=== PATIENT | female | born 1945 | race Caucasian/White ===

== ENCOUNTER 2025-09-17 11:12 | Outpatient (CLI) | payer MEDICARE, OTHER, SELFPAY ==
--- OUTSIDE RECORDS SUMMARY | 2025-08-05 12:49 | XMS_ITS | Encounter Summary ---
Author Organization [facility] Address [address] [place] [address] Care Team Providers Care Sorting Grapple Operator Name Role Phone Araseli Khan DO Primary Care Provider [phone] Reason for Referral * MRI/CAT/PET Scan (Routine) - Closed Specialty Diagnoses / Procedures Referred By Contac t Referred To Contact Radiology Diagnoses Hemorrhagic stroke Procedures CT Head Without Contrast Yogesh Rios PA-C [address] [place] [address] Phone: tel: fax: [facility] [address] [place] [id number] Phone: tel: Referral ID Status Reason Start Date Expiration Date Visits Re quested Visits Authorized [id number] Closed 08/08/2025 11/07/2026 1 1 * Consultation (Routine) - Closed Specialty Diagnoses / Procedures Referred By Contac t Referred To Contact Neurology Diagnoses Intraparenchymal hemorrhage of brain Procedures IA OFFICE/OUTPATIENT NEW MODERATE MDM 45 MINUTES Paige Cary APRN [address] [facility] [address] [place] [address] Phone: tel: fax: Ashley Kinsey APRN [address] [place] [address] Phone: tel: fax: Referral ID Status Reason Start Date Expiration Date V isits Requested Visits Authorized [id number] Closed Specialty Services Required 08/07/2025 11/06/2026 1 1 Reason for Visit * Reason Comments Stroke * Auth/Cert Specialty Diagnoses / Procedures Referred By Yan t Referred To Contact Diagnoses ICH (intracerebral hemorrhage) Referral ID Status Reason Start Date Expiration Date Visits Re quested Visits Authorized [id number] 1 1 Encounter Details Date Type Department Care Team (Late st Contact Info) Description 08/05/2025 1:49 PM EDT - 08/10/2025 3:56 PM EDT Hospital Encounter [facility] 3F [address] [place] [address] Yoana Kinney MD [address] [place] [address] Rishi Alexander DO [address] [place] [address] Yuval Gloria DO [address] [facility] [address] [place] [address] Hemorrhagic stroke (Primary Dx); Intraparenchymal hemorrhage of brain; Oral phase dysphagia; Communication deficit Discharge Disposition: Rehab Facility or Unit (DC - External) Social History Tobacco Use Types Packs/Day Years Used Date Smoking Tobacco: Never Passive Smoke Exposure: Never Smokeless Tobacco: Never Tobacco Cessation:Counseling Given: No Alcohol Use Standard Drinks/Week Comments Yes 0 (1 standard drink = 0.6 oz pur e alcohol) [facility] Utilities Answer Date Recorded In the past 12 months has e electric, gas, oil, or water company threatened to shut off services in your home? No 08/06/2025 AUDIT-C Answer Date Recorded Q1: How often do you have a drink containing alcohol? Never 08/05/2025 Q2: How many drinks containi ng alcohol do you have on a typical day when you are drinking? Patient does not drink Q3: How often do you have si x or more drinks on one occasion? Never 08/05/2025 Hunger Vital Sign Answer Date Recorded Within the past 12 months, y ou worried that your food would run out before you got the money to buy more. Patient unable to answer 08/06/2025 Within the past 12 months, t he food you bought just didn't last and you didn't have money to get more. Patient unable to answer 08/06/2025 PRAPARE - Transportation Answer Date Re corded In the past 12 months, has l ack of transportation kept you from medical appointments or from getting medications? No 11/2024 In the past 12 months, has l ack of transportation kept you from meetings, work, or from getting things needed for daily living? No 08/06/2025 Abuse Screen Answer Date Recorded Feels Unsafe at Home or Work/School no 08/05/2025 Feels Threatened by Someone no 07/09 Does Anyone Try to Keep You From Having Contact with Others or Doing Things Outside Your Home? no 08/05/2025 Physical Signs of Abuse Present no 08/05/2025 Housing Stability Answer Date Recorded Current Living Arrangements home 11/2024 Potentially Unsafe Housing Conditions none 08/06/2025 Family and Community Support Answer Estrada e Recorded If for any reason you need h elp with day-to-day activities such as bathing, preparing meals, shopping, managing finances, etc., do you get the help you need? Patient unable to answer 08/06/2025 Lonely or Isolated Not on file 08/06/2025 Employment Answer Date Recorded Do you want help finding or keeping work or a job? Patient unable to answer 08/06/2025 Disabilities Answer Date Recorded Difficulty Concentrating, Remembering or Making Decisions yes 08/05/2025 Difficulty Managing Errands Independently yes 08/05/2025 Education Answer Date Recorded Do you want help with school or training? For example, starting or completing job training or getting a high school diploma, GED or equivalent Patient unable to answer 08/06/2025 Preferred Language Citizen Of [place] 08/06/2025 Comments Unknown Sex and Gender Information Value Date Recorded Sex Assigned at Not on file Legal Sex Female 1:35 PM EDT Gender Identity Not on file Sexual Orientation Not on file documented as of this encounter Last Filed Vital Signs Vital Sign Reading Time Taken Comments Blood Pressure 113/78 08/10/2025 11:07 AM EDT Pulse 81 08/10/2025 1:00 PM EDT Temperature 36.9 C (98.5 F) 08/10/2025 11:07 AM EDT Respiratory Rate 17 08/10/2025 11:07 AM EDT Oxygen Saturation 96% 08/10/2025 11:07 AM EDT Inhaled Oxygen Concentration - - Weight 79 kg (174 lb 2.6 oz) 08/08/2025 6:00 AM EDT Height 170.2 cm (5' 7 ) 08/05/2025 2:01 PM EDT Body Mass Index 27.28 08/05/2025 2:01 PM EDT documented in this encounter Functional Status * Calculated C-SSRS Risk Score (Lifetime/Recent) Answer Date of Assessment Author No Risk Indicated 08/05/2025 2:14 PM EDT Tripp De Los Santos RN * [place]alt Suicide Severity Rating Scale (Screener/Recent Self-Report) Question Answer Date of Assessment Author 1. Wish to be (Past 1 Month) No 025 2:14 PM EDT Cassidy De Los Santos RN 2. Non-Specific Active Suici nathaniel Thoughts (Past 1 Month) No 08/05/2025 2:14 PM EDT Víctor De Los Santos i, RN 6. Suicidal Behavior (Lifetime) No 2:14 PM EDT Cassidy De Los Santos RN documented as of this encounter Discharge Summaries * Rosemarie Loyd RN - 08/10/2025 10:53 AM EDT Images from the original note were not included. Joie Flores (80 y.o. Female) Discharge summary for stroke unit. Call Rosemarie Loyd RN with concerns [phone] Date of 1945 Social Security Number [id number] [place] [address] [employer] Status Admission Date 08/05/2025 Admission Type Emergency Admitting Provider Yuval Gloria DO Attending Provider Yuval Gloria DO Department, Room/Bed [facility] 3F, S311/1 Discharge Date Discharge Disposition Rehab Facility or Unit (DC - External) Discharge Destination Attending Provider: Yuval Gloria DO Allergies: Hydralazine, Lipitor [Atorvastatin], Morphine Isolation: None Infection: None Code Status: CPR Ht: 170.2 cm (67 ) Wt: 79 kg (174 lb 2.6 oz) Admission Cmt: None Principal Problem: ICH (intracerebral hemorrhage) [I61.9] Active Insurance as of 08/05/2025 Primary Coverage Payor Plan Insurance Group Employer/Plan Group MEDICARE MEDICARE A & B Payor Plan Address Payor Plan Phone Number Payor Plan Fax Number Effective Dates [address] 02/04/2010 - None Entered [facility] [id number] Subscriber Name Subscriber Date Member ID JOIE FLORES 1945 [id number] Secondary Coverage Payor Plan Insurance Group Employer/Plan Group [employer] Payor Plan Address Payor Plan Phone Number Payor Plan Fax Number Effective Dates [address] 11/06/2022 - None Entered [facility] [id number] Subscriber Name Subscriber Date Member ID JOIE FLORES 1945 [id number] Emergency Contacts Vibrating Screed Operator (Rel.) Home Phone Work Phone Mobile Phone DAVINA FREEMAN (Daughter) [phone] -- [phone] Discharge Summary Yuval Gloria DO at 08/10/[address] [place] [address] Medicine Services DISCHARGE SUMMARY Patient Name: Joie Flores : 1945 Date of Admission: 08/05/2025 1:49 PM Date of Discharge: 08/10/25 Primary Care Physician: Araseli Khan DO Consults Date and Time Order Name Status Description 08/05/2025 4:16 PM Inpatient Neurosurgery Consult Completed 08/05/2025 1:50 PM Inpatient Neurology Consult Stroke Completed Hospital Course Presenting Problem: Headache, aphasia Active Hospital Problems Diagnosis POA ICH (intracerebral hemorrhage) [I61.9] Yes Paroxysmal SVT (supraventricular tachycardia) [I47.10] Yes Coronary artery disease involving autologous vein coronary bypass graft without angina pectoris [I25.810] Yes Hyperlipidemia LDL goal <100 [E78.5] Yes Essential hypertension [I10] Yes Hypothyroidism (acquired) [E03.9] Yes Resolved Hospital Problems Diagnosis Date Resolved POA Subdural hematoma [S06.5XAA] 08/05/2025 Yes Hospital Course: Joie Flores is a 80 y.o. female with a history of hypertension, coronary artery disease (status post autologous vein coronary bypass graft), hyperlipidemia, paroxysmal supraventricular tachycardia, and hypothyroidism, who was admitted for acute left temporal intracerebral hemorrhage presenting with headache, aphasia, and right-sided weakness. Workup notable for left temporal parenchymal hemorrhage with vasogenic edema. Neurosurgery consulted, no indication for surgical intervention. Holding all antiplatelets and anticoagulation at this time. Patient will need repeat MRI brain with and witho ut contrast in 3 months. Follow-up with stroke neurology in 4 weeks. Further details documented below. Acute Left Temporal Intracerebral Hemorrhage (ICH) - Patient presenting with headache and aphasia. - Imaging revealing left temporal parenchymal hemorrhage with surrounding vasogenic edema and rightward midline shift - Initially admitted to ICU for neurological monitoring. - Evaluated by neurosurgery, no indication for surgical intervention - Holding antiplatelets and anticoagulation at this time. - Status post Cardene drip. Goal blood pressure less than 140/90 - Continues to show right-sided weakness, right-sided neglect, and severe aphasia which will require inpatient rehab - Patient will need repeat MRI brain with and without contrast in 3 months and follow-up with stroke clinic in 4 weeks. Dysphagia and Communication Impairment - Speech-language pathology evaluation identified oral phase dysphagia with a functional pharyngealphase on FEES, and severe aphasia with apraxia and impaired comprehension and expression. Diet was advanced to thin liquids and tiuc-gb-[id number]/chopped textures with aspiration precautions and feeding as sistance. - Ongoing speech therapy is recommended, with anticipated discharge to inpatient rehabilitation. Urinary Tract Infection - Continue Rocephin (end 08/11/25) Hypertension - Status post Cardene drip. No current blood pressure medications at this time. Coronary Artery Disease HLD - Aspirin held due to ICH. Continue statin Paroxysmal Supraventricular Tachycardia (SVT) - No acute SVT episodes occurred during hospitalization. She was not on antiarrhythmic therapy at home, and cardiac rhythm was monitored. Hypothyroidism - Continue Levothyroxine Mood disorder - Continue home medications Discharge Follow Up Recommendations for outpatient labs/diagnostics: Continue to hold all antiplatelets and anticoagulation. Continue antibiotics as prescribed. Patientwill need follow-up MRI brain with and without contrast in 3 months. Follow-up with stroke neurology in 4 weeks. Day of Discharge HPI: Patient seen resting in bed this morning. Tearful when family is not present. Vital Signs: Temp: [97.3 ??F (36.3 ??C)-98.6 ??F (37 ??C)] 97.3 ??F (36.3 ??C) Heart Rate: [60-86] 68 Resp: [16-18] 17 BP: (82-117)/(56-81) 117/81 Flow (L/min) (Oxygen Therapy): [2] 2 Physical Exam Cardiovascular: Rate and Rhythm: Normal rate. Pulses: Normal pulses. Pulmonary: Effort: Pulmonary effort is normal. No respiratory distress. Abdominal: General: There is no distension. Palpations: Abdomen is soft. Tenderness: There is no abdominal tenderness. There is no guarding or rebound. Musculoskeletal: Right lower leg: No edema. Left lower leg: No edema. Skin: General: Skin is warm. Neurological: Mental Status: She is alert. Comments: Aphasia Pertinent and/or Most Recent Results LAB RESULTS: Lab 08/08/25 0447 08/06/25 0509 08/05/25 1435 08/05/25 1405 WBC 5.48 4.07 3.64 -- HEMOGLOBIN 10.4* 10.4* 10.3* -- HEMOGLOBIN, POC -- -- -- 11.9* HEMATOCRIT 29.6* 31.4* 31.9* -- HEMATOCRIT POC -- -- -- 35* PLATELETS 78* 83* 81* -- NEUTROS ABS -- 2.16 2.02 -- IMMATURE GRANS (ABS) -- 0.01 0.01 -- LYMPHS ABS -- 1.47 1.26 -- MONOS ABS -- 0.30 0.24 -- EOS ABS -- 0.10 0.08 -- MCV 97.7* 101.0* 103.6* -- PROTIME -- -- 15.5* -- APTT -- -- 26.5 -- Lab 08/08/25 0447 08/06/25 0509 08/05/25 1405 SODIUM 135* 141 -- POTASSIUM 4.0 4.2 -- CHLORIDE 101 105 -- CO2 24.0 26.6 -- ANION GAP 10.0 9.4 -- BUN 16.8 13.9 -- CREATININE 0.97 1.07* 1.40* EGFR 59.2* 52.6* 38.1* GLUCOSE 97 95 -- CALCIUM 8.6 8.8 -- MAGNESIUM 2.0 2.0 -- PHOSPHORUS 3.2 -- -- HEMOGLOBIN A1C -- 5.42 -- Lab 08/06/25 0509 08/05/25 1435 TOTAL PROTEIN 5.6* -- ALBUMIN 3.7 -- GLOBULIN 1.9 -- ALT (SGPT) 12 10 AST (SGOT) 19 19 BILIRUBIN 0.9 -- ALK PHOS 62 -- Lab 08/05/25 1435 PROTIME 15.5* INR 1.16* Lab 08/06/25 0509 CHOLESTEROL 99 LDL CHOL 39 HDL CHOL 39* TRIGLYCERIDES 118 Brief Urine Lab Results (Last result in the past 365 days) Color Clarity Blood Leuk Est Nitrite Protein CREAT Urine HCG 08/07/25 1526 Yellow Cloudy Moderate (2+) Large (3+) Positive Trace Microbiology Results (last 10 days) Procedure Component Value - Date/Time Urine Culture - Urine, Straight Cath [[id number]] (Abnormal) (Susceptibility) Collected: 08/07/25 1526 Lab Status: Final result Specimen: Urine from Straight Cath Updated: 08/09/25 1010 Urine Culture >100,000 CFU/mL Escherichia coli Narrative: Colonization of the urinary tract without infection is common. Treatment is discouraged unless the patient is symptomatic, , or undergoing an invasive urologic procedure. Susceptibility Escherichia coli MED Amoxicillin + Clavulanate Susceptible Ampicillin Resistant Ampicillin + Sulbactam Resistant Cefazolin (Urine) Susceptible Cefepime Susceptible Ceftazidime Susceptible Ceftriaxone Susceptible Cefuroxime axetil Resistant Ciprofloxacin Resistant Gentamicin Susceptible Levofloxacin Resistant Nitrofurantoin Resistant Piperacillin + Tazobactam Susceptible Trimethoprim + Sulfamethoxazole Susceptible WELL DRILLER FEES - Fiberoptic Endo Eval Swallow Result Date: 08/08/2025 This procedure was auto-finalized with no dictation required. MRI Brain Without Contrast Result Date: 08/07/2025 MRI BRAIN WO CONTRAST Date of Exam: 08/07/2025 2:30 PM EDT Indication: ICH; eval for microhemorrhages. Comparison: CT head without contrast 08/06/2025 Technique: Routine multiplanar/multisequence sequence images of the brain were obtained without contrast administration. Findings: There is a 5.9 x 4.3 cm parenchymal hemorrhage in the left temporal lobe with surrounding edema and mass effect resulting in effacement of the left lateral ventricle and 6 mm left to right midline shift. Moderate chronic microvascular ischemic changes are present. There is mild age-related atrophy. Susceptibility weighted images are somewhat limited by motion artifact. There are 2 suspected punctate microhemorrhages, in the left occipital and parietal lobes. There may be an additional punctate remote microhemorrhage in the right parietal lobe. There is a partial empty sella configuration. Calvarial and superficial soft tissue signal is within normal limits. Orbits appear unremarkable. Trace mucosal thickening of the paranasal sinuses. Mastoid air cells are clear. Impression: 1.Large left temporal lobe parenchymal hemorrhage similar to previous CT, with surrounding edema and mass effect resulting in effacement of the left lateral ventricle and 6 mm left to right midline shift. 2.Motion limited examination. There are a few punctate foci of susceptibility artifact suggesting minimal chronic microhemorrhages. 3.3. Mild age-related atrophy and moderate chronicmicrovascular ischemic changes. Electronically Signed: Teena Hou MD 08/07/2025 3:58 PM EDT Workstation ID: [id number] CT Head Without Contrast Result Date: 08/06/2025 CT HEAD WO CONTRAST Date of Exam: 08/06/2025 5:29 AM EDT Indication: Of ICH stability. Comparison: 08/05/2025. Technique: Axial CT images were obtained of the head without contrast administration. Automated exposure control and iterative construction methods were used. Findings: Redemonstration of an intraparenchymal hemorrhage seen within the left temporal lobe which appears appears to have increased in size as compared to the previous study measuring up to 5.3 x 3.8 cm, previously measuring up to 4.9 x 3.8 cm. A component of this may be related to slight difference in angle and technique. Mass effect is present which appears similar as compared to the previous study. There is left to right midline shift measuring approximately 4 mm which appears unchanged. Effacement of the frontal horn of the left lateral ventricle present which appears similar. There is no extracerebral collection. Ventricles are normal in size and configuration for patient's stated age. Posterior fossa is within nor mal limits. Calvarium and skull base appear intact. Visualized sinuses show no air fluid levels. Visualized orbits are unremarkable. Impression: Redemonstration of an intraparenchymal hemorrhage seen within the left temporal lobe which appears slightly increased in size as compared to the previous study. A component of this may berelated to slight difference in scanning angle and resultant measuring technique. Mass effect and left to right midline shift appears similar as compared to the previous study. Electronically Signed:Gaby Vega MD 08/06/2025 5:51 AM EDT Workstation ID: [id number] CT Head Without Contrast Result Date: 08/05/2025 CT HEAD WO CONTRAST Date of Exam: 08/05/2025 8:04 PM EDT Indication: Stroke, follow up Stability scan. Comparison: Noncontrast CT of the head performed on the same date. Technique: Axial CT images were obtained of the head without contrast administration. Automated exposure control and iterative construction methods were used. Findings: Left temporal intraparenchymal hemorrhage with surrounding mass effect and edema. This has enlarged compared with the prior study. This measures 4.9 cm x 4 cm compared with 4.8 cm x 2.9 cm previously. No intraventricular extension is appreciated. 0.7 cm rightward midline shift which is increased compared to 0.5 cm previously. Enlarging left temporal intraparenchymal hemorrhage with mildly worsened rightward midline shift. Electronically Signed: Mango Alvarado MD 08/05/2025 8:19 PM EDT Workstation ID: [id number] XR Chest 1 View Result Date: 08/05/2025 XR CHEST 1 VW Date of Exam: 08/05/2025 2:25 PM EDT Indication: Acute Stroke Protocol (onset < 12 hrs). Comparison: None available. Findings: There is top normal size of the heart. There is an ill-defined retrocardiac lucency likely reflecting a sliding hiatal hernia. The lungs are grossly clear. No pleural effusion or pneumothorax. Impression: No acute cardiopulmonary findings. Suspected hiatal hernia. Electronically Signed: MD Ajay 08/05/2025 3:18 PM EDT Workstation ID: [id number] CT Angiogram Head w AI Analysis of LVO Result Date: 08/05/2025 CT ANGIOGRAM HEAD W AI ANALYSIS OF LVO, CT ANGIOGRAM NECK Date of Exam: 08/05/2025 1:55 PM EDT Indication: Neuro Deficit, acute, Stroke suspected Neuro deficit, acute stroke suspected. Comparison: Head CT 08/05/2025 Technique: CTA of the head and neck was performed after the uneventful intravenous administration of iodinated contrast. Reconstructed coronal and sagittal images were also obtained. Inaddition, a 3-D volume rendered image was created for interpretation. Automated exposure control and iterative reconstruction methods were used. Findings: HEAD CTA: Anterior circulation: No proximal large vessel occlusion or major stenosis. Posterior circulation: No proximal large vessel occlusion or major stenosis. Major dural venous sinuses: No evidence of dural venous sinus thrombosis within the limitation of angiographic contrast imaging. Additional findings: No significant interval change in the left temporal parenchymal hemorrhage. No visible spot sign to suggest active arterial hemorrha ge. No evidence of a high flow arteriovenous malformation or fistula. NECK CTA: Conventional, three-vessel, aortic arch. Normal contrast enhancement in the common carotid arteries from their origins to the bifurcation. Minimal atherosclerotic calcification at the carotid bulbs. No significant narrowing of the right ICA by NASCET criteria at its origin. No significant narrowing of the left ICA by NASCET criteria at its origin. Otherwise, normal contrast enhancement of the internal carotid arteries from their origins to the proximal intradural portions.Irregularity and atherosclerotic calcification of the petrous and cavernous carotid arteries. Normal enhancement in the vertebral arteries from their origins to their proximal intradural portions. The left vertebral artery is dominant. Patentsubclavian arteries. Angiographic contrast timing precludes accurate assessement of jugular vein patency. SOFT TISSUE NECK: No exophytic lesion seen within the aerodigestive tract. No pathologic appea ring lymph nodes by imaging criteria. The visualized glands appear unremarkable. No acute or aggressive appearing osseous or soft tissue process.Degenerative changes of the imaged spine. Atelectasis in the imaged lungs. Dilated main pulmonary artery measuring 42 mm which can be seen in pulmonary hypertension. Impression: No significant interval change in the left temporal parenchymal hemorrhage. No proximallarge vessel occlusion or severe stenosis of the major arteries of the head and neck. Electronically Signed: Rodney Oliva MD 08/05/2025 2:52 PM EDT Workstation ID: [id number] CT Angiogram Neck Result Date: 08/05/2025 CT ANGIOGRAM HEAD W AI ANALYSIS OF LVO, CT ANGIOGRAM NECK Date of Exam: 08/05/2025 1:55 PM EDT Indication: Neuro Deficit, acute, Stroke suspected Neuro deficit, acute stroke suspected. Comparison: Head CT 08/05/2025 Technique: CTA of the head and neck was performed after the uneventful intravenous administration of iodinated contrast. Reconstructed coronal and sagittal images were also obtained. Inaddition, a 3-D volume rendered image was created for interpretation. Automated exposure control and iterative reconstruction methods were used. Findings: HEAD CTA: Anterior circulation: No proximal large vessel occlusion or major stenosis. Posterior circulation: No proximal large vessel occlusion or major stenosis. Major dural venous sinuses: No evidence of dural venous sinus thrombosis within the limitation of angiographic contrast imaging. Additional findings: No significant interval change in the left temporal parenchymal hemorrhage. No visible spot sign to suggest active arterial hemorrha ge. No evidence of a high flow arteriovenous malformation or fistula. NECK CTA: Conventional, three-vessel, aortic arch. Normal contrast enhancement in the common carotid arteries from their origins to the bifurcation. Minimal atherosclerotic calcification at the carotid bulbs. No significant narrowing of the right ICA by NASCET criteria at its origin. No significant narrowing of the left ICA by NASCET criteria at its origin. Otherwise, normal contrast enhancement of the internal carotid arteries from their origins to the proximal intradural portions.Irregularity and atherosclerotic calcification of the petrous and cavernous carotid arteries. Normal enhancement in the vertebral arteries from their origins to their proximal intradural portions. The left vertebral artery is dominant. Patentsubclavian arteries. Angiographic contrast timing precludes accurate assessement of jugular vein patency. SOFT TISSUE NECK: No exophytic lesion seen within the aerodigestive tract. No pathologic appea ring lymph nodes by imaging criteria. The visualized glands appear unremarkable. No acute or aggressive appearing osseous or soft tissue process.Degenerative changes of the imaged spine. Atelectasis in the imaged lungs. Dilated main pulmonary artery measuring 42 mm which can be seen in pulmonary hypertension. Impression: No significant interval change in the left temporal parenchymal hemorrhage. No proximallarge vessel occlusion or severe stenosis of the major arteries of the head and neck. Electronically Signed: Rodney Oliva MD 08/05/2025 2:52 PM EDT Workstation ID: [id number] CT Head Without Contrast Stroke Protocol Result Date: 08/05/2025 CT HEAD WO CONTRAST STROKE PROTOCOL Date of Exam: 08/05/2025 1:51 PM EDT Indication: Neuro deficit, acute, stroke suspected Neuro Deficit, acute, Stroke suspected. Comparison: None available. Technique: Axial CT images were obtained of the head without contrast administration. Reconstructed coronal images were also obtained. Automated exposure control and iterative construction methods were used. Scan Time: 1:59 p.m. Results discussed with stroke team at 1:59 p.m. Findings: Parenchyma: Within the left temporal lobe there is a 4.5 x 3.6 x 3.0 cm parenchymal hemorrhage with surrounding vasogenicedema. No loss of mora-white differentiation to suggest large territory infarct. Mild parenchymal volume loss. Scattered periventricular and subcortical white matter hypodensities, nonspecific, but most often consistent with small vessel ischemic changes. There is approximately 5 mm of rightward midline shift. No evidence of downward herniation. Ventricles and extra axial spaces:Prominent ventricles and sulci secondary to volume loss. No extra axial fluid collection seen. Other:Orbits are grossly intact. Scattered paranasal sinus mucosal thickening. Mastoid air cells are clear. Calvarium is intact. Intracranial atherosclerotic calcification is present. Impression: Parenchymal hemorrhage within the left temporal lobe with surrounding vasogenic edema and approximately 5 mm of rightward midline shift. Electronically Signed: Jagjit Florez MD 08/05/2025 2:04 PM EDT Workstation ID: [id number] Results for orders placed in visit on 06/02/23 Duplex Carotid Ultrasound CAR 06/06/2023 2:45 PM Interpretation Summary Right internal carotid artery demonstrates a less than 50% stenosis. Left internal carotid artery demonstrates a less than 50% stenosis. Results for orders placed in visit on 06/02/23 Duplex Carotid Ultrasound CAR 06/06/2023 2:45 PM Interpretation Summary Right internal carotid artery demonstrates a less than 50% stenosis. Left internal carotid artery demonstrates a less than 50% stenosis. Results for orders placed in visit on 06/02/23 Adult Transthoracic Echo Complete W/ Cont if Necessary Per Protocol 06/06/2023 2:45 PM Interpretation Summary Left ventricular ejection fraction appears to be 61 - 65%. Left ventricular wall thickness is consistent with concentric hypertrophy. Left ventricular diastolic function is consistent with (grade I) impaired relaxation. The right ventricular cavity is dilated. Estimated right ventricular systolic pressure from tricuspid regurgitation is normal (<35 mmHg). I have personally reviewed the therapy plans: [x] PT/OT/ ST Therapy Plans Plan for Follow-up of Pending Labs/Results: N/A Discharge Details Discharge Medications New Medications Instructions Start Date cefTRIAXone 1,000 mg in sodium chloride 0.9 % 100 mL IVPB 1,000 mg, Intravenous, Every 24 Hours Continue These Medications Instructions Start Date ALPRAZolam 0.25 MG tablet Commonly known as: XANAX TAKE 1/2 TO 1 TABLET BY MOUTH 1 TO 3 TIMES EVERY DAY NEEDED atorvastatin 20 MG tablet Commonly known as: LIPITOR 20 mg, Every Evening cetirizine 10 MG tablet Commonly known as: zyrTEC 10 mg, Nightly Cranberry 500 MG tablet 1,000 mg, Nightly diphenoxylate-atropine 2.5-0.025 MG per tablet Commonly known as: LOMOTIL esomeprazole 40 MG capsule Commonly known as: nexIUM 40 mg, Every Morning Before Breakfast levothyroxine 50 MCG tablet Commonly known as: SYNTHROID, LEVOTHROID 1 tablet, Daily montelukast 10 MG tablet Commonly known as: SINGULAIR 10 mg, Nightly multivitamin with minerals tablet tablet 1 tablet, Daily ondansetron 4 MG tablet Commonly known as: ZOFRAN 4 mg, Every 8 Hours PRN venlafaxine XR 75 MG 24 hr capsule Commonly known as: EFFEXOR-XR 75 mg, Nightly Stop These Medications aspirin 81 MG chewable tablet Allergies Allergen Reactions Hydralazine Unknown - Low Severity Lipitor [Atorvastatin] Unknown - Low Severity Morphine Rash Discharge Disposition: Rehab Facility or Unit (DC - External) Diet: Hospital: Diet Order Procedures Diet: Regular/House; Texture: Soft to Chew (NDD 3); Soft to Chew: Chopped Meat; Fluid Consistency: Thin (IDDSI 0) Dietary modifiers entered as reported to [facility] by RN. Wade whole with thin Standing Status: Standing Number of Occurrences: 1 Diets:: Regular/House Texture:: Soft to Chew (NDD 3) Soft to Chew:: Chopped Meat Fluid Consistency:: Thin (IDDSI 0) Diet Instructions Diet: Regular/House Diet; Soft to Chew (NDD 3); Chopped Meat; Thin (IDDSI 0) Discharge Diet: Regular/House Diet Texture: Soft to Chew (NDD 3) Soft to Chew: Chopped Meat Fluid Consistency: Thin (IDDSI 0) Activity: As tolerated Restrictions or Other Recommendations: As tolerated CODE STATUS: Code Status and Medical Interventions: CPR (Attempt to Resuscitate); Full Support Ordered at: 08/09/25 1701 Code Status (Patient has no pulse and is not breathing): CPR (Attempt to Resuscitate) Medical Interventions (Patient has pulse or is breathing): Full Support Level Of Support Discussed With: Patient Future Appointments Date Time Provider Department Center 08/25/2025 10:45 AM Belinda Puri MD [facility] 09/02/2025 9:30 AM Ashley Kinsey APRN [facility] 09/10/2025 9:15 AM Aniya Lindsey APRN [facility] Additional Instructions for the Follow-ups that You Need to Schedule Ambulatory Referral to Neurology As directed 4 weeks - ICH Order Comments: 4 weeks - ICH Discharge Follow-up with PCP As directed Currently Documented PCP: Araseli Khan DO PCP Follow Up Details: Follow-up with PCP in 1 week Discharge Follow-up with Specialty: Follow-up with stroke neurology in 4 weeks. As directed Specialty: Follow-up with stroke neurology in [address] Head Without Contrast Sep 04, 2025 Please schedule approximately 09/04/2025. Can be scheduled same day as follow-up clinic if clinic appointment is close to that date, STEREOTACTIC GUIDANCE PROTOCOL?: No Exam reason: Reevaluation of ICH Release to patient: Routine Release Yuval Gloria DO 08/10/25 Time Spent on Discharge: I spent 39 minutes on this discharge activity which included: cjys-[id number]-[id number] with the patient, reviewing the data in the system, coordination of the care with the nursing staff as well as consultants, documentation, and entering orders. 1021 * Yuval Gloria DO - 08/10/2025 10:16 AM EDT Images from the original note were not included. [facility] DISCHARGE SUMMARY Patient Name: Joie Flores : 1945 Date of Admission: 08/05/2025 1:49 PM Date of Discharge: 08/10/25 Primary Care Physician: Araseli Khan DO Consults Date and Time Order Name Status Description 08/05/2025 4:16 PM Inpatient Neurosurgery Consult Completed 08/05/2025 1:50 PM Inpatient Neurology Consult Stroke Completed Hospital Course Presenting Problem: Headache, aphasia Active Hospital Problems Diagnosis POA ??? ICH (intracerebral hemorrhage) [I61.9] Yes ??? Paroxysmal SVT (supraventricular tachycardia) [I47.10] Yes ??? Coronary artery disease involving autologous vein coronary bypass graft without angina pectoris[I25.810] Yes Hyperlipidemia LDL goal <100 [E78.5] Yes ??? Essential hypertension [I10] Yes ??? Hypothyroidism (acquired) [E03.9] Yes Resolved Hospital Problems Diagnosis Date Resolved POA ??? Subdural hematoma [S06.5XAA] 08/05/2025 Yes Hospital Course: Joie Flores is a 80 y.o. female with a history of hypertension, coronary artery disease (status post autologous vein coronary bypass graft), hyperlipidemia, paroxysmal supraventricular tachycardia, and hypothyroidism, who was admitted for acute left temporal intracerebral hemorrhage presenting with headache, aphasia, and right-sided weakness. Workup notable for left temporal parenchymal hemorrhage with vasogenic edema. Neurosurgery consulted, no indication for surgical intervention. Holding all antiplatelets and anticoagulation at this time. Patient will need repeat MRI brain with and witho ut contrast in 3 months. Follow-up with stroke neurology in 4 weeks. Further details documented below. Acute Left Temporal Intracerebral Hemorrhage (ICH) - Patient presenting with headache and aphasia. - Imaging revealing left temporal parenchymal hemorrhage with surrounding vasogenic edema and rightward midline shift - Initially admitted to ICU for neurological monitoring. - Evaluated by neurosurgery, no indication for surgical intervention - Holding antiplatelets and anticoagulation at this time. - Status post Cardene drip. Goal blood pressure less than 140/90 - Continues to show right-sided weakness, right-sided neglect, and severe aphasia which will require inpatient rehab - Patient will need repeat MRI brain with and without contrast in 3 months and follow-up with stroke clinic in 4 weeks. Dysphagia and Communication Impairment - Speech-language pathology evaluation identified oral phase dysphagia with a functional pharyngealphase on FEES, and severe aphasia with apraxia and impaired comprehension and expression. Diet was advanced to thin liquids and xqjq-og-rard/chopped textures with aspiration precautions and feeding as sistance. - Ongoing speech therapy is recommended, with anticipated discharge to inpatient rehabilitation. Urinary Tract Infection - Continue Rocephin (end 08/11/25) Hypertension - Status post Cardene drip. No current blood pressure medications at this time. Coronary Artery Disease HLD - Aspirin held due to ICH. Continue statin Paroxysmal Supraventricular Tachycardia (SVT) - No acute SVT episodes occurred during hospitalization. She was not on antiarrhythmic therapy at home, and cardiac rhythm was monitored. Hypothyroidism - Continue Levothyroxine Mood disorder - Continue home medications Discharge Follow Up Recommendations for outpatient labs/diagnostics: Continue to hold all antiplatelets and anticoagulation. Continue antibiotics as prescribed. Patientwill need follow-up MRI brain with and without contrast in 3 months. Follow-up with stroke neurology in 4 weeks. Day of Discharge HPI: Patient seen resting in bed this morning. Tearful when family is not present. Vital Signs: Temp: [97.3 ??F (36.3 ??C)-98.6 ??F (37 ??C)] 97.3 ??F (36.3 ??C) Heart Rate: [60-86] 68 Resp: [16-18] 17 BP: (82-117)/(56-81) 117/81 Flow (L/min) (Oxygen Therapy): [2] 2 Physical Exam Cardiovascular: Rate and Rhythm: Normal rate. Pulses: Normal pulses. Pulmonary: Effort: Pulmonary effort is normal. No respiratory distress. Abdominal: General: There is no distension. Palpations: Abdomen is soft. Tenderness: There is no abdominal tenderness. There is no guarding or rebound. Musculoskeletal: Right lower leg: No edema. Left lower leg: No edema. Skin: General: Skin is warm. Neurological: Mental Status: She is alert. Comments: Aphasia Pertinent and/or Most Recent Results LAB RESULTS: Lab 08/08/25 0447 08/06/25 0509 08/05/25 1435 08/05/25 1405 WBC 5.48 4.07 3.64 -- HEMOGLOBIN 10.4* 10.4* 10.3* -- HEMOGLOBIN, POC -- -- -- 11.9* HEMATOCRIT 29.6* 31.4* 31.9* -- HEMATOCRIT POC -- -- -- 35* PLATELETS 78* 83* 81* -- NEUTROS ABS -- 2.16 2.02 -- IMMATURE GRANS (ABS) -- 0.01 0.01 -- LYMPHS ABS -- 1.47 1.26 -- MONOS ABS -- 0.30 0.24 -- EOS ABS -- 0.10 0.08 -- MCV 97.7* 101.0* 103.6* -- PROTIME -- -- 15.5* -- APTT -- -- 26.5 -- Lab 08/08/25 0447 08/06/25 0509 08/05/25 1405 SODIUM 135* 141 -- POTASSIUM 4.0 4.2 -- CHLORIDE 101 105 -- CO2 24.0 26.6 -- ANION GAP 10.0 9.4 -- BUN 16.8 13.9 -- CREATININE 0.97 1.07* 1.40* EGFR 59.2* 52.6* 38.1* GLUCOSE 97 95 -- CALCIUM 8.6 8.8 -- MAGNESIUM 2.0 2.0 -- PHOSPHORUS 3.2 -- -- HEMOGLOBIN A1C -- 5.42 -- Lab 08/06/25 0509 08/05/25 1435 TOTAL PROTEIN 5.6* -- ALBUMIN 3.7 -- GLOBULIN 1.9 -- ALT (SGPT) 12 10 AST (SGOT) 19 19 BILIRUBIN 0.9 -- ALK PHOS 62 -- Lab 08/05/25 1435 PROTIME 15.5* INR 1.16* Lab 08/06/25 0509 CHOLESTEROL 99 LDL CHOL 39 HDL CHOL 39* TRIGLYCERIDES 118 Brief Urine Lab Results (Last result in the past 365 days) Color Clarity Blood Leuk Est Nitrite Protein CREAT Urine HCG 08/07/25 1526 Yellow Cloudy Moderate (2+) Large (3+) Positive Trace Microbiology Results (last 10 days) Procedure Component Value - Date/Time Urine Culture - Urine, Straight Cath [[id number]] (Abnormal) (Susceptibility) Collected: 08/07/25 1526 Lab Status: Final result Specimen: Urine from Straight Cath Updated: 08/09/25 1010 Urine Culture >100,000 CFU/mL Escherichia coli Narrative: Colonization of the urinary tract without infection is common. Treatment is discouraged unless the patient is symptomatic, , or undergoing an invasive urologic procedure. Susceptibility Escherichia coli MED Amoxicillin + Clavulanate Susceptible Ampicillin Resistant Ampicillin + Sulbactam Resistant Cefazolin (Urine) Susceptible Cefepime Susceptible Ceftazidime Susceptible Ceftriaxone Susceptible Cefuroxime axetil Resistant Ciprofloxacin Resistant Gentamicin Susceptible Levofloxacin Resistant Nitrofurantoin Resistant Piperacillin + Tazobactam Susceptible Trimethoprim + Sulfamethoxazole Susceptible [facility] FEES - Fiberoptic Endo Eval Swallow Result Date: 08/08/2025 This procedure was auto-finalized with no dictation required. MRI Brain Without Contrast Result Date: 08/07/2025 MRI BRAIN WO CONTRAST Date of Exam: 08/07/2025 2:30 PM EDT Indication: ICH; eval for microhemorrhages. Comparison: CT head without contrast 08/06/2025 Technique: Routine multiplanar/multisequence sequence images of the brain were obtained without contrast administration. Findings: There is a 5.9 x 4.3 cm parenchymal hemorrhage in the left temporal lobe with surrounding edema and mass effect resulting in effacement of the left lateral ventricle and 6 mm left to right midline shift. Moderate chronic microvascular ischemic changes are present. There is mild age-related atrophy. Susceptibility weighted images are somewhat limited by motion artifact. There are 2 suspected punctate microhemorrhages, in the left occipital and parietal lobes. There may be an additional punctate remote microhemorrhage in the right parietal lobe. There is a partial empty sella configuration. Calvarial and superficial soft tissue signal is within normal limits. Orbits appear unremarkable. Trace mucosal thickening of the paranasal sinuses. Mastoid air cells are clear. Impression: 1.Large left temporal lobe parenchymal hemorrhage similar to previous CT, with surrounding edema and mass effect resulting in effacement of the left lateral ventricle and 6 mm left to right midline shift. 2.Motion limited examination. There are a few punctate foci of susceptibility artifact suggesting minimal chronic microhemorrhages. 3.3. Mild age-related atrophy and moderate chronicmicrovascular ischemic changes. Electronically Signed: Teena Hou MD 08/07/2025 3:58 PM EDT Workstation ID: [id number] CT Head Without Contrast Result Date: 08/06/2025 CT HEAD WO CONTRAST Date of Exam: 08/06/2025 5:29 AM EDT Indication: Of ICH stability. Comparison: 08/05/2025. Technique: Axial CT images were obtained of the head without contrast administration. Automated exposure control and iterative construction methods were used. Findings: Redemonstration of an intraparenchymal hemorrhage seen within the left temporal lobe which appears appears to have increased in size as compared to the previous study measuring up to 5.3 x 3.8 cm, previously measuring up to 4.9 x 3.8 cm. A component of this may be related to slight difference in angle and technique. Mass effect is present which appears similar as compared to the previous study. There is left to right midline shift measuring approximately 4 mm which appears unchanged. Effacement of the frontal horn of the left lateral ventricle present which appears similar. There is no extracerebral collection. Ventricles are normal in size and configuration for patient's stated age. Posterior fossa is within nor mal limits. Calvarium and skull base appear intact. Visualized sinuses show no air fluid levels. Visualized orbits are unremarkable. Impression: Redemonstration of an intraparenchymal hemorrhage seen within the left temporal lobe which appears slightly increased in size as compared to the previous study. A component of this may berelated to slight difference in scanning angle and resultant measuring technique. Mass effect and left to right midline shift appears similar as compared to the previous study. Electronically Signed:Gaby Vega MD 08/06/2025 5:51 AM EDT Workstation ID: [id number] CT Head Without Contrast Result Date: 08/05/2025 CT HEAD WO CONTRAST Date of Exam: 08/05/2025 8:04 PM EDT Indication: Stroke, follow up Stability scan. Comparison: Noncontrast CT of the head performed on the same date. Technique: Axial CT images were obtained of the head without contrast administration. Automated exposure control and iterative construction methods were used. Findings: Left temporal intraparenchymal hemorrhage with surrounding mass effect and edema. This has enlarged compared with the prior study. This measures 4.9 cm x 4 cm compared with 4.8 cm x 2.9 cm previously. No intraventricular extension is appreciated. 0.7 cm rightward midline shift which is increased compared to 0.5 cm previously. Enlarging left temporal intraparenchymal hemorrhage with mildly worsened rightward midline shift. Electronically Signed: Mango Alvarado MD 08/05/2025 8:19 PM EDT Workstation ID: [id number] XR Chest 1 View Result Date: 08/05/2025 XR CHEST 1 VW Date of Exam: 08/05/2025 2:25 PM EDT Indication: Acute Stroke Protocol (onset < 12 hrs). Comparison: None available. Findings: There is top normal size of the heart. There is an ill-defined retrocardiac lucency likely reflecting a sliding hiatal hernia. The lungs are grossly clear. No pleural effusion or pneumothorax. Impression: No acute cardiopulmonary findings. Suspected hiatal hernia. Electronically Signed: MD Ajay 08/05/2025 3:18 PM EDT Workstation ID: [id number] CT Angiogram Head w AI Analysis of LVO Result Date: 08/05/2025 CT ANGIOGRAM HEAD W AI ANALYSIS OF LVO, CT ANGIOGRAM NECK Date of Exam: 08/05/2025 1:55 PM EDT Indication: Neuro Deficit, acute, Stroke suspected Neuro deficit, acute stroke suspected. Comparison: Head CT 08/05/2025 Technique: CTA of the head and neck was performed after the uneventful intravenous administration of iodinated contrast. Reconstructed coronal and sagittal images were also obtained. Inaddition, a 3-D volume rendered image was created for interpretation. Automated exposure control and iterative reconstruction methods were used. Findings: HEAD CTA: Anterior circulation: No proximal large vessel occlusion or major stenosis. Posterior circulation: No proximal large vessel occlusion or major stenosis. Major dural venous sinuses: No evidence of dural venous sinus thrombosis within the limitation of angiographic contrast imaging. Additional findings: No significant interval change in the left temporal parenchymal hemorrhage. No visible spot sign to suggest active arterial hemorrha ge. No evidence of a high flow arteriovenous malformation or fistula. NECK CTA: Conventional, three-vessel, aortic arch. Normal contrast enhancement in the common carotid arteries from their origins to the bifurcation. Minimal atherosclerotic calcification at the carotid bulbs. No significant narrowing of the right ICA by NASCET criteria at its origin. No significant narrowing of the left ICA by NASCET criteria at its origin. Otherwise, normal contrast enhancement of the internal carotid arteries from their origins to the proximal intradural portions.Irregularity and atherosclerotic calcification of the petrous and cavernous carotid arteries. Normal enhancement in the vertebral arteries from their origins to their proximal intradural portions. The left vertebral artery is dominant. Patentsubclavian arteries. Angiographic contrast timing precludes accurate assessement of jugular vein patency. SOFT TISSUE NECK: No exophytic lesion seen within the aerodigestive tract. No pathologic appea ring lymph nodes by imaging criteria. The visualized glands appear unremarkable. No acute or aggressive appearing osseous or soft tissue process.Degenerative changes of the imaged spine. Atelectasis in the imaged lungs. Dilated main pulmonary artery measuring 42 mm which can be seen in pulmonary hypertension. Impression: No significant interval change in the left temporal parenchymal hemorrhage. No proximallarge vessel occlusion or severe stenosis of the major arteries of the head and neck. Electronically Signed: Rodney Oliva MD 08/05/2025 2:52 PM EDT Workstation ID: [id number] CT Angiogram Neck Result Date: 08/05/2025 CT ANGIOGRAM HEAD W AI ANALYSIS OF LVO, CT ANGIOGRAM NECK Date of Exam: 08/05/2025 1:55 PM EDT Indication: Neuro Deficit, acute, Stroke suspected Neuro deficit, acute stroke suspected. Comparison: Head CT 08/05/2025 Technique: CTA of the head and neck was performed after the uneventful intravenous administration of iodinated contrast. Reconstructed coronal and sagittal images were also obtained. Inaddition, a 3-D volume rendered image was created for interpretation. Automated exposure control and iterative reconstruction methods were used. Findings: HEAD CTA: Anterior circulation: No proximal large vessel occlusion or major stenosis. Posterior circulation: No proximal large vessel occlusion or major stenosis. Major dural venous sinuses: No evidence of dural venous sinus thrombosis within the limitation of angiographic contrast imaging. Additional findings: No significant interval change in the left temporal parenchymal hemorrhage. No visible spot sign to suggest active arterial hemorrha ge. No evidence of a high flow arteriovenous malformation or fistula. NECK CTA: Conventional, three-vessel, aortic arch. Normal contrast enhancement in the common carotid arteries from their origins to the bifurcation. Minimal atherosclerotic calcification at the carotid bulbs. No significant narrowing of the right ICA by NASCET criteria at its origin. No significant narrowing of the left ICA by NASCET criteria at its origin. Otherwise, normal contrast enhancement of the internal carotid arteries from their origins to the proximal intradural portions.Irregularity and atherosclerotic calcification of the petrous and cavernous carotid arteries. Normal enhancement in the vertebral arteries from their origins to their proximal intradural portions. The left vertebral artery is dominant. Patentsubclavian arteries. Angiographic contrast timing precludes accurate assessement of jugular vein patency. SOFT TISSUE NECK: No exophytic lesion seen within the aerodigestive tract. No pathologic appea ring lymph nodes by imaging criteria. The visualized glands appear unremarkable. No acute or aggressive appearing osseous or soft tissue process.Degenerative changes of the imaged spine. Atelectasis in the imaged lungs. Dilated main pulmonary artery measuring 42 mm which can be seen in pulmonary hypertension. Impression: No significant interval change in the left temporal parenchymal hemorrhage. No proximallarge vessel occlusion or severe stenosis of the major arteries of the head and neck. Electronically Signed: Rodney Oliva MD 08/05/2025 2:52 PM EDT Workstation ID: [id number] CT Head Without Contrast Stroke Protocol Result Date: 08/05/2025 CT HEAD WO CONTRAST STROKE PROTOCOL Date of Exam: 08/05/2025 1:51 PM EDT Indication: Neuro deficit, acute, stroke suspected Neuro Deficit, acute, Stroke suspected. Comparison: None available. Technique: Axial CT images were obtained of the head without contrast administration. Reconstructed coronal images were also obtained. Automated exposure control and iterative construction methods were used. Scan Time: 1:59 p.m. Results discussed with stroke team at 1:59 p.m. Findings: Parenchyma: Within the left temporal lobe there is a 4.5 x 3.6 x 3.0 cm parenchymal hemorrhage with surrounding vasogenicedema. No loss of mora-white differentiation to suggest large territory infarct. Mild parenchymal volume loss. Scattered periventricular and subcortical white matter hypodensities, nonspecific, but most often consistent with small vessel ischemic changes. There is approximately 5 mm of rightward midline shift. No evidence of downward herniation. Ventricles and extra axial spaces:Prominent ventricles and sulci secondary to volume loss. No extra axial fluid collection seen. Other:Orbits are grossly intact. Scattered paranasal sinus mucosal thickening. Mastoid air cells are clear. Calvarium is intact. Intracranial atherosclerotic calcification is present. Impression: Parenchymal hemorrhage within the left temporal lobe with surrounding vasogenic edema and approximately 5 mm of rightward midline shift. Electronically Signed: Jagjit Florez MD 08/05/2025 2:04 PM EDT Workstation ID: [id number] Results for orders placed in visit on 06/02/23 Duplex Carotid Ultrasound CAR 06/06/2023 2:45 PM Interpretation Summary ??? Right internal carotid artery demonstrates a less than 50% stenosis. ??? Left internal carotid artery demonstrates a less than 50% stenosis. Results for orders placed in visit on 06/02/23 Duplex Carotid Ultrasound CAR 06/06/2023 2:45 PM Interpretation Summary ??? Right internal carotid artery demonstrates a less than 50% stenosis. ??? Left internal carotid artery demonstrates a less than 50% stenosis. Results for orders placed in visit on 06/02/23 Adult Transthoracic Echo Complete W/ Cont if Necessary Per Protocol 06/06/2023 2:45 PM Interpretation Summary ??? Left ventricular ejection fraction appears to be 61 - 65%. ??? Left ventricular wall thickness is consistent with concentric hypertrophy. ??? Left ventricular diastolic function is consistent with (grade I) impaired relaxation. ??? The right ventricular cavity is dilated. Estimated right ventricular systolic pressure from tricuspid regurgitation is normal (<35 mmHg). I have personally reviewed the therapy plans: [x] PT/OT/ ST Therapy Plans Plan for Follow-up of Pending Labs/Results: N/A Discharge Details Discharge Medications New Medications Instructions Start Date cefTRIAXone 1,000 mg in sodium chloride 0.9 % 100 mL IVPB 1,000 mg, Intravenous, Every 24 Hours Continue These Medications Instructions Start Date ALPRAZolam 0.25 MG tablet Commonly known as: XANAX TAKE 1/2 TO 1 TABLET BY MOUTH 1 TO 3 TIMES EVERY DAY NEEDED atorvastatin 20 MG tablet Commonly known as: LIPITOR 20 mg, Every Evening cetirizine 10 MG tablet Commonly known as: zyrTEC 10 mg, Nightly Cranberry 500 MG tablet 1,000 mg, Nightly diphenoxylate-atropine 2.5-0.025 MG per tablet Commonly known as: LOMOTIL esomeprazole 40 MG capsule Commonly known as: nexIUM 40 mg, Every Morning Before Breakfast levothyroxine 50 MCG tablet Commonly known as: SYNTHROID, LEVOTHROID 1 tablet, Daily montelukast 10 MG tablet Commonly known as: SINGULAIR 10 mg, Nightly multivitamin with minerals tablet tablet 1 tablet, Daily ondansetron 4 MG tablet Commonly known as: ZOFRAN 4 mg, Every 8 Hours PRN venlafaxine XR 75 MG 24 hr capsule Commonly known as: EFFEXOR-XR 75 mg, Nightly Stop These Medications aspirin 81 MG chewable tablet Allergies Allergen Reactions ??? Hydralazine Unknown - Low Severity ??? Lipitor [Atorvastatin] Unknown - Low Severity ??? Morphine Rash Discharge Disposition: Rehab Facility or Unit (DC - External) Diet: Hospital: Diet Order Procedures ??? Diet: Regular/House; Texture: Soft to Chew (NDD 3); Soft to Chew: Chopped Meat; Fluid Consistency: Thin (IDDSI 0) Dietary modifiers entered as reported to [facility] by RN. Wade whole with thin Standing Status: Standing Number of Occurrences: 1 Diets:: Regular/House Texture:: Soft to Chew (NDD 3) Soft to Chew:: Chopped Meat Fluid Consistency:: Thin (IDDSI 0) Diet Instructions Diet: Regular/House Diet; Soft to Chew (NDD 3); Chopped Meat; Thin (IDDSI 0) Discharge Diet: Regular/House Diet Texture: Soft to Chew (NDD 3) Soft to Chew: Chopped Meat Fluid Consistency: Thin (IDDSI 0) Activity: As tolerated Restrictions or Other Recommendations: As tolerated CODE STATUS: Code Status and Medical Interventions: CPR (Attempt to Resuscitate); Full Support Ordered at: 08/09/25 1701 Code Status (Patient has no pulse and is not breathing): CPR (Attempt to Resuscitate) Medical Interventions (Patient has pulse or is breathing): Full Support Level Of Support Discussed With: Patient Future Appointments Date Time Provider Department Center 08/25/2025 10:45 AM Belinda Puri MD [facility] 09/02/2025 9:30 AM Ashley Kinsey APRN [facility] 09/10/2025 9:15 AM Aniya Lindsey APRN [facility] Additional Instructions for the Follow-ups that You Need to Schedule Ambulatory Referral to Neurology As directed 4 weeks - ICH Order Comments: 4 weeks - ICH Discharge Follow-up with PCP As directed Currently Documented PCP: Araseli Khan DO PCP Follow Up Details: Follow-up with PCP in 1 week Discharge Follow-up with Specialty: Follow-up with stroke neurology in 4 weeks. As directed Specialty: Follow-up with stroke neurology in [address] Head Without Contrast Sep 04, 2025 Please schedule approximately 09/04/2025. Can be scheduled same day as follow-up clinic if clinic appointment is close to that date, STEREOTACTIC GUIDANCE PROTOCOL?: No Exam reason: Reevaluation of ICH Release to patient: Routine Release Yuval Gloria DO 08/10/25 Time Spent on Discharge: I spent 39 minutes on this discharge activity which included: [id number] encounter with the patient, reviewing the data in the system, coordination of the care with the nursing staff as well as consultants, documentation, and entering orders. documented in this encounter Discharge Instructions * Discharge Instructions* Paige Cary APRN - 08/09/2025 11:05 AM EDT -Continue the following medications: Atorvastatin 20mg nightly. Avoid NSAIDs. Only take Tylenol forheadaches. Do not resume aspirin until instructed by stroke team follow-up -Monitor blood pressure; goal 120-140/80-90 -Increase physical activity as tolerated; goal exercise 30 minutes/day 3-5 times weekly if able -Call 911 for stroke symptoms (unilateral weakness, unilateral numbness, vision loss/double vision,speech difficulty, trouble walking, sudden severe headache or headache with nausea/vomiting/confusion/or decreased level of consciousness) -Schedule follow-up with your primary care physician documented in this encounter Medications at Time of Discharge ALPRAZolam (XANAX) 0.25 MG tablet TAKE 1/2 TO 1 TABLET BY MOUTH 1 TO 3 TIMES EVERY DAY NEEDED 03/01/2023 atorvastatin (LIPITOR) 20 MG tablet Take 1 tablet by mouth Every Evening. 03/29/2023 cetirizine (zyrTEC) 10 MG tablet Take 1 tablet by mouth Every Night. Cranberry 500 MG tablet Take 1,000 mg by mouth Every Night. diphenoxylate-at ropine (LOMOTIL) 2.5-0.025 MG per tablet 08/19/2023 esomeprazole (nexIUM) 40 MG capsule Take 1 capsule by mouth Every Morning Before Breakfast. levothyroxine (SYNTHROID, LEVOTHROID) 50 MCG tablet Take 1 tablet by mouth Daily. 04/27/2023 montelukast (SINGULAIR) 10 MG tablet Take 1 tablet by mouth Every Night. multivitamin with minerals tablet tablet Take 1 tablet by mouth Daily. ondansetron (ZOFRAN) 4 MG tablet Take 1 tablet by mouth Every 8 (Eight) Hours As Needed. for nausea 04/25/2023 venlafaxine XR (EFFEXOR-XR) 75 MG 24 hr capsule Take 1 capsule by mouth Every Night. cefTRIAXone 1,000 mg in sodium chloride 0.9 % 100 mL IVPBIndications: Uncomplicated Cystitis Infuse 1,000 mg into a venous catheter Daily for 2 doses. Indications: UNCOMPLICATED CYSTITIS 08/10/2025 cefTRIAXone 1,000 mg in sodium chloride 0.9 % 100 mL IVPBIndications: Uncomplicated Cystitis Infuse 1,000 mg into a venous catheter Daily for 1 dose. Indications: UNCOMPLICATED CYSTITIS 08/11/2025 documented as of this encounter Progress Notes * Yuval Gloria DO - 08/09/2025 1:04 PM EDT Images from the original note were not included. [facility] PROGRESS NOTE Patient Name: Joie Flores : 1945 Date of Admission: 08/05/2025 Primary Care Physician: Araseli Khan DO Subjective Subjective CC: Headache, aphasia HPI: Patient seen resting comfortably in bed in no acute distress. Continues to have aphasia and right-sided weakness. Able to move left upper extremity spontaneously. Able to squeeze right hand and follow commands. Objective Objective Vital Signs: Temp: [98.3 ??F (36.8 ??C)-99.4 ??F (37.4 ??C)] 98.3 ??F (36.8 ??C) Heart Rate: [66-85] 85 Resp: [17-18] 18 BP: (82-125)/(56-74) 102/56 Flow (L/min) (Oxygen Therapy): [2] 2 Physical Exam Constitutional: General: She is not in acute distress. Cardiovascular: Rate and Rhythm: Normal rate. Pulses: Normal pulses. Pulmonary: Effort: Pulmonary effort is normal. No respiratory distress. Abdominal: General: There is no distension. Palpations: Abdomen is soft. Tenderness: There is no abdominal tenderness. There is no guarding or rebound. Skin: General: Skin is warm. Neurological: Mental Status: She is alert. Motor: Weakness present. Comments: Ongoing aphasia, right sided weakness Results Reviewed: LAB RESULTS: Lab 08/08/2544608/06/2550808/05/25 1435 08/05/25 1405 WBC 5.48 4.07 3.64 -- HEMOGLOBIN 10.4* 10.4* 10.3* -- HEMOGLOBIN, POC -- -- -- 11.9* HEMATOCRIT 29.6* 31.4* 31.9* -- HEMATOCRIT POC -- -- -- 35* PLATELETS 78* 83* 81* -- NEUTROS ABS -- 2.16 2.02 -- IMMATURE GRANS (ABS) -- 0.01 0.01 -- LYMPHS ABS -- 1.47 1.26 -- MONOS ABS -- 0.30 0.24 -- EOS ABS -- 0.10 0.08 -- MCV 97.7* 101.0* 103.6* -- PROTIME -- -- 15.5* -- APTT -- -- 26.5 -- Lab 08/08/257 08/06/25 05008/05/25 1405 SODIUM 135* 141 -- POTASSIUM 4.0 4.2 -- CHLORIDE 101 105 -- CO2 24.0 26.6 -- ANION GAP 10.0 9.4 -- BUN 16.8 13.9 -- CREATININE 0.97 1.07* 1.40* EGFR 59.2* 52.6* 38.1* GLUCOSE 97 95 -- CALCIUM 8.6 8.8 -- MAGNESIUM 2.0 2.0 -- PHOSPHORUS 3.2 -- -- HEMOGLOBIN A1C -- 5.42 -- Lab 08/06/25 05008/05/25 1435 TOTAL PROTEIN 5.6* -- ALBUMIN 3.7 -- GLOBULIN 1.9 -- ALT (SGPT) 12 10 AST (SGOT) 19 19 BILIRUBIN 0.9 -- ALK PHOS 62 -- Lab 08/05/25 1435 PROTIME 15.5* INR 1.16* Lab 08/06/25 0509 CHOLESTEROL 99 LDL CHOL 39 HDL CHOL 39* TRIGLYCERIDES 118 Brief Urine Lab Results (Last result in the past 365 days) Color Clarity Blood Leuk Est Nitrite Protein CREAT Urine HCG 08/07/25 1526 Yellow Cloudy Moderate (2+) Large (3+) Positive Trace Microbiology Results Abnormal Procedure Component Value - Date/Time Urine Culture - Urine, Straight Cath [[id number]] (Abnormal) (Susceptibility) Collected: 08/07/25 1526 Lab Status: Final result Specimen: Urine from Straight Cath Updated: 08/09/25 1010 Urine Culture >100,000 CFU/mL Escherichia coli Narrative: Colonization of the urinary tract without infection is common. Treatment is discouraged unless the patient is symptomatic, , or undergoing an invasive urologic procedure. Susceptibility Escherichia coli MED Amoxicillin + Clavulanate Susceptible Ampicillin Resistant Ampicillin + Sulbactam Resistant Cefazolin (Urine) Susceptible Cefepime Susceptible Ceftazidime Susceptible Ceftriaxone Susceptible Cefuroxime axetil Resistant Ciprofloxacin Resistant Gentamicin Susceptible Levofloxacin Resistant Nitrofurantoin Resistant Piperacillin + Tazobactam Susceptible Trimethoprim + Sulfamethoxazole Susceptible [facility] FEES - Fiberoptic Endo Eval Swallow Result Date: 08/08/2025 This procedure was auto-finalized with no dictation required. MRI Brain Without Contrast Result Date: 08/07/2025 MRI BRAIN WO CONTRAST Date of Exam: 08/07/2025 2:30 PM EDT Indication: ICH; eval for microhemorrhages. Comparison: CT head without contrast 08/06/2025 Technique: Routine multiplanar/multisequence sequence images of the brain were obtained without contrast administration. Findings: There is a 5.9 x 4.3 cm parenchymal hemorrhage in the left temporal lobe with surrounding edema and mass effect resulting in effacement of the left lateral ventricle and 6 mm left to right midline shift. Moderate chronic microvascular ischemic changes are present. There is mild age-related atrophy. Susceptibility weighted images are somewhat limited by motion artifact. There are 2 suspected punctate microhemorrhages, in the left occipital and parietal lobes. There may be an additional punctate remote microhemorrhage in the right parietal lobe. There is a partial empty sella configuration. Calvarial and superficial soft tissue signal is within normal limits. Orbits appear unremarkable. Trace mucosal thickening of the paranasal sinuses. Mastoid air cells are clear. Impression: Impression: 1.Large left temporal lobe parenchymal hemorrhage similar to previous CT, with surrounding edema and mass effect resulting in effacement of the left lateral ventricle and 6 mmleft to right midline shift. 2.Motion limited examination. There are a few punctate foci of susceptibility artifact suggesting minimal chronic microhemorrhages. 3.3. Mild age-related atrophy and moderate chronic microvascular ischemic changes. Electronically Signed: Teena Hou MD 08/07/2025 3:58PM EDT Workstation ID: [id number] Results for orders placed in visit on 06/02/23 Adult Transthoracic Echo Complete W/ Cont if Necessary Per Protocol 06/06/2023 2:45 PM Interpretation Summary Left ventricular ejection fraction appears to be 61 - 65%. Left ventricular wall thickness is consistent with concentric hypertrophy. Left ventricular diastolic function is consistent with (grade I) impaired relaxation. The right ventricular cavity is dilated. Estimated right ventricular systolic pressure from tricuspid regurgitation is normal (<35 mmHg). I have personally reviewed the therapy plans: [x] PT/OT/ ST Therapy Plans Current medications: Scheduled Meds:atorvastatin, 20 mg, Oral, Q PM cefTRIAXone, 1,000 mg, Intravenous, Q24H levothyroxine, 50 mcg, Oral, Q AM mupirocin, 1 Application, Each Nare, BID pantoprazole, 40 mg, Oral, QAM AC senna-docusate sodium, 2 tablet, Oral, BID sodium chloride, 10 mL, Intravenous, Q12H venlafaxine XR, 75 mg, Oral, Nightly Continuous Infusions: PRN Meds:. acetaminophen OR acetaminophen ALPRAZolam senna-docusate sodium AND polyethylene glycol AND bisacodyl AND bisacodyl Calcium Replacement - Follow Nurse / BPA Driven Protocol diphenoxylate-atropine Magnesium Standard Dose Replacement - Follow Nurse / BPA Driven Protocol nitroglycerin ondansetron Phosphorus Replacement - Follow Nurse / BPA Driven Protocol Potassium Replacement - Follow Nurse / BPA Driven Protocol sodium chloride sodium chloride Assessment & Plan Assessment & Plan Active Hospital Problems Diagnosis POA ICH (intracerebral hemorrhage) [I61.9] Yes Paroxysmal SVT (supraventricular tachycardia) [I47.10] Yes Coronary artery disease involving autologous vein coronary bypass graft without angina pectoris [I25.810] Yes Hyperlipidemia LDL goal <100 [E78.5] Yes Essential hypertension [I10] Yes Hypothyroidism (acquired) [E03.9] Yes Resolved Hospital Problems Diagnosis Date Resolved POA Subdural hematoma [S06.5XAA] 08/05/2025 Yes Brief Hospital Course to date: Joie Flores is a 80 y.o. female with a history of hypertension, coronary artery disease (status post autologous vein coronary bypass graft), hyperlipidemia, paroxysmal supraventricular tachycardia, and hypothyroidism, who was admitted for acute left temporal intracerebral hemorrhage presenting with headache, aphasia, and right-sided weakness. Acute Left Temporal Intracerebral Hemorrhage (ICH) - Patient presenting with headache and aphasia. - Imaging revealing left temporal parenchymal hemorrhage with surrounding vasogenic edema and rightward midline shift - Initially admitted to ICU for neurological monitoring. - Evaluated by neurosurgery, no indication for surgical intervention - Holding antiplatelets and anticoagulation at this time. - Status post Cardene drip. Goal blood pressure less than 140/90 - Continues to show right-sided weakness, right-sided neglect, and severe aphasia which will likelyrequire inpatient rehab - Patient will need repeat MRI in 3 months and follow-up with stroke clinic in 4 weeks. Dysphagia and Communication Impairment - Speech-language pathology evaluation identified oral phase dysphagia with a functional pharyngealphase on FEES, and severe aphasia with apraxia and impaired comprehension and expression. Diet was advanced to thin liquids and [id number]/chopped textures with aspiration precautions and feeding as sistance. - Ongoing speech therapy is recommended, with anticipated discharge to inpatient rehabilitation. Urinary Tract Infection - Continue Rocephin Hypertension - Status post Cardene drip. No current blood pressure medications at this time. Coronary Artery Disease HLD - Aspirin was held due to ICH. Continue statin Paroxysmal Supraventricular Tachycardia (SVT) - No acute SVT episodes occurred during hospitalization. She was not on antiarrhythmic therapy at home, and cardiac rhythm was monitored. Hypothyroidism - Continue Levothyroxine Expected Discharge Location and Transportation: [facility] Expected Discharge Expected discharge date/ time has not been documented. VTE Prophylaxis: Mechanical VTE prophylaxis orders are present. AM-PAC 6 Clicks Score (PT): 13 (08/09/25 0600) CODE STATUS: There are no questions and answers to display. Yuval Gloria DO 08/09/25 * Paige Cary Kwesi, CLIENT RETENTION SPECIALIST - 08/09/2025 8:15 AM EDT Images from the original note were not included. Stroke Progress Note Chief Complaint: Acute headache and speech difficulty Subjective Subjective Subjective: No acute events overnight. Patient is currently resting in bed, her family is at bedside. She is attempting to speak today and is able to communicate some of her needs. She is unable to tell me her name. She does not appear to be in any pain. Objective Temp: [98.1 ??F (36.7 ??C)-99.4 ??F (37.4 ??C)] 98.4 ??F (36.9 ??C) Heart Rate: [66-80] 68 Resp: [17-18] 17 BP: (92-125)/(54-74) 125/69 Neurological Exam Mental Status Alert. Orientation: Unable to assess 2/2 aphasia. Mild dysarthria present. Expressive aphasia and receptive aphasia present. Follows one-step commands. Cranial Nerves CN II: Right homonymous hemianopsia. CN III, IV, : Pupils equal round and reactive to light bilaterally. Partial left gaze palsy noted. CN V: Difficult to assess 2/2 aphasia. CN VII: Right: There is central facial weakness. Motor Decreased muscle bulk throughout. Right upper extremity with 4-/5 strength Left upper extremity with 4+/5 strength Bilateral lower extremities with 3/5 strength. Sensory Sensation: Difficult to assess 2/2 aphasia . Coordination No obvious dysmetria out of proportion weakness noted. Gait Not observed. Physical Exam Vitals and nursing note reviewed. Constitutional: General: She is not in acute distress. Appearance: She is not ill-appearing. HENT: Head: Normocephalic. Mouth/Throat: Mouth: Mucous membranes are dry. Eyes: Pupils: Pupils are equal, round, and reactive to light. Cardiovascular: Rate and Rhythm: Normal rate. Pulmonary: Effort: Pulmonary effort is normal. No respiratory distress. Comments: On room air Skin: General: Skin is warm and dry. Neurological: Mental Status: She is alert. Cranial Nerves: Cranial nerve deficit and dysarthria present. Motor: Weakness present. Psychiatric: Attention and Perception: Attention normal. Mood and Affect: Affect is flat. Speech: Speech is delayed and slurred. Behavior: Behavior is slowed. Behavior is cooperative. Cognition and Memory: Cognition is impaired. Memory is impaired. Results Review: I reviewed the patient's new clinical results. WBC Date Value Ref Range Status 08/08/2025 5.48 3.40 - 10.80 10*3/mm3 Final Hemoglobin Date Value Ref Range Status 08/08/2025 10.4 (L) 12.0 - 15.9 g/dL Final Hematocrit Date Value Ref Range Status 08/08/2025 29.6 (L) 34.0 - 46.6 % Final Platelets Date Value Ref Range Status 08/08/2025 78 (L) 140 - 450 10*3/mm3 Final Lab Results Component Value Date GLUCOSE 97 08/08/2025 BUN 16.8 08/08/2025 CREATININE 0.97 08/08/2025 NA 135 (L) 08/08/2025 K 4.0 08/08/2025 CL 101 08/08/2025 CALCIUM 8.6 08/08/2025 PROTEINTOT 5.6 (L) 08/06/2025 ALBUMIN 3.7 08/06/2025 ALT 12 08/06/2025 AST 19 08/06/2025 ALKPHOS 62 08/06/2025 BILITOT 0.9 08/06/2025 GLOB 1.9 08/06/2025 AGRATIO 1.9 08/06/2025 BCR 17.3 08/08/2025 ANIONGAP 10.0 08/08/2025 EGFR 59.2 (L) 08/08/2025 Lab 08/06/25 0509 HEMOGLOBIN A1C 5.42 Lipid Panel 08/06/2025 05:09 Lipid Panel Total Cholesterol 99 Triglycerides 118 HDL Cholesterol 39 VLDL Cholesterol 21 LDL Cholesterol 39 LDL/HDL Ratio 0.93 MRI Brain Without Contrast Result Date: 08/07/2025 Impression: 1.Large left temporal lobe parenchymal hemorrhage similar to previous CT, with surrounding edema and mass effect resulting in effacement of the left lateral ventricle and 6 mm left to right midline shift. 2.Motion limited examination. There are a few punctate foci of susceptibility artifact suggesting minimal chronic microhemorrhages. 3.3. Mild age-related atrophy and moderate chronicmicrovascular ischemic changes. Electronically Signed: Teena Hou MD 08/07/2025 3:58 PM EDT Workstation ID: [id number] CT Head Without Contrast Result Date: 08/06/2025 Impression: Redemonstration of an intraparenchymal hemorrhage seen within the left temporal lobe which appears slightly increased in size as compared to the previous study. A component of this may berelated to slight difference in scanning angle and resultant measuring technique. Mass effect and left to right midline shift appears similar as compared to the previous study. Electronically Signed:Gaby Vega MD 08/06/2025 5:51 AM EDT Workstation ID: [id number] CT Head Without Contrast Result Date: 08/05/2025 Enlarging left temporal intraparenchymal hemorrhage with mildly worsened rightward midline shift. Electronically Signed: Mango Alvarado MD 08/05/2025 8:19 PM EDT Workstation ID: [id number] XR Chest 1 View Result Date: 08/05/2025 Impression: No acute cardiopulmonary findings. Suspected hiatal hernia. Electronically Signed: MD Ajay 08/05/2025 3:18 PM EDT Workstation ID: [id number] CT Angiogram Head w AI Analysis of LVO Result Date: 08/05/2025 Impression: No significant interval change in the left temporal parenchymal hemorrhage. No proximallarge vessel occlusion or severe stenosis of the major arteries of the head and neck. Electronically Signed: Rodney Oliva MD 08/05/2025 2:52 PM EDT Workstation ID: [id number] CT Angiogram Neck Result Date: 08/05/2025 Impression: No significant interval change in the left temporal parenchymal hemorrhage. No proximallarge vessel occlusion or severe stenosis of the major arteries of the head and neck. Electronically Signed: Rodney Oliva MD 08/05/2025 2:52 PM EDT Workstation ID: [id number] CT Head Without Contrast Stroke Protocol Result Date: 08/05/2025 Impression: Parenchymal hemorrhage within the left temporal lobe with surrounding vasogenic edema and approximately 5 mm of rightward midline shift. Electronically Signed: Jagjit Florez MD 08/05/2025 2:04 PM EDT Workstation ID: [id number] Results for orders placed in visit on 06/02/23 Adult Transthoracic Echo Complete W/ Cont if Necessary Per Protocol 06/06/2023 2:45 PM Interpretation Summary Left ventricular ejection fraction appears to be 61 - 65%. Left ventricular wall thickness is consistent with concentric hypertrophy. Left ventricular diastolic function is consistent with (grade I) impaired relaxation. The right ventricular cavity is dilated. Estimated right ventricular systolic pressure from tricuspid regurgitation is normal (<35 mmHg). 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 head revealed parenchymal hemorrhage within the left temporal lobe with surrounding vasogenic edema and approximately 5 mm of rightward midline shift. CTA head/neck negative for any flow-limiting stenosis, LVO or aneurysm. Blood pressure arrival was 125/86. Case discussed with Dr. Briceno of neurosurgery, she was not a candidate for neurosurgical intervention. She was be admitted to the neuro ICU for close neurological monitoring. Repeat CT head without contrast on 08/06 revealed slight increase in size of hemorrhage. Dr. Briceno reviewed and does not recommend surgical intervention. Antiplatelet RAIL CAR REPAIRER: Aspirin Anticoagulant RAIL CAR REPAIRER: None #Acute Left Temporal Intracranial Hemorrhage -Etiology of hemorrhagic stroke is unclear at this time -ICH score 2 -CTH wo on 08/05/2025 images were personally reviewed and showed an acute hemorrhagic stroke affecting the anterior left temporal lobe. -Repeat CT head from 05/06/2025 showed mild increase in left temporal lobe ICH with midline shift of about [address] Briceno, neurosurgery, patient not a candidate for neurosurgical treatment -MRI brain with few areas of chronic microhemorrhages noted on SWI, recommend repeat MRI in 3 months with and without contrast -Meds: HOLD all antiplatelet and anticoagulants at this time -Target blood pressure goals of less than 140/90. Nicardipine drip for systolic blood pressure of higher than 140/90 -Stat CT head without contrast for any neurological change to evaluate for interval change in the left temporal intraparenchymal hemorrhage -Activity as tolerated, fall risk precautions -PT/OT/WELL DRILLER continue to follow, then to IRF at discharge. Case management following for placement needs. -Stroke clinic follow-up in 4 weeks (added to ADT) #Essential hypertension -Strict blood pressure monitoring, please keep SBP <140 -Nicardipine as needed for SBP >140 -Management per primary team #Hyperlipidemia -Consider resuming home atorvastatin 20 mg nightly given recent LDL at 35 # Urinary tract infection - Management per primary team Plan of care was discussed with family at bedside and Dr. Gloria (hospitalist). From a neurological standpoint the patient can be transferred to IRF when cleared by primary team. Stroke neurology will follow peripherally. Please call with any questions or concerns. Paige Cary MSN, CLIENT RETENTION SPECIALIST, AGACNP-, AN- Stroke Neurology * Aldo Gonzales MD - 08/08/2025 7:58 PM EDT Pulmonary/Critical Care ICU Note LOS: 3 days Patient Care Team: Araseli Khan DO as PCP - General (Family Medicine) Belinda Puri MD as Consulting Physician (Cardiology) Lacy Macias APRN as Nurse Practitioner (Nurse Practitioner) Samara Ortega APRN as Nurse Practitioner (Cardiology) Chief Complaint Patient presents with Stroke Subjective History of Present Illness The patient is an 80-year-old female who presents for evaluation following an acute left temporal parenchymal hemorrhage with surrounding vasogenic edema. She was admitted to the ICU on 08/05/2025. On the day of admission, she developed difficulty speaking in the afternoon. Despite being alert with her family, she experienced an acute headache followed by slurred speech and global aphasia. She was then brought to the emergency department for further evaluation. Today, she is awake but confused. At times, she has been agitated and attempted to crawl out of bed. She exhibits ongoing right-sided weakness and some right- sided neglect and is unable to speak coherently. Her family is present at her bedside. She currently reports no headache. Her family reports that she prefers chocolate-flavored Ensure. Although she passed the speech evaluation, her appetite has been poor. SOCIAL HISTORY Diet: Likes chocolate flavored Ensure Interval History: Patient was not very agitated overnight. Her family stayed the night with her. She apparently takesbenzodiazepines as needed at home and I restarted this. She is unable to relay any history to me. She did attempt some speech today but I was not able to understand her. History of Present Illness History taken from: PMH/FH/Social History were reviewed and updated appropriately in the electronic medical record. Review of Systems: Review of 14 systems was completed with positives and pertinent negatives noted in the subjective section. All other systems reviewed and are negative. Exceptions are noted below: Unable to obtain secondary to speech difficulty. Objective Vital Signs Temp: [98.1 ??F (36.7 ??C)-100.9 ??F (38.3 ??C)] 99.4 ??F (37.4 ??C) Heart Rate: [69-91] 76 Resp: [16-22] 18 BP: (94-138)/(54-77) 120/74 08/07 0701 - 08/08 0700 In: 104 [I.V.:4] Out: 1000 [Urine:1000] Body mass index is 27.28 kg/m??. IV drips: Physical Exam General: Patient is awake and alert. HEENT: Normocephalic, atraumatic. Heart: Regular rate and rhythm. No murmur. Abdomen: Soft, nondistended. Extremities: No clubbing, cyanosis, or edema. Skin: No rashes. Neurologic: Significant right-sided weakness. Intermittently follows commands. Right facial droop. Psychiatric: Nonagitated. The above physical exam findings were reviewed and reflect my exam findings as of today's exam. Electronically signed by: Aldo Gonzales MD 08/08/25 19:59 EDT Results Review: I reviewed the patient's new clinical results. Results from last 7 days Lab Units 08/08/25 0447 08/06/25 0509 08/05/25 1435 08/05/25 1405 SODIUM mmol/L 135* 141 -- -- POTASSIUM mmol/L 4.0 4.2 -- -- CHLORIDE mmol/L 101 105 -- -- CO2 mmol/L 24.0 26.6 -- -- BUN mg/dL 16.8 13.9 -- -- CREATININE mg/dL 0.97 1.07* -- 1.40* CALCIUM mg/dL 8.6 8.8 -- -- BILIRUBIN mg/dL -- 0.9 -- -- ALK PHOS U/L -- 62 -- -- ALT (SGPT) U/L -- 12 10 -- AST (SGOT) U/L -- 19 19 -- GLUCOSE mg/dL 97 95 -- -- Results from last 7 days Lab Units 08/08/25 0447 08/06/25 0509 08/05/25 1435 WBC 10*3/mm3 5.48 4.07 3.64 HEMOGLOBIN g/dL 10.4* 10.4* 10.3* HEMATOCRIT % 29.6* 31.4* 31.9* PLATELETS 10*3/mm3 78* 83* 81* Results from last 7 days Lab Units 08/08/25 0447 08/06/25 0509 MAGNESIUM mg/dL 2.0 2.0 PHOSPHORUS mg/dL 3.2 -- Urine cultures growing greater than 100,000 CFU's of E. coli. Awaiting susceptibilities. I reviewed the patient's new imaging including images and reports. Results - Urinalysis: 08/07/2025, Too numerous to count white blood cells, 4+ bacteria, positive nitrite Imaging - MRI of the brain: 08/07/2025, Large left temporal lobe parenchymal hemorrhage similar to previousCT with surrounding edema and mass effect resulting in effacement of the left lateral ventricle and6 mm left to right midline shift. Motion limited exam. Few punctate foci of susceptibility artifactsuggesting minimal chronic microhemorrhages. Mild age-related atrophy and chronic microvascular ischemic changes. - CT scan of the brain: 08/06/2025, Slight worsening of ICH although some of this was felt to be due to slice selection and angle. Medication Review: atorvastatin, 20 mg, Oral, Q PM cefTRIAXone, 1,000 mg, Intravenous, Q24H levothyroxine, 50 mcg, Oral, Q AM mupirocin, 1 Application, Each Nare, BID pantoprazole, 40 mg, Oral, QAM AC senna-docusate sodium, 2 tablet, Oral, BID sodium chloride, 10 mL, Intravenous, Q12H venlafaxine XR, 75 mg, Oral, Nightly Assessment & Plan ICH (intracerebral hemorrhage) Paroxysmal SVT (supraventricular tachycardia) Coronary artery disease involving autologous vein coronary bypass graft without angina pectoris Hyperlipidemia LDL goal <100 Essential hypertension Hypothyroidism (acquired) Assessment & Plan 1. Acute left temporal intraparenchymal hemorrhage. Admitted to the ICU on 08/05/2025 with an acute left temporal parenchymal hemorrhage accompanied bysurrounding vasogenic edema. Prior to admission, she experienced difficulty speaking, acute headaches, slurred speech, and global aphasia. A follow-up CT scan on 08/06/2025 indicated a slight worsening of the intracerebral hemorrhage, although some of this was attributed to slice selection and angle. Neurosurgery evaluated her and determined that surgical intervention was not necessary. Initially, treated with Cardene for blood pressure control, but this has not been required recently. The goalblood pressure is set at <140/90. She successfully passed a speech evaluation and has been started on a diet. Antiplatelets and anticoagulants are currently on hold. MRI done 08/07/2025 showed lefttemporal lobe parenchymal hemorrhage similar to prior CT scan with some surrounding edema and mass effect. Neurology is following. Repeat head CT ordered for tomorrow. 2. Hypertension. Initially required Cardene for blood pressure control. Currently, blood pressure will be monitored with the addition of oral medications to maintain a systolic blood pressure of <140. 3. Coronary artery disease. Aspirin is currently on hold. Statin therapy will be continued. 4. Hyperlipidemia. High-dose statin therapy will be continued. 5. Paroxysmal supraventricular tachycardia. Not on home medication. Heart rhythm will be monitored. 6. Hypothyroidism. Levothyroxine therapy will be continued. 7. Deep vein thrombosis prophylaxis. Sequential Compression Devices (SCDs) will be used. 8. Peptic ulcer prophylaxis. Protonix will be administered. 9. Urinary tract infection. Upon admission, diagnosed with a urinary tract infection. Urinalysis showed too numerous to count white blood cells, 4+ bacteria, and positive nitrite. Rocephin started. Culture growing E. coli awaiting susceptibilities. 10. For agitation. We will resume as needed home benzodiazepine. Follow-up Deemed suitable for transfer to telemetry and hospitalist care as per neurology. Patient will need inpatient rehabilitation. Electronically signed by: Aldo Gonzales MD 08/08/25 19:59 EDT Patient or patient cash application representative verbalized consent for the use of Ambient Listening during the visit for chart documentation. *Exception: for ICU patients or for instances where consent for use was not given, active listeningwas used only for dictation and was not used to record patient or family. * Yogesh Rios PA-C - 08/08/2025 11:19 AM EDT Images from the original note were not included. Stroke Progress Note Chief Complaint: Right-sided weakness and speech difficulty Subjective Subjective Subjective: Patient was examined this morning sitting in hospital bedside chair with patient's daughter and niece at bedside. emotional lability has reportedly continued, and the patient becomes more agitated and emotional when her daughter is not there. Requiring a sitter. Patient observed holding onto her daughter's arm upon entering the room. Mixed aphasia observed with patient not answering any my questions. right-sided weakness with neglect continues. When her left arm is manually manipulated she is able to keep it raised and antigravity strength to left leg was observed. neurological status is stable compared to previously reported exams. Review of symptoms: - Unable to obtain due to acuity of condition Objective Temp: [98.1 ??F (36.7 ??C)-100.9 ??F (38.3 ??C)] 98.1 ??F (36.7 ??C) Heart Rate: [69-91] 78 Resp: [16-22] 22 BP: (99-138)/(54-77) 112/72 Neurological Exam Mental Status Alert. Orientation: Unable to assess 2/2 aphasia. Patient is nonverbal. Mixed aphasia present. Follows one-step commands. Cranial Nerves CN II: Right homonymous hemianopsia. CN III, IV, : Pupils equal round and reactive to light bilaterally. Partial left gaze palsy noted. CN V: Difficult to assess 2/2 aphasia. CN VII: Right: There is central facial weakness. Motor Decreased muscle bulk throughout. Right upper extremity with 2/5 strength Left upper extremity with 3/5 strength Left lower extremity with 2/5 strength Right lower extremity 1/5 strength. Sensory Sensation: Difficult to assess 2/2 aphasia and patient unwilling to participate with exam. Coordination No obvious dysmetria out of proportion weakness noted. Gait Not observed. Physical Exam Vitals and nursing note reviewed. Constitutional: General: She is not in acute distress. Appearance: She is ill-appearing. HENT: Head: Normocephalic. Mouth/Throat: Mouth: Mucous membranes are dry. Eyes: Pupils: Pupils are equal, round, and reactive to light. Cardiovascular: Rate and Rhythm: Normal rate. Pulmonary: Effort: Pulmonary effort is normal. No respiratory distress. Comments: On room air Skin: General: Skin is warm and dry. Neurological: Mental Status: She is alert. Cranial Nerves: Cranial nerve deficit present. Motor: Weakness present. Psychiatric: Attention and Perception: She is inattentive. Mood and Affect: Mood is depressed. Affect is flat. Speech: She is noncommunicative. Behavior: Behavior is uncooperative, slowed and withdrawn. Results Review: I reviewed the patient's new clinical results. WBC Date Value Ref Range Status 08/06/2025 4.07 3.40 - 10.80 10*3/mm3 Final Hemoglobin Date Value Ref Range Status 08/06/2025 10.4 (L) 12.0 - 15.9 g/dL Final Hematocrit Date Value Ref Range Status 08/06/2025 31.4 (L) 34.0 - 46.6 % Final Platelets Date Value Ref Range Status 08/06/2025 83 (L) 140 - 450 10*3/mm3 Final Lab Results Component Value Date GLUCOSE 97 08/08/2025 BUN 16.8 08/08/2025 CREATININE 0.97 08/08/2025 NA 135 (L) 08/08/2025 K 4.0 08/08/2025 CL 101 08/08/2025 CALCIUM 8.6 08/08/2025 PROTEINTOT 5.6 (L) 08/06/2025 ALBUMIN 3.7 08/06/2025 ALT 12 08/06/2025 AST 19 08/06/2025 ALKPHOS 62 08/06/2025 BILITOT 0.9 08/06/2025 GLOB 1.9 08/06/2025 AGRATIO 1.9 08/06/2025 BCR 17.3 08/08/2025 ANIONGAP 10.0 08/08/2025 EGFR 59.2 (L) 08/08/2025 Lab 08/06/25 0509 HEMOGLOBIN A1C 5.42 Lipid Panel 08/06/2025 05:09 Lipid Panel Total Cholesterol 99 Triglycerides 118 HDL Cholesterol 39 VLDL Cholesterol 21 LDL Cholesterol 39 LDL/HDL Ratio 0.93 MRI Brain Without Contrast Result Date: 08/07/2025 Impression: 1.Large left temporal lobe parenchymal hemorrhage similar to previous CT, with surrounding edema and mass effect resulting in effacement of the left lateral ventricle and 6 mm left to right midline shift. 2.Motion limited examination. There are a few punctate foci of susceptibility artifact suggesting minimal chronic microhemorrhages. 3.3. Mild age-related atrophy and moderate chronicmicrovascular ischemic changes. Electronically Signed: Teena Hou MD 08/07/2025 3:58 PM EDT Workstation ID: [id number] CT Head Without Contrast Result Date: 08/06/2025 Impression: Redemonstration of an intraparenchymal hemorrhage seen within the left temporal lobe which appears slightly increased in size as compared to the previous study. A component of this may berelated to slight difference in scanning angle and resultant measuring technique. Mass effect and left to right midline shift appears similar as compared to the previous study. Electronically Signed:Gaby Vega MD 08/06/2025 5:51 AM EDT Workstation ID: [id number] CT Head Without Contrast Result Date: 08/05/2025 Enlarging left temporal intraparenchymal hemorrhage with mildly worsened rightward midline shift. Electronically Signed: Mango Alvarado MD 08/05/2025 8:19 PM EDT Workstation ID: [id number] XR Chest 1 View Result Date: 08/05/2025 Impression: No acute cardiopulmonary findings. Suspected hiatal hernia. Electronically Signed: MD Ajay 08/05/2025 3:18 PM EDT Workstation ID: [id number] CT Angiogram Head w AI Analysis of LVO Result Date: 08/05/2025 Impression: No significant interval change in the left temporal parenchymal hemorrhage. No proximallarge vessel occlusion or severe stenosis of the major arteries of the head and neck. Electronically Signed: Rodney Oliva MD 08/05/2025 2:52 PM EDT Workstation ID: [id number] CT Angiogram Neck Result Date: 08/05/2025 Impression: No significant interval change in the left temporal parenchymal hemorrhage. No proximallarge vessel occlusion or severe stenosis of the major arteries of the head and neck. Electronically Signed: Rodney Oliva MD 08/05/2025 2:52 PM EDT Workstation ID: [id number] CT Head Without Contrast Stroke Protocol Result Date: 08/05/2025 Impression: Parenchymal hemorrhage within the left temporal lobe with surrounding vasogenic edema and approximately 5 mm of rightward midline shift. Electronically Signed: Jagjit Florez MD 08/05/2025 2:04 PM EDT Workstation ID: [id number] Results for orders placed in visit on 06/02/23 Adult Transthoracic Echo Complete W/ Cont if Necessary Per Protocol 06/06/2023 2:45 PM Interpretation Summary Left ventricular ejection fraction appears to be 61 - 65%. Left ventricular wall thickness is consistent with concentric hypertrophy. Left ventricular diastolic function is consistent with (grade I) impaired relaxation. The right ventricular cavity is dilated. Estimated right ventricular systolic pressure from tricuspid regurgitation is normal (<35 mmHg). 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 head revealed parenchymal hemorrhage within the left temporal lobe with surrounding vasogenic edema and approximately 5 mm of rightward midline shift. CTA head/neck negative for any flow-limiting stenosis, LVO or aneurysm. Blood pressure arrival was 125/86. Case discussed with Dr. Briceno of neurosurgery, she was not a candidate for neurosurgical intervention. She was be admitted to the neuro ICU for closeneurological monitoring. Repeat CT head without contrast on 08/06 revealed slight increase in size of hemorrhage. Dr. Briceno reviewed and does not recommend surgical intervention. Antiplatelet RAIL CAR REPAIRER: Aspirin Anticoagulant RAIL CAR REPAIRER: None #Acute Left Temporal Intracranial Hemorrhage -Etiology of hemorrhagic stroke is unclear at this time but could possibly represent CAA in the setting of using aspirin -ICH score 2 -CTH wo on 08/05/2025 images were personally reviewed and showed an acute hemorrhagic stroke affecting the anterior left temporal lobe. -Repeat CT head from 05/06/2025 showed mild increase in left temporal lobe ICH with midline shift of about [address] Briceno, neurosurgery, patient not a candidate for neurosurgical treatment -Meds: HOLD all antiplatelet and anticoagulants at this time -Recommend repeat outpatient CT head to evaluate ICH 4 weeks from index event (added to ADT), consider reinitiation of aspirin following repeat CT head evaluation - Recommend MRI with and without contrast 3 months from Index event -Target blood pressure goals of less than 140/90. Nicardipine drip for systolic blood pressure of higher than 140/90 -Stat CT head without contrast for any neurological change to evaluate for interval change in the left temporal intraparenchymal hemorrhage -Activity as tolerated, fall risk precautions -PT/OT/WELL DRILLER continue to follow, then to IRF at discharge. Case management following for placement needs. -Stroke clinic follow-up in 4 weeks (added to ADT) #Essential hypertension -Strict blood pressure monitoring, please keep SBP <140 -Nicardipine as needed for SBP >140 -Management per primary team #Hyperlipidemia -Consider resuming home atorvastatin 20 mg nightly given recent LDL at 35 # Urinary tract infection - Currently on Rocephin with cultures to be followed - Overall management per primary medical team Disposition: From a neurological standpoint the patient can be transferred out of the ICU today Plan of care was discussed with family, Dr. Michelle, and with primary RN. Stroke neurology will continue to follow. Please call with any questions or concerns. Yogesh Rios PA-C Stroke Neurology 08/08/2025 Cosigned by Steve Michelle MD at 08/08/2025 12:56 PM EDT Associated attestation - Steve Michelle MD - 08/08/2025 12:56 PM EDT I have reviewed this documentation and agree. * Aldo Gonzales MD - 08/07/2025 4:44 PM EDT Pulmonary/Critical Care ICU Note LOS: 2 days Patient Care Team: Arsaeli Khan DO as PCP - General (Family Medicine) Belinda Puri MD as Consulting Physician (Cardiology) Lacy Macias APRN as Nurse Practitioner (Nurse Practitioner) Samara Ortega APRN as Nurse Practitioner (Cardiology) Chief Complaint Patient presents with Stroke Subjective History of Present Illness The patient is an 80-year-old female who presents for evaluation following an acute left temporal parenchymal hemorrhage with surrounding vasogenic edema. She was admitted to the ICU on 08/05/2025. On the day of admission, she developed difficulty speaking in the afternoon. Despite being alert with her family, she experienced an acute headache followed by slurred speech and global aphasia. She was then brought to the emergency department for further evaluation. Today, she is awake but confused. At times, she has been agitated and attempted to crawl out of bed. She exhibits ongoing right-sided weakness and some right- sided neglect and is unable to speak coherently. Her family is present at her bedside. She currently reports no headache. Her family reports that she prefers chocolate-flavored Ensure. Although she passed the speech evaluation, her appetite has been poor. SOCIAL HISTORY Diet: Likes chocolate flavored Ensure The patient is awake and alert today. She has significant speech difficulty and does not really attempt speech for me today. She is not following commands. Her family is at the bedside. She has had asitter secondary to trying to call out of bed overnight. She has significant right-sided weakness. Interval History: History of Present Illness History taken from: [facility]//Social History were reviewed and updated appropriately in the electronic medical record. Review of Systems: Review of 14 systems was completed with positives and pertinent negatives noted in the subjective section. All other systems reviewed and are negative. Exceptions are noted below: Unable to obtain secondary to speech difficulty. Objective Vital Signs Temp: [98.4 ??F (36.9 ??C)-99.5 ??F (37.5 ??C)] 99.3 ??F (37.4 ??C) Heart Rate: [70-86] 78 Resp: [18] 18 BP: (108-149)/(54-82) 121/75 10 0701 - 08/07 0700 In: - Out: 800 [Urine:800] Body mass index is 28.28 kg/m??. IV drips: niCARdipine, Last Rate: Stopped (08/05/25 1457) Physical Exam General: Patient is awake and alert. HEENT: Normocephalic, atraumatic. Left gaze preference. Heart: Regular rate and rhythm. No murmur. Abdomen: Soft, nondistended. Extremities: No clubbing, cyanosis, or edema. Skin: No rashes. Neurologic: Significant right-sided weakness. Does not follow commands reliably. Right facial droop. Psychiatric: Nonagitated. The above physical exam findings were reviewed and reflect my exam findings as of today's exam. Electronically signed by: Aldo Gonzales MD 08/07/25 16:45 EDT Results Review: I reviewed the patient's new clinical results. Results from last 7 days Lab Units 08/06/25 0509 08/05/25 1435 08/05/25 1405 SODIUM mmol/L 141 -- -- POTASSIUM mmol/L 4.2 -- -- CHLORIDE mmol/L 105 -- -- CO2 mmol/L 26.6 -- -- BUN mg/dL 13.9 -- -- CREATININE mg/dL 1.07* -- 1.40* CALCIUM mg/dL 8.8 -- -- BILIRUBIN mg/dL 0.9 -- -- ALK PHOS U/L 62 -- -- ALT (SGPT) U/L 12 10 -- AST (SGOT) U/L 19 19 -- GLUCOSE mg/dL 95 -- -- Results from last 7 days Lab Units 08/06/25 0509 08/05/25 1435 08/05/25 1405 WBC 10*3/mm3 4.07 3.64 -- HEMOGLOBIN g/dL 10.4* 10.3* -- HEMOGLOBIN, POC g/dL -- -- 11.9* HEMATOCRIT % 31.4* 31.9* -- HEMATOCRIT POC % -- -- 35* PLATELETS 10*3/mm3 83* 81* -- Results from last 7 days Lab Units 08/06/25 0509 MAGNESIUM mg/dL 2.0 I reviewed the patient's new imaging including images and reports. Results Labs - Creatinine: 1.07 down from 1.40 - Urinalysis: 08/07/2025, Too numerous to count white blood cells, 4+ bacteria, positive nitrite Imaging - MRI of the brain: 08/07/2025, Large left temporal lobe parenchymal hemorrhage similar to previousCT with surrounding edema and mass effect resulting in effacement of the left lateral ventricle and6 mm left to right midline shift. Motion limited exam. Few punctate foci of susceptibility artifactsuggesting minimal chronic microhemorrhages. Mild age-related atrophy and chronic microvascular ischemic changes. - CT scan of the brain: 08/06/2025, Slight worsening of ICH although some of this was felt to be due to slice selection and angle. Medication Review: atorvastatin, 20 mg, Oral, Q PM levothyroxine, 50 mcg, Oral, Q AM mupirocin, 1 Application, Each Nare, BID pantoprazole, 40 mg, Oral, QAM AC senna-docusate sodium, 2 tablet, Oral, BID sodium chloride, 10 mL, Intravenous, Q12H venlafaxine XR, 75 mg, Oral, Nightly niCARdipine, 5-15 mg/hr, Last Rate: Stopped (08/05/25 4917) Assessment & Plan ICH (intracerebral hemorrhage) Paroxysmal SVT (supraventricular tachycardia) Coronary artery disease involving autologous vein coronary bypass graft without angina pectoris Hyperlipidemia LDL goal <100 Essential hypertension Hypothyroidism (acquired) Assessment & Plan 1. Acute left temporal intraparenchymal hemorrhage. Admitted to the ICU on 08/05/2025 with an acute left temporal parenchymal hemorrhage accompanied bysurrounding vasogenic edema. Prior to admission, she experienced difficulty speaking, acute headaches, slurred speech, and global aphasia. A follow-up CT scan on 08/06/2025 indicated a slight worsening of the intracerebral hemorrhage, although some of this was attributed to slice selection and angle. Neurosurgery evaluated her and determined that surgical intervention was not necessary. Initially, treated with Cardene for blood pressure control, but this has not been required recently. The goalblood pressure is set at <140/90. She successfully passed a speech evaluation and has been started on a diet. Antiplatelets and anticoagulants are currently on hold. 2. Hypertension. Initially required Cardene for blood pressure control. Currently, blood pressure will be monitored with the addition of oral medications to maintain a systolic blood pressure of <140. 3. Coronary artery disease. Aspirin is currently on hold. Statin therapy will be continued. 4. Hyperlipidemia. High-dose statin therapy will be continued. 5. Paroxysmal supraventricular tachycardia. Not on home medication. Heart rhythm will be monitored. 6. Hypothyroidism. Levothyroxine therapy will be continued. 7. Deep vein thrombosis prophylaxis. Sequential Compression Devices (SCDs) will be used. 8. Peptic ulcer prophylaxis. Protonix will be administered. 9. Urinary tract infection. Upon admission, diagnosed with a urinary tract infection. Urinalysis showed too numerous to count white blood cells, 4+ bacteria, and positive nitrite. Rocephin will be initiated, and the culture will be followed up. Follow-up Deemed suitable for transfer to telemetry and hospitalist care as per neurology. Patient will need inpatient rehabilitation. Electronically signed by: Aldo Gonzales MD 08/07/25 16:45 EDT Patient or patient cash application representative verbalized consent for the use of Ambient Listening during the visit for chart documentation. *Exception: for ICU patients or for instances where consent for use was not given, active listeningwas used only for dictation and was not used to record patient or family. * Paige Cary APRN - 08/07/2025 7:44 AM EDT Images from the original note were not included. Stroke Progress Note Chief Complaint: Acute headache and speech difficulty Subjective Subjective Subjective: Patient has been emotionally labile over the past 12 hours per nursing, this has been since her daughter left. She is currently sitting on the bedside commode however is alert and will follow some commands. She will not answer any my questions and continues to have right-sided weakness with neglect. Per nursing her neurological status is stable. She did have a Tmax of 99.1 last evening and is having difficulty with retention. Objective Temp: [98.4 ??F (36.9 ??C)-99.1 ??F (37.3 ??C)] 98.4 ??F (36.9 ??C) Heart Rate: [72-94] 80 Resp: [18] 18 BP: (102-155)/(55-82) 138/70 Neurological Exam Mental Status Alert. Orientation: Unable to assess 2/2 aphasia. Patient is nonverbal. Expressive aphasia present.Follows one-step commands. Cranial Nerves CN II: Right homonymous hemianopsia. CN III, IV, : Pupils equal round and reactive to light bilaterally. Partial left gaze palsy noted. CN V: Difficult to assess 2/2 aphasia. CN VII: Right: There is central facial weakness. Motor Decreased muscle bulk throughout. Right upper extremity with 2/5 strength Left upper extremity with 3/5 strength Bilateral lower extremities with 3/5 strength. Sensory Sensation: Difficult to assess 2/2 aphasia and patient unwilling to participate with exam. Coordination No obvious dysmetria out of proportion weakness noted. Gait Not observed. Physical Exam Vitals and nursing note reviewed. Constitutional: General: She is not in acute distress. Appearance: She is ill-appearing. HENT: Head: Normocephalic. Mouth/Throat: Mouth: Mucous membranes are dry. Eyes: Pupils: Pupils are equal, round, and reactive to light. Cardiovascular: Rate and Rhythm: Normal rate. Pulmonary: Effort: Pulmonary effort is normal. No respiratory distress. Comments: On room air Skin: General: Skin is warm and dry. Neurological: Mental Status: She is alert. Cranial Nerves: Cranial nerve deficit present. Motor: Weakness present. Psychiatric: Attention and Perception: She is inattentive. Mood and Affect: Mood is depressed. Affect is flat. Speech: She is noncommunicative. Behavior: Behavior is uncooperative, slowed and withdrawn. Results Review: I reviewed the patient's new clinical results. WBC Date Value Ref Range Status 08/06/2025 4.07 3.40 - 10.80 10*3/mm3 Final Hemoglobin Date Value Ref Range Status 08/06/2025 10.4 (L) 12.0 - 15.9 g/dL Final Hematocrit Date Value Ref Range Status 08/06/2025 31.4 (L) 34.0 - 46.6 % Final Platelets Date Value Ref Range Status 08/06/2025 83 (L) 140 - 450 10*3/mm3 Final Lab Results Component Value Date GLUCOSE 95 08/06/2025 BUN 13.9 08/06/2025 CREATININE 1.07 (H) 08/06/2025 NA 141 08/06/2025 K 4.2 08/06/2025 CL 105 08/06/2025 CALCIUM 8.8 08/06/2025 PROTEINTOT 5.6 (L) 08/06/2025 ALBUMIN 3.7 08/06/2025 ALT 12 08/06/2025 AST 19 08/06/2025 ALKPHOS 62 08/06/2025 BILITOT 0.9 08/06/2025 GLOB 1.9 08/06/2025 AGRATIO 1.9 08/06/2025 BCR 13.0 08/06/2025 ANIONGAP 9.4 08/06/2025 EGFR 52.6 (L) 08/06/2025 Lab 08/06/25 0509 HEMOGLOBIN A1C 5.42 Lipid Panel 08/06/2025 05:09 Lipid Panel Total Cholesterol 99 Triglycerides 118 HDL Cholesterol 39 VLDL Cholesterol 21 LDL Cholesterol 39 LDL/HDL Ratio 0.93 CT Head Without Contrast Result Date: 08/06/2025 Impression: Redemonstration of an intraparenchymal hemorrhage seen within the left temporal lobe which appears slightly increased in size as compared to the previous study. A component of this may berelated to slight difference in scanning angle and resultant measuring technique. Mass effect and left to right midline shift appears similar as compared to the previous study. Electronically Signed:Gaby Vega MD 08/06/2025 5:51 AM EDT Workstation ID: [id number] CT Head Without Contrast Result Date: 08/05/2025 Enlarging left temporal intraparenchymal hemorrhage with mildly worsened rightward midline shift. Electronically Signed: Mango Alvarado MD 08/05/2025 8:19 PM EDT Workstation ID: [id number] XR Chest 1 View Result Date: 08/05/2025 Impression: No acute cardiopulmonary findings. Suspected hiatal hernia. Electronically Signed: MD Ajay 08/05/2025 3:18 PM EDT Workstation ID: [id number] CT Angiogram Head w AI Analysis of LVO Result Date: 08/05/2025 Impression: No significant interval change in the left temporal parenchymal hemorrhage. No proximallarge vessel occlusion or severe stenosis of the major arteries of the head and neck. Electronically Signed: Rodney Oliva MD 08/05/2025 2:52 PM EDT Workstation ID: [id number] CT Angiogram Neck Result Date: 08/05/2025 Impression: No significant interval change in the left temporal parenchymal hemorrhage. No proximallarge vessel occlusion or severe stenosis of the major arteries of the head and neck. Electronically Signed: Rodney Oliva MD 08/05/2025 2:52 PM EDT Workstation ID: [id number] CT Head Without Contrast Stroke Protocol Result Date: 08/05/2025 Impression: Parenchymal hemorrhage within the left temporal lobe with surrounding vasogenic edema and approximately 5 mm of rightward midline shift. Electronically Signed: Jagjit Florez MD 08/05/2025 2:04 PM EDT Workstation ID: [id number] Results for orders placed in visit on 06/02/23 Adult Transthoracic Echo Complete W/ Cont if Necessary Per Protocol 06/06/2023 2:45 PM Interpretation Summary Left ventricular ejection fraction appears to be 61 - 65%. Left ventricular wall thickness is consistent with concentric hypertrophy. Left ventricular diastolic function is consistent with (grade I) impaired relaxation. The right ventricular cavity is dilated. Estimated right ventricular systolic pressure from tricuspid regurgitation is normal (<35 mmHg). 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 head revealed parenchymal hemorrhage within the left temporal lobe with surrounding vasogenic edema and approximately 5 mm of rightward midline shift. CTA head/neck negative for any flow-limiting stenosis, LVO or aneurysm. Blood pressure arrival was 125/86. Case discussed with Dr. Briceno of neurosurgery, she was not a candidate for neurosurgical intervention. She was be admitted to the neuro ICU for close neurological monitoring. Repeat CT head without contrast on 08/06 revealed slight increase in size of hemorrhage. Dr. Briceno reviewed and does not recommend surgical intervention. Antiplatelet RAIL CAR REPAIRER: Aspirin Anticoagulant RAIL CAR REPAIRER: None #Acute Left Temporal Intracranial Hemorrhage -Etiology of hemorrhagic stroke is unclear at this time but could possibly represent CAA in the setting of using aspirin -ICH score 2 -CTH wo on 08/05/2025 images were personally reviewed and showed an acute hemorrhagic stroke affecting the anterior left temporal lobe. -Repeat CT head from 05/06/2025 showed mild increase in left temporal lobe ICH with midline shift of about [address] Briceno, neurosurgery, patient not a candidate for neurosurgical treatment -Meds: HOLD all antiplatelet and anticoagulants at this time -Target blood pressure goals of less than 140/90. Nicardipine drip for systolic blood pressure of higher than 140/90 -Stat CT head without contrast for any neurological change to evaluate for interval change in the left temporal intraparenchymal hemorrhage -Activity as tolerated, fall risk precautions -PT/OT/[facility] continue to follow, then to IRF at discharge. Case management following for placement needs. -Consider urinalysis given patient's urinary retention and slightly elevated temperature -Stroke clinic follow-up in 4 weeks (added to ADT) #Essential hypertension -Strict blood pressure monitoring, please keep SBP <140 -Nicardipine as needed for SBP >140 -Management per primary team #Hyperlipidemia -Consider resuming home atorvastatin 20 mg nightly given recent LDL at 35 Plan of care was discussed with primary RN. From a neurological standpoint the patient can be transferred out of the ICU today. Stroke neurology will continue to follow. Please call with any questions or concerns. Paige Cary MSN, CLIENT RETENTION SPECIALIST, AGACNP-, ANVC- Stroke Neurology * Aldo Gonzales MD - 08/06/2025 5:31 PM EDT Pulmonary/Critical Care ICU Note LOS: 1 day Patient Care Team: Araseli Khan DO as PCP - General (Family Medicine) Belinda Puri MD as Consulting Physician (Cardiology) Lacy Macias APRN as Nurse Practitioner (Nurse Practitioner) Samara Ortega APRN as Nurse Practitioner (Cardiology) Chief Complaint Patient presents with Stroke Subjective History of Present Illness The patient is an 80-year-old female who presents for evaluation following an acute left temporal parenchymal hemorrhage with surrounding vasogenic edema. She was admitted to the ICU on 08/05/2025. On the day of admission, she developed difficulty speaking in the afternoon. Despite being alert with her family, she experienced an acute headache followed by slurred speech and global aphasia. She was then brought to the emergency department for further evaluation. Today, she is awake but confused. At times, she has been agitated and attempted to crawl out of bed. She exhibits ongoing right-sided weakness and some right- sided neglect and is unable to speak coherently. Her family is present at her bedside. She currently reports no headache. Her family reports that she prefers chocolate-flavored Ensure. Although she passed the speech evaluation, her appetite has been poor. SOCIAL HISTORY Diet: Likes chocolate flavored Ensure History taken from: PMH/FH/Social History were reviewed and updated appropriately in the electronic medical record. Review of Systems: Review of 14 systems was completed with positives and pertinent negatives noted in the subjective section. All other systems reviewed and are negative. Exceptions are noted below: Unable to obtain secondary to speech difficulty. Objective Vital Signs Temp: [98.3 ??F (36.8 ??C)-99.1 ??F (37.3 ??C)] 99.1 ??F (37.3 ??C) Heart Rate: [67-94] 76 Resp: [16-18] 18 BP: (92-155)/(55-112) 139/75 08/05 0701 - 08/06 07 In: - Out: 1051 [Urine:1051] Body mass index is 30.7 kg/m??. IV drips: niCARdipine, Last Rate: Stopped (08/05/25 1457) Physical Exam: Physical Exam General: The patient is somewhat confused and attempts speech, but it is not intelligible. HEENT: Head is normocephalic and atraumatic. Eyelids are normal. Pupils are equal and round. Ears and lips are normal. Neck: Trachea is midline. No JVD. Heart: Regular rate and rhythm. Lungs: Normal effort with minimal bilateral rales. Abdomen: Soft, nontender, nondistended. Extremities: Mild edema. Skin: No bleeding, bruising, or rash. Neurologic: Right-sided weakness and neglect. Moves left side but does not follow commands. Psychiatric: Nonagitated. The above physical exam findings were reviewed and reflect my exam findings as of today's exam. Electronically signed by: Aldo Gonzales MD 08/06/25 17:31 EDT Results Review: I reviewed the patient's new clinical results. Results from last 7 days Lab Units 08/06/25 0509 08/05/25 1435 08/05/25 1405 SODIUM mmol/L 141 -- -- POTASSIUM mmol/L 4.2 -- -- CHLORIDE mmol/L 105 -- -- CO2 mmol/L 26.6 -- -- BUN mg/dL 13.9 -- -- CREATININE mg/dL 1.07* -- 1.40* CALCIUM mg/dL 8.8 -- -- BILIRUBIN mg/dL 0.9 -- -- ALK PHOS U/L 62 -- -- ALT (SGPT) U/L 12 10 -- AST (SGOT) U/L 19 19 -- GLUCOSE mg/dL 95 -- -- Results from last 7 days Lab Units 08/06/25 0509 08/05/25 1435 08/05/25 1405 WBC 10*3/mm3 4.07 3.64 -- HEMOGLOBIN g/dL 10.4* 10.3* -- HEMOGLOBIN, POC g/dL -- -- 11.9* HEMATOCRIT % 31.4* 31.9* -- HEMATOCRIT POC % -- -- 35* PLATELETS 10*3/mm3 83* 81* -- Results from last 7 days Lab Units 08/06/25 0509 MAGNESIUM mg/dL 2.0 I reviewed the patient's new imaging including images and reports. Results Imaging - CT scan of the head: 08/06/2025, Slight increased size of her left temporal intraparenchymal hemorrhage (ICH) with mass effect and left to right midline shift appears similar as compared to previous study. Medication Review: atorvastatin, 20 mg, Oral, Q PM levothyroxine, 50 mcg, Oral, Q AM mupirocin, 1 Application, Each Nare, BID pantoprazole, 40 mg, Oral, QAM AC senna-docusate sodium, 2 tablet, Oral, BID sodium chloride, 10 mL, Intravenous, Q12H sodium chloride, 10 mL, Intravenous, Q12H venlafaxine XR, 75 mg, Oral, Nightly niCARdipine, 5-15 mg/hr, Last Rate: Stopped (08/05/25 1457) Assessment & Plan ICH (intracerebral hemorrhage) Paroxysmal SVT (supraventricular tachycardia) Coronary artery disease involving autologous vein coronary bypass graft without angina pectoris Hyperlipidemia LDL goal <100 Essential hypertension Hypothyroidism (acquired) Assessment & Plan 1. Acute left temporal intraparenchymal hemorrhage (ICH). The patient was admitted to the ICU on 08/05/2025 with acute left temporal parenchymal hemorrhage with surrounding vasogenic edema. She developed difficulty speaking, acute headache, slurred speech, and global aphasia on the day of admission. Follow-up CT scan on 08/06/2025 showed slight worsening of ICH, although some of this may be due to the slight selection in angle. Neurosurgery is following, with no plans for surgical intervention at this time. Cardene will be continued as needed for blood pressure control, with a target blood pressure of <140/90. She has not required it today. Speech therapy will follow her, and she will need physical therapy. All antiplatelets and anticoagulants will be held. 2. Hypertension. Cardene will be used to maintain systolic blood pressure (SBP) <140. 3. Coronary artery disease (CAD). Aspirin will be held. Statins will be continued. 4. Hyperlipidemia. High-dose statin therapy will be continued. 5. Paroxysmal supraventricular tachycardia (PSVT). She is not on any medication at home. Heart rhythm will be monitored. No evidence of recurrence. 6. Hypothyroidism. Levothyroxine will be continued. 7. Deep vein thrombosis (DVT) prophylaxis. Sequential compression devices (SCDs) will be used in the setting of ICH. 8. Peptic ulcer prophylaxis. Protonix will be administered. Patient is critically ill secondary to tenuous neurologic status in the setting of ICH with concernfor cerebral edema and has high risk of life-threatening decompensation in condition. As such, the patient requires continuous monitoring and frequent reassessment for consideration of adjustment in management to minimize this risk. I personally reassessed the patient multiple times today. Critical care time : 35 minutes spent by me personally and independently.(This excludes time spent performing separately reportable procedures and services). Critical care time includes high complexity decision making to assess, manipulate, and support vital organ system failure in this individual who has impairment of one or more vital organ systems such that there is a high probability of imminent or life threatening deterioration in the patient???s condition. Electronically signed by: Aldo Gonzales MD 08/06/25 17:31 EDT Patient or patient cash application representative verbalized consent for the use of Ambient Listening during the visit for chart documentation. *Exception: for ICU patients or for instances where consent for use was not given, active listeningwas used only for dictation and was not used to record patient or family. * Ashlee Skinner, RD - 08/06/2025 12:15 PM EDT Nutrition Services Patient Name: Joie Flores Date of : 1945 Admit Date: 08/05/2025 Patient identified to be at nutrition risk per nurse admission screen based on indicator of difficulty chewing/swallowing . At this time patient has PO diet ordered per [facility] recommendations . Patientdoes not currently meet screen criteria for nutrition risk. RD will continue to follow per protocol. Electronically signed by: Ashlee Skinner RD 08/06/25 12:15 EDT * Steve Michelle MD - 08/06/2025 10:44 AM EDT Stroke Progress Note Chief Complaint: Acute headache and speech difficulty Subjective Subjective Subjective: The patient is sitting in a recliner in NAD. Family were at the bedside. The patient was unable to communicate with this provider as she was just drowsy and nonverbal. I have a detailed discussion with the patient's daughter at the bedside and explained all imaging findings and what could possibly explain her stroke. We also discussed expected prognosis and management moving forward. All questions and concerns were answered. No other acute complains at this time Review of Systems Unable to obtain secondary to her being nonverbal Objective Temp: [98 ??F (36.7 ??C)-99.1 ??F (37.3 ??C)] 99.1 ??F (37.3 ??C) Heart Rate: [67-92] 72 Resp: [16-20] 18 BP: (92-150)/(57-127) 136/71 Objective GEN: Sitting in the chair; in NAD HENT: normocephalic, non-erythematous oropharynx NEURO: Mental Status: The patient is drowsy but could be waking up to verbal stimuli. She is not communicative and is not following commands of this provider Speech: Nonverbal CN 2-12: II - PERRLA III, IV, - EOMI VII -mild right facial droop VIII - Auditory acuity intact Motor: The patient was moving her left upper extremity and put her chin on her hand. She would not move her right upper extremity. She would move her bilateral lower extremity with the gravity to tactile stimuli but stronger on the left compared to the right Sensory: intact light touch in the bilateral lower extremities Gait/Station: deferred Results Review: I reviewed the patient's new clinical results. WBC Date Value Ref Range Status 08/06/2025 4.07 3.40 - 10.80 10*3/mm3 Final RBC Date Value Ref Range Status 08/06/2025 3.11 (L) 3.77 - 5.28 10*6/mm3 Final Hemoglobin Date Value Ref Range Status 08/06/2025 10.4 (L) 12.0 - 15.9 g/dL Final Hematocrit Date Value Ref Range Status 08/06/2025 31.4 (L) 34.0 - 46.6 % Final MCV Date Value Ref Range Status 08/06/2025 101.0 (H) 79.0 - 97.0 fL Final MCH Date Value Ref Range Status 08/06/2025 33.4 (H) 26.6 - 33.0 pg Final MCHC Date Value Ref Range Status 08/06/2025 33.1 31.5 - 35.7 g/dL Final RDW Date Value Ref Range Status 08/06/2025 15.3 12.3 - 15.4 % Final RDW-SD Date Value Ref Range Status 08/06/2025 55.8 (H) 37.0 - 54.0 fl Final MPV Date Value Ref Range Status 08/06/2025 12.0 6.0 - 12.0 fL Final Platelets Date Value Ref Range Status 08/06/2025 83 (L) 140 - 450 10*3/mm3 Final Neutrophil % Date Value Ref Range Status 08/06/2025 53.1 42.7 - 76.0 % Final Lymphocyte % Date Value Ref Range Status 08/06/2025 36.1 19.6 - 45.3 % Final Monocyte % Date Value Ref Range Status 08/06/2025 7.4 5.0 - 12.0 % Final Eosinophil % Date Value Ref Range Status 08/06/2025 2.5 0.3 - 6.2 % Final Basophil % Date Value Ref Range Status 08/06/2025 0.7 0.0 - 1.5 % Final Immature Grans % Date Value Ref Range Status 08/06/2025 0.2 0.0 - 0.5 % Final Neutrophils, Absolute Date Value Ref Range Status 08/06/2025 2.16 1.70 - 7.00 10*3/mm3 Final Lymphocytes, Absolute Date Value Ref Range Status 08/06/2025 1.47 0.70 - 3.10 10*3/mm3 Final Monocytes, Absolute Date Value Ref Range Status 08/06/2025 0.30 0.10 - 0.90 10*3/mm3 Final Eosinophils, Absolute Date Value Ref Range Status 08/06/2025 0.10 0.00 - 0.40 10*3/mm3 Final Basophils, Absolute Date Value Ref Range Status 08/06/2025 0.03 0.00 - 0.20 10*3/mm3 Final Immature Grans, Absolute Date Value Ref Range Status 08/06/2025 0.01 0.00 - 0.05 10*3/mm3 Final nRBC Date Value Ref Range Status 08/06/2025 0.0 0.0 - 0.2 /100 WBC Final Lab Results Component Value Date GLUCOSE 95 08/06/2025 BUN 13.9 08/06/2025 CREATININE 1.07 (H) 08/06/2025 NA 141 08/06/2025 K 4.2 08/06/2025 CL 105 08/06/2025 CALCIUM 8.8 08/06/2025 PROTEINTOT 5.6 (L) 08/06/2025 ALBUMIN 3.7 08/06/2025 ALT 12 08/06/2025 AST 19 08/06/2025 ALKPHOS 62 08/06/2025 BILITOT 0.9 08/06/2025 GLOB 1.9 08/06/2025 AGRATIO 1.9 08/06/2025 BCR 13.0 08/06/2025 ANIONGAP 9.4 08/06/2025 EGFR 52.6 (L) 08/06/2025 CT Head Without Contrast Result Date: 08/06/2025 Impression: Redemonstration of an intraparenchymal hemorrhage seen within the left temporal lobe which appears slightly increased in size as compared to the previous study. A component of this may berelated to slight difference in scanning angle and resultant measuring technique. Mass effect and left to right midline shift appears similar as compared to the previous study. Electronically Signed:Gaby Vega MD 08/06/2025 5:51 AM EDT Workstation ID: [id number] CT Head Without Contrast Result Date: 08/05/2025 Enlarging left temporal intraparenchymal hemorrhage with mildly worsened rightward midline shift. Electronically Signed: Mango Alvarado MD 08/05/2025 8:19 PM EDT Workstation ID: [id number] XR Chest 1 View Result Date: 08/05/2025 Impression: No acute cardiopulmonary findings. Suspected hiatal hernia. Electronically Signed: MD Ajay 08/05/2025 3:18 PM EDT Workstation ID: [id number] CT Angiogram Head w AI Analysis of LVO Result Date: 08/05/2025 Impression: No significant interval change in the left temporal parenchymal hemorrhage. No proximallarge vessel occlusion or severe stenosis of the major arteries of the head and neck. Electronically Signed: Rodney Oliva MD 08/05/2025 2:52 PM EDT Workstation ID: [id number] CT Angiogram Neck Result Date: 08/05/2025 Impression: No significant interval change in the left temporal parenchymal hemorrhage. No proximallarge vessel occlusion or severe stenosis of the major arteries of the head and neck. Electronically Signed: Rodney Oliva MD 08/05/2025 2:52 PM EDT Workstation ID: [id number] CT Head Without Contrast Stroke Protocol Result Date: 08/05/2025 Impression: Parenchymal hemorrhage within the left temporal lobe with surrounding vasogenic edema and approximately 5 mm of rightward midline shift. Electronically Signed: Jagjit Florez MD 08/05/2025 2:04 PM EDT Workstation ID: [id number] Results for orders placed in visit on 06/02/23 Adult Transthoracic Echo Complete W/ Cont if Necessary Per Protocol 06/06/2023 2:45 PM Interpretation Summary Left ventricular ejection fraction appears to be 61 - 65%. Left ventricular wall thickness is consistent with concentric hypertrophy. Left ventricular diastolic function is consistent with (grade I) impaired relaxation. The right ventricular cavity is dilated. Estimated right ventricular systolic pressure from tricuspid regurgitation is normal (<35 mmHg). -CTH wo on 08/05/2025 images were personally reviewed and showed an acute hemorrhagic stroke affecting the anterior left temporal lobe. Repeat CT head from 05/06/2025 showed mild increase in left temporal lobe ICH with midline shift of about 4 mm. 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 head revealed parenchymal hemorrhage within the left temporal lobe with surrounding vasogenic edema and approximately 5 mm of rightward midline shift. CTA head/neck negative for any flow-limiting stenosis, LVO or aneurysm. Blood pressure arrival was 125/86. Case discussed with Dr. Briceno of neurosurgery, she is not a candidate for neurosurgical intervention. She will be admitted to the neuro ICU for close neurological monitoring. Antiplatelet RAIL CAR REPAIRER: Aspirin Anticoagulant RAIL CAR REPAIRER: None #Acute Left Temporal Intracranial Hemorrhage -Etiology of hemorrhagic stroke is unclear at this time but could possibly represent CAA in the setting of using aspirin -ICH score 2 -CTH wo on 08/05/2025 images were personally reviewed and showed an acute hemorrhagic stroke affecting the anterior left temporal lobe. Repeat CT head from 05/06/2025 showed mild increase in left temporal lobe ICH with midline shift of about 4 mm. -CTA of the head and neck images from 08/05/2025 were personally reviewed and showed no flow limiting stenosis or LVO -MRI brain is pending -Transthoracic echocardiogram is pending -A1c from 08/06/2025 was 5.4% -LDL from 08/06/2025 was 39 Recommendations -Discussed with Dr. Briceno, neurosurgery, patient not a candidate for neurosurgical treatment -Meds: HOLD all antiplatelet and anticoagulants at this time -Target blood pressure goals of less than 140/90. Nicardipine drip for systolic blood pressure of higher than 140/90 -Stat CT head without contrast for any neurological change to evaluate for interval change in the left temporal intraparenchymal hemorrhage -Activity as tolerated, fall risk precautions -PT/OT/WELL DRILLER evaluation #Essential hypertension -Strict blood pressure monitoring, please keep SBP <140 -Nicardipine as needed for SBP >140 #Hyperlipidemia -Consider resuming home atorvastatin 20 mg nightly given recent LDL at 35 Stroke will continue to follow. Please call for any further questions or concerns Steve Michelle MD, Msc, PhD Vascular Neurologist [facility] documented in this encounter H&P Notes * Rishi Alexander, DO - 08/05/2025 4:10 PM EDT Intensive Care Admission Note Chief Complaint: ICH (intracerebral hemorrhage) History of Present Illness The patient is an 80-year-old female with a past medical history significant for paroxysmal SVT, hypothyroidism, hyperlipidemia, coronary artery disease, hypertension, and GERD. She presented to the ICU on 08/05/2025 with an acute left temporal parenchymal hemorrhage with surrounding vasogenic edema. This afternoon, she started having difficulty speaking. While alert with her family, she experienced an acute onset headache, followed by slurred speech and global aphasia. She was then brought to the ER for further evaluation. Upon my assessment, she continues to have difficulty with speech but isable to move all extremities. Her blood pressure is currently well-controlled. The only anticoagulant she is on is a baby aspirin, which she takes for CAD. Problem List, Surgical History, Family, Social History, and ROS Past Medical History: Diagnosis Date Chronic kidney disease Coronary artery disease Hypertension PVT (paroxysmal ventricular tachycardia) Past Surgical History: Procedure Laterality Date APPENDECTOMY CHOLECYSTECTOMY HYSTERECTOMY Allergies Allergen Reactions Hydralazine Unknown - Low Severity Lipitor [Atorvastatin] Unknown - Low Severity Morphine Rash No current facility-administered medications on file prior to encounter. Current Outpatient Medications on File Prior to Encounter Medication Sig ALPRAZolam (XANAX) 0.25 MG tablet TAKE 1/2 TO 1 TABLET BY MOUTH 1 TO 3 TIMES EVERY DAY NEEDED aspirin 81 MG chewable tablet Daily. atorvastatin (LIPITOR) 20 MG tablet Take 1 tablet by mouth Every Evening. cetirizine (zyrTEC) 10 MG tablet Take 1 tablet by mouth Every Night. Cranberry 500 MG tablet Take 1,000 mg by mouth Every Night. diphenoxylate-atropine (LOMOTIL) 2.5-0.025 MG per tablet esomeprazole (nexIUM) 40 MG capsule Take 1 capsule by mouth Every Morning Before Breakfast. levothyroxine (SYNTHROID, LEVOTHROID) 50 MCG tablet Take 1 tablet by mouth Daily. montelukast (SINGULAIR) 10 MG tablet Take 1 tablet by mouth Every Night. multivitamin with minerals tablet tablet Take 1 tablet by mouth Daily. ondansetron (ZOFRAN) 4 MG tablet Take 1 tablet by mouth Every 8 (Eight) Hours As Needed. for nausea venlafaxine XR (EFFEXOR-XR) 75 MG 24 hr capsule Take 1 capsule by mouth Every Night. [DISCONTINUED] citalopram (CeleXA) 40 MG tablet Take 1 tablet by mouth Daily. [DISCONTINUED] Cyanocobalamin 1000 MCG/ML kit Inject as directed. [DISCONTINUED] midodrine (PROAMATINE) 2.5 MG tablet Take 1 tablet by mouth 3 (Three) Times a Day Before Meals. [DISCONTINUED] pantoprazole (PROTONIX) 20 MG EC tablet Take 1 tablet by mouth Daily. [DISCONTINUED] polyethylene glycol (MIRALAX) 17 GM/SCOOP powder TAKE 17 GRAMS BY MOUTH EVERY DAY FOR 30 DAYS [DISCONTINUED] Vitamin D, Cholecalciferol, (CHOLECALCIFEROL) 10 MCG (400 UNIT) tablet Take 1 tabletby mouth Daily. MEDICATION LIST AND ALLERGIES REVIEWED. Family History Problem Relation Age of Onset Heart attack Father Breast cancer Sister Social History Tobacco Use Smoking status: Never Passive exposure: Never Smokeless tobacco: Never Vaping Use Vaping status: Never Used Substance Use Topics Alcohol use: Yes Comment: occ Drug use: Never Social History Social History Narrative Not on file FAMILY AND SOCIAL HISTORY REVIEWED. Review of Systems Constitutional: Negative for activity change, appetite change, chills and fever. HENT: Negative for congestion, sore throat and voice change. Eyes: Negative for photophobia and visual disturbance. Respiratory: Negative for cough, shortness of breath and wheezing. Cardiovascular: Negative for chest pain, palpitations and leg swelling. Gastrointestinal: Negative for abdominal distention and abdominal pain. Genitourinary: Negative for difficulty urinating and flank pain. Musculoskeletal: Negative for myalgias and neck stiffness. Skin: Negative for color change and rash. Neurological: Positive for speech difficulty. Negative for dizziness, seizures and headaches. Hematological: Negative for adenopathy. Psychiatric/Behavioral: Negative for agitation, hallucinations and sleep disturbance. ALL OTHER SYSTEMS REVIEWED AND ARE NEGATIVE. Physical Exam and Clinical Information BP 139/78 Pulse 79 Temp 98 ??F (36.7 ??C) (Axillary) Resp 20 Ht 170.2 cm (67 ) Wt 88.9 kg(196 lb) SpO2 97% BMI 30.70 kg/m?? Physical Exam Vitals and nursing note reviewed. Constitutional: General: She is not in acute distress. Appearance: She is well-developed. She is obese. She is ill-appearing. She is not toxic-appearing. HENT: Head: Normocephalic and atraumatic. Cardiovascular: Rate and Rhythm: Normal rate and regular rhythm. Pulses: Normal pulses. Heart sounds: Normal heart sounds. No murmur heard. No friction rub. No gallop. Pulmonary: Effort: Pulmonary effort is normal. No respiratory distress. Breath sounds: Normal breath sounds. No wheezing, rhonchi or rales. Musculoskeletal: Right lower leg: No edema. Left lower leg: No edema. Skin: General: Skin is warm and dry. Neurological: Mental Status: She is alert. Comments: Dysarthria Results from last 7 days Lab Units 08/05/25 1435 08/05/25 1405 WBC 10*3/mm3 3.64 -- HEMOGLOBIN g/dL 10.3* -- HEMOGLOBIN, POC g/dL -- 11.9* PLATELETS 10*3/mm3 81* -- Results from last 7 days Lab Units 08/05/25 1405 CREATININE mg/dL 1.40* Estimated Creatinine Clearance: 36.7 mL/min (A) (by C-G formula based on SCr of 1.4 mg/dL (H)). No results found for: LACTATE I reviewed the patient's results/ images and I agree with the reports. Impression ICH (intracerebral hemorrhage) Paroxysmal SVT (supraventricular tachycardia) Coronary artery disease involving autologous vein coronary bypass graft without angina pectoris Hyperlipidemia LDL goal <100 Essential hypertension Hypothyroidism (acquired) Plan/Recommendations 1. Acute left temporal intracerebral hemorrhage. Neurosurgery has evaluated and determined no plans for intervention at this time. Follow-up imagingwill be conducted per neurology and neurosurgery recommendations, including serial CTs of the head.Nicardipine has been ordered to maintain a systolic blood pressure less than 140. Aspirin will be held. Speech therapy, physical therapy, and occupational therapy will evaluate the patient. An echo is currently pending. 2. Coronary artery disease. Aspirin will be held. The current statin regimen will be continued. 3. Hypertension. Nicardipine has been ordered to maintain a systolic blood pressure less than 140. 4. Hyperlipidemia. The patient is on atorvastatin. 5. Paroxysmal SVT. An echo is currently pending. 6. Hypothyroidism. The patient will continue levothyroxine 50 mcg daily. 7. ICU maintenance. SCDs will be used for DVT prophylaxis. A.M. labs have been ordered. The patient is NPO. Critical Care time spent in direct patient care: 35 minutes (excluding procedure time, if applicable) including high complexity decision making to assess, manipulate, and support vital organ system failure in this individual who has impairment of one or more vital organ systems such that there is ahigh probability of imminent or life threatening deterioration in the patient's condition. Usha Alexander DO Pulmonary and Critical Care Medicine 08/05/25 16:18 EDT CC: Araseli Khan DO documented in this encounter Consult Notes * Ken Frost RN - 08/06/2025 8:21 AM EDT Chart review for gate agent consult. At the time of this review patient A1c is 5.42 , they have no noted history of diabetes and no homemedications noted for treatment of diabetes. At this time we do not feel the patient would benefit from diabetes education. Thank you for this consult, should patient needs change please re consult us. * Jenifer Park APRN - 08/05/2025 1:49 PM EDTAssociated Order(s): IP CONSULT TO NEUROLOGY Stroke Consult Note Patient Name: Joie Flores Age: 80 y.o. 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 Patient was at lunch with her family when she suddenly complained of severe headache followed by garbled speech at 1245EST. On arrival to the emergency department, patient was tearful and inconsolable. Initial exam wasvery difficult and limited due to emotional lability and not following commands. Her exam is notable for severe mixed aphasia. She does not take any anticoagulants therefore does not require reversalagent. CT head revealed parenchymal hemorrhage within the left temporal lobe with surrounding vasogenic edema and approximately 5 mm of rightward midline shift. CTA head/neck negative for any flow-limiting stenosis, LVO or aneurysm. Blood pressure arrival was 125/86. Case discussed with Dr. Briceno of neurosurgery, she is not a candidate for neurosurgical intervention. She will be admitted to the neuro ICU for close neurological monitoring. Of note, patient's daughter states that she did have a fall onto her buttocks prior to symptoms starting. She denies head injury and LOC. She tells me that patient falls frequently. Last Known Normal Date/Time: 08/05/2025 1245 EST Review of Systems Unable to perform ROS: Other (Mixed Aphasia) Past Medical History: Diagnosis Date Chronic kidney disease Coronary artery disease Hypertension PVT (paroxysmal ventricular tachycardia) Past Surgical History: Procedure Laterality Date APPENDECTOMY CHOLECYSTECTOMY HYSTERECTOMY Family History Problem Relation Age of Onset Heart attack Father Breast cancer Sister Social History Socioeconomic History Marital status: Tobacco Use Smoking status: Never Passive exposure: Never Smokeless tobacco: Never Vaping Use Vaping status: Never Used Substance and Sexual Activity Alcohol use: Yes Comment: occ Drug use: Never Sexual activity: Defer Allergies Allergen Reactions Hydralazine Unknown - Low Severity Lipitor [Atorvastatin] Unknown - Low Severity Morphine Rash Prior to Admission medications Medication Sig Start Date End Date Taking? Authorizing Provider ALPRAZolam (XANAX) 0.25 MG tablet TAKE 1/2 TO 1 TABLET BY MOUTH 1 TO 3 TIMES EVERY DAY NEEDED 03/01/23 Yes ProviderMargi MD aspirin 81 MG chewable tablet Daily. Yes ProviderMargi MD atorvastatin (LIPITOR) 20 MG tablet Take 1 tablet by mouth Every Evening. 03/29/23 Yes ProviderMargi MD cetirizine (zyrTEC) 10 MG tablet Take 1 tablet by mouth Every Night. Yes Margi Ayala MD Cranberry 500 MG tablet Take 1,000 mg by mouth Every Night. Yes Margi Ayala MD diphenoxylate-atropine (LOMOTIL) 2.5-0.025 MG per tablet 08/19/23 Yes Margi Ayala MD esomeprazole (nexIUM) 40 MG capsule Take 1 capsule by mouth Every Morning Before Breakfast. Yes Margi Ayala MD levothyroxine (SYNTHROID, LEVOTHROID) 50 MCG tablet Take 1 tablet by mouth Daily. 04/27/23 Yes Margi Ayala MD montelukast (SINGULAIR) 10 MG tablet Take 1 tablet by mouth Every Night. Yes Margi Ayala MD multivitamin with minerals tablet tablet Take 1 tablet by mouth Daily. Yes Margi Ayala MD ondansetron (ZOFRAN) 4 MG tablet Take 1 tablet by mouth Every 8 (Eight) Hours As Needed. for nausea04/25/23 Yes Margi Ayala MD venlafaxine XR (EFFEXOR-XR) 75 MG 24 hr capsule Take 1 capsule by mouth Every Night. Yes Margi Ayala MD citalopram (CeleXA) 40 MG tablet Take 1 tablet by mouth Daily. 03/29/23 08/05/25 Yes Margi Ayala MD Cyanocobalamin 1000 MCG/ML kit Inject as directed. 08/05/25 Margi Ayala MD midodrine (PROAMATINE) 2.5 MG tablet Take 1 tablet by mouth 3 (Three) Times a Day Before Meals. 03/06/24 08/05/25 Samara Ortega APRN pantoprazole (PROTONIX) 20 MG EC tablet Take 1 tablet by mouth Daily. 08/16/23 08/05/25 Margi Ayala MD polyethylene glycol (MIRALAX) 17 GM/SCOOP powder TAKE 17 GRAMS BY MOUTH EVERY DAY FOR 30 DAYS 01/13/23 08/05/25 Margi Ayala MD Vitamin D, Cholecalciferol, (CHOLECALCIFEROL) 10 MCG (400 UNIT) tablet Take 1 tablet by mouth Daily. 08/05/25 Margi Ayala MD Temp: [98 ??F (36.7 ??C)] 98 ??F (36.7 ??C) Heart Rate: [78-84] 78 Resp: [20] 20 BP: (125-133)/(74-86) 133/74 Neurological Exam Mental Status Awake and alert. Orientation: Does not answer any orientation questions. Severe dysarthria present.Mixed aphasia present. Cranial Nerves CN II: Right superior quadrantanopsia. Does not blink to visual threat in right upper quadrant. . CN III, IV, : Extraocular movements intact bilaterally. Pupils equal round and reactive to light bilaterally. Favors left/forward gaze but will overcome. . CN VII: Right: There is peripheral facial weakness. CN VIII: Per daughter, deaf in right ear . Motor Normal muscle bulk throughout. Normal muscle tone. Strength is 5/5 throughout all four extremities. Sensory Sensation: Unable to assess light touch as patient does not understand the question, does withdraw equally on all extremities. Right-sided hemispatial neglect: Visual. Coordination No dysmetria out of proportion to weakness . Gait Not observed. Physical Exam Vitals and nursing note reviewed. Constitutional: General: She is awake. She is in acute distress. Appearance: She is ill-appearing. She is not toxic-appearing. HENT: Head: Normocephalic and atraumatic. Mouth/Throat: Mouth: Mucous membranes are moist. Eyes: Extraocular Movements: Extraocular movements intact. Pupils: Pupils are equal, round, and reactive to light. Cardiovascular: Rate and Rhythm: Normal rate and regular rhythm. Pulses: Normal pulses. Heart sounds: Normal heart sounds. Pulmonary: Effort: Pulmonary effort is normal. No respiratory distress. Breath sounds: Normal breath sounds. Musculoskeletal: Cervical back: Normal range of motion and neck supple. No rigidity or tenderness. Skin: General: Skin is warm and dry. Capillary Refill: Capillary refill takes less than 2 seconds. Neurological: Mental Status: She is alert. Cranial Nerves: Cranial nerve deficit and dysarthria present. Motor: Motor strength is normal. Psychiatric: Attention and Perception: She is inattentive. Mood and Affect: Mood is anxious. Affect is labile, tearful and inappropriate. Behavior: Behavior is uncooperative, agitated and hyperactive. Acute Stroke Data Thrombolytic Inclusion / Exclusion Criteria Time: 14:40 EDT Person Administering Scale: Jenifer Park APRN YES NO INCLUSION CRITERIA CLASS I [x] [] Suspected diagnosis of acute ischemic stroke with measureable neurological deficit. Low NIHSS with disabling stroke symptoms. [x] [] Onset of stroke symptoms < 3 hours before beginning treatment >/ 18 years old Stroke symptom onset = time patient was last seen well or without symptoms (LKW) [] [x] Onset of symptoms between 3-4.5 hours: >/= 80 years old (safe Class IIa) with history of both diabetes and prior CVA (reasonable Class IIb) AND NIHSS </= 25 *If not eligible for IV Thrombolytic consider neuro intervention for LKW within 24 hours YES NO EXCLUSION CRITERIA (CONTRAINDICATIONS) CLASS III EVIDENCE HARM [] [] Blood pressure >185/110 medically refractory to IV medications [] [] Active bleeding at a non-compressible site [x] [] Active intracranial hemorrhage (ICH) [] [] Symptoms suggestive of subarachnoid hemorrhage (SAH) [] [] GI bleed within 21 days [] [] Ischemic stroke within 3 months [] [] Severe head trauma within 3 months [] [] Intracranial or intraspinal surgery within 3 months [] [] Current GI malignancy [] [] Intracranial neoplasm [] [] Infective endocarditis [] [] Aortic arch dissection [] [] Active coagulopathy with INR >1.7, platelets <100,000, PTT > 40 sec, PT > 15 sec *For warfarin, administration can begin before blood tests resulted. Discontinue for above values. [] [] Treatment dose* of LMWH (Lovenox) in last 24 hours *prophylactic dosages are not a contraindication [] [] Concurrent use of antiplatelet agents' glycoprotein inhibitors IIb/IIIa (Integrilin, etc.) [] [] Thrombin or factor Xa inhibitors (Eliquis, Xarelto, Arixtra) taken in last 48 hours YES NO CLASS II: AIS WITH THE FOLLOWING CONDITIONS - TREATMENT RISKS SHOULD BE WEIGHED AGAINST POSSIBLE BENEFITS. [] [] Major trauma in last 14 days, recent major surgery in last 14 days, intracranial arterial dissection, giant unruptured and unsecured intracranial aneurysm, pericarditis [] [] The risks, benefits, and alternatives have been discussed with the patient or family related to the administration of IV thrombolytic therapy for stroke symptoms. [] [] I have discussed and reviewed the patient's case and imaging with the attending prior to IV thrombolytic therapy. TIME N/A Time IV thrombolytic administered Hospital Meds: Scheduled- midazolam, 1 mg, Intravenous, Once mupirocin, 1 Application, Each Nare, BID senna-docusate sodium, 2 tablet, Oral, BID sodium chloride, 10 mL, Intravenous, Q12H Infusions- niCARdipine, 5-15 mg/hr PRNs- senna-docusate sodium AND polyethylene glycol AND bisacodyl AND bisacodyl Calcium Replacement - Follow Nurse / BPA Driven Protocol Magnesium Standard Dose Replacement - Follow Nurse / BPA Driven Protocol nitroglycerin Phosphorus Replacement - Follow Nurse / BPA Driven Protocol Potassium Replacement - Follow Nurse / BPA Driven Protocol sodium chloride sodium chloride sodium chloride Functional Status Prior to Current Stroke/Harpster Score: 0-1 NIH Stroke Scale Time: 14:40 EDT Person Administering Scale: Jenifer Park APRN Interval: (Reassessed after she had calmed down) 1a. Level of Consciousness: 0-->Alert, keenly responsive 1b. LOC Questions: 2-->Answers neither question correctly 1c. LOC Commands: 1-->Performs one task correctly 2. Best Gaze: 1-->Partial gaze palsy, gaze is abnormal in one or both eyes, but forced deviationor total gaze paresis is not present 3. Visual: 1-->Partial hemianopia 4. Facial Palsy: 1-->Minor paralysis (flattened nasolabial fold, asymmetry on smiling) 5a. Motor Arm, Left: 0-->No drift, limb holds 90 (or 45) degrees for full 10 secs 5b. Motor Arm, Right: 0-->No drift, limb holds 90 (or 45) degrees for full 10 secs 6a. Motor Leg, Left: 0-->No drift, leg holds 30 degree position for full 5 secs 6b. Motor Leg, Right: 0-->No drift, leg holds 30 degree position for full 5 secs 7. Limb Ataxia: 0-->Absent 8. Sensory: 0-->Normal, no sensory loss 9. Best Language: 2-->Severe aphasia, all communication is through fragmentary expression, greatneed for inference, questioning, and guessing by the listener. Range of information that can be exchanged is limited, listener carries burden of. . . (see row details) 10. Dysarthria: 2-->Severe dysarthria, patients speech is so slurred as to be unintelligible in the absence of or out of proportion to any dysphasia, or is mute/anarthric 11. Extinction and Inattention (formerly Neglect): 0-->No abnormality Total (NIH Stroke Scale): 10 ICH Score: 0 Points (GCS 13 to 15) 1 Point (ICH volume =/>30 cm3) 0 Points (Intraventricular Extension Absent) 0 Points (Infratentorial Origin - No ) 1 Point (Age =/> 80 years) The total ICH Score for this patient is 2 at 13:49 EDT on 08/05/25 Results Reviewed: I have personally reviewed current lab, radiology, and data. CT Angiogram Head w AI Analysis of LVO Result Date: 08/05/2025 Impression: No significant interval change in the left temporal parenchymal hemorrhage. No proximallarge vessel occlusion or severe stenosis of the major arteries of the head and neck. Electronically Signed: Rodney Oliva MD 08/05/2025 2:52 PM EDT Workstation ID: [id number] CT Angiogram Neck Result Date: 08/05/2025 Impression: No significant interval change in the left temporal parenchymal hemorrhage. No proximallarge vessel occlusion or severe stenosis of the major arteries of the head and neck. Electronically Signed: Rodney Oliva MD 08/05/2025 2:52 PM EDT Workstation ID: [id number] CT Head Without Contrast Stroke Protocol Result Date: 08/05/2025 Impression: Parenchymal hemorrhage within the left temporal lobe with surrounding vasogenic edema and approximately 5 mm of rightward midline shift. Electronically Signed: Jagjit lForez MD 08/05/2025 2:04 PM EDT Workstation ID: [id number] WBC Date Value Ref Range Status 08/05/2025 3.64 3.40 - 10.80 10*3/mm3 Final RBC Date Value Ref Range Status 08/05/2025 3.08 (L) 3.77 - 5.28 10*6/mm3 Final Hemoglobin Date Value Ref Range Status 08/05/2025 10.3 (L) 12.0 - 15.9 g/dL Final 08/05/2025 11.9 (L) 12.0 - 17.0 g/dL Final Comment: Serial Number: [id number]: [id number] Hematocrit Date Value Ref Range Status 08/05/2025 31.9 (L) 34.0 - 46.6 % Final 08/05/2025 35 (L) 38 - 51 % Final MCV Date Value Ref Range Status 08/05/2025 103.6 (H) 79.0 - 97.0 fL Final MCH Date Value Ref Range Status 08/05/2025 33.4 (H) 26.6 - 33.0 pg Final MCHC Date Value Ref Range Status 08/05/2025 32.3 31.5 - 35.7 g/dL Final RDW Date Value Ref Range Status 08/05/2025 15.5 (H) 12.3 - 15.4 % Final RDW-SD Date Value Ref Range Status 08/05/2025 58.1 (H) 37.0 - 54.0 fl Final MPV Date Value Ref Range Status 08/05/2025 12.2 (H) 6.0 - 12.0 fL Final Platelets Date Value Ref Range Status 08/05/2025 81 (L) 140 - 450 10*3/mm3 Final Neutrophil % Date Value Ref Range Status 08/05/2025 55.5 42.7 - 76.0 % Final Lymphocyte % Date Value Ref Range Status 08/05/2025 34.6 19.6 - 45.3 % Final Monocyte % Date Value Ref Range Status 08/05/2025 6.6 5.0 - 12.0 % Final Eosinophil % Date Value Ref Range Status 08/05/2025 2.2 0.3 - 6.2 % Final Basophil % Date Value Ref Range Status 08/05/2025 0.8 0.0 - 1.5 % Final Immature Grans % Date Value Ref Range Status 08/05/2025 0.3 0.0 - 0.5 % Final Neutrophils, Absolute Date Value Ref Range Status 08/05/2025 2.02 1.70 - 7.00 10*3/mm3 Final Lymphocytes, Absolute Date Value Ref Range Status 08/05/2025 1.26 0.70 - 3.10 10*3/mm3 Final Monocytes, Absolute Date Value Ref Range Status 08/05/2025 0.24 0.10 - 0.90 10*3/mm3 Final Eosinophils, Absolute Date Value Ref Range Status 08/05/2025 0.08 0.00 - 0.40 10*3/mm3 Final Basophils, Absolute Date Value Ref Range Status 08/05/2025 0.03 0.00 - 0.20 10*3/mm3 Final Immature Grans, Absolute Date Value Ref Range Status 08/05/2025 0.01 0.00 - 0.05 10*3/mm3 Final nRBC Date Value Ref Range Status 08/05/2025 0.0 0.0 - 0.2 /100 WBC Final Lab Results Component Value Date CREATININE 1.40 (H) 08/05/2025 ALT 10 08/05/2025 AST 19 08/05/2025 EGFR 38.1 (L) 08/05/2025 Assessment/Plan: This is a 80-year-old female with past medical history of 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 head revealed parenchymal hemorrhage within the left temporal lobe with surrounding vasogenic edema and approximately 5 mm of rightward midline shift. CTA head/neck negative for any flow-limiting stenosis, LVO or aneurysm. Blood pressure arrival was 125/86. Case discussed with Dr. Briceno of neurosurgery, she is not a candidate for neurosurgical intervention. She will be admitted to the neuro ICU for close neurological monitoring. Antiplatelet RAIL CAR REPAIRER: Aspirin Anticoagulant RAIL CAR REPAIRER: None Acute Left Temporal Intracranial Hemorrhage -Hemorrhagic stroke order set has been initiated -ICH score 2 -Discussed with Dr. Briceno, neurosurgery, patient not a candidate for neurosurgical treatment -Repeat CT in 6 hours, 2000 EST -NPO until bedside nursing dysphagia screen completed -TTE 0 -A1c and lipid panel in AM -Meds: HOLD all antiplatelet and anticoagulants at this time -Activity as tolerated, fall risk precautions -PT/OT/WELL DRILLER evaluation 2. Essential hypertension -Strict blood pressure monitoring, please keep SBP <140 -Nicardipine as needed for SBP >140 3. Hyperlipidemia -Lipid panel in AM -Atorvastatin 80mg nightly Plan of care was discussed with Dr. Briceno (neurosurgery), Dr. Michelle (Vascular neurologist), Dr. Kinney (ED MD), patient and family at bedside. Stroke neurology will continue to follow. Pleasecall with any questions or concerns. Thank you for this consult. Jenifer Park APRN Neuro Stroke August 05, 2025 14:40 EDT documented in this encounter Nursing Notes * Jad Woodruff RN - 08/10/2025 11:48 AM EDT Given patient's report to DOMINGO Barron from [facility]. Patient will be transported by [facility] stretcher at3pm this afternoon. Patient will call out when ready. * Cindy Macario RN - 08/10/2025 4:25 AM EDT Problem: Adult Inpatient Plan of Care Goal: Plan of Care Review Outcome: Progressing Problem: Violence Risk or Actual Goal: Anger and Impulse Control Outcome: Progressing Intervention: Minimize Safety Risk Description: Listen actively, observing verbal and nonverbal cues (e.g., irritability, confusion, lack of cooperation, demanding behavior, body posture, expression); take threats seriously.Maintain atherapeutic presence; utilize calm, empathetic tone of voice, nonjudgmental attitude and nonthreatening body language; listen carefully.Assess and provide for unmet needs, including nutrition, comfort, hydration, hygiene, companionship and appropriate rest.Utilize empathetic but firm and concise communication; set limits, offer choices and propose alternatives.Remove stimuli and objects that may lead to harming self or others.Maintain clear path to room exit; keep door open during care.Ask directly about homicidal and suicidal intent; provide additional safety measures based on level of risk (e.g., one-on-one observation, duty to warn).Implement least restrictive measures if attempts to de-escalate violent or injurious behaviors are unsuccessful. Recent Flowsheet Documentation Taken 08/10/2025 0200 by Cindy Macario RN Sensory Stimulation Regulation: care clustered Enhanced Safety Measures: bed alarm set Taken 08/10/2025 0000 by Cindy Macario RN Sensory Stimulation Regulation: care clustered Enhanced Safety Measures: bed alarm set Taken 08/09/2025 2200 by Cindy Macario RN Sensory Stimulation Regulation: care clustered Enhanced Safety Measures: bed alarm set Taken 08/09/20252012 by Cindy Macario RN Enhanced Safety Measures: bed alarm set Goal Outcome Evaluation: Progressing. Slept most of night. At beginning of shift pointed to her head and was crying. PRN Tylenol given and effective. BP has remained under 140/90 throughout night. Placed on 2L via nasal cannula while sleeping. * Mata Ordaz RN - 08/08/2025 6:57 PM EDT [facility] consulted for specialty bed due to transfer from ICU Dynamic [id number] ordered from [facility]. * Suzy Alexander, MS SHEYLA-WELL DRILLER - 08/08/2025 10:30 AM EDT Goal Outcome Evaluation: Outcome Evaluation: ST treatment for impaired communication and follow up re: swallowing. Severe communication impairment. Pt is clearly frustrated but is also resistant to try tasks presented by WELL DRILLER. No difficulty with straw drinking despite refusal during FEES earlier today. WELL DRILLER to continue to follow. Anticipated Discharge Disposition (WELL DRILLER): inpatient rehabilitation facility, snf facility WELL DRILLER Swallowing Diagnosis: oral dysphagia, functional pharyngeal phase (08/08/25 0815) Treatment Assessment (WELL DRILLER): continued, apraxia, aphasia, communication disorder (08/08/25 1030) Treatment Assessment Comments (WELL DRILLER): Difficult to assess level of function- pt is reluctant to participate but also exhibits significant impairment based on the responses that are received. She successfully drank from a straw immediately upon presentation despite refusing or unable to drink from a straw during the FEES. No diffiuclty observed with single or continuous drinks. She is unable or unwilling to verbalize during automatic speech tasks. She is unable to unwilling to follow or imitate understanding of simple directions. She is unable to imitate speech, oromotor movements, or gestures.The most successful task was y/n response with functional questions. (08/08/25 103) Plan for Continued Treatment (WELL DRILLER): continue treatment per plan of care (08/08/25 103) * Suzy Alexander, MS CCC-WELL DRILLER - 08/08/2025 8:15 AM EDT Goal Outcome Evaluation: Outcome Evaluation: FEES completed. Oral phase dysphagia- functonal pharyngeal phase. WELL DRILLER to followup re: diet tolerance/diet advancement. WELL DRILLER Swallowing Diagnosis: oral dysphagia, functional pharyngeal phase (08/08/25 0815) * Ambar Velazquez OT - 08/08/2025 8:10 AM EDT Goal Outcome Evaluation: Plan of Care Reviewed With: patient Progress: improving Outcome Evaluation: Pt requiring less assistance for all mobility today compared to previous sessions. The pt performed bed mobility and took 6 steps forward using a RWx with Dominik x1 +1 for chair follow. The pt remains below baseline with generalized weakness, aphasia, R neglect, balance deficits, decreased activity tolerance, and decreased safety awareness. Continue to rec a d/c to IRF when medically ready. Anticipated Discharge Disposition (OT): inpatient rehabilitation facility * Moreno Cortez, RN - 08/08/2025 4:27 AM EDT Goal Outcome Evaluation: Plan of Care Reviewed With: patient Outcome Evaluation: vss. slept most of shift, no big changes in neuro status. adequate urine. family and sitter remain at bs. awaiting tele bed. * Faye Murray, Speech Therapy Student - 08/07/2025 11:40 AM EDT Goal Outcome Evaluation: Plan of Care Reviewed With: (P) patient Progress: (P) improving Anticipated Discharge Disposition (WELL DRILLER): (P) inpatient rehabilitation facility WELL DRILLER Swallowing Diagnosis: (P) oral dysphagia, suspected pharyngeal dysphagia (08/07/25 1050) Cosigned by Vani Ford, MS CCC-WELL DRILLER at 08/07/2025 1:04 PM EDT Associated attestation - Vani Ford, MS CCC-WELL DRILLER - 08/07/2025 1:04 PM EDT Vani Ford MS CCC-WELL DRILLER * Jenny Mirza, PT - 08/07/2025 11:40 AM EDT Goal Outcome Evaluation: Plan of Care Reviewed With: patient Outcome Evaluation: Pt assist in side steps from chair to bed w/ ModAx1 and UE support. Pt noted maged impulsive w/ decreased command following this date. Continue progressing current POC as tolerated to address cognitive impairments, balance deficits, limited safety awareness, R sided weakness/neglect, and decreased activity tolerance warranting IPPT. PT continue to rec IRF at d/c however will continue to monitor progress. Anticipated Discharge Disposition (PT): inpatient rehabilitation facility * Kervin Montiel RN - 08/07/2025 5:27 AM EDT Problem: Adult Inpatient Plan of Care Goal: Plan of Care Review Outcome: Progressing Problem: Violence Risk or Actual Goal: Anger and Impulse Control Outcome: Progressing Intervention: Minimize Safety Risk Recent Flowsheet Documentation Taken 08/07/2025 0400 by Kervin Montiel RN Enhanced Safety Measures: bed alarm set Taken 08/07/2025 0200 by Kervin Montiel RN Enhanced Safety Measures: bed alarm set Taken 08/07/2025 0000 by Kervin Montiel RN Enhanced Safety Measures: bed alarm set Taken 08/06/2025 2200 by Kervin Montiel RN Enhanced Safety Measures: bed alarm set Taken 08/06/2025 2100 by Kervin Montiel RN Enhanced Safety Measures: bed alarm set monitored by video Problem: Skin Injury Risk Increased Goal: Skin Health and Integrity Outcome: Progressing Intervention: Optimize Skin Protection Recent Flowsheet Documentation Taken 08/07/2025 0400 by Kervin Montiel RN Activity Management: bedrest Pressure Reduction Techniques: frequent weight shift encouraged Head of Bed (HOB) Positioning: HOB at 30-45 degrees HOB at 20-30 degrees Pressure Reduction Devices: specialty bed utilized pressure-redistributing mattress utilized Skin Protection: incontinence pads utilized Taken 08/07/2025 0200 by Kervin Montiel RN Pressure Reduction Techniques: frequent weight shift encouraged Head of Bed (HOB) Positioning: HOB at 20-30 degrees Pressure Reduction Devices: specialty bed utilized Skin Protection: incontinence pads utilized Taken 08/07/2025 0000 by Kervin Montiel RN Activity Management: bedrest Pressure Reduction Techniques: frequent weight shift encouraged Head of Bed (HOB) Positioning: HOB at 30-45 degrees Pressure Reduction Devices: specialty bed utilized pressure-redistributing mattress utilized Skin Protection: incontinence pads utilized Taken 08/06/2025 2100 by Kervin Montiel RN Pressure Reduction Techniques: frequent weight shift encouraged heels elevated off bed pressure points protected Head of Bed (HOB) Positioning: HOB at 30-45 degrees Pressure Reduction Devices: specialty bed utilized pressure-redistributing mattress utilized Skin Protection: incontinence pads utilized Taken 08/06/2025 1900 by Kervin Montiel RN Activity Management: bedrest Pressure Reduction Techniques: frequent weight shift encouraged Head of Bed (HOB) Positioning: HOB at 30-45 degrees Pressure Reduction Devices: specialty bed utilized pressure-redistributing mattress utilized Skin Protection: incontinence pads utilized Problem: Fall Injury Risk Goal: Absence of Fall and Fall-Related Injury Outcome: Progressing Intervention: Identify and Manage Contributors Recent Flowsheet Documentation Taken 08/07/2025 0400 by Kervin Montiel RN Medication Review/Management: medications reviewed Taken 08/07/2025 0200 by Kervin Montiel RN Medication Review/Management: medications reviewed Taken 08/07/2025 0000 by Kervin Montiel RN Medication Review/Management: medications reviewed Taken 08/06/2025 2200 by Kervin Montiel RN Medication Review/Management: medications reviewed Taken 08/06/2025 2100 by Kervin Montiel RN Medication Review/Management: medications reviewed Taken 08/06/2025 1900 by Kervin Montiel RN Medication Review/Management: medications reviewed Intervention: Promote Injury-Free Environment Recent Flowsheet Documentation Taken 08/07/2025 0400 by Kervin Montiel RN Safety Promotion/Fall Prevention: safety round/check completed Taken 08/07/2025 0200 by Kervin Montiel RN Safety Promotion/Fall Prevention: safety round/check completed Taken 08/07/2025 0000 by Kervin Montiel RN Safety Promotion/Fall Prevention: safety round/check completed Taken 08/06/2025 2200 by Kervin Montiel RN Safety Promotion/Fall Prevention: safety round/check completed Taken 08/06/2025 2100 by Kervin Montiel RN Safety Promotion/Fall Prevention: safety round/check completed Problem: Comorbidity Management Goal: Blood Pressure in Desired Range Outcome: Progressing Intervention: Maintain Blood Pressure Management Recent Flowsheet Documentation Taken 08/07/2025 0400 by Kervin Montiel RN Medication Review/Management: medications reviewed Taken 08/07/2025 0200 by Kervin Montiel RN Medication Review/Management: medications reviewed Taken 08/07/2025 0000 by Kervin Montiel RN Medication Review/Management: medications reviewed Taken 08/06/2025 2200 by Kervin Montiel RN Medication Review/Management: medications reviewed Taken 08/06/2025 2100 by Kervin Montiel RN Medication Review/Management: medications reviewed Taken 08/06/2025 1900 by Kervin Montiel RN Medication Review/Management: medications reviewed Goal Outcome Evaluation: * Dalia Bazan MS [facility]WELL DRILLER - 08/06/2025 4:51 PM EDT Goal Outcome Evaluation: Anticipated Discharge Disposition (WELL DRILLER): inpatient rehabilitation facility WELL DRILLER Diagnosis: severe, aphasia (08/06/25914) WELL DRILLER Swallowing Diagnosis: R/O pharyngeal dysphagia (08/06/25899) Treatment Assessment (WELL DRILLER): continued, communication disorder (08/06/25914) Plan for Continued Treatment (WELL DRILLER): continue treatment per plan of care (08/06/25914) * Ambar Velazquez OT - 08/06/2025 8:30 AM EDT Goal Outcome Evaluation: Plan of Care Reviewed With: patient, daughter Outcome Evaluation: OT evaluation completed. The pt presents below baseline with R sided inattention/neglect, generalized weakness, decreased activity tolerance, aphasia, and balance deficits warranting continued IP OT services. Pt following ~50% commands during session. Pt was assisted in taking 3-4 short, shuffled steps from EOB to the chair. Rec a d/c to IRF for best outcome, but will monitor pt progress closely. Anticipated Discharge Disposition (OT): inpatient rehabilitation facility * Aleena Greenwood, PT - 08/06/2025 8:30 AM EDT Goal Outcome Evaluation: Plan of Care Reviewed With: patient, family Progress: no change Outcome Evaluation: PT initial evaluation completed. Pt presenting w/ R sided inattention/neglect, impaired command following, aphasia, balance deficits, generalized weakness, decreased activity tolerance and increased falls risk compared to reported baseline warranting continued skilled IPPT interventions. MaxA X 2 to EOB, primarily CGA-Dominik sitting balance following improved alertness, ModA X 2to stand and side-step from EOB to chair positioned on L side. Further mobility deferred d/t fatigue and increased safety concerns. PT recommending IRF for best functional outcome upon d/c, will closely monitor pt's progress. Anticipated Discharge Disposition (PT): inpatient rehabilitation facility * Collin Briceno MD - 08/05/2025 4:13 PM EDT I was asked to review this patient's imaging. She is an 80-year-old female who presents with a lefttemporal intracerebral hemorrhage. CTA is negative for any aneurysm or AVM. She is not on any anticoagulation medications and does not require reversal. I would recommend a repeat head CT 6 hours from her original to ensure stability of the clot. Given her age, there would not be a role for any type of surgical intervention. I will defer to the stroke team for further management and workup. Please call with any questions. * Trupti Banks MS CF-WELL DRILLER - 08/05/2025 4:04 PM EDT Goal Outcome Evaluation: Plan of Care Reviewed With: patient, family Anticipated Discharge Disposition (WELL DRILLER): inpatient rehabilitation facility WELL DRILLER Diagnosis: severe, aphasia (08/05/25 154) WELL DRILLER Swallowing Diagnosis: R/O pharyngeal dysphagia (08/05/25 1540) documented in this encounter ED Notes * Yoana Kinney MD - 08/05/2025 2:08 PM EDTAssociated Order(s): Critical Care Images from the original note were not included. [facility] Pt Name: Joie Flores Birthdate: 1945 Date of evaluation: 08/05/2025 Provider: Yoana Kinney MD CHIEF COMPLAINT Chief Complaint Patient presents with Stroke HISTORY OF PRESENT ILLNESS Joie Flores is a 80 y.o. female who presents to the emergency department for evaluation as a stroke alert. History is not obtainable from the patient due to her difficulty speaking. History is obtained from the daughter over the phone as well as from EMS. Patient was at lunch with her family, complained of an acute onset headache and then began slurring her words followed by garbled speech. EMS was called who brought her to the hospital for further evaluation. Patient takes a baby aspirin with no other blood thinners. REVIEW OF SYSTEMS ROS: A chief complaint appropriate review of systems was completed and is negative except as noted in the HPI. PAST MEDICAL HISTORY Past Medical History: Diagnosis Date Chronic kidney disease Coronary artery disease Hypertension PVT (paroxysmal ventricular tachycardia) SURGICAL HISTORY Past Surgical History: Procedure Laterality Date APPENDECTOMY CHOLECYSTECTOMY HYSTERECTOMY CURRENT MEDICATIONS Current Facility-Administered Medications: atorvastatin (LIPITOR) tablet 20 mg, 20 mg, Oral, Q PM, Rishi Alexander, DO, 20 mg at 08/05/25 1724 sennosides-docusate (PERICOLACE) 8.6-50 MG per tablet 2 tablet, 2 tablet, Oral, BID AND polyethylene glycol (MIRALAX) packet 17 g, 17 g, Oral, Daily PRN AND bisacodyl (DULCOLAX) EC tablet 5 mg, 5 mg, Oral, Daily PRN AND bisacodyl (DULCOLAX) suppository 10 mg, 10 mg, Rectal, Daily PRN, Rishi Alexander, Calcium Replacement - Follow Nurse / BPA Driven Protocol, , Not Applicable, PRN, Rishi Alexander, DO citalopram (CeleXA) tablet 40 mg, 40 mg, Oral, Daily, Rishi Alexander, DO, 40 mg at 08/05/25 1724 levothyroxine (SYNTHROID, LEVOTHROID) tablet 50 mcg, 50 mcg, Oral, Q AM, Rishi Alexander, , 50 mcg at 08/05/25 1724 Magnesium Standard Dose Replacement - Follow Nurse / BPA Driven Protocol, , Not Applicable, PRN, Rishi Alexander, DO mupirocin (BACTROBAN) 2 % nasal ointment 1 Application, 1 Application, Each Nare, BID, Rishi Alexander, niCARdipine (CARDENE) 25mg in 250mL NS infusion, 5-15 mg/hr, Intravenous, Titrated, Jenifer Park, CLIENT RETENTION SPECIALIST, Held at 08/05/25 1457 nitroglycerin (NITROSTAT) SL tablet 0.4 mg, 0.4 mg, Sublingual, Q5 Min PRN, Rishi Alexander DO [START ON 08/06/2025] pantoprazole (PROTONIX) EC tablet 40 mg, 40 mg, Oral, QAM AC, Rishi Alexander, Phosphorus Replacement - Follow Nurse / BPA Driven Protocol, , Not Applicable, PRN, Rishi Alexander, DO Potassium Replacement - Follow Nurse / BPA Driven Protocol, , Not Applicable, PRN, Meenach, Christopher Ankit, DO sodium chloride 0.9 % flush 10 mL, 10 mL, Intravenous, PRN, Meenach, Christopher Ankit, DO sodium chloride 0.9 % flush 10 mL, 10 mL, Intravenous, Q12H, Meenach, Christopher Ankit, DO, 10 mL at 08/05/25 1426 sodium chloride 0.9 % flush 10 mL, 10 mL, Intravenous, PRN, Meenach, Christopher Ankit, DO sodium chloride 0.9 % flush 10 mL, 10 mL, Intravenous, Q12H, Park, Jenifer C, CLIENT RETENTION SPECIALIST sodium chloride 0.9 % flush 10 mL, 10 mL, Intravenous, PRN, Park, Jenifer C, CLIENT RETENTION SPECIALIST sodium chloride 0.9 % infusion 40 mL, 40 mL, Intravenous, PRN, Meenach, Christopher Ankit, DO sodium chloride 0.9 % infusion 40 mL, 40 mL, Intravenous, PRN, Park, Jenifer C, CLIENT RETENTION SPECIALIST ALLERGIES Hydralazine, Lipitor [atorvastatin], and Morphine FAMILY HISTORY Family History Problem Relation Age of Onset Heart attack Father Breast cancer Sister SOCIAL HISTORY Social History Socioeconomic History Marital status: Tobacco Use Smoking status: Never Passive exposure: Never Smokeless tobacco: Never Vaping Use Vaping status: Never Used Substance and Sexual Activity Alcohol use: Yes Comment: occ Drug use: Never Sexual activity: Defer PHYSICAL EXAM (up to 7 for level 4, 8 or more for level 5) Vitals: 08/05/25 1700 08/05/25 1715 08/05/25 1730 08/05/25 1745 BP: 105/91 120/90 123/69 146/80 Pulse: 75 77 75 74 Resp: Temp: TempSrc: SpO2: 94% 93% 93% 91% Weight: Height: Physical Exam Constitutional: General: She is in acute distress. Comments: Inconsolable crying, no intelligible speech HENT: Head: Normocephalic and atraumatic. Eyes: Conjunctiva/sclera: Conjunctivae normal. Pupils: Pupils are equal, round, and reactive to light. Cardiovascular: Rate and Rhythm: Normal rate and regular rhythm. Pulses: Normal pulses. Pulmonary: Effort: Pulmonary effort is normal. No respiratory distress. Abdominal: General: Abdomen is flat. There is no distension. Musculoskeletal: General: No swelling or deformity. Normal range of motion. Skin: General: Skin is warm and dry. Capillary Refill: Capillary refill takes less than 2 seconds. Neurological: Comments: EMV = 4-6-2. No obvious facial deformity, normal strength with no drift in the bilateral upper and lower extremities. Unable to obtain the remainder of the neurologic examination due to patient's distress Psychiatric: Mood and Affect: Mood normal. Behavior: Behavior normal. DIAGNOSTIC RESULTS EKG: All EKGs are interpreted by the Emergency Department Physician who either signs or Co-signs this chart in the absence of a sales and service officer. Telemetry Scan Final Result ECG 12 Lead ED Triage Standing Order; Acute Stroke (Onset <24 hrs) Preliminary Result Test Reason : ED Triage Standing Order~ Blood Pressure : */* mmHG Vent. Rate : 80 BPM Atrial Rate : 80 BPM P-R Int : 156 ms QRS Dur : 110 ms QT Int : 392 ms P-R-T Axes : -5 -46 -1 degrees QTcB Int : 452 ms Normal sinus rhythm Left axis deviation Low voltage QRS Incomplete right bundle branch block Inferior infarct , age undetermined Abnormal ECG No previous ECGs available Referred By: EDMD Confirmed By: RADIOLOGY: [x] Radiologist's Report Reviewed: XR Chest 1 View Final Result Impression: No acute cardiopulmonary findings. Suspected hiatal hernia. Electronically Signed: Deep Lackey MD 08/05/2025 3:18 PM EDT Workstation ID: [id number] CT Angiogram Head w AI Analysis of LVO Final Result Impression: No significant interval change in the left temporal parenchymal hemorrhage. No proximal large vessel occlusion or severe stenosis of the major arteries of the head and neck. Electronically Signed: Rodney Oliva MD 08/05/2025 2:52 PM EDT Workstation ID: [id number] CT Angiogram Neck Final Result Impression: No significant interval change in the left temporal parenchymal hemorrhage. No proximal large vessel occlusion or severe stenosis of the major arteries of the head and neck. Electronically Signed: Rodney Oliva MD 08/05/2025 2:52 PM EDT Workstation ID: [id number] CT Head Without Contrast Stroke Protocol Final Result Impression: Parenchymal hemorrhage within the left temporal lobe with surrounding vasogenic edema and approximately 5 mm of rightward midline shift. Electronically Signed: Jagjit Florez MD 08/05/2025 2:04 PM EDT Workstation ID: [id number] CT Head Without Contrast (Results Pending) I ordered and independently reviewed the above noted radiographic studies. LABS: I independently interpreted all laboratory studies conducted during this ED visit. The results of these studies can be seen below and my independent interpretation in the ED course EMERGENCY DEPARTMENT COURSE and DIFFERENTIAL DIAGNOSIS/MDM: Vitals: OF 18:16 EDT BP - 146/80 HR - 74 TEMP - 98 ??F (36.7 ??C) (Axillary) O2 SATS - 91% Discussion below represents my analysis of pertinent findings related to patient's condition, differential diagnosis, treatment plan and final disposition. Differential diagnosis: The differential diagnosis associated with the patient's presentation includes: Acute ischemic or hemorrhagic stroke, complex migraine headache Independent interpretations (ECG/rhythm strip/X-ray/US/CT scan): See ED course Additional sources: Discussed/obtained information from independent historians: [] Spouse: [] Parent: [] Friend: [x] EMS: Prehospital course by EMS [] Other: External record review: 03/06/2024 reviewed most recent outpatient provider note, seen in cardiology clinic for autonomic orthostasis and hypotension. Patient's care impacted by: [] Diabetes [] Hypertension [] Coronary Artery Disease [] Cancer [] Other: Care significantly affected by Social Determinants of Health (housing and economic circumstances, unemployment) [] Yes [x] No If yes, Patient's care significantly limited by Social Determinants of Health including: [] Inadequate housing [] Low income [] Alcoholism and drug addiction in family [] Problems related to primary support group [] Unemployment [] Problems related to employment [] Other Social Determinants of Health: I considered prescription management with: [] Pain medication: [] Antiviral: [] Antibiotic: [] Other: Additional orders considered but not ordered: The following testing was considered but ultimately not selected: ED Course: ED Course as of 08/05/251815Aug 05, [address] scan of hte head independently interpreted by myself demonstrates large left intraparenchymal hemorrhage [KB] 1356 Stroke navigator present at the bedside, they will consult with neurosurgery [KB] 1356 Patient takes a baby aspirin 81mg daily, no other blood thinning medications per EMS report and per daughter over the phone [KB] 1406 Intensive care unit was consulted. [KB] 1814 Laboratory workup independently interpreted by myself demonstrates anemia, mildly elevated creatinine [KB] 1815 CT angiograms demonstrate no large vessel occlusion or aneurysm [KB] ED Course User Index [KB] Yoana Kinney MD Large intraparenchymal hemorrhages noted on noncontrasted CT scan. Patient is not anticoagulated and does not require reversal. Her blood pressures are at goal range currently and does not require antihypertensive medication. Stroke navigator and neurosurgery were consulted. No acute neurosurgical intervention is planned at this time. Patient did have some rising blood pressures in the ER during in the setting of acute agitation. Nicardipine and Versed were ordered however patient's family are able to de-escalate her anxiety and her blood pressure subsequently improves to goal range and nicardipine infusion was not required. Shewill be admitted for further evaluation and treatment PROCEDURES: Critical Care Performed by: Yoana Kinney MD Authorized by: Yoana Kinney MD Critical care provider statement: Critical care time (minutes): 41 Critical care time was exclusive of: Separately billable procedures and treating other patients Critical care was necessary to treat or prevent imminent or life-threatening deterioration of the following conditions: 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 Critical care was time spent personally by me on the following activities: Development of treatmentplan with patient or surrogate, discussions with consultants, evaluation of patient's response to treatment, examination of patient, obtaining history from patient or surrogate, ordering and performing treatments and interventions, ordering and review of laboratory studies, ordering and review of radiographic studies, pulse oximetry, re-evaluation of patient's condition and review of old charts I assumed direction of critical care for this patient from another provider in my specialty: no Care discussed with: admitting provider CRITICAL CARE TIME 41 CONSULTS Stroke navigator Neurosurgery Intensive care FINAL IMPRESSION 1. Hemorrhagic stroke 2. Intraparenchymal hemorrhage of brain 3. Dysphagia, unspecified type 4. Communication deficit DISPOSITION/PLAN ED Disposition ED Disposition Decision to Admit Condition -- Comment Level of Care: Critical Care [6] Admitting Physician: RISHI ALEXANDER [[id number]] Comment: Please note this report has been produced using speech recognition software. Yoana Kinney MD Attending Emergency Physician Recent Results (from the past 24 hours) POC CHEM 8 Collection Time: 08/05/25 2:05 PM Specimen: Blood Result Value Ref Range Glucose 132 (H) 70 - 130 mg/dL BUN 22 8 - 26 mg/dL Creatinine 1.40 (H) 0.60 - 1.30 mg/dL Sodium 138 138 - 146 mmol/L POC Potassium 4.4 3.5 - 4.9 mmol/L Chloride 103 98 - 109 mmol/L Total CO2 23 (L) 24 - 29 mmol/L Hemoglobin 11.9 (L) 12.0 - 17.0 g/dL Hematocrit 35 (L) 38 - 51 % Ionized Calcium 1.08 (L) 1.15 - 1.30 mmol/L eGFR 38.1 (L) >60.0 mL/min/1.73 ECG 12 Lead ED Triage Standing Order; Acute Stroke (Onset <24 hrs) Collection Time: 08/05/25 2:19 PM Result Value Ref Range QT Interval 392 ms QTC Interval 452 ms Protime-INR Collection Time: 08/05/25 2:35 PM Specimen: Blood Result Value Ref Range Protime 15.5 (H) 12.2 - 15.3 Seconds INR 1.16 (H) 0.89 - 1.12 aPTT Collection Time: 08/05/25 2:35 PM Specimen: Blood Result Value Ref Range PTT 26.5 22.0 - 39.0 seconds AST Collection Time: 08/05/25 2:35 PM Specimen: Blood Result Value Ref Range AST (SGOT) 19 1 - 32 U/L ALT Collection Time: 08/05/25 2:35 PM Specimen: Blood Result Value Ref Range ALT (SGPT) 10 1 - 33 U/L Green Top (Gel) Collection Time: 08/05/25 2:35 PM Result Value Ref Range Extra Tube Hold for add-ons. Lavender Top Collection Time: 08/05/25 2:35 PM Result Value Ref Range Extra Tube hold for add-on Gold Top - SST Collection Time: 08/05/25 2:35 PM Result Value Ref Range Extra Tube Hold for add-ons. Mora Top Collection Time: 08/05/25 2:35 PM Result Value Ref Range Extra Tube Hold for add-ons. Light Blue Top Collection Time: 08/05/25 2:35 PM Result Value Ref Range Extra Tube Hold for add-ons. CBC Auto Differential Collection Time: 08/05/25 2:35 PM Specimen: Blood Result Value Ref Range WBC 3.64 3.40 - 10.80 10*3/mm3 RBC 3.08 (L) 3.77 - 5.28 10*6/mm3 Hemoglobin 10.3 (L) 12.0 - 15.9 g/dL Hematocrit 31.9 (L) 34.0 - 46.6 % MCV 103.6 (H) 79.0 - 97.0 fL MCH 33.4 (H) 26.6 - 33.0 pg MCHC 32.3 31.5 - 35.7 g/dL RDW 15.5 (H) 12.3 - 15.4 % RDW-SD 58.1 (H) 37.0 - 54.0 fl MPV 12.2 (H) 6.0 - 12.0 fL Platelets 81 (L) 140 - 450 10*3/mm3 Neutrophil % 55.5 42.7 - 76.0 % Lymphocyte % 34.6 19.6 - 45.3 % Monocyte % 6.6 5.0 - 12.0 % Eosinophil % 2.2 0.3 - 6.2 % Basophil % 0.8 0.0 - 1.5 % Immature Grans % 0.3 0.0 - 0.5 % Neutrophils, Absolute 2.02 1.70 - 7.00 10*3/mm3 Lymphocytes, Absolute 1.26 0.70 - 3.10 10*3/mm3 Monocytes, Absolute 0.24 0.10 - 0.90 10*3/mm3 Eosinophils, Absolute 0.08 0.00 - 0.40 10*3/mm3 Basophils, Absolute 0.03 0.00 - 0.20 10*3/mm3 Immature Grans, Absolute 0.01 0.00 - 0.05 10*3/mm3 nRBC 0.0 0.0 - 0.2 /100 WBC Note: In addition to lab results from this visit, the labs listed above may include labs taken at another facility or during a different encounter within the last 24 hours. Please correlate lab timeswith ED admission and discharge times for further clarification of the services performed during this visit. Yoana Kinney MD 08/05/25 1816 documented in this encounter Miscellaneous Notes * Case Management/Social Work - Rosemarie Loyd, RN - 08/10/2025 10:58 AM EDT Case Management Discharge Note Final Note: Patient is transferring to [facility], stroke unit, today 10-5. Without sitter over 48hours. [facility] to transport will come to patient's room with stretcher to fruit or nut picker at 1500. Call report to [phone] and I faxed the d/c summary to [phone]. Selected Continued Care - Admitted Since 08/05/2025 Destination Coordination complete. Service Provider Services Address Phone Fax Patient Preferred [facility] -- [address] [phone] -- Durable Medical Equipment No services have been selected for the patient. Dialysis/Infusion No services have been selected for the patient. Home Medical Care No services have been selected for the patient. Therapy No services have been selected for the patient. Community Resources No services have been selected for the patient. Community & DME No services have been selected for the patient. Transportation Services Transportation: Ambulance Ambulance: Other ([facility] stretcher) Other Ambulance Status: Accepted Final Discharge Disposition Code: 62 - inpatient rehab facility * Case Management/Social Work - Tasha Vizcarra RN - 08/08/2025 10:55 AM EDT Discharge Planning Assessment [facility] Patient Name: Joie Flores Today's Date: 08/08/2025 Admit Date: 08/05/2025 Plan: [facility] Discharge Plan Row Name 08/08/25 1049 Plan Plan [facility] Patient/Family in Agreement with Plan yes Plan Comments Per [facility], Ms. Flores will be transferred to floor today. She has required sitter within last 24hrs. Her family did stay with her last night. I have met [facility] Ms. Flores and her family at the bedside to discuss [facility] bed offer. They are agreeable however they cannot stay with her at 29/05. Per Karolina with , Ms. Flores will have to be sitter free for 24hrs prior to admission there. CM will f/u with [facility] weekend liason in the morning regarding bed availability and medical readiness for discharge. Final Discharge Disposition Code 62 - inpatient rehab facility Continued Care and Services - Admitted Since 08/05/2025 Destination Service Provider Request Status Services Address Phone Fax Patient Preferred [facility] -- [address] [phone] -- Tasha Vizcarra, RN * Therapy Treatment Note - Suzy Alexander MS CCC-WELL DRILLER - 08/08/2025 10:30 AM EDT Images from the original note were not included. Acute Care - Speech Language Pathology Swallow Treatment Note [facility] Patient Name: Joie Flores : 1945 Today's Date: 08/08/2025 Admit Date: 08/05/2025 Visit Dx: ICD-10-CM ICD-9-CM 1. Hemorrhagic stroke I61.9 431 2. Intraparenchymal hemorrhage of brain I61.9 431 3. Oral phase dysphagia R13.11 787.21 4. Communication deficit F80.9 307.9 Patient Active Problem List Diagnosis Acute pancreatitis Anemia Bacteremia Colitis Methicillin susceptible Staphylococcus aureus infection, unspecified site Other specified diseases of pancreas Urinary tract infectious disease Autonomic orthostatic hypotension Abnormal findings on diagnostic imaging of heart and coronary circulation Chest pain ICH (intracerebral hemorrhage) Paroxysmal SVT (supraventricular tachycardia) Coronary artery disease involving autologous vein coronary bypass graft without angina pectoris Hyperlipidemia LDL goal <100 Essential hypertension Hypothyroidism (acquired) Past Medical History: Diagnosis Date Chronic kidney disease Coronary artery disease Hypertension PVT (paroxysmal ventricular tachycardia) Past Surgical History: Procedure Laterality Date APPENDECTOMY CHOLECYSTECTOMY HYSTERECTOMY WELL DRILLER Recommendation and Plan Recommended discharge disposition is based on the functional assessment performed by PT/OT/Speech therapy (as applicable) and may not reflect the medical necessity determined by your provider or services covered by an individual patient's insurance plan or patient resource. WELL DRILLER Swallowing Diagnosis: oral dysphagia, functional pharyngeal phase (08/08/25814) WELL DRILLER Diet Recommendation: thin liquids, soft to chew textures, chopped (08/08/251029) Recommended Precautions and Strategies: upright posture during/after eating, small bites of food and sips of liquid, general aspiration precautions, assist with feeding (08/08/251029) WELL DRILLER Rec. for Method of Medication Administration: meds whole, with thin liquids (08/08/251029) Monitor for Signs of Aspiration: notify WELL DRILLER if any concerns (08/08/251029) Recommended Diagnostics: reassess via clinical swallow evaluation (08/08/251029) Swallow Criteria for Skilled Therapeutic Interventions Met: demonstrates skilled criteria () Anticipated Discharge Disposition (WELL DRILLER): inpatient rehabilitation facility, snf facility (08/08/251029) Rehab Potential/Prognosis, Swallowing: re-evaluate goals as necessary (08/08/25814) Therapy Frequency (Swallow): 3 days per week (08/08/251029) Predicted Duration Therapy Intervention (Days): 1 week (08/08/251029) Oral Care Recommendations: Oral Care BID/PRN, Toothbrush (08/08/251029) Daily Summary of Progress (WELL DRILLER): progress toward functional goals is gradual (08/08/251029) Treatment Assessment (WELL DRILLER): continued, apraxia, aphasia, communication disorder (08/08/251029) Treatment Assessment Comments (WELL DRILLER): Difficult to assess level of function- pt is reluctant to participate but also exhibits significant impairment based on the responses that are received. She successfully drank from a straw immediately upon presentation despite refusing or unable to drink from a straw during the FEES. No diffiuclty observed with single or continuous drinks. She is unable or unwilling to verbalize during automatic speech tasks. She is unable to unwilling to follow or imitate understanding of simple directions. She is unable to imitate speech, oromotor movements, or gestures. The most successful task was y/n response with functional questions. (08/08/251029) Plan for Continued Treatment (WELL DRILLER): continue treatment per plan of care (08/08/251029) Outcome Evaluation: ST treatment for impaired communication and follow up re: swallowing. Severe communication impairment. Pt is clearly frustrated but is also resistant to try tasks presented by WELL DRILLER. No difficulty with straw drinking despite refusal during FEES earlier today. WELL DRILLER to continue to follow. SWALLOW EVALUATION (Last 72 Hours) WELL DRILLER Adult Swallow Evaluation Row Name 08/08/25 1030 08/08/25 0815 08/07/25 1050 08/06/25 0900 08/05/25 1540 Rehab Evaluation Document Type -- evaluation -ML re-evaluation -MH (r) IG (t) MH (c) re- evaluation;therapy note (daily note) - evaluation - Subjective Information -- no complaints -ML no complaints -MH (r) IG (t) MH (c) no complaints - no complaints - Patient Observations -- alert;cooperative -ML alert;cooperative -MH (r) IG (t) MH (c) alert;cooperative;agree to therapy - alert;cooperative - Patient/Family/Caregiver Comments/Observations -- Granddaughter present throughout/dtr arrived at the end of the study -ML Daughters present -MH (r) IG (t) MH (c) daughter and grandaughter present - Family present -SM Patient Effort -- fair -ML good -MH (r) IG (t) MH (c) good -CH good -SM Comment -- Limited pt cooperation- not clear as to whether unwilling vs. unable to understand the direction. -ML -- -- -- Symptoms Noted During/After Treatment -- none -ML none -MH (r) IG (t) MH (c) none -CH none -SM Oral Care -- -- -- oral rinse provided - -- General Information Patient Profile Reviewed -- yes -ML yes -MH (r) IG (t) MH (c) yes -CH yes -SM Pertinent History Of Current Problem -- Brain bleed- large, left temportal parenchymal hemorrhage with surrounding edema, Decreased speech/global aphasia, right weakness, Right neglect, and UTI Hx ofCAD, HLD, Essential HTN, and hypothyroidism. -ML See initial eval -MH (r) IG (t) MH (c) see initial evaluation. Pt NPO after noted new facial droop. CT: Redemonstration of an intraparenchymal hemorrhage within the left temporal lobe which appears slightly increased in size as compared to the previous study. A component of this may be related to slight difference in scanning angle and resultant measuring technique. Mass effect and left to right midline shift appears similar as compared to the previous study. -CH Presents for acute onset headache and aphasia. Imaging revealed acute large lefttemporal intraparenchymal hemorrhage -SM Current Method of Nutrition -- mechanical ground textures;thin liquids -ML mechanical ground textures;thin liquids -MH (r) IG (t) MH (c) NPO -CH NPO -SM Precautions/Limitations, Vision -- -- WFL;for purposes of eval -MH (r) IG (t) MH (c) WFL;for purposes of eval -CH difficult to assess -SM Precautions/Limitations, Hearing -- -- WFL;for purposes of eval -MH (r) IG (t) MH (c) WFL;for purposes of eval -CH difficult to assess -SM Prior Level of Function-Communication -- -- unknown -MH (r) IG (t) MH (c) WFL - CH WFL -SM Prior Level of Function-Swallowing -- -- no diet consistency restrictions;other (see comments) Softer foods 2' missing dentition -MH (r) IG (t) MH (c) no diet consistency restrictions;other (see comments) Softer foods 2' missing dentition -CH no diet consistency restrictions;other (see comments) Softer foods 2' missing dentition -SM Plans/Goals Discussed with -- -- patient and family;agreed upon -MH (r) IG (t) MH (c) patient and family;agreed upon - patient and family;agreed upon - Barriers to Rehab -- -- language impairment -ML medically complex -MH (r) IG (t) MH (c) none identified -CH none identified -SM Patient's Goals for Discharge -- patient could not state -ML patient did not state -MH (r) IG (t) MH (c) patient did not state -CH patient did not state -SM Family Goals for Discharge -- family did not state -ML family did not state -MH (r) IG (t) MH (c) family did not state -CH family did not state -SM Pain Additional Documentation -- Pain Scale: FACES Pre/Post-Treatment (Group) -ML Pain Scale: FACES Pre/Post-Treatment (Group) -MH (r) IG (t) MH (c) Pain Scale: FACES Pre/Post-Treatment (Group) -CH Pain Scale: FACES Pre/Post-Treatment (Group) -SM Pain Scale: FACES Pre/Post-Treatment Pain: FACES Scale, Pretreatment -- 0-->no hurt -ML 0-->no hurt -MH (r) IG (t) (c) 0-->no hurt -CH 2-->hurts little bit -SM Posttreatment Pain Rating -- 0-->no hurt -ML 0-->no hurt -MH (r) IG (t) (c) 0-->no hurt-CH 2-->hurts little bit -SM Pre/Posttreatment Pain Comment -- Observed to have hand at her head at the end of the session- ? [place], however pt then removed her hand from her head when asked if her head hurts. -ML -- -- -- Oral Motor Structure and Function Dentition Assessment -- missing teeth -ML missing teeth;teeth are in poor condition - (r) IG (t) (c) missing teeth;teeth are in poor condition - missing teeth -SM Secretion Management -- WNL/WFL -ML WNL/WFL - (r) IG (t) (c) WNL/WFL -CH WNL/WFL -SM Mucosal Quality -- -- moist, healthy - (r) IG (t) (c) moist, healthy - moist, healthy -SM Volitional Swallow -- delayed -ML -- unable to elicit -CH unable to elicit -SM Volitional Cough -- -- -- unable to elicit -CH unable to elicit -SM Oral Musculature and Cranial Nerve Assessment Oral Motor General Assessment -- -- unable to assess - (r) IG (t) (c) unable to assess -CH unable to assess -SM Oral Motor, Comment -- Pt unable to follow commands to comply with oral mech exam -ML Pt unable to follow OM commands - (r) IG (t) (c) patient unable to follow directives to complete oral mech assessment -CH U/a to follow directions to assess -SM General Eating/Swallowing Observations Respiratory Support Currently in Use room air -ML room air -ML room air - (r) IG (t) (c) room air -CH room air -SM Eating/Swallowing Skills self-fed;fed by staff/caregiver -ML fed by staff/caregiver -ML fed by WELL DRILLER - (r) (t) (c) fed by WELL DRILLER -CH self-fed;fed by WELL DRILLER -SM Positioning During Eating upright in chair -ML upright 90 degree;upright in chair -ML upright 90 degree;upright in chair - (r) IG (t) (c) upright 90 degree;upright in chair -CH upright 90 degree;upright in bed - Utensils Used straw -ML spoon;cup;straw -ML spoon;straw - (r) IG (t) (c) spoon;cup;straw -CH spoon;cup;straw - Consistencies Trialed thin liquids -ML regular textures;soft to chew textures;mechanical ground textures;thin liquids -ML ice chips;thin liquids;soft to chew textures;pureed - (r) IG (t) (c) icechips;thin liquids;pureed;regular textures - ice chips;thin liquids;regular textures - Pre SpO2 (%) -- 93 -ML -- 96 -CH -- Post SpO2 (%) -- 93 -ML -- 97 -CH -- Respiratory Respiratory Status -- -- WFL;room air - (r) (t) (c) WFL;room air - -- Clinical Swallow Eval Oral Prep Phase -- -- impaired - (r) IG (t) (c) impaired - WFL -SM Oral Transit -- -- WFL - (r) IG (t) (c) WFL - WFL -SM Oral Residue -- -- WFL - (r) IG (t) (c) WFL - WFL -SM Pharyngeal Phase -- -- suspected pharyngeal impairment - (r) IG (t) (c) suspected pharyngeal impairment - suspected pharyngeal impairment -SM Esophageal Phase -- -- unremarkable - (r) IG (t) (c) unremarkable - unremarkable -SM Oral Prep Concerns Oral Prep Concerns -- -- prolonged mastication - (r) IG (t) (c) reduced lip opening;increased prep time;other (see comments) cog/language impacting - -- Prolonged Mastication -- -- mechanical soft -MH (r) IG (t) MH (c) -- -- Reduced Lip Opening -- -- -- all consistencies -CH -- Increased Prep Time -- -- -- regular consistencies -CH -- Pharyngeal Phase Concerns Pharyngeal Phase Concerns -- -- cough -MH (r) IG (t) MH (c) cough -CH cough -SM Cough -- -- thin;other (see comments) Delayed cough x1 w/ thins and no further s/s -MH (r) IG (t) MH (c) thin;other (see comments) with initial teaspoon sip of thin H2O only. No s/s with cup or strawsips and numerous small sips of each presented - thin;other (see comments) Via large consecutive straw sips only - Pharyngeal Phase Concerns, Comment -- -- -- o s/s of aspiration with thin via cup or straw, or whentaking meds w small sips by straw -CH No s/sxs w/ thin via cup -SM Fiberoptic Endoscopic Evaluation of Swallowing (FEES) Risks/Benefits Reviewed -- risks/benefits explained;patient;family;agreed to eval -ML -- -- -- Nasal Entry -- left: -ML -- -- -- Scope serial number/identification -- [id number] -ML -- -- -- Anatomy and Physiology Anatomic Considerations -- no anatomic structural deviation -ML -- -- -- Velopharyngeal -- WFL -ML -- -- -- Base of Tongue -- symmetrical -ML -- -- -- Epiglottis -- WFL -ML -- -- -- Laryngeal Function Breathing -- symmetrical -ML -- -- -- Laryngeal Function Phonation -- PATTERNMAKER APPRENTICE WOOD -ML -- -- -- Laryngeal Function to Breath Hold -- PATTERNMAKER APPRENTICE WOOD -ML -- -- -- Secretion Rating Scale (Edenilson et al. 1995) -- 2- secretions initially outside the vestibule but later entered the vestibule One string -ML -- -- -- Secretion Description -- thin;clear -ML -- -- -- Ice Chips -- elicited swallow -ML -- -- -- Spontaneous Swallow -- frequency reduced -ML -- -- -- Sensory -- sensed scope -ML -- -- -- FEES Interpretation Oral Phase -- prolonged manipulation;with solids only;with mixed consistency only -ML -- -- -- Oral Phase, Comment -- Slow- Unable to suck from straw today during the FEES despite no difficulty with straw drinking with RN/family earlier today- ? apraxia interfering. -ML -- -- -- Initiation of Pharyngeal Swallow Initiation of Pharyngeal Swallow -- bolus in valleculae -ML -- -- -- Pharyngeal Phase -- functional pharyngeal phase of swallow -ML -- -- -- FEES Summary -- FEES completed. Oral dysphagia- Functional pharyngeal phase. No penetration/aspiration/residue. -ML -- -- -- Swallowing Quality of Life Assessment Education and counseling provided -- Signs of aspiration;Aspiration precautions;Feeding assistance and techniques - -- Signs of aspiration;Risks of aspiration;Safest diet options;Feeding assistanceand techniques;Oral care recommendations and rationale;Aspiration precautions - -- WELL DRILLER Evaluation Clinical Impression WELL DRILLER Swallowing Diagnosis -- oral dysphagia;functional pharyngeal phase -ML oral dysphagia;suspectedpharyngeal dysphagia - (r) IG (t) MH (c) R/O pharyngeal dysphagia - R/O pharyngeal dysphagia - Functional Impact -- risk of malnutrition -ML risk of aspiration/pneumonia - (r) IG (t) MH (c) risk of aspiration/pneumonia - risk of aspiration/pneumonia - Rehab Potential/Prognosis, Swallowing -- re-evaluate goals as necessary -ML good, to achieve statedtherapy goals - (r) IG (t) MH (c) good, to achieve stated therapy goals -CH good, to achieve stated therapy goals - Swallow Criteria for Skilled Therapeutic Interventions Met -- demonstrates skilled criteria -ML demonstrates skilled criteria - (r) IG (t) MH (c) demonstrates skilled criteria -CH demonstrates skilled criteria - WELL DRILLER Treatment Clinical Impressions Treatment Assessment (WELL DRILLER) -- -- -- continued;communication disorder;aphasia - -- Daily Summary of Progress (WELL DRILLER) -- -- -- progress toward functional goals as expected - -- Plan for Continued Treatment (WELL DRILLER) -- -- -- continue treatment per plan of care - -- Care Plan Review -- -- -- evaluation/treatment results reviewed;care plan/treatment goals reviewed;risks/benefits reviewed;current/potential barriers reviewed;patient/other agree to care plan - -- Care Plan Review, Other Participant(s) -- -- -- family -CH -- Recommendations Therapy Frequency (Swallow) 3 days per week -ML 3 days per week -ML -- -- -- Predicted Duration Therapy Intervention (Days) -- 1 week -ML 2 weeks - (r) IG (t) (c) 2 weeks - 2 weeks - WELL DRILLER Diet Recommendation thin liquids;soft to chew textures;chopped -ML thin liquids;soft to chew textures;chopped -ML mechanical ground textures;thin liquids - (r) IG (t) (c) mechanical ground textures;thin liquids - mechanical ground textures;no mixed consistencies;thin liquids - Recommended Diagnostics reassess via clinical swallow evaluation -ML reassess via clinical swallow evaluation - FEES - (r) IG (t) (c) reassess via clinical swallow evaluation;other (see comments) diet tolerance, instrumental evaluation if any concerns. - reassess via clinical swallow evaluation - Recommended Precautions and Strategies upright posture during/after eating;small bites of food and sips of liquid;general aspiration precautions;assist with feeding - upright posture during/after eating;small bites of food and sips of liquid;general aspiration precautions;assist with feeding - small bites of food and sips of liquid;general aspiration precautions;assist with feeding - (r) IG(t) (c) no straw;small bites of food and sips of liquid;general aspiration precautions;assist with feeding;other (see comments) Place bolus in on left - no straw;small bites of food and sips of liquid;general aspiration precautions;assist with feeding - Oral Care Recommendations Oral Care BID/PRN;Toothbrush -ML Oral Care BID/PRN;Toothbrush -ML Oral Care BID/PRN;Suction toothbrush - (r) IG (t) (c) Oral Care BID/PRN;Toothbrush - Oral Care BID/PRN;Toothbrush - WELL DRILLER Rec. for Method of Medication Administration meds whole;with thin liquids - ML meds whole;with thin liquids -ML meds whole;meds crushed;with puree;as tolerated - (r) IG (t) (c) with thin liquids;with puree;as tolerated - with puree;as tolerated -SM Monitor for Signs of Aspiration notify WELL DRILLER if any concerns -ML notify WELL DRILLER if any concerns -ML yes;notify WELL DRILLER if any concerns - (r) IG (t) (c) yes;notify WELL DRILLER if any concerns -CH yes;notify WELL DRILLER ifany concerns -SM Anticipated Discharge Disposition (WELL DRILLER) -- -- inpatient rehabilitation facility -MH (r) IG (t) (c) inpatient rehabilitation facility - inpatient rehabilitation facility - User Christopher (r) = Recorded By, (t) = Taken By, (c) = Cosigned By Initials Name Effective Dates ML Suzy Alexander, MS [facility])-WELL DRILLER 07/05/24 - Dalia Bazan, MS [facility]WELL DRILLER 11/25/24 - Vani Ford, MS [facility]WELL DRILLER 03/17/23 - Trupti Banks, MS -WELL DRILLER 04/10/25 - Faye Larios, Speech Therapy Student 06/25/25 - EDUCATION The patient has been educated in the following areas: Modified Diet Instruction. WELL DRILLER GOALS Row Name 08/08/25 1030 08/08/25 0815 08/06/25 0915 (LTG) Patient will demonstrate functional swallow for Diet Texture (Demonstrate functional swallow) soft to chew (whole) textures -ML soft to chew (whole) textures -ML regular textures - Liquid viscosity (Demonstrate functional swallow) thin liquids -ML thin liquids -ML thin liquids -CH [place] (Demonstrate functional swallow) with minimal cues (75-90% accuracy) -ML with minimal cues (75-90% accuracy) -ML with 1:1 assist/ supervision - Time Frame (Demonstrate functional swallow) 2 weeks -ML 2 weeks -ML 2 weeks -CH Progress/Outcomes (Demonstrate functional swallow) good progress toward goal -ML goal revised this date -ML -- Comment (Demonstrate functional swallow) Managing liquids via straw- followed up due to pt refusal/inability to drink from a straw during the FEES. -ML Given dentition, regular diet unlikely. -ML -- (STG) Patient will tolerate trials of Consistencies Trialed (Tolerate trials) soft to chew (chopped) textures -ML soft to chew (chopped) textures -ML mechanical ground textures;thin liquids - Desired Outcome (Tolerate trials) with adequate oral prep/transit/clearance -ML with adequate oral prep/transit/clearance -ML without signs/symptoms of aspiration;with adequate oral prep/transit/clearance;with use of compensatory strategies (see comments) place in on the left, sm bites and sips - [place] (Tolerate trials) with minimal cues (75-90% accuracy) -ML with minimal cues (75-90% accuracy) -ML with minimal cues (75-90% accuracy) -CH Time Frame (Tolerate trials) 1 week -ML 1 week -ML 1 week -CH Progress/Outcomes (Tolerate trials) goal ongoing -ML goal revised this date -ML -- (STG) Patient will tolerate therapeutic trials of Consistencies Trialed (Tolerate therapeutic trials) soft to chew (whole) textures -ML soft to chew (whole) textures -ML -- Desired Outcome (Tolerate therapeutic trials) with adequate oral prep/transit/clearance -ML with adequate oral prep/transit/clearance -ML -- [place] (Tolerate therapeutic trials) with minimal cues (75-90% accuracy) - ML with minimal cues (75-90% accuracy) -ML -- Time Frame (Tolerate therapeutic trials) 1 week -ML 1 week -ML -- Progress/Outcomes (Tolerate therapeutic trials) goal ongoing - new goal -ML -- Patient will demonstrate functional language skills for return to discharge environment [place] with minimal cues -ML -- with minimal cues - Time frame 2 weeks -ML -- 2 weeks - Progress/Outcomes continuing progress toward goal -ML -- continuing progress toward goal - WELL DRILLER Diagnostic Treatment Patient will participate in further assessment in the following areas graphic expression;reading comprehension - -- graphic expression;reading comprehension - Time Frame (Diagnostic) 1 week -ML -- 1 week -CH Progress/Outcomes (Additional Goal 1, WELL DRILLER) goal ongoing -ML -- goal ongoing - Comment (Diagnostic) Attempted reading task today, however pt would not participate, therefore unable to assess reading function. -ML -- -- Words/Phrases/Sentences Goal 1 (WELL DRILLER) Improve Ability to Comprehend Words/Phrases/Sentences Through: Goal 1 (WELL DRILLER) identify objects, fieldof;80%;with minimal cues (75-90%);other (comment) -ML -- identify objects, field of;80%;with minimal cues (75-90%);other (comment) -CH Time Frame (Identify Objects and Pictures Goal 1, WELL DRILLER) 1 week -ML -- 1 week -CH Progress (Ability to Contruct Words/Phrases/Sentences Goal 1, WELL DRILLER) 10% -ML -- 0%;with maximum cues (25-49%) - Progress/Outcomes (Identify Objects and Pictures Goal 1, WELL DRILLER) continuing progress toward goal -ML -- continuing progress toward goal -CH Comment (Words/Phrases/Sentences Goal 1, WELL DRILLER) Correct identificaton of 1 object before refusing. -ML -- -- Comprehend Questions Goal 1 (WELL DRILLER) Improve Ability to Comprehend Questions Goal 1 (WELL DRILLER) simple yes/no questions;80%;with minimal cues (75-90%) -ML -- simple yes/no questions;80%;with minimal cues (75-90%) - Time Frame (Comprehend Questions Goal 1, WELL DRILLER) 1 week -ML -- 1 week -CH Progress (Ability to Comprehend Questions Goal 1, WELL DRILLER) 80% -ML -- 50%;with moderate cues (50-74%) - Progress/Outcomes (Comprehend Questions Goal 1, WELL DRILLER) good progress toward goal - ML -- continuing progress toward goal -CH Comment (Comprehend Questions Goal 1, WELL DRILLER) Functional questions- head nod/shake. -ML -- head nod, appears to have yes bias - Follow Directions Goal 2 ([facility]) Improve Ability to Follow Directions Goal 1 (WELL DRILLER) 1 step direction without objects;80%;with minimalcues (75-90%) -ML -- 1 step direction without objects;80%;with minimal cues (75-90%) - Time Frame (Follow Directions Goal 1, WELL DRILLER) 1 week -ML -- 1 week -CH Progress (Ability to Follow Directions Goal 1, WELL DRILLER) 10%;with moderate cues (50- 74%) -ML -- 50%;withmoderate cues (50-74%);other (comment) models required -CH Progress/Outcomes (Follow Directions Goal 1, WELL DRILLER) continuing progress toward goal -ML -- continuingprogress toward goal -CH Comment (Follow Directions Goal 1, WELL DRILLER) Difficult to sales relationship manager level of understanding- ? refusal/lack of understanding/potential for apraxia interference. -ML -- -- Word Retrieval Skills Goal 1 (WELL DRILLER) Improve Word Retrieval Skills By Goal 1 (WELL DRILLER) completing automatic speech task, counting;completingautomatic speech task, days of the week;completing automatic speech task, sing ???Happy Birthday?? ;80%;with minimal cues (75-90%) -ML -- completing automatic speech task, counting;completing automatic speech task, days of the week;completing automatic speech task, sing ???Happy Birthday?? ;80%;with minimal cues (75-90%) - Time Frame (Word Retrieval Goal 1, WELL DRILLER) 1 week -ML -- 1 week -CH Progress (Word Retrieval Skills Goal 1, WELL DRILLER) 20%;with maximum cues (25-49%) -ML -- 70%;with moderate cues (50-74%) -CH Progress/Outcomes (Word Retrieval Goal 1, WELL DRILLER) continuing progress toward goal - ML -- continuing progress toward goal -CH Comment (Word Retrieval Goal 1, WELL DRILLER) Attempted a variety of tasks with a variety of cues without consistent/successful response. -ML -- counting, alphabet, response to greetings - Row Name 08/05/25 2233 Patient will demonstrate functional language skills for return to discharge environment [place] with minimal cues - Time frame 2 weeks -SM Progress/Outcomes new goal - WELL DRILLER Diagnostic Treatment Patient will participate in further assessment in the following areas graphic expression;reading comprehension - Time Frame (Diagnostic) 1 week -SM Progress/Outcomes (Additional Goal 1, WELL DRILLER) new goal -SM Words/Phrases/Sentences Goal 1 (WELL DRILLER) Improve Ability to Comprehend Words/Phrases/Sentences Through: Goal 1 (WELL DRILLER) identify objects, fieldof;80%;with minimal cues (75-90%);other (comment) 3 - Time Frame (Identify Objects and Pictures Goal 1, WELL DRILLER) 1 week -SM Progress/Outcomes (Identify Objects and Pictures Goal 1, WELL DRILLER) new goal -SM Comprehend Questions Goal 1 (WELL DRILLER) Improve Ability to Comprehend Questions Goal 1 (WELL DRILLER) simple yes/no questions;80%;with minimal cues (75-90%) -SM Time Frame (Comprehend Questions Goal 1, WELL DRILLER) 1 week -SM Progress/Outcomes (Comprehend Questions Goal 1, WELL DRILLER) new goal -SM Follow Directions Goal 2 (WELL DRILLER) Improve Ability to Follow Directions Goal 1 (WELL DRILLER) 1 step direction without objects;80%;with minimalcues (75-90%) - Time Frame (Follow Directions Goal 1, WELL DRILLER) 1 week -SM Progress/Outcomes (Follow Directions Goal 1, WELL DRILLER) new goal -SM Word Retrieval Skills Goal 1 (WELL DRILLER) Improve Word Retrieval Skills By Goal 1 (WELL DRILLER) completing automatic speech task, counting;completingautomatic speech task, days of the week;completing automatic speech task, sing ???Happy Birthday?? ;80%;with minimal cues (75-90%) -SM Time Frame (Word Retrieval Goal 1, WELL DRILLER) 1 week -SM Progress/Outcomes (Word Retrieval Goal 1, WELL DRILLER) new goal -SM User Christopher (r) = Recorded By, (t) = Taken By, (c) = Cosigned By Initials Name Provider Type Suzy Moseley, MS CCC-WELL DRILLER Speech and Language Pathologist Dalia Oliva, MS CCC-WELL DRILLER Speech and Language Pathologist Trupti Albrecht, MS CF-WELL DRILLER Speech and Language Pathologist Time Calculation: Time Calculation- WELL DRILLER Row Name 08/08/25 1030 08/08/25 0815 Time Calculation- WELL DRILLER WELL DRILLER Start Time 1030 -ML 0815 -ML WELL DRILLER Received On 08/08/25 -ML 08/08/25 -ML User Christopher (r) = Recorded By, (t) = Taken By, (c) = Cosigned By Initials Name Provider Type Suzy Moseley, MS CCC-WELL DRILLER Speech and Language Pathologist Therapy Charges for Today Code Description Service Date Service Provider Modifiers Qty 12379716895 HC ST FIBEROPTIC ENDO EVAL SWALL 5 08/08/2025 Suzy Alexander, MS CCC-WELL DRILLER GN [address] TREATMENT SWALLOW 1 08/08/2025 Suzy Alexander, MS CCC-WELL DRILLER GN [id number] TREATMENT SPEECH 3 08/08/2025 Suzy Alexander, MS CCC-WELL DRILLER GN 1 Suzy Alexander MS CCC-WELL DRILLER 08/08/2025 and Acute Care - Speech Language Pathology Treatment Note [place] Patient Name: Joie Flores : 1945 Today's Date: 08/08/2025 Admit Date: 08/05/2025 Visit Dx: ICD-10-CM ICD-9-CM 1. Hemorrhagic stroke I61.9 431 2. Intraparenchymal hemorrhage of brain I61.9 431 3. Oral phase dysphagia R13.11 787.21 4. Communication deficit F80.9 307.9 Patient Active Problem List Diagnosis Acute pancreatitis Anemia Bacteremia Colitis Methicillin susceptible Staphylococcus aureus infection, unspecified site Other specified diseases of pancreas Urinary tract infectious disease Autonomic orthostatic hypotension Abnormal findings on diagnostic imaging of heart and coronary circulation Chest pain ICH (intracerebral hemorrhage) Paroxysmal SVT (supraventricular tachycardia) Coronary artery disease involving autologous vein coronary bypass graft without angina pectoris Hyperlipidemia LDL goal <100 Essential hypertension Hypothyroidism (acquired) Past Medical History: Diagnosis Date Chronic kidney disease Coronary artery disease Hypertension PVT (paroxysmal ventricular tachycardia) Past Surgical History: Procedure Laterality Date APPENDECTOMY CHOLECYSTECTOMY HYSTERECTOMY WELL DRILLER Recommendation and Plan Recommended discharge disposition is based on the functional assessment performed by PT/OT/Speech therapy (as applicable) and may not reflect the medical necessity determined by your provider or services covered by an individual patient's insurance plan or patient resource. Monitor for Signs of Aspiration: notify WELL DRILLER if any concerns (08/08/25 103) Swallow Criteria for Skilled Therapeutic Interventions Met: demonstrates skilled criteria (815) Anticipated Discharge Disposition (WELL DRILLER): inpatient rehabilitation facility, snf facility (08/08/25 103) Therapy Frequency (Swallow): 3 days per week (08/08/25 103) Therapy Frequency (WELL DRILLER SLC): 5 days per week (08/08/25 103) Predicted Duration Therapy Intervention (Days): 1 week (08/08/25 103) Oral Care Recommendations: Oral Care BID/PRN, Toothbrush (08/08/25 103) Daily Summary of Progress (WELL DRILLER): progress toward functional goals is gradual (08/08/25 103) Treatment Assessment (WELL DRILLER): continued, apraxia, aphasia, communication disorder (08/08/25 103) Treatment Assessment Comments (WELL DRILLER): Difficult to assess level of function- pt is reluctant to participate but also exhibits significant impairment based on the responses that are received. She successfully drank from a straw immediately upon presentation despite refusing or unable to drink from a straw during the FEES. No diffiuclty observed with single or continuous drinks. She is unable or unwilling to verbalize during automatic speech tasks. She is unable to unwilling to follow or imitate understanding of simple directions. She is unable to imitate speech, oromotor movements, or gestures.The most successful task was y/n response with functional questions. (08/08/251029) Plan for Continued Treatment (WELL DRILLER): continue treatment per plan of care (08/08/251029) Outcome Evaluation: treatment for impaired communication and follow up re: swallowing. Severe communication impairment. Pt is clearly frustrated but is also resistant to try tasks presented by WELL DRILLER. No difficulty with straw drinking despite refusal during FEES earlier today. WELL DRILLER to continue to follow. (08/08/251029) WELL DRILLER EVALUATION (Last 72 Hours) WELL DRILLER SLC Evaluation Row Name 08/08/25 1030 08/06/25 0915 08/05/25 6681 Communication Assessment/Intervention Document Type therapy note (daily note) -ML -- evaluation - Subjective Information no complaints -ML -- no complaints -SM Patient Observations alert;lethargic -ML -- alert;cooperative - Patient/Family/Caregiver Comments/Observations Dtr and granddaughter present -ML -- Family present -SM Patient Effort fair -ML -- good -SM Comment Dtr reports pt is labile. She reports pt is trying to talk but they are struggling to understand her message. -ML -- -- Symptoms Noted During/After Treatment none -ML -- none -SM General Information Patient Profile Reviewed yes -ML -- yes -SM Pertinent History Of Current Problem See ST hx -ML -- -- Precautions/Limitations, Vision -- -- difficult to assess - Precautions/Limitations, Hearing -- -- difficult to assess - Prior Level of Function-Communication -- -- WFL;other (see comments) Family reports pt lives with daughter and grandson. Manages her medication IND, but most other functional tasks completed by daughter. Communication and cognition WFL @ baseline per dtr - Plans/Goals Discussed with -- -- patient and family;agreed upon - Barriers to Rehab -- -- none identified - Patient's Goals for Discharge -- -- patient did not state - Family Goals for Discharge -- -- family did not state - Pain Scale: FACES Pre/Post-Treatment Pain: FACES Scale, Pretreatment 0-->no hurt -ML -- -- Posttreatment Pain Rating 0-->no hurt -ML -- -- Comprehension Assessment/Intervention Comprehension Assessment/Intervention -- -- Auditory Comprehension - Auditory Comprehension Assessment/Intervention Auditory Comprehension (Communication) -- -- severe impairment - Answers Questions (Communication) -- -- yes/no;severe impairment - Able to Follow Commands (Communication) -- -- 1-step;severe impairment - Narrative Discourse -- -- conversational level;severe impairment - Successful Auditory Strategies (Communication) -- -- visual cues - Expression Assessment/Intervention Expression Assessment/Intervention -- -- verbal expression - Verbal Expression Assessment/Intervention Verbal Expression -- -- severe impairment - Conversational Discourse/Fluency -- -- severe impairment;neologisms - Verbal Expression, Comment -- -- Presenting with nonsensical speech, word salad - Motor Speech Assessment/Intervention Motor Speech Function -- -- unable/difficult to assess - Cognitive Assessment Intervention- WELL DRILLER Cognitive Function (Cognition) -- -- unable/difficult to assess - WELL DRILLER Evaluation Clinical Impressions WELL DRILLER Diagnosis -- severe;aphasia - severe;aphasia - Rehab Potential/Prognosis -- fair - fair -[facility] Criteria for Skilled Therapy Interventions Met -- yes -CH yes -SM Functional Impact -- difficulty communicating wants, needs - difficulty communicating wants, needs - WELL DRILLER Treatment Clinical Impressions Treatment Assessment (WELL DRILLER) continued;apraxia;aphasia;communication disorder - continued;communication disorder - -- Treatment Assessment Comments (WELL DRILLER) Difficult to assess level of function- pt is reluctant to participate but also exhibits significant impairment based on the responses that are received. She successfully drank from a straw immediately upon presentation despite refusing or unable to drink from a straw during the FEES. No diffiuclty observed with single or continuous drinks. She is unable or unwilling to verbalize during automatic speech tasks. She is unable to unwilling to follow or imitate understanding of simple directions. She is unable to imitate speech, oromotor movements, or gestures. The most successful task was y/n response with functional questions. -ML -- -- Daily Summary of Progress (WELL DRILLER) progress toward functional goals is gradual - progress toward functional goals as expected - -- Barriers to Overall Progress (WELL DRILLER) Lethargy;Other (see comments) Motivatoin -ML -- -- Plan for Continued Treatment (WELL DRILLER) continue treatment per plan of care -ML continue treatment per plan of care - -- Care Plan Review care plan/treatment goals reviewed;current/potential barriers reviewed;patient/other agree to care plan - evaluation/treatment results reviewed;care plan/treatment goals reviewed;risks/benefits reviewed;current/potential barriers reviewed;patient/other agree to care plan - -- Care Plan Review, Other Participant(s) daughter;family - family - -- Recommendations Therapy Frequency ([facility]) 5 days per week -ML 5 days per week - 5 days per week - Predicted Duration Therapy Intervention (Days) 1 week -ML 2 weeks - 2 weeks -SM Anticipated Discharge Disposition (WELL DRILLER) inpatient rehabilitation facility;snf facility -ML inpatient rehabilitation facility - inpatient rehabilitation facility - Communication Strategy Suggestions -- avoid open-ended questions;avoid multi- step instructions - avoid open-ended questions;avoid multi-step instructions - User Christopher (r) = Recorded By, (t) = Taken By, (c) = Cosigned By Initials Name Effective Dates Suzy Alexander MS [facility]WELL DRILLER 07/05/24 - Dalia Bazan MS [facility]WELL DRILLER 11/25/24 - Trupti Albrecht, MS -WELL DRILLER 04/10/25 - EDUCATION The patient has been educated in the following areas: Communication Impairment ways to support therapy/cues/activities. WELL DRILLER GOALS Row Name 08/08/25 1030 08/08/25 0815 08/06/25 0915 (LTG) Patient will demonstrate functional swallow for Diet Texture (Demonstrate functional swallow) soft to chew (whole) textures -ML soft to chew (whole) textures -ML regular textures - Liquid viscosity (Demonstrate functional swallow) thin liquids -ML thin liquids -ML thin liquids - [place] (Demonstrate functional swallow) with minimal cues (75-90% accuracy) -ML with minimal cues (75-90% accuracy) -ML with 1:1 assist/ supervision - Time Frame (Demonstrate functional swallow) 2 weeks -ML 2 weeks -ML 2 weeks -CH Progress/Outcomes (Demonstrate functional swallow) good progress toward goal -ML goal revised this date - -- Comment (Demonstrate functional swallow) Managing liquids via straw- followed up due to pt refusal/inability to drink from a straw during the FEES. -ML Given dentition, regular diet unlikely. -ML -- (STG) Patient will tolerate trials of Consistencies Trialed (Tolerate trials) soft to chew (chopped) textures -ML soft to chew (chopped) textures -ML mechanical ground textures;thin liquids -CH Desired Outcome (Tolerate trials) with adequate oral prep/transit/clearance -ML with adequate oral prep/transit/clearance -ML without signs/symptoms of aspiration;with adequate oral prep/transit/clearance;with use of compensatory strategies (see comments) place in on the left, sm bites and sips -CH [place] (Tolerate trials) with minimal cues (75-90% accuracy) -ML with minimal cues (75-90% accuracy) -ML with minimal cues (75-90% accuracy) -CH Time Frame (Tolerate trials) 1 week -ML 1 week -ML 1 week -CH Progress/Outcomes (Tolerate trials) goal ongoing -ML goal revised this date -ML -- (STG) Patient will tolerate therapeutic trials of Consistencies Trialed (Tolerate therapeutic trials) soft to chew (whole) textures -ML soft to chew (whole) textures -ML -- Desired Outcome (Tolerate therapeutic trials) with adequate oral prep/transit/clearance -ML with adequate oral prep/transit/clearance -ML -- [place] (Tolerate therapeutic trials) with minimal cues (75-90% accuracy) - ML with minimal cues (75-90% accuracy) -ML -- Time Frame (Tolerate therapeutic trials) 1 week -ML 1 week -ML -- Progress/Outcomes (Tolerate therapeutic trials) goal ongoing - new goal -ML -- Patient will demonstrate functional language skills for return to discharge environment [place] with minimal cues -ML -- with minimal cues - Time frame 2 weeks -ML -- 2 weeks - Progress/Outcomes continuing progress toward goal -ML -- continuing progress toward goal -CH WELL DRILLER Diagnostic Treatment Patient will participate in further assessment in the following areas graphic expression;reading comprehension -ML -- graphic expression;reading comprehension - Time Frame (Diagnostic) 1 week -ML -- 1 week -CH Progress/Outcomes (Additional Goal 1, WELL DRILLER) goal ongoing -ML -- goal ongoing - Comment (Diagnostic) Attempted reading task today, however pt would not participate, therefore unable to assess reading function. -ML -- -- Words/Phrases/Sentences Goal 1 (WELL DRILLER) Improve Ability to Comprehend Words/Phrases/Sentences Through: Goal 1 (WELL DRILLER) identify objects, fieldof;80%;with minimal cues (75-90%);other (comment) -ML -- identify objects, field of;80%;with minimal cues (75-90%);other (comment) -CH Time Frame (Identify Objects and Pictures Goal 1, WELL DRILLER) 1 week -ML -- 1 week -CH Progress (Ability to Contruct Words/Phrases/Sentences Goal 1, WELL DRILLER) 10% -ML -- 0%;with maximum cues (25-49%) -CH Progress/Outcomes (Identify Objects and Pictures Goal 1, WELL DRILLER) continuing progress toward goal -ML -- continuing progress toward goal -CH Comment (Words/Phrases/Sentences Goal 1, WELL DRILLER) Correct identificaton of 1 object before refusing. -ML -- -- Comprehend Questions Goal 1 (WELL DRILLER) Improve Ability to Comprehend Questions Goal 1 (WELL DRILLER) simple yes/no questions;80%;with minimal cues (75-90%) -ML -- simple yes/no questions;80%;with minimal cues (75-90%) -CH Time Frame (Comprehend Questions Goal 1, WELL DRILLER) 1 week -ML -- 1 week -CH Progress (Ability to Comprehend Questions Goal 1, WELL DRILLER) 80% -ML -- 50%;with moderate cues (50-74%) -CH Progress/Outcomes (Comprehend Questions Goal 1, WELL DRILLER) good progress toward goal - ML -- continuing progress toward goal -CH Comment (Comprehend Questions Goal 1, WELL DRILLER) Functional questions- head nod/shake. -ML -- head nod, appears to have yes bias - Follow Directions Goal 2 (WELL DRILLER) Improve Ability to Follow Directions Goal 1 (WELL DRILLER) 1 step direction without objects;80%;with minimalcues (75-90%) -ML -- 1 step direction without objects;80%;with minimal cues (75-90%) -CH Time Frame (Follow Directions Goal 1, WELL DRILLER) 1 week -ML -- 1 week -CH Progress (Ability to Follow Directions Goal 1, WELL DRILLER) 10%;with moderate cues (50- 74%) -ML -- 50%;withmoderate cues (50-74%);other (comment) models required -CH Progress/Outcomes (Follow Directions Goal 1, WELL DRILLER) continuing progress toward goal -ML -- continuingprogress toward goal -CH Comment (Follow Directions Goal 1, WELL DRILLER) Difficult to sales relationship manager level of understanding- ? refusal/lack of understanding/potential for apraxia interference. -ML -- -- Word Retrieval Skills Goal 1 (WELL DRILLER) Improve Word Retrieval Skills By Goal 1 (WELL DRILLER) completing automatic speech task, counting;completingautomatic speech task, days of the week;completing automatic speech task, sing ???Happy Birthday?? ;80%;with minimal cues (75-90%) -ML -- completing automatic speech task, counting;completing automatic speech task, days of the week;completing automatic speech task, sing ???Happy Birthday?? ;80%;with minimal cues (75-90%) - Time Frame (Word Retrieval Goal 1, WELL DRILLER) 1 week -ML -- 1 week -CH Progress (Word Retrieval Skills Goal 1, WELL DRILLER) 20%;with maximum cues (25-49%) -ML -- 70%;with moderate cues (50-74%) -CH Progress/Outcomes (Word Retrieval Goal 1, WELL DRILLER) continuing progress toward goal - ML -- continuing progress toward goal -CH Comment (Word Retrieval Goal 1, WELL DRILLER) Attempted a variety of tasks with a variety of cues without consistent/successful response. -ML -- counting, alphabet, response to greetings - Row Name 08/05/25 8037 Patient will demonstrate functional language skills for return to discharge environment [place] with minimal cues - Time frame 2 weeks - Progress/Outcomes new goal -[facility] Diagnostic Treatment Patient will participate in further assessment in the following areas graphic expression;reading comprehension - Time Frame (Diagnostic) 1 week -SM Progress/Outcomes (Additional Goal 1, WELL DRILLER) new goal -SM Words/Phrases/Sentences Goal 1 (WELL DRILLER) Improve Ability to Comprehend Words/Phrases/Sentences Through: Goal 1 (WELL DRILLER) identify objects, fieldof;80%;with minimal cues (75-90%);other (comment) 3 -SM Time Frame (Identify Objects and Pictures Goal 1, WELL DRILLER) 1 week -SM Progress/Outcomes (Identify Objects and Pictures Goal 1, WELL DRILLER) new goal -SM Comprehend Questions Goal 1 (WELL DRILLER) Improve Ability to Comprehend Questions Goal 1 (WELL DRILLER) simple yes/no questions;80%;with minimal cues (75-90%) -SM Time Frame (Comprehend Questions Goal 1, WELL DRILLER) 1 week -SM Progress/Outcomes (Comprehend Questions Goal 1, WELL DRILLER) new goal -SM Follow Directions Goal 2 (WELL DRILLER) Improve Ability to Follow Directions Goal 1 (WELL DRILLER) 1 step direction without objects;80%;with minimalcues (75-90%) -SM Time Frame (Follow Directions Goal 1, WELL DRILLER) 1 week -SM Progress/Outcomes (Follow Directions Goal 1, WELL DRILLER) new goal -SM Word Retrieval Skills Goal 1 (WELL DRILLER) Improve Word Retrieval Skills By Goal 1 (WELL DRILLER) completing automatic speech task, counting;completingautomatic speech task, days of the week;completing automatic speech task, sing ???Happy Birthday?? ;80%;with minimal cues (75-90%) -SM Time Frame (Word Retrieval Goal 1, WELL DRILLER) 1 week -SM Progress/Outcomes (Word Retrieval Goal 1, WELL DRILLER) new goal -SM User Christopher (r) = Recorded By, (t) = Taken By, (c) = Cosigned By Initials Name Provider Type Suzy Moseley MS CCC-WELL DRILLER Speech and Language Pathologist Dalia Oliva, MS CCC-WELL DRILLER Speech and Language Pathologist Trupti Albrecht, MS CF-WELL DRILLER Speech and Language Pathologist Time Calculation: Time Calculation- WELL DRILLER Row Name 08/08/25 1030 08/08/25 0815 Time Calculation- WELL DRILLER WELL DRILLER Start Time 1030 -ML 0815 -ML WELL DRILLER Received On 08/08/25 -ML 08/08/25 -ML User Christopher (r) = Recorded By, (t) = Taken By, (c) = Cosigned By Initials Name Provider Type Suzy Moseley, MS CCC-WELL DRILLER Speech and Language Pathologist Therapy Charges for Today Code Description Service Date Service Provider Modifiers Qty 04389885608 HC ST FIBEROPTIC ENDO EVAL SWALL 5 08/08/2025 Suzy Alexander, MS CCC-WELL DRILLER GN [id number] TREATMENT SWALLOW 1 08/08/2025 Suzy Alexander, MS CCC-WELL DRILLER GN [id number] TREATMENT SPEECH 3 08/08/2025 Suzy Alexander, MS CCC-WELL DRILLER GN 1 Suzy Alexander MS CCC-WELL DRILLER 08/08/2025 * MBS/VFSS/FEES - Suzy Alexander MS [facility])-WELL DRILLER - 08/08/2025 8:15 AM EDT Images from the original note were not included. Acute Care - Speech Language Pathology Swallow Initial Evaluation [place] Fiberoptic Endoscopic Evaluation of Swallowing (FEES) Patient Name: Joie Flores : 1945 Today's Date: 08/08/2025 Admit Date: 08/05/2025 Visit Dx: ICD-10-CM ICD-9-CM 1. Hemorrhagic stroke I61.9 431 2. Intraparenchymal hemorrhage of brain I61.9 431 3. Oral phase dysphagia R13.11 787.21 4. Communication deficit F80.9 307.9 Patient Active Problem List Diagnosis Acute pancreatitis Anemia Bacteremia Colitis Methicillin susceptible Staphylococcus aureus infection, unspecified site Other specified diseases of pancreas Urinary tract infectious disease Autonomic orthostatic hypotension Abnormal findings on diagnostic imaging of heart and coronary circulation Chest pain ICH (intracerebral hemorrhage) Paroxysmal SVT (supraventricular tachycardia) Coronary artery disease involving autologous vein coronary bypass graft without angina pectoris Hyperlipidemia LDL goal <100 Essential hypertension Hypothyroidism (acquired) Past Medical History: Diagnosis Date Chronic kidney disease Coronary artery disease Hypertension PVT (paroxysmal ventricular tachycardia) Past Surgical History: Procedure Laterality Date APPENDECTOMY CHOLECYSTECTOMY HYSTERECTOMY WELL DRILLER Recommendation and Plan Recommended discharge disposition is based on the functional assessment performed by PT/OT/Speech therapy (as applicable) and may not reflect the medical necessity determined by your provider or services covered by an individual patient's insurance plan or patient resource. WELL DRILLER Swallowing Diagnosis: oral dysphagia, functional pharyngeal phase (08/08/25814) WELL DRILLER Diet Recommendation: thin liquids, soft to chew textures, chopped (08/08/25814) Recommended Precautions and Strategies: upright posture during/after eating, small bites of food and sips of liquid, general aspiration precautions, assist with feeding (08/08/25814) WELL DRILLER Rec. for Method of Medication Administration: meds whole, with thin liquids (08/08/25814) Monitor for Signs of Aspiration: notify WELL DRILLER if any concerns (08/08/25814) Recommended Diagnostics: reassess via clinical swallow evaluation (08/08/25814) Swallow Criteria for Skilled Therapeutic Interventions Met: demonstrates skilled criteria () Rehab Potential/Prognosis, Swallowing: re-evaluate goals as necessary (08/08/25814) Therapy Frequency (Swallow): 3 days per week (08/08/25814) Predicted Duration Therapy Intervention (Days): 1 week (08/08/25814) Oral Care Recommendations: Oral Care BID/PRN, Toothbrush (08/08/25814) Outcome Evaluation: FEES completed. Oral phase dysphagia- functonal pharyngeal phase. WELL DRILLER to followup re: diet tolerance/diet advancement. SWALLOW EVALUATION (Last 72 Hours) WELL DRILLER Adult Swallow Evaluation Row Name 08/08/2581408/07/25 1050 08/06/25 0908/05/25 1540 Rehab Evaluation Document Type evaluation -ML re-evaluation -MH (r) IG (t) MH (c) re- evaluation;therapy note (daily note) - evaluation -SM Subjective Information no complaints -ML no complaints -MH (r) IG (t) MH (c) no complaints - no complaints -SM Patient Observations alert;cooperative -ML alert;cooperative -MH (r) IG (t) MH (c) alert;cooperative;agree to therapy - alert;cooperative -SM Patient/Family/Caregiver Comments/Observations Granddaughter present throughout/dtr arrived at the end of the study -ML Daughters present -MH (r) IG (t) MH (c) daughter and grandaughter present - Family present -SM Patient Effort fair -ML good -MH (r) IG (t) MH (c) good -CH good -SM Comment Limited pt cooperation- not clear as to whether unwilling vs. unable to understand the direction. -ML -- -- -- Symptoms Noted During/After Treatment none -ML none -MH (r) IG (t) MH (c) none - CH none -SM Oral Care -- -- oral rinse provided - -- General Information Patient Profile Reviewed yes -ML yes -MH (r) IG (t) MH (c) yes -CH yes -SM Pertinent History Of Current Problem Brain bleed- large, left temportal parenchymal hemorrhage withsurrounding edema, Decreased speech/global aphasia, right weakness, Right neglect, and UTI Hx of CAD, HLD, Essential HTN, and hypothyroidism. -ML See initial eval -MH (r) IG (t) MH (c) see initial vlad luation. Pt NPO after noted new facial droop. CT: Redemonstration of an intraparenchymal hemorrhage within the left temporal lobe which appears slightly increased in size as compared to the previousstudy. A component of this may be related to slight difference in scanning angle and resultant measuring technique. Mass effect and left to right midline shift appears similar as compared to the previous study. -CH Presents for acute onset headache and aphasia. Imaging revealed acute large left temporal intraparenchymal hemorrhage -SM Current Method of Nutrition mechanical ground textures;thin liquids -ML mechanical ground textures;thin liquids -MH (r) IG (t) MH (c) NPO -CH NPO -SM Precautions/Limitations, Vision -- WFL;for purposes of eval -MH (r) IG (t) MH (c) WFL;for purposes of eval -CH difficult to assess -SM Precautions/Limitations, Hearing -- WFL;for purposes of eval -MH (r) IG (t) MH (c) WFL;for purposesof eval -CH difficult to assess -SM Prior Level of Function-Communication -- unknown -MH (r) IG (t) MH (c) WFL -CH WFL -SM Prior Level of Function-Swallowing -- no diet consistency restrictions;other (see comments) Softer foods 2' missing dentition -MH (r) IG (t) MH (c) no diet consistency restrictions;other (see comments) Softer foods 2' missing dentition -CH no diet consistency restrictions;other (see comments) Softer foods 2' missing dentition -SM Plans/Goals Discussed with -- patient and family;agreed upon -MH (r) IG (t) MH (c) patient and family;agreed upon -CH patient and family;agreed upon - Barriers to Rehab -- language impairment -ML medically complex -MH (r) IG (t) MH (c) none identified -CH none identified -SM Patient's Goals for Discharge patient could not state -ML patient did not state -MH (r) IG (t) MH (c) patient did not state -CH patient did not state -SM Family Goals for Discharge family did not state -ML family did not state -MH (r) IG (t) MH (c) family did not state -CH family did not state -SM Pain Additional Documentation Pain Scale: FACES Pre/Post-Treatment (Group) -ML Pain Scale: FACES Pre/Post-Treatment (Group) -MH (r) IG (t) (c) Pain Scale: FACES Pre/Post-Treatment (Group) -CH Pain Scale: FACES Pre/Post-Treatment (Group) -SM Pain Scale: FACES Pre/Post-Treatment Pain: FACES Scale, Pretreatment 0-->no hurt -ML 0-->no hurt -MH (r) IG (t) (c) 0-->no hurt -CH 2-->hurts little bit -SM Posttreatment Pain Rating 0-->no hurt -ML 0-->no hurt - (r) IG (t) (c) 0-->no hurt -CH 2-->hurts little bit -SM Pre/Posttreatment Pain Comment Observed to have hand at her head at the end of the session- ? GASTON, however pt then removed her hand from her head when asked if her head hurts. -ML -- -- -- Oral Motor Structure and Function Dentition Assessment missing teeth -ML missing teeth;teeth are in poor condition -MH (r) IG (t) (c) missing teeth;teeth are in poor condition -CH missing teeth -SM Secretion Management WNL/WFL -ML WNL/WFL - (r) IG (t) (c) WNL/WFL -CH WNL/WFL -SM Mucosal Quality -- moist, healthy - (r) IG (t) (c) moist, healthy -CH moist, healthy -SM Volitional Swallow delayed -ML -- unable to elicit -CH unable to elicit -SM Volitional Cough -- -- unable to elicit -CH unable to elicit -SM Oral Musculature and Cranial Nerve Assessment Oral Motor General Assessment -- unable to assess - (r) IG (t) (c) unable to assess -CH unableto assess -SM Oral Motor, Comment Pt unable to follow commands to comply with oral mech exam - ML Pt unable to follow OM commands -MH (r) IG (t) (c) patient unable to follow directives to complete oral mech assessment -CH U/a to follow directions to assess -SM General Eating/Swallowing Observations Respiratory Support Currently in Use room air -ML room air - (r) IG (t) (c) room air -CH room air - Eating/Swallowing Skills fed by staff/caregiver -ML fed by WELL DRILLER - (r) IG (t) (c) [facility];fed by WELL DRILLER -SM Positioning During Eating upright 90 degree;upright in chair -ML upright 90 degree;upright in chair- (r) IG (t) (c) upright 90 degree;upright in chair -CH upright 90 degree;upright in bed - Utensils Used spoon;cup;straw -ML spoon;straw - (r) IG (t) (c) spoon;cup;straw -CH spoon;cup;straw - Consistencies Trialed regular textures;soft to chew textures;mechanical ground textures;thin liquids -ML ice chips;thin liquids;soft to chew textures;pureed - (r) IG (t) (c) ice chips;thin liquids;pureed;regular textures - ice chips;thin liquids;regular textures - Pre SpO2 (%) 93 -ML -- 96 -CH -- Post SpO2 (%) 93 -ML -- 97 -CH -- Respiratory Respiratory Status -- WFL;room air - (r) IG (t) (c) WFL;room air - -- Clinical Swallow Eval Oral Prep Phase -- impaired - (r) IG (t) (c) impaired - WFL -SM Oral Transit -- WFL - (r) IG (t) (c) WFL - WFL -SM Oral Residue -- WFL - (r) IG (t) (c) WFL -CH WFL -SM Pharyngeal Phase -- suspected pharyngeal impairment - (r) IG (t) (c) suspected pharyngeal impairment - suspected pharyngeal impairment - Esophageal Phase -- unremarkable - (r) IG (t) (c) unremarkable - unremarkable - Oral Prep Concerns Oral Prep Concerns -- prolonged mastication - (r) IG (t) (c) reduced lip opening;increased prep time;other (see comments) cog/language impacting - -- Prolonged Mastication -- mechanical soft - (r) IG (t) MH (c) -- -- Reduced Lip Opening -- -- all consistencies -CH -- Increased Prep Time -- -- regular consistencies -CH -- Pharyngeal Phase Concerns Pharyngeal Phase Concerns -- cough -MH (r) IG (t) FABIOLA (c) cough -CH cough - Cough -- thin;other (see comments) Delayed cough x1 w/ thins and no further s/s -MH (r) IG (t) FABIOLA (c) thin;other (see comments) with initial teaspoon sip of thin H2O only. No s/s with cup or straw sips and numerous small sips of each presented - thin;other (see comments) Via large consecutive straw sips only -SM Pharyngeal Phase Concerns, Comment -- -- o s/s of aspiration with thin via cup or straw, or when taking meds w small sips by straw -CH No s/sxs w/ thin via cup -SM Fiberoptic Endoscopic Evaluation of Swallowing (FEES) Risks/Benefits Reviewed risks/benefits explained;patient;family;agreed to eval - ML -- -- -- Nasal Entry left: -ML -- -- -- Scope serial number/identification [id number] -ML -- -- -- Anatomy and Physiology Anatomic Considerations no anatomic structural deviation -ML -- -- -- Velopharyngeal WFL -ML -- -- -- Base of Tongue symmetrical -ML -- -- -- Epiglottis WFL -ML -- -- -- Laryngeal Function Breathing symmetrical -ML -- -- -- Laryngeal Function Phonation PATTERNMAKER APPRENTICE WOOD -ML -- -- -- Laryngeal Function to Breath Hold PATTERNMAKER APPRENTICE WOOD -ML -- -- -- Secretion Rating Scale (Edenilson et al. 1995) 2- secretions initially outside the vestibule but laterentered the vestibule One string -ML -- -- -- Secretion Description thin;clear -ML -- -- -- Ice Chips elicited swallow -ML -- -- -- Spontaneous Swallow frequency reduced -ML -- -- -- Sensory sensed scope -ML -- -- -- FEES Interpretation Oral Phase prolonged manipulation;with solids only;with mixed consistency only - ML -- -- -- Oral Phase, Comment Slow- Unable to suck from straw today during the FEES despite no difficulty with straw drinking with RN/family earlier today- ? apraxia interfering. -ML -- -- -- Initiation of Pharyngeal Swallow Initiation of Pharyngeal Swallow bolus in valleculae -ML -- -- -- Pharyngeal Phase functional pharyngeal phase of swallow -ML -- -- -- FEES Summary FEES completed. Oral dysphagia- Functional pharyngeal phase. No penetration/aspiration/residue. -ML -- -- -- Swallowing Quality of Life Assessment Education and counseling provided Signs of aspiration;Aspiration precautions;Feeding assistance andtechniques - -- Signs of aspiration;Risks of aspiration;Safest diet options;Feeding assistance and techniques;Oral care recommendations and rationale;Aspiration precautions - -- WELL DRILLER Evaluation Clinical Impression WELL DRILLER Swallowing Diagnosis oral dysphagia;functional pharyngeal phase - oral dysphagia;suspected pharyngeal dysphagia -MH (r) IG (t) MH (c) R/O pharyngeal dysphagia -CH R/O pharyngeal dysphagia - Functional Impact risk of malnutrition -ML risk of aspiration/pneumonia -MH (r) IG (t) MH (c) risk of aspiration/pneumonia - risk of aspiration/pneumonia - Rehab Potential/Prognosis, Swallowing re-evaluate goals as necessary -ML good, to achieve stated therapy goals - (r) IG (t) MH (c) good, to achieve stated therapy goals - good, to achieve stated therapy goals - Swallow Criteria for Skilled Therapeutic Interventions Met demonstrates skilled criteria -ML demonstrates skilled criteria - (r) IG (t) MH (c) demonstrates skilled criteria - demonstrates skilledcriteria - WELL DRILLER Treatment Clinical Impressions Treatment Assessment (WELL DRILLER) -- -- continued;communication disorder;aphasia - -- Daily Summary of Progress (WELL DRILLER) -- -- progress toward functional goals as expected - -- Plan for Continued Treatment (WELL DRILLER) -- -- continue treatment per plan of care - -- Care Plan Review -- -- evaluation/treatment results reviewed;care plan/treatment goals reviewed;risks/benefits reviewed;current/potential barriers reviewed;patient/other agree to care plan - -- Care Plan Review, Other Participant(s) -- -- family - -- Recommendations Therapy Frequency (Swallow) 3 days per week - -- -- -- Predicted Duration Therapy Intervention (Days) 1 week -ML 2 weeks -MH (r) IG (t) MH (c) 2 weeks -CH2 weeks - WELL DRILLER Diet Recommendation thin liquids;soft to chew textures;chopped -ML mechanical ground textures;thin liquids - (r) IG (t) MH (c) mechanical ground textures;thin liquids - mechanical ground textures;no mixed consistencies;thin liquids - Recommended Diagnostics reassess via clinical swallow evaluation -ML FEES - (r) IG (t) (c) reassess via clinical swallow evaluation;other (see comments) diet tolerance, instrumental evaluation if any concerns. -CH reassess via clinical swallow evaluation - Recommended Precautions and Strategies upright posture during/after eating;small bites of food and sips of liquid;general aspiration precautions;assist with feeding -ML small bites of food and sips of liquid;general aspiration precautions;assist with feeding - (r) IG (t) (c) no straw;small bites of food and sips of liquid;general aspiration precautions;assist with feeding;other (see comments) Place bolus in on left - no straw;small bites of food and sips of liquid;general aspiration precautions;assist with feeding - Oral Care Recommendations Oral Care BID/PRN;Toothbrush -ML Oral Care BID/PRN;Suction toothbrush -(r) IG (t) (c) Oral Care BID/PRN;Toothbrush - Oral Care BID/PRN;Toothbrush - WELL DRILLER Rec. for Method of Medication Administration meds whole;with thin liquids - ML meds whole;meds crushed;with puree;as tolerated - (r) IG (t) (c) with thin liquids;with puree;as tolerated - with puree;as tolerated - Monitor for Signs of Aspiration notify WELL DRILLER if any concerns -ML yes;notify WELL DRILLER if any concerns - (r) IG (t) (c) yes;notify WELL DRILLER if any concerns - yes;notify WELL DRILLER if any concerns - Anticipated Discharge Disposition (WELL DRILLER) -- inpatient rehabilitation facility - (r) IG (t) (c) inpatient rehabilitation facility - inpatient rehabilitation facility - User Christopher (r) = Recorded By, (t) = Taken By, (c) = Cosigned By Initials Name Effective Dates ML Suzy Alexander, MS [facility]WELL DRILLER 07/05/24 - Dalia Bazan MS [facility])-WELL DRILLER 11/25/24 - Vani Ford, MS [facility])-WELL DRILLER 03/17/23 - Trupti Albrecht, MS CF-WELL DRILLER 04/10/25 - Faye Larios, Speech Therapy Student 06/25/25 - EDUCATION The patient has been educated in the following areas: Dysphagia (Swallowing Impairment) Oral Care/Hydration Modified Diet Instruction. WELL DRILLER GOALS Row Name 08/08/25 0815 08/06/25 0915 08/05/25 1545 (LTG) Patient will demonstrate functional swallow for Diet Texture (Demonstrate functional swallow) soft to chew (whole) textures -ML regular textures -CH -- Liquid viscosity (Demonstrate functional swallow) thin liquids -ML thin liquids -CH -- Summit (Demonstrate functional swallow) with minimal cues (75-90% accuracy) -ML with 1:1 assist/ supervision -CH -- Time Frame (Demonstrate functional swallow) 2 weeks -ML 2 weeks -CH -- Progress/Outcomes (Demonstrate functional swallow) goal revised this -ML -- -- Comment (Demonstrate functional swallow) Given dentition, regular diet unlikely. -ML -- -- (STG) Patient will tolerate trials of Consistencies Trialed (Tolerate trials) soft to chew (chopped) textures -ML mechanical ground textures;thin liquids -CH -- Desired Outcome (Tolerate trials) with adequate oral prep/transit/clearance -ML without signs/symptoms of aspiration;with adequate oral prep/transit/clearance;with use of compensatory strategies (seecomments) place in on the left, sm bites and sips -CH -- Summit (Tolerate trials) with minimal cues (75-90% accuracy) -ML with minimal cues (75-90% accuracy) -CH -- Time Frame (Tolerate trials) 1 week -ML 1 week -CH -- Progress/Outcomes (Tolerate trials) goal revised this date -ML -- -- (STG) Patient will tolerate therapeutic trials of Consistencies Trialed (Tolerate therapeutic trials) soft to chew (whole) textures -ML -- -- Desired Outcome (Tolerate therapeutic trials) with adequate oral prep/transit/clearance -ML -- -- Summit (Tolerate therapeutic trials) with minimal cues (75-90% accuracy) - ML -- -- Time Frame (Tolerate therapeutic trials) 1 week -ML -- -- Progress/Outcomes (Tolerate therapeutic trials) new goal -ML -- -- Patient will demonstrate functional language skills for return to discharge environment Summit -- with minimal cues - with minimal cues - Time frame -- 2 weeks - 2 weeks - Progress/Outcomes -- continuing progress toward goal - new goal -[facility] Diagnostic Treatment Patient will participate in further assessment in the following areas -- graphic expression;readingcomprehension - graphic expression;reading comprehension - Time Frame (Diagnostic) -- 1 week -CH 1 week - Progress/Outcomes (Additional Goal 1, [facility]) -- goal ongoing - new goal - Words/Phrases/Sentences Goal 1 ([facility]) Improve Ability to Comprehend Words/Phrases/Sentences Through: Goal 1 ([facility]) -- identify objects, field of;80%;with minimal cues (75-90%);other (comment) - identify objects, field of;80%;with minimal cues (75-90%);other (comment) 3 - Time Frame (Identify Objects and Pictures Goal 1, [facility]) -- 1 week -CH 1 week - Progress (Ability to Contruct Words/Phrases/Sentences Goal 1, [facility]) -- 0%;with maximum cues (25-49%)- -- Progress/Outcomes (Identify Objects and Pictures Goal 1, [facility]) -- continuing progress toward goal - new goal - Comprehend Questions Goal 1 ([facility]) Improve Ability to Comprehend Questions Goal 1 ([facility]) -- simple yes/no questions;80%;with minimal cues (75-90%) -CH simple yes/no questions;80%;with minimal cues (75-90%) - Time Frame (Comprehend Questions Goal 1, [facility]) -- 1 week - 1 week - Progress (Ability to Comprehend Questions Goal 1, [facility]) -- 50%;with moderate cues (50-74%) - -- Progress/Outcomes (Comprehend Questions Goal 1, [facility]) -- continuing progress toward goal - new goal - Comment (Comprehend Questions Goal 1, [facility]) -- head nod, appears to have yes bias - -- Follow Directions Goal 2 ([facility]) Improve Ability to Follow Directions Goal 1 ([facility]) -- 1 step direction without objects;80%;with minimal cues (75-90%) -CH 1 step direction without objects;80%;with minimal cues (75-90%) - Time Frame (Follow Directions Goal 1, [facility]) -- 1 week - 1 week -SM Progress (Ability to Follow Directions Goal 1, [facility]) -- 50%;with moderate cues (50-74%);other (comment) models required - -- Progress/Outcomes (Follow Directions Goal 1, [facility]) -- continuing progress toward goal - new goal -SM Word Retrieval Skills Goal 1 ([facility]) Improve Word Retrieval Skills By Goal 1 ([facility]) -- completing automatic speech task, counting;completing automatic speech task, days of the week;completing automatic speech task, sing ???Happy Birthday?? ;80%;with minimal cues (75-90%) - completing automatic speech task, counting;completing automatic speech task, days of the week;completing automatic speech task, sing ???Happy Birthday?? ;80%;with minimal cues (75-90%) - Time Frame (Word Retrieval Goal 1, [facility]) -- 1 week - 1 week -SM Progress (Word Retrieval Skills Goal 1, [facility]) -- 70%;with moderate cues (50-74%) - -- Progress/Outcomes (Word Retrieval Goal 1, [facility]) -- continuing progress toward goal - new goal - Comment (Word Retrieval Goal 1, [facility]) -- counting, alphabet, response to greetings - -- User Christopher (r) = Recorded By, (t) = Taken By, (c) = Cosigned By Initials Name Provider Type Suzy Moseley MS CCC-[facility] Speech and Language Pathologist Dalia Bazan, MS CCC-[facility] Speech and Language Pathologist Trupti Banks, MS CF-[facility] Speech and Language Pathologist Time Calculation: Time Calculation- [facility] Row Name 08/08/25 0815 Time Calculation- [facility] WE[facility]RILLER Start Time 0815 -ML [facility] Received On 08/08/25 - User Christopher (r) = Recorded By, (t) = Taken By, (c) = Cosigned By Initials Name Provider Type Suzy Moseley MS CCC-[facility] Speech and Language Pathologist Therapy Charges for Today Code Description Service Date Service Provider Modifiers Qty [id number] HC ST FIBEROPTIC ENDO EVAL SWALL 5 08/08/2025 Suzy Alexander MS CCC-[facility] GN 1 Suzy Alexander MS CCC-[facility] 08/08/2025 Electronically signed by Suzy Alexander MS [facility]WE[facility] at 08/08/2025 9:42 AM EDT * Therapy Treatment Note - Ambar Velazquez, OT - 08/08/2025 8:10 AM EDT Images from the original note were not included. Patient Name: Joie Flores : 1945 Today's Date: 08/08/2025 Admit Date: 08/05/2025 Visit Dx: ICD-10-CM ICD-9-CM 1. Hemorrhagic stroke I61.9 431 2. Intraparenchymal hemorrhage of brain I61.9 431 3. Dysphagia, unspecified type R13.10 787.20 4. Communication deficit F80.9 307.9 Patient Active Problem List Diagnosis Acute pancreatitis Anemia Bacteremia Colitis Methicillin susceptible Staphylococcus aureus infection, unspecified site Other specified diseases of pancreas Urinary tract infectious disease Autonomic orthostatic hypotension Abnormal findings on diagnostic imaging of heart and coronary circulation Chest pain ICH (intracerebral hemorrhage) Paroxysmal SVT (supraventricular tachycardia) Coronary artery disease involving autologous vein coronary bypass graft without angina pectoris Hyperlipidemia LDL goal <100 Essential hypertension Hypothyroidism (acquired) Past Medical History: Diagnosis Date Chronic kidney disease Coronary artery disease Hypertension PVT (paroxysmal ventricular tachycardia) Past Surgical History: Procedure Laterality Date APPENDECTOMY CHOLECYSTECTOMY HYSTERECTOMY General Information Row Name 08/08/25833 OT Time and Intention Document Type therapy note (daily note) -KF Mode of Treatment occupational therapy;individual therapy -KF Row Name 08/08/25833 General Information Patient Profile Reviewed yes -KF Existing Precautions/Restrictions fall;oxygen therapy device and L/min;other (see comments) R neglect, aphasia; brief with mobility -KF Barriers to Rehab medically complex;previous functional deficit;cognitive status -KF Row Name 08/08/25833 Cognition Orientation Status (Cognition) unable/difficult to assess;other (see comments) Pt able to shake head yes/no ~50% of time with increased time/repetition. -KF Row Name 08/08/25833 Safety Issues/Impairments Affecting Functional Mobility Safety Issues Affecting Function (Mobility) ability to follow commands;awareness of need for assistance;insight into deficits/self-awareness;judgment;problem-solving;safety precaution awareness;safety precautions follow-through/compliance;sequencing abilities -KF Impairments Affecting Function (Mobility) balance;cognition;coordination;endurance/activity tolerance;postural/trunk control;shortness of breath;strength;visual/perceptual -KF Cognitive Impairments, Mobility Safety/Performance attention;awareness, need for assistance;insightinto deficits/self-awareness;judgment;problem-solving/reasoning;safety precaution awareness;safety precaution follow-through;sequencing abilities -KF User Christopher (r) = Recorded By, (t) = Taken By, (c) = Cosigned By Initials Name Provider Type KF Ambar Velazquez OT Occupational Therapist Mobility/ADL's Row Name 08/08/25835 Bed Mobility Bed Mobility supine-sit -KF Supine-Sit Summit (Bed Mobility) minimum assist (75% patient effort);1 person assist;verbal cues - Assistive Device (Bed Mobility) bed rails;head of bed elevated;repositioning sheet - Comment, (Bed Mobility) Cues for sequence with Dominik given for hand placement. Pt able to scoot hipstoward EOB with time and maintain static sitting balance with SBA. - Row Name 08/08/25835 Transfers Transfers sit-stand transfer;stand-sit transfer - Row Name 08/08/25 Sit-Stand Transfer Sit-Stand Summit (Transfers) minimum assist (75% patient effort);1 person assist;verbal cues - Assistive Device (Sit-Stand Transfers) walker, front-wheeled - Comment, (Sit-Stand Transfer) x1 from EOB, cues and assistance needed in RUE hand placement - Row Name 08/08/25835 Stand-Sit Transfer Stand-Sit [place] (Transfers) minimum assist (75% patient effort);1 person assist;verbal cues - Assistive Device (Stand-Sit Transfers) walker, front-wheeled -KF Row Name 08/08/2536 Functional Mobility Functional Mobility- Ind. Level minimum assist (75% patient effort);1 person + 1 person to manage equipment - Functional Mobility- Device walker, front-wheeled -KF Functional Mobility-Distance (Feet) -- 6 steps forward -KF Functional Mobility- Comment Pt stood and took 6 steps forward from EOB using a RWx with Dominik x1 +chair follow for safety. Pt requiring frequent cues to step with RLE and for R side RWx management. No overt knee buckling today. Additional mobility limited by episode of incontinence. - Row Name 08/08/25835 Activities of Daily Living BADL Assessment/Intervention lower body dressing;toileting - Row Name 08/08/25835 Lower Body Dressing Assessment/Training Summit Level (Lower Body Dressing) doff;don;socks;dependent (less than 25% patient effort) -KF Position (Lower Body Dressing) supported sitting - Row Name 08/08/25835 Toileting Assessment/Training Summit Level (Toileting) adjust/manage clothing;perform perineal hygiene;dependent (less than25% patient effort) -KF Position (Toileting) supported standing;unsupported sitting -KF User Christopher (r) = Recorded By, (t) = Taken By, (c) = Cosigned By Initials Name Provider Type Ambar Nash OT Occupational Therapist Obj/Interventions Row Name 08/08/25839 Balance Balance Assessment sitting static balance;sitting dynamic balance;sit to stand dynamic balance;standing static balance;standing dynamic balance -KF Static Sitting Balance standby assist -KF Dynamic Sitting Balance minimal assist -KF Position, Sitting Balance unsupported;sitting in chair;sitting edge of bed -KF Sit to Stand Dynamic Balance minimal assist;1-person assist;verbal cues -KF Static Standing Balance minimal assist;1-person assist -KF Dynamic Standing Balance minimal assist;1-person assist;1 person to manage equipment -KF Position/Device Used, Standing Balance supported;walker, front-wheeled -KF Balance Interventions sitting;standing;sit to stand;supported;static;dynamic;occupation based/functional task -KF User Christopher (r) = Recorded By, (t) = Taken By, (c) = Cosigned By Initials Name Provider Type Ambar Nash OT Occupational Therapist Goals/Plan No documentation. Clinical Impression Row Name 08/08/25839 Pain Assessment Additional Documentation Pain Scale: FACES Pre/Post-Treatment (Group) - Row Name 08/08/25839 Pain Scale: FACES Pre/Post-Treatment Pain: FACES Scale, Pretreatment 0-->no hurt -KF Posttreatment Pain Rating 0-->no hurt -KF Row Name 08/08/25839 Plan of Care Review Plan of Care Reviewed With patient -KF Progress improving -KF Outcome Evaluation Pt requiring less assistance for all mobility today compared to previous sessions. The pt performed bed mobility and took 6 steps forward using a RWx with Dominik x1 +1 for chair follow. The pt remains below baseline with generalized weakness, aphasia, R neglect, balance deficits, decreased activity tolerance, and decreased safety awareness. Continue to rec a d/c to IRF when medically ready. -KF Row Name 08/08/25 0840 Therapy Plan Review/Discharge Plan (OT) Anticipated Discharge Disposition (OT) inpatient rehabilitation facility - Row Name 08/08/25 0840 Vital Signs Pre Systolic BP Rehab 112 -KF Pre Treatment Diastolic BP 72 -KF Post Systolic BP Rehab 108 -KF Post Treatment Diastolic BP 67 -KF Pretreatment Heart Rate (beats/min) 75 -KF Posttreatment Heart Rate (beats/min) 77 -KF Pre SpO2 (%) 93 -KF O2 Delivery Pre Treatment room air -KF Post SpO2 (%) 92 -KF O2 Delivery Post Treatment room air -KF Pre Patient Position Supine -KF Intra Patient Position Standing -KF Post Patient Position Sitting -KF Row Name 08/08/2540 Positioning and Restraints Pre-Treatment Position in bed -KF Post Treatment Position chair -KF In Chair notified nsg;reclined;call light within reach;encouraged to call for assist;exit alarm on;with family/caregiver;waffle cushion;on mechanical lift sling;legs elevated;with nsg;with [facility] -KF User Christopher (r) = Recorded By, (t) = Taken By, (c) = Cosigned By Initials Name Provider Type Ambar Nash OT Occupational Therapist Outcome Measures Row Name 08/08/2542 How much help from another is currently needed... Putting on and taking off regular lower body clothing? 2 -KF Bathing (including washing, rinsing, and drying) 2 -KF Toileting (which includes using toilet bed valentin or urinal) 1 -KF Putting on and taking off regular upper body clothing 2 -KF Taking care of personal grooming (such as brushing teeth) 2 -KF Eating meals 2 -KF AM-PAC 6 Clicks Score (OT) 11 -KF Row Name 08/08/25 0842 Functional Assessment Outcome Measure Options AM-PAC 6 Clicks Daily Activity (OT) -KF User Christopher (r) = Recorded By, (t) = Taken By, (c) = Cosigned By Initials Name Provider Type KF Ambar Velazquez OT Occupational Therapist Occupational Therapy Education Title: PT OT [facility] Therapies (In Progress) Topic: Occupational Therapy (In Progress) Point: ADL training (In Progress) Learning Progress Summary Patient Acceptance, E,TB, NR by at 08/08/2025809 Acceptance, E,TB, NR by at 08/06/2025829 Point: Precautions (In Progress) Learning Progress Summary Patient Acceptance, E,TB, NR by at 08/08/2025809 Acceptance, E,TB, NR by at 08/06/2025829 Point: Body mechanics (In Progress) Learning Progress Summary Patient Acceptance, E,TB, NR by at 08/08/2025809 Acceptance, E,TB, NR by at 08/06/2025829 User Christopher Initials Effective Dates Name Provider Type [facility] 06/14/23 - Ambar Velazquez OT Occupational Therapist OT OT Recommendation and Plan Recommended discharge disposition is based on the functional assessment performed by PT/OT/Speech therapy (as applicable) and may not reflect the medical necessity determined by your provider or services covered by an individual patient's insurance plan or patient resource. Planned Therapy Interventions (OT): activity tolerance training, adaptive equipment training, BADL retraining, functional balance retraining, occupation/activity based interventions, patient/caregiver education/training, ROM/therapeutic exercise, strengthening exercise, transfer/mobility retraining Therapy Frequency (OT): daily Plan of Care Review Plan of Care Reviewed With: patient Progress: improving Outcome Evaluation: Pt requiring less assistance for all mobility today compared to previous sessions. The pt performed bed mobility and took 6 steps forward using a RWx with Dominik x1 +1 for chair follow. The pt remains below baseline with generalized weakness, aphasia, R neglect, balance deficits, decreased activity tolerance, and decreased safety awareness. Continue to rec a d/c to IRF when medically ready. Time Calculation: Evaluation Complexity (OT) Review Occupational Profile/Medical/Therapy History Complexity: expanded/moderate complexity Assessment, Occupational Performance/Identification of Deficit Complexity: 3-5 performance deficits Clinical Decision Making Complexity (OT): detailed assessment/moderate complexity Overall Complexity of Evaluation (OT): moderate complexity Time Calculation- OT Row Name 08/08/25 0843 Time Calculation- OT OT Start Time 809 - OT Received On 08/08/25 - OT Goal Re-Cert Due Date 08/16/25 -KF Timed Charges 57688 - OT Therapeutic Activity Minutes 13 -KF 78314 - OT Self Care/Mgmt Minutes 10 -KF Total Minutes Timed Charges Total Minutes 23 -KF Total Minutes 23 -KF User Christopher (r) = Recorded By, (t) = Taken By, (c) = Cosigned By Initials Name Provider Type KF Ambar Velazquez OT Occupational Therapist Therapy Charges for Today Code Description Service Date Service Provider Modifiers Qty [id number] OT THERAPEUTIC ACT EA 15 MIN 08/08/2025 Ambar Velazquez OT GO 1 [id number] OT SELF CARE/MGMT/TRAIN EA 15 MIN 08/08/2025 Ambar Velazquez OT GO 1 Ambar Velazquez OT 08/08/2025 * Therapy Re-Evaluation - Faye Murray, Speech Therapy Student - 08/07/2025 11:43 AM EDT Images from the original note were not included. Acute Care - Speech Language Pathology Swallow Re-Evaluation [facility] Clinical Swallow Evaluation Patient Name: Joie Flores : 1945 Today's Date: 08/07/2025 Admit Date: 08/05/2025 Visit Dx: ICD-10-CM ICD-9-CM 1. Hemorrhagic stroke I61.9 431 2. Intraparenchymal hemorrhage of brain I61.9 431 3. Dysphagia, unspecified type R13.10 787.20 4. Communication deficit F80.9 307.9 Patient Active Problem List Diagnosis Acute pancreatitis Anemia Bacteremia Colitis Methicillin susceptible Staphylococcus aureus infection, unspecified site Other specified diseases of pancreas Urinary tract infectious disease Autonomic orthostatic hypotension Abnormal findings on diagnostic imaging of heart and coronary circulation Chest pain ICH (intracerebral hemorrhage) Paroxysmal SVT (supraventricular tachycardia) Coronary artery disease involving autologous vein coronary bypass graft without angina pectoris Hyperlipidemia LDL goal <100 Essential hypertension Hypothyroidism (acquired) Past Medical History: Diagnosis Date Chronic kidney disease Coronary artery disease Hypertension PVT (paroxysmal ventricular tachycardia) Past Surgical History: Procedure Laterality Date APPENDECTOMY CHOLECYSTECTOMY HYSTERECTOMY [facility] Recommendation and Plan Recommended discharge disposition is based on the functional assessment performed by PT/OT/Speech therapy (as applicable) and may not reflect the medical necessity determined by your provider or services covered by an individual patient's insurance plan or patient resource. [facility] Swallowing Diagnosis: (P) oral dysphagia, suspected pharyngeal dysphagia (08/07/25 105) [facility] Diet Recommendation: (P) mechanical ground textures, thin liquids (08/07/25 105) Recommended Precautions and Strategies: (P) small bites of food and sips of liquid, general aspiration precautions, assist with feeding (08/07/251049) WE[facility] DRILLER Rec. for Method of Medication Administration: (P) meds whole, meds crushed, with puree, as tolerated (08/07/251049) Monitor for Signs of Aspiration: (P) yes, notify WELL DRILLER if any concerns (08/07/251049) Recommended Diagnostics: (P) FEES (08/07/251049) Swallow Criteria for Skilled Therapeutic Interventions Met: (P) demonstrates skilled criteria (08/07/251049) Anticipated Discharge Disposition (WELL DRILLER): (P) inpatient rehabilitation facility (08/07/251049) Rehab Potential/Prognosis, Swallowing: (P) good, to achieve stated therapy goals (08/07/251049) Predicted Duration Therapy Intervention (Days): (P) 2 weeks (08/07/251049) Oral Care Recommendations: (P) Oral Care BID/PRN, Suction toothbrush (08/07/251049) Progress: (P) improving SWALLOW EVALUATION (Last 72 Hours) WELL DRILLER Adult Swallow Evaluation Row Name 08/07/25 1050 08/06/25 0900 08/05/25 1540 Rehab Evaluation Document Type re-evaluation (P) -IG re-evaluation;therapy note (daily note) - evaluation -SM Subjective Information no complaints (P) -IG no complaints - no complaints -SM Patient Observations alert;cooperative (P) -IG alert;cooperative;agree to therapy - alert;cooperative - Patient/Family/Caregiver Comments/Observations Daughters present (P) -IG daughter and grandaughter present - Family present -SM Patient Effort good (P) -IG good -CH good -SM Symptoms Noted During/After Treatment none (P) -IG none -CH none -SM Oral Care -- oral rinse provided - -- General Information Patient Profile Reviewed yes (P) -IG yes -CH yes -SM Pertinent History Of Current Problem See initial eval (P) -IG see initial evaluation. Pt NPO after noted new facial droop. CT: Redemonstration of an intraparenchymal hemorrhage within the left temporal lobe which appears slightly increased in size as compared to the previous study. A component of this may be related to slight difference in scanning angle and resultant measuring technique. Mass effect and left to right midline shift appears similar as compared to the previous study. -CH Presents for acute onset headache and aphasia. Imaging revealed acute large left temporal intraparenchymalhemorrhage -SM Current Method of Nutrition mechanical ground textures;thin liquids (P) -IG NPO -CH NPO -SM Precautions/Limitations, Vision WFL;for purposes of eval (P) -IG WFL;for purposes of eval -CH difficult to assess -SM Precautions/Limitations, Hearing WFL;for purposes of eval (P) -IG WFL;for purposes of eval -CH difficult to assess -SM Prior Level of Function-Communication unknown (P) -IG WFL -CH WFL -SM Prior Level of Function-Swallowing no diet consistency restrictions;other (see comments) (P) Softerfoods 2' missing dentition -IG no diet consistency restrictions;other (see comments) Softer foods 2' missing dentition -CH no diet consistency restrictions;other (see comments) Softer foods 2' missing dentition -SM Plans/Goals Discussed with patient and family;agreed upon (P) -IG patient and family;agreed upon -CH patient and family;agreed upon -SM Barriers to Rehab medically complex (P) -IG none identified -CH none identified -SM Patient's Goals for Discharge patient did not state (P) -IG patient did not state -CH patient did not state -SM Family Goals for Discharge family did not state (P) -IG family did not state -CH family did not state -SM Pain Additional Documentation Pain Scale: FACES Pre/Post-Treatment (Group) (P) -IG Pain Scale: FACES Pre/Post-Treatment (Group) -CH Pain Scale: FACES Pre/Post- Treatment (Group) -SM Pain Scale: FACES Pre/Post-Treatment Pain: FACES Scale, Pretreatment 0-->no hurt (P) -IG 0-->no hurt -CH 2-->hurts little bit -SM Posttreatment Pain Rating 0-->no hurt (P) -IG 0-->no hurt -CH 2-->hurts little bit -SM Oral Motor Structure and Function Dentition Assessment missing teeth;teeth are in poor condition (P) -IG missing teeth;teeth are in poor condition - missing teeth -SM Secretion Management WNL/WFL (P) -IG WNL/WFL -CH WNL/WFL -SM Mucosal Quality moist, healthy (P) -IG moist, healthy -CH moist, healthy -SM Volitional Swallow -- unable to elicit -CH unable to elicit -SM Volitional Cough -- unable to elicit -CH unable to elicit -SM Oral Musculature and Cranial Nerve Assessment Oral Motor General Assessment unable to assess (P) -IG unable to assess -CH unable to assess -SM Oral Motor, Comment Pt unable to follow OM commands (P) -IG patient unable to follow directives to complete oral mech assessment - U/a to follow directions to assess -SM General Eating/Swallowing Observations Respiratory Support Currently in Use room air (P) -IG room air - room air - Eating/Swallowing Skills fed by WELL DRILLER (P) -IG fed by WELL DRILLER -CH self-fed;fed by WELL DRILLER -SM Positioning During Eating upright 90 degree;upright in chair (P) -IG upright 90 degree;upright in chair - upright 90 degree;upright in bed - Utensils Used spoon;straw (P) -IG spoon;cup;straw - spoon;cup;straw - Consistencies Trialed ice chips;thin liquids;soft to chew textures;pureed (P) - IG ice chips;thin liquids;pureed;regular textures - ice chips;thin liquids;regular textures -SM Pre SpO2 (%) -- 96 -CH -- Post SpO2 (%) -- 97 -CH -- Respiratory Respiratory Status WFL;room air (P) -IG WFL;room air - -- Clinical Swallow Eval Oral Prep Phase impaired (P) -IG impaired -CH WFL -SM Oral Transit WFL (P) -IG WFL -CH WFL -SM Oral Residue WFL (P) -IG WFL -CH WFL -SM Pharyngeal Phase suspected pharyngeal impairment (P) -IG suspected pharyngeal impairment - suspected pharyngeal impairment -SM Esophageal Phase unremarkable (P) -IG unremarkable -CH unremarkable -SM Oral Prep Concerns Oral Prep Concerns prolonged mastication (P) -IG reduced lip opening;increased prep time;other (seecomments) cog/language impacting -CH -- Prolonged Mastication mechanical soft (P) -IG -- -- Reduced Lip Opening -- all consistencies -CH -- Increased Prep Time -- regular consistencies - -- Pharyngeal Phase Concerns Pharyngeal Phase Concerns cough (P) -IG cough -CH cough -SM Cough thin;other (see comments) (P) Delayed cough x1 w/ thins and no further s/s -IG thin;other (see comments) with initial teaspoon sip of thin H2O only. No s/s with cup or straw sips and numerous small sips of each presented - thin;other (see comments) Via large consecutive straw sips only - Pharyngeal Phase Concerns, Comment -- o s/s of aspiration with thin via cup or straw, or when taking meds w small sips by straw - No s/sxs w/ thin via cup - Swallowing Quality of Life Assessment Education and counseling provided -- Signs of aspiration;Risks of aspiration;Safest diet options;Feeding assistance and techniques;Oral care recommendations and rationale;Aspiration precautions - -- WELL DRILLER Evaluation Clinical Impression WELL DRILLER Swallowing Diagnosis oral dysphagia;suspected pharyngeal dysphagia (P) -IG R/O pharyngeal dysphagia -CH R/O pharyngeal dysphagia - Functional Impact risk of aspiration/pneumonia (P) -IG risk of aspiration/pneumonia - risk of aspiration/pneumonia - Rehab Potential/Prognosis, Swallowing good, to achieve stated therapy goals (P) -IG good, to achieve stated therapy goals - good, to achieve stated therapy goals - Swallow Criteria for Skilled Therapeutic Interventions Met demonstrates skilled criteria (P) -IG demonstrates skilled criteria - demonstrates skilled criteria - WELL DRILLER Treatment Clinical Impressions Treatment Assessment (WELL DRILLER) -- continued;communication disorder;aphasia - -- Daily Summary of Progress (WELL DRILLER) -- progress toward functional goals as expected - -- Plan for Continued Treatment (WELL DRILLER) -- continue treatment per plan of care - -- Care Plan Review -- evaluation/treatment results reviewed;care plan/treatment goals reviewed;risks/benefits reviewed;current/potential barriers reviewed;patient/other agree to care plan - -- Care Plan Review, Other Participant(s) -- family - -- Recommendations Predicted Duration Therapy Intervention (Days) 2 weeks (P) -IG 2 weeks -CH 2 weeks - WELL DRILLER Diet Recommendation mechanical ground textures;thin liquids (P) -IG mechanical ground textures;thin liquids - mechanical ground textures;no mixed consistencies;thin liquids - Recommended Diagnostics FEES (P) -IG reassess via clinical swallow evaluation;other (see comments) diet tolerance, instrumental evaluation if any concerns. - reassess via clinical swallow evaluation - Recommended Precautions and Strategies small bites of food and sips of liquid;general aspiration precautions;assist with feeding (P) -IG no straw;small bites of food and sips of liquid;general aspiration precautions;assist with feeding;other (see comments) Place bolus in on left - no straw;small bites of food and sips of liquid;general aspiration precautions;assist with feeding - Oral Care Recommendations Oral Care BID/PRN;Suction toothbrush (P) -IG Oral Care BID/PRN;Toothbrush- Oral Care BID/PRN;Toothbrush - WELL DRILLER Rec. for Method of Medication Administration meds whole;meds crushed;with puree;as tolerated (P) -IG with thin liquids;with puree;as tolerated - with puree;as tolerated - Monitor for Signs of Aspiration yes;notify WELL DRILLER if any concerns (P) -IG yes;notify WELL DRILLER if any concerns - yes;notify WELL DRILLER if any concerns -SM Anticipated Discharge Disposition (WELL DRILLER) inpatient rehabilitation facility (P) - IG inpatient rehabilitation facility - inpatient rehabilitation facility - User Christopher (r) = Recorded By, (t) = Taken By, (c) = Cosigned By Initials Name Effective Dates Dalia Bazan, MS CCC-WELL DRILLER 11/25/24 - SM Trupti Banks, CF-WELL DRILLER 04/10/25 - Faye Murray, Speech Therapy Student 06/25/25 - EDUCATION The patient has been educated in the following areas: Dysphagia (Swallowing Impairment) Oral Care/Hydration. WELL DRILLER GOALS Row Name 08/06/25 0915 08/05/25 1545 (LTG) Patient will demonstrate functional swallow for Diet Texture (Demonstrate functional swallow) regular textures - -- Liquid viscosity (Demonstrate functional swallow) thin liquids - -- Summit (Demonstrate functional swallow) with 1:1 assist/ supervision - -- Time Frame (Demonstrate functional swallow) 2 weeks - -- (STG) Patient will tolerate trials of Consistencies Trialed (Tolerate trials) mechanical ground textures;thin liquids - -- Desired Outcome (Tolerate trials) without signs/symptoms of aspiration;with adequate oral prep/transit/clearance;with use of compensatory strategies (see comments) place in on the left, sm bites and sips - -- Summit (Tolerate trials) with minimal cues (75-90% accuracy) - -- Time Frame (Tolerate trials) 1 week -CH -- Patient will demonstrate functional language skills for return to discharge environment Summit with minimal cues - with minimal cues - Time frame 2 weeks - 2 weeks - Progress/Outcomes continuing progress toward goal - new goal - WELL DRILLER Diagnostic Treatment Patient will participate in further assessment in the following areas graphic expression;reading comprehension - graphic expression;reading comprehension - Time Frame (Diagnostic) 1 week -CH 1 week -SM Progress/Outcomes (Additional Goal 1, WELL DRILLER) goal ongoing - new goal - Words/Phrases/Sentences Goal 1 (WELL DRILLER) Improve Ability to Comprehend Words/Phrases/Sentences Through: Goal 1 (WELL DRILLER) identify objects, fieldof;80%;with minimal cues (75-90%);other (comment) - identify objects, field of;80%;with minimal cues (75-90%);other (comment) 3 -SM Time Frame (Identify Objects and Pictures Goal 1, WELL DRILLER) 1 week - 1 week -SM Progress (Ability to Contruct Words/Phrases/Sentences Goal 1, WELL DRILLER) 0%;with maximum cues (25-49%) - -- Progress/Outcomes (Identify Objects and Pictures Goal 1, WELL DRILLER) continuing progress toward goal - new goal - Comprehend Questions Goal 1 (WELL DRILLER) Improve Ability to Comprehend Questions Goal 1 (WELL DRILLER) simple yes/no questions;80%;with minimal cues (75-90%) - simple yes/no questions;80%;with minimal cues (75-90%) - Time Frame (Comprehend Questions Goal 1, WELL DRILLER) 1 week -CH 1 week -SM Progress (Ability to Comprehend Questions Goal 1, WELL DRILLER) 50%;with moderate cues (50-74%) - -- Progress/Outcomes (Comprehend Questions Goal 1, WELL DRILLER) continuing progress toward goal - new goal -SM Comment (Comprehend Questions Goal 1, WELL DRILLER) head nod, appears to have yes bias - -- Follow Directions Goal 2 (WELL DRILLER) Improve Ability to Follow Directions Goal 1 (WELL DRILLER) 1 step direction without objects;80%;with minimalcues (75-90%) -CH 1 step direction without objects;80%;with minimal cues (75-90%) -SM Time Frame (Follow Directions Goal 1, WELL DRILLER) 1 week -CH 1 week -SM Progress (Ability to Follow Directions Goal 1, WELL DRILLER) 50%;with moderate cues (50- 74%);other (comment)models required -CH -- Progress/Outcomes (Follow Directions Goal 1, WELL DRILLER) continuing progress toward goal - new goal -SM Word Retrieval Skills Goal 1 (WELL DRILLER) Improve Word Retrieval Skills By Goal 1 (WELL DRILLER) completing automatic speech task, counting;completingautomatic speech task, days of the week;completing automatic speech task, sing ???Happy Birthday?? ;80%;with minimal cues (75-90%) - completing automatic speech task, counting;completing automatic speech task, days of the week;completing automatic speech task, sing ???Happy Birthday?? ;80%;with minimal cues (75-90%) - Time Frame (Word Retrieval Goal 1, WELL DRILLER) 1 week - 1 week -SM Progress (Word Retrieval Skills Goal 1, WELL DRILLER) 70%;with moderate cues (50-74%) - -- Progress/Outcomes (Word Retrieval Goal 1, WELL DRILLER) continuing progress toward goal - new goal -SM Comment (Word Retrieval Goal 1, [facility]) counting, alphabet, response to greetings - -- User Christopher (r) = Recorded By, (t) = Taken By, (c) = Cosigned By Initials Name Provider Type Dalia Oliva MS CCC-WELL DRILLER Speech and Language Pathologist Trupti Albrecht MS CF-WELL DRILLER Speech and Language Pathologist Time Calculation: Time Calculation- WELL DRILLER Row Name 08/07/25 1142 Time Calculation- WELL DRILLER WELL DRILLER Start Time 1050 (P) -IG WELL DRILLER Received On 08/07/25 (P) -IG Untimed Charges 77237-FJ Eval Oral Pharyng Swallow Minutes 75 (P) -IG Total Minutes Untimed Charges Total Minutes 75 (P) -IG Total Minutes 75 (P) -IG User Christopher (r) = Recorded By, (t) = Taken By, (c) = Cosigned By Initials Name Provider Type IG Faye Murray Speech Therapy Student WELL DRILLER Student Therapy Charges for Today Code Description Service Date Service Provider Modifiers Qty [id number] HC ST EVAL ORAL PHARYNG SWALLOW 5 08/07/2025 Faye Murray Speech Therapy Student GN 1 Mumtaz Downs Therapy Student 08/07/2025 Cosigned by Vani Ford MS CCC-SLP at 08/07/2025 1:04 PM EDT Associated attestation - Vani Ford MS CCC-SLP - 08/07/2025 1:04 PM EDT MS ZBIGNIEW Dela Cruz * Therapy Treatment Note - Jenny Mirza, PT - 08/07/2025 11:40 AM EDT Images from the original note were not included. Patient Name: Joie Flores : 1945 Today's Date: 08/07/2025 Admit Date: 08/05/2025 Visit Dx: ICD-10-CM ICD-9-CM 1. Hemorrhagic stroke I61.9 431 2. Intraparenchymal hemorrhage of brain I61.9 431 3. Dysphagia, unspecified type R13.10 787.20 4. Communication deficit F80.9 307.9 Patient Active Problem List Diagnosis Acute pancreatitis Anemia Bacteremia Colitis Methicillin susceptible Staphylococcus aureus infection, unspecified site Other specified diseases of pancreas Urinary tract infectious disease Autonomic orthostatic hypotension Abnormal findings on diagnostic imaging of heart and coronary circulation Chest pain ICH (intracerebral hemorrhage) Paroxysmal SVT (supraventricular tachycardia) Coronary artery disease involving autologous vein coronary bypass graft without angina pectoris Hyperlipidemia LDL goal <100 Essential hypertension Hypothyroidism (acquired) Past Medical History: Diagnosis Date Chronic kidney disease Coronary artery disease Hypertension PVT (paroxysmal ventricular tachycardia) Past Surgical History: Procedure Laterality Date APPENDECTOMY CHOLECYSTECTOMY HYSTERECTOMY General Information Row Name 08/07/25 1341 Physical Therapy Time and Intention Document Type therapy note (daily note) -KE Mode of Treatment physical therapy - Row Name 08/07/25 134 General Information Patient Profile Reviewed yes -KE Existing Precautions/Restrictions fall;oxygen therapy device and L/min;other (see comments) aphasia, R neglect -KE Barriers to Rehab medically complex;previous functional deficit;cognitive status -KE Row Name 08/07/25 1346 Cognition Orientation Status (Cognition) unable/difficult to assess;other (see comments) responds to name - Row Name 08/07/25 4336 Safety Issues/Impairments Affecting Functional Mobility Safety Issues Affecting Function (Mobility) ability to follow commands;awareness of need for assistance;safety precaution awareness;safety precautions follow- through/compliance;impulsivity;insight into deficits/self-awareness;problem-solving;sequencing abilities;judgment -KE Impairments Affecting Function (Mobility) balance;cognition;coordination;endurance/activity tolerance;postural/trunk control;shortness of breath;strength;visual/perceptual -KE Cognitive Impairments, Mobility Safety/Performance attention;awareness, need for assistance;safety precaution awareness;safety precaution follow-through;insight into deficits/self-awareness;impulsivity;problem-solving/reasoning -KE Comment, Safety Issues/Impairments (Mobility) inconsistently following commands; impulsively attempting to return to bed despite cues -KE User Christopher (r) = Recorded By, (t) = Taken By, (c) = Cosigned By Initials Name Provider Type Jenny Solorzano, FERNANDA Physical Therapist Mobility Row Name 08/07/25 135 Bed Mobility Bed Mobility sit-supine -KE Sit-Supine Summit (Bed Mobility) moderate assist (50% patient effort);1 person assist -KE Assistive Device (Bed Mobility) bed rails;head of bed elevated;repositioning sheet -KE Comment, (Bed Mobility) VCs for sequencing, assist at trunk and LEs -KE Row Name 08/07/25 135 Bed-Chair Transfer Bed-Chair Summit (Transfers) moderate assist (50% patient effort);1 person assist -KE Assistive Device (Bed-Chair Transfers) other (see comments) UE support -ADOLFO Comment, (Bed-Chair Transfer) VCs for safety and sequencing -KE Row Name 08/07/25 1351 Sit-Stand Transfer Sit-Stand Summit (Transfers) moderate assist (50% patient effort);1 person assist -KE Assistive Device (Sit-Stand Transfers) other (see comments) UE support -KE Comment, (Sit-Stand Transfer) x1 from chair, x1 from EOB -KE User Christopher (r) = Recorded By, (t) = Taken By, (c) = Cosigned By Initials Name Provider Type Jenny Solorzano PT Physical Therapist Obj/Interventions Row Name 08/07/25 1352 Balance Balance Assessment sitting static balance;sitting dynamic balance;standing static balance;standing dynamic balance -KE Static Sitting Balance contact guard -KE Dynamic Sitting Balance minimal assist -KE Position, Sitting Balance unsupported;sitting edge of bed -KE Static Standing Balance moderate assist;1-person assist -KE Dynamic Standing Balance moderate assist;1-person assist -KE Position/Device Used, Standing Balance supported B UE support -KE Balance Interventions sitting;standing;sit to stand;supported;static;dynamic -KE Comment, Balance posterior lean -KE User Christopher (r) = Recorded By, (t) = Taken By, (c) = Cosigned By Initials Name Provider Type Jenny Solorzano PT Physical Therapist Goals/Plan No documentation. Clinical Impression Row Name 08/07/25 1354 Pain Pretreatment Pain Rating 0/10 - no pain -KE Posttreatment Pain Rating 0/10 - no pain -KE Row Name 08/07/25 1354 Pain Scale: FACES Pre/Post-Treatment Pain: FACES Scale, Pretreatment 0-->no hurt -KE Posttreatment Pain Rating 0-->no hurt -KE Row Name 08/07/25 1354 Plan of Care Review Plan of Care Reviewed With patient -KE Outcome Evaluation Pt assist in side steps from chair to bed w/ ModAx1 and UE support. Pt noted to be impulsive w/ decreased command following this date. Continue progressing current POC as toleratedto address cognitive impairments, balance deficits, limited safety awareness, R sided weakness/neglect, and decreased activity tolerance warranting IPPT. PT continue to rec IRF at d/c however will continue to monitor progress. -KE Row Name 08/07/25 1355 Vital Signs Pre Systolic BP Rehab 108 -KE Pre Treatment Diastolic BP 70 -KE Post Systolic BP Rehab 118 -KE Post Treatment Diastolic BP 73 -KE Pretreatment Heart Rate (beats/min) 77 -KE Posttreatment Heart Rate (beats/min) 78 -KE Pre SpO2 (%) 92 -KE O2 Delivery Pre Treatment room air -KE O2 Delivery Intra Treatment room air -KE Post SpO2 (%) 94 -KE O2 Delivery Post Treatment room air -KE Pre Patient Position Sitting -KE Intra Patient Position Standing -KE Post Patient Position Supine -KE Row Name 08/07/25 1354 Positioning and Restraints Pre-Treatment Position sitting in chair/recliner -KE Post Treatment Position bed -KE In Bed notified nsg;supine;encouraged to call for assist;call light within reach;exit alarm on;siderails up x2;with family/caregiver - User Christopher (r) = Recorded By, (t) = Taken By, (c) = Cosigned By Initials Name Provider Type Jenny Solorzano, PT Physical Therapist Outcome Measures Row Name 08/07/25 1407 08/07/25 0400 How much help from another person do you currently need... Turning from your back to your side while in flat bed without using bedrails? 2 -KE 2 -JW Moving from lying on back to sitting on the side of a flat bed without bedrails? 2 -KE 2 -JW Moving to and from a bed to a chair (including a wheelchair)? 2 -KE 2 -JW Standing up from a chair using your arms (e.g., wheelchair, bedside chair)? 2 - KE 2 -JW Climbing 3-5 steps with a railing? 1 -KE 1 -JW To walk in hospital room? 1 -KE 1 -JW AM-PAC 6 Clicks Score (PT) 10 - 10 -JW Highest Level of Mobility Goal Move to Chair/Commode-4 -KE Move to Chair/Commode-4 -JW Row Name 08/07/25 1407 Functional Assessment Outcome Measure Options AM-PAC 6 Clicks Basic Mobility (PT) - User Christopher (r) = Recorded By, (t) = Taken By, (c) = Cosigned By Initials Name Provider Type Jenny Solorzano, FERNANDA Physical Therapist Kervin Pimentel, RN Registered Nurse Physical Therapy Education Title: PT OT WELL DRILLER Therapies (In Progress) Topic: Physical Therapy (In Progress) Point: Mobility training (In Progress) Learning Progress Summary Patient Acceptance, E, NR by ADOLFO at 08/07/20257 Acceptance, E, NR by TT at 08/06/20251127 Family Acceptance, E, NR by TT at 08/06/20251127 Point: Home exercise program (Not Started) Learner Progress: Not documented in this visit. Point: Body mechanics (In Progress) Learning Progress Summary Patient Acceptance, E, NR by KE at 08/07/2025 140 Acceptance, E, NR by TT at 08/06/20251127 Family Acceptance, E, NR by TT at 08/06/20251127 Point: Precautions (In Progress) Learning Progress Summary Patient Acceptance, E, NR by KE at 08/07/20251406 Acceptance, E, NR by TT at 08/06/20251127 Family Acceptance, E, NR by TT at 08/06/20251127 User Christopher Initials Effective Dates Name Provider Type Discipline KE 09/21/23 - Jenny Mirza PT Physical Therapist PT TT 04/04/25 - Aleena Greenwood PT Physical Therapist PT PT Recommendation and Plan Recommended discharge disposition is based on the functional assessment performed by PT/OT/Speech therapy (as applicable) and may not reflect the medical necessity determined by your provider or services covered by an individual patient's insurance plan or patient resource. Outcome Evaluation: Pt assist in side steps from chair to bed w/ ModAx1 and UE support. Pt noted maged impulsive w/ decreased command following this date. Continue progressing current POC as tolerated to address cognitive impairments, balance deficits, limited safety awareness, R sided weakness/neglect, and decreased activity tolerance warranting IPPT. PT continue to rec IRF at d/c however will continue to monitor progress. Time Calculation: PT Charges Row Name 08/07/257 Time Calculation Start Time 1140 -KE PT Received On 08/07/25 -KE Timed Charges 01634 - PT Therapeutic Activity Minutes 23 -KE Total Minutes Timed Charges Total Minutes 23 -KE Total Minutes 23 -KE User Christopher (r) = Recorded By, (t) = Taken By, (c) = Cosigned By Initials Name Provider Type Jenny Solorzano PT Physical Therapist Therapy Charges for Today Code Description Service Date Service Provider Modifiers Qty [id number] HC PT THERAPEUTIC ACT EA 15 MIN 08/07/2025 Jenny Mirza PT GP 2 PT G-Codes Outcome Measure Options: AM-PAC 6 Clicks Basic Mobility (PT) AM-PAC 6 Clicks Score (PT): 10 AM-PAC 6 Clicks Score (OT): 10 Modified [place] Scale: 4 - Moderately severe disability. Unable to walk without assistance, and unable to attend to own bodily needs without assistance. PT Discharge Summary Anticipated Discharge Disposition (PT): inpatient rehabilitation facility Jenny Mirza, FERNANDA 08/07/2025 * Therapy Re-Evaluation - Dalia Bazan MS CCC-WELL DRILLER - 08/06/2025 4:50 PM EDT Images from the original note were not included. Acute Care - Speech Language Pathology Swallow Re-Evaluation [facility] Clinical Swallow Evaluation Patient Name: Joie Flores : 1945 Today's Date: 08/06/2025 Admit Date: 08/05/2025 Visit Dx: ICD-10-CM ICD-9-CM 1. Hemorrhagic stroke I61.9 431 2. Intraparenchymal hemorrhage of brain I61.9 431 3. Dysphagia, unspecified type R13.10 787.20 4. Communication deficit F80.9 307.9 Patient Active Problem List Diagnosis Acute pancreatitis Anemia Bacteremia Colitis Methicillin susceptible Staphylococcus aureus infection, unspecified site Other specified diseases of pancreas Urinary tract infectious disease Autonomic orthostatic hypotension Abnormal findings on diagnostic imaging of heart and coronary circulation Chest pain ICH (intracerebral hemorrhage) Paroxysmal SVT (supraventricular tachycardia) Coronary artery disease involving autologous vein coronary bypass graft without angina pectoris Hyperlipidemia LDL goal <100 Essential hypertension Hypothyroidism (acquired) Past Medical History: Diagnosis Date Chronic kidney disease Coronary artery disease Hypertension PVT (paroxysmal ventricular tachycardia) Past Surgical History: Procedure Laterality Date APPENDECTOMY CHOLECYSTECTOMY HYSTERECTOMY WELL DRILLER Recommendation and Plan Recommended discharge disposition is based on the functional assessment performed by PT/OT/Speech therapy (as applicable) and may not reflect the medical necessity determined by your provider or services covered by an individual patient's insurance plan or patient resource. WELL DRILLER Swallowing Diagnosis: R/O pharyngeal dysphagia (08/06/25899) WELL DRILLER Diet Recommendation: mechanical ground textures, thin liquids (08/06/25899) Recommended Precautions and Strategies: no straw, small bites of food and sips of liquid, general aspiration precautions, assist with feeding, other (see comments) (Place bolus in on left) (08/06/25899) WELL DRILLER Rec. for Method of Medication Administration: with thin liquids, with puree, as tolerated (08/06/25899) Monitor for Signs of Aspiration: yes, notify WELL DRILLER if any concerns (08/06/25899) Recommended Diagnostics: reassess via clinical swallow evaluation, other (see comments) (diet tolerance, instrumental evaluation if any concerns.) (08/06/25899) Swallow Criteria for Skilled Therapeutic Interventions Met: demonstrates skilled criteria () Anticipated Discharge Disposition (WELL DRILLER): inpatient rehabilitation facility (08/06/25914) Rehab Potential/Prognosis, Swallowing: good, to achieve stated therapy goals (08/06/25899) Predicted Duration Therapy Intervention (Days): 2 weeks (08/06/25914) Oral Care Recommendations: Oral Care BID/PRN, Toothbrush (08/06/25899) Daily Summary of Progress (WELL DRILLER): progress toward functional goals as expected (08/06/25914) Communication Strategy Suggestions: avoid open-ended questions, avoid multi-step instructions (08/06/25914) Treatment Assessment (WELL DRILLER): continued, communication disorder (08/06/25914) Plan for Continued Treatment (WELL DRILLER): continue treatment per plan of care (08/06/25914) SWALLOW EVALUATION (Last 72 Hours) WELL DRILLER Adult Swallow Evaluation Row Name 08/06/2589908/05/25 154 Rehab Evaluation Document Type re-evaluation;therapy note (daily note) -CH evaluation -SM Subjective Information no complaints -CH no complaints -SM Patient Observations alert;cooperative;agree to therapy -CH alert;cooperative -SM Patient/Family/Caregiver Comments/Observations daughter and grandaughter present -CH Family present-SM Patient Effort good -CH good -SM Symptoms Noted During/After Treatment none -CH none -SM Oral Care oral rinse provided -CH -- General Information Patient Profile Reviewed yes -CH yes -SM Pertinent History Of Current Problem see initial evaluation. Pt NPO after noted new facial droop. CT: Redemonstration of an intraparenchymal hemorrhage within the left temporal lobe which appears slightly increased in size as compared to the previous study. A component of this may be related to slight difference in scanning angle and resultant measuring technique. Mass effect and left to right midline shift appears similar as compared to the previous study. - Presents for acute onset headache and aphasia. Imaging revealed acute large left temporal intraparenchymal hemorrhage -SM Current Method of Nutrition NPO -CH NPO -SM Precautions/Limitations, Vision WFL;for purposes of eval -CH difficult to assess -SM Precautions/Limitations, Hearing WFL;for purposes of eval -CH difficult to assess -SM Prior Level of Function-Communication WFL -CH WFL -SM Prior Level of Function-Swallowing no diet consistency restrictions;other (see comments) Softer foods 2' missing dentition -CH no diet consistency restrictions;other (see comments) Softer foods 2' missing dentition -SM Plans/Goals Discussed with patient and family;agreed upon - patient and family;agreed upon - Barriers to Rehab none identified -CH none identified -SM Patient's Goals for Discharge patient did not state -CH patient did not state -SM Family Goals for Discharge family did not state - family did not state -SM Pain Additional Documentation Pain Scale: FACES Pre/Post-Treatment (Group) -CH Pain Scale: FACES Pre/Post-Treatment (Group) -SM Pain Scale: FACES Pre/Post-Treatment Pain: FACES Scale, Pretreatment 0-->no hurt -CH 2-->hurts little bit -SM Posttreatment Pain Rating 0-->no hurt -CH 2-->hurts little bit -SM Oral Motor Structure and Function Dentition Assessment missing teeth;teeth are in poor condition -CH missing teeth -SM Secretion Management WNL/WFL -CH WNL/WFL -SM Mucosal Quality moist, healthy -CH moist, healthy -SM Volitional Swallow unable to elicit -CH unable to elicit -SM Volitional Cough unable to elicit -CH unable to elicit -SM Oral Musculature and Cranial Nerve Assessment Oral Motor General Assessment unable to assess -CH unable to assess -SM Oral Motor, Comment patient unable to follow directives to complete oral mech assessment -CH U/a tofollow directions to assess -SM General Eating/Swallowing Observations Respiratory Support Currently in Use room air -CH room air -SM Eating/Swallowing Skills fed by WELL DRILLER -CH self-fed;fed by WELL DRILLER -SM Positioning During Eating upright 90 degree;upright in chair - upright 90 degree;upright in bed - Utensils Used spoon;cup;straw - spoon;cup;straw -SM Consistencies Trialed ice chips;thin liquids;pureed;regular textures - ice chips;thin liquids;regular textures -SM Pre SpO2 (%) 96 -CH -- Post SpO2 (%) 97 -CH -- Respiratory Respiratory Status WFL;room air - -- Clinical Swallow Eval Oral Prep Phase impaired -CH WFL -SM Oral Transit WFL -CH WFL -SM Oral Residue WFL -CH WFL -SM Pharyngeal Phase suspected pharyngeal impairment - suspected pharyngeal impairment -SM Esophageal Phase unremarkable - unremarkable -SM Oral Prep Concerns Oral Prep Concerns reduced lip opening;increased prep time;other (see comments) cog/language impacting - -- Reduced Lip Opening all consistencies - -- Increased Prep Time regular consistencies - -- Pharyngeal Phase Concerns Pharyngeal Phase Concerns cough - cough - Cough thin;other (see comments) with initial teaspoon sip of thin H2O only. No s/s with cup or straw sips and numerous small sips of each presented - thin;other (see comments) Via large consecutivestraw sips only - Pharyngeal Phase Concerns, Comment o s/s of aspiration with thin via cup or straw, or when taking meds w small sips by straw - No s/sxs w/ thin via cup - Swallowing Quality of Life Assessment Education and counseling provided Signs of aspiration;Risks of aspiration;Safest diet options;Feeding assistance and techniques;Oral care recommendations and rationale;Aspiration precautions - -- WELL DRILLER Evaluation Clinical Impression WELL DRILLER Swallowing Diagnosis R/O pharyngeal dysphagia - R/O pharyngeal dysphagia - Functional Impact risk of aspiration/pneumonia - risk of aspiration/pneumonia - Rehab Potential/Prognosis, Swallowing good, to achieve stated therapy goals - good, to achieve stated therapy goals - Swallow Criteria for Skilled Therapeutic Interventions Met demonstrates skilled criteria - demonstrates skilled criteria - WELL DRILLER Treatment Clinical Impressions Treatment Assessment (WELL DRILLER) continued;communication disorder;aphasia - -- Daily Summary of Progress (WELL DRILLER) progress toward functional goals as expected - -- Plan for Continued Treatment (WELL DRILLER) continue treatment per plan of care - -- Care Plan Review evaluation/treatment results reviewed;care plan/treatment goals reviewed;risks/benefits reviewed;current/potential barriers reviewed;patient/other agree to care plan - -- Care Plan Review, Other Participant(s) family - -- Recommendations Predicted Duration Therapy Intervention (Days) 2 weeks - 2 weeks - WELL DRILLER Diet Recommendation mechanical ground textures;thin liquids - mechanical ground textures;no mixed consistencies;thin liquids - Recommended Diagnostics reassess via clinical swallow evaluation;other (see comments) diet tolerance, instrumental evaluation if any concerns. - reassess via clinical swallow evaluation - Recommended Precautions and Strategies no straw;small bites of food and sips of liquid;general aspiration precautions;assist with feeding;other (see comments) Place bolus in on left - no straw;small bites of food and sips of liquid;general aspiration precautions;assist with feeding - Oral Care Recommendations Oral Care BID/PRN;Toothbrush - Oral Care BID/PRN;Toothbrush - WELL DRILLER Rec. for Method of Medication Administration with thin liquids;with puree;as tolerated - withpuree;as tolerated - Monitor for Signs of Aspiration yes;notify WELL DRILLER if any concerns - yes;notify WELL DRILLER if any concerns - Anticipated Discharge Disposition (WELL DRILLER) inpatient rehabilitation facility - inpatient rehabilitation facility - User Christopher (r) = Recorded By, (t) = Taken By, (c) = Cosigned By Initials Name Effective Dates Dalia Bazan, MS [facility])-WELL DRILLER 11/25/24 - Trupti Albrecht MS CF-WELL DRILLER 04/10/25 - EDUCATION The patient has been educated in the following areas: Dysphagia (Swallowing Impairment) Oral Care/Hydration Modified Diet Instruction. WELL DRILLER GOALS Row Name 08/06/25 0915 08/05/25 1545 (LTG) Patient will demonstrate functional swallow for Diet Texture (Demonstrate functional swallow) regular textures - -- Liquid viscosity (Demonstrate functional swallow) thin liquids - -- Summit (Demonstrate functional swallow) with 1:1 assist/ supervision - -- Time Frame (Demonstrate functional swallow) 2 weeks - -- (STG) Patient will tolerate trials of Consistencies Trialed (Tolerate trials) mechanical ground textures;thin liquids - -- Desired Outcome (Tolerate trials) without signs/symptoms of aspiration;with adequate oral prep/transit/clearance;with use of compensatory strategies (see comments) place in on the left, bites and sips - -- Summit (Tolerate trials) with minimal cues (75-90% accuracy) - -- Time Frame (Tolerate trials) 1 week - -- Patient will demonstrate functional language skills for return to discharge environment Summit with minimal cues - with minimal cues - Time frame 2 weeks -CH 2 weeks -SM Progress/Outcomes continuing progress toward goal - new goal -[facility] Diagnostic Treatment Patient will participate in further assessment in the following areas graphic expression;reading comprehension - graphic expression;reading comprehension - Time Frame (Diagnostic) 1 week -CH 1 week -SM Progress/Outcomes (Additional Goal 1, WELL DRILLER) goal ongoing - new goal - Words/Phrases/Sentences Goal 1 (WELL DRILLER) Improve Ability to Comprehend Words/Phrases/Sentences Through: Goal 1 (WELL DRILLER) identify objects, fieldof;80%;with minimal cues (75-90%);other (comment) - identify objects, field of;80%;with minimal cues (75-90%);other (comment) 3 -SM Time Frame (Identify Objects and Pictures Goal 1, WELL DRILLER) 1 week - 1 week -SM Progress (Ability to Contruct Words/Phrases/Sentences Goal 1, WELL DRILLER) 0%;with maximum cues (25-49%) - -- Progress/Outcomes (Identify Objects and Pictures Goal 1, WELL DRILLER) continuing progress toward goal - new goal - Comprehend Questions Goal 1 ([facility]) Improve Ability to Comprehend Questions Goal 1 ([facility]) simple yes/no questions;80%;with minimal cues (75-90%) - simple yes/no questions;80%;with minimal cues (75-90%) - Time Frame (Comprehend Questions Goal 1, WELL DRILLER) 1 week -CH 1 week -SM Progress (Ability to Comprehend Questions Goal 1, WELL DRILLER) 50%;with moderate cues (50-74%) - -- Progress/Outcomes (Comprehend Questions Goal 1, WELL DRILLER) continuing progress toward goal - new goal - Comment (Comprehend Questions Goal 1, WELL DRILLER) head nod, appears to have yes bias - -- Follow Directions Goal 2 ([facility]) Improve Ability to Follow Directions Goal 1 (WELL DRILLER) 1 step direction without objects;80%;with minimalcues (75-90%) - 1 step direction without objects;80%;with minimal cues (75-90%) -SM Time Frame (Follow Directions Goal 1, WELL DRILLER) 1 week -CH 1 week -SM Progress (Ability to Follow Directions Goal 1, WELL DRILLER) 50%;with moderate cues (50- 74%);other (comment)models required - -- Progress/Outcomes (Follow Directions Goal 1, WELL DRILLER) continuing progress toward goal -CH new goal -SM Word Retrieval Skills Goal 1 (WELL DRILLER) Improve Word Retrieval Skills By Goal 1 (WELL DRILLER) completing automatic speech task, counting;completingautomatic speech task, days of the week;completing automatic speech task, sing ???Happy Birthday?? ;80%;with minimal cues (75-90%) -CH completing automatic speech task, counting;completing automatic speech task, days of the week;completing automatic speech task, sing ???Happy Birthday?? ;80%;with minimal cues (75-90%) -SM Time Frame (Word Retrieval Goal 1, WELL DRILLER) 1 week -CH 1 week -SM Progress (Word Retrieval Skills Goal 1, WELL DRILLER) 70%;with moderate cues (50-74%) - -- Progress/Outcomes (Word Retrieval Goal 1, WELL DRILLER) continuing progress toward goal - CH new goal -SM Comment (Word Retrieval Goal 1, WELL DRILLER) counting, alphabet, response to greetings - -- User Christopher (r) = Recorded By, (t) = Taken By, (c) = Cosigned By Initials Name Provider Type Dalia Oliva MS CCC-WELL DRILLER Speech and Language Pathologist Trupti Albrecht MS CF-WELL DRILLER Speech and Language Pathologist Time Calculation: Time Calculation- WELL DRILLER Row Name 08/06/25 1649 Time Calculation- WELL DRILLER WELL DRILLER Start Time 0915 - WELL DRILLER Received On 08/06/25 -CH Untimed Charges WELL DRILLER Eval/Re-eval ST Eval Oral Pharyng Swallow - 79326 -CH 46007-ZT Eval Oral Pharyng Swallow Minutes 53 -CH 76648-YZ Treatment/ST Modification Prosth Aug Alter 45 -CH Total Minutes Untimed Charges Total Minutes 98 -CH Total Minutes 98 -CH User Christopher (r) = Recorded By, (t) = Taken By, (c) = Cosigned By Initials Name Provider Type Dalia Oliva MS [facility])-WELL DRILLER Speech and Language Pathologist Therapy Charges for Today Code Description Service Date Service Provider Modifiers Qty [id number] ST EVAL ORAL PHARYNG SWALLOW 4 08/06/2025 Dalia Bazan, MS CCC-WELL DRILLER GN [id number] TREATMENT SPEECH 3 08/06/2025 Dalia Bazan, MS CCC-WELL DRILLER GN 1 Dalia Bazan, MS CCC-WELL DRILLER 08/06/2025 and Acute Care - Speech Language Pathology Treatment Note [place] Patient Name: Joie Flores : 1945 Today's Date: 08/06/2025 Admit Date: 08/05/2025 Visit Dx: ICD-10-CM ICD-9-CM 1. Hemorrhagic stroke I61.9 431 2. Intraparenchymal hemorrhage of brain I61.9 431 3. Dysphagia, unspecified type R13.10 787.20 4. Communication deficit F80.9 307.9 Patient Active Problem List Diagnosis Acute pancreatitis Anemia Bacteremia Colitis Methicillin susceptible Staphylococcus aureus infection, unspecified site Other specified diseases of pancreas Urinary tract infectious disease Autonomic orthostatic hypotension Abnormal findings on diagnostic imaging of heart and coronary circulation Chest pain ICH (intracerebral hemorrhage) Paroxysmal SVT (supraventricular tachycardia) Coronary artery disease involving autologous vein coronary bypass graft without angina pectoris Hyperlipidemia LDL goal <100 Essential hypertension Hypothyroidism (acquired) Past Medical History: Diagnosis Date Chronic kidney disease Coronary artery disease Hypertension PVT (paroxysmal ventricular tachycardia) Past Surgical History: Procedure Laterality Date APPENDECTOMY CHOLECYSTECTOMY HYSTERECTOMY WELL DRILLER Recommendation and Plan Recommended discharge disposition is based on the functional assessment performed by PT/OT/Speech therapy (as applicable) and may not reflect the medical necessity determined by your provider or services covered by an individual patient's insurance plan or patient resource. WELL DRILLER Diagnosis: severe, aphasia (08/06/25914) Monitor for Signs of Aspiration: yes, notify WELL DRILLER if any concerns (08/06/25899) Swallow Criteria for Skilled Therapeutic Interventions Met: demonstrates skilled criteria () [facility] Criteria for Skilled Therapy Interventions Met: yes (08/06/25914) Anticipated Discharge Disposition (WELL DRILLER): inpatient rehabilitation facility (08/06/25914) Therapy Frequency (WELL DRILLER [facility]): 5 days per week (08/06/25914) Predicted Duration Therapy Intervention (Days): 2 weeks (08/06/25914) Oral Care Recommendations: Oral Care BID/PRN, Toothbrush (08/06/25899) Daily Summary of Progress (WELL DRILLER): progress toward functional goals as expected (08/06/25914) Communication Strategy Suggestions: avoid open-ended questions, avoid multi-step instructions (08/06/25914) Treatment Assessment (WELL DRILLER): continued, communication disorder (08/06/25914) Plan for Continued Treatment (WELL DRILLER): continue treatment per plan of care (08/06/25914) WELL DRILLER EVALUATION (Last 72 Hours) WELL DRILLER [facility]LC Evaluation Row Name 08/06/2591408/05/25 5840 Communication Assessment/Intervention Document Type -- evaluation - Subjective Information -- no complaints - Patient Observations -- alert;cooperative - Patient/Family/Caregiver Comments/Observations -- Family present - Patient Effort -- good - Symptoms Noted During/After Treatment -- none -SM General Information Patient Profile Reviewed -- yes - Precautions/Limitations, Vision -- difficult to assess - Precautions/Limitations, Hearing -- difficult to assess - Prior Level of Function-Communication -- WFL;other (see comments) Family reports pt lives with daughter and grandson. Manages her medication IND, but most other functional tasks completed by daughter. Communication and cognition WFL @ baseline per dtr - Plans/Goals Discussed with -- patient and family;agreed upon - Barriers to Rehab -- none identified - Patient's Goals for Discharge -- patient did not state - Family Goals for Discharge -- family did not state - Comprehension Assessment/Intervention Comprehension Assessment/Intervention -- Auditory Comprehension - Auditory Comprehension Assessment/Intervention Auditory Comprehension (Communication) -- severe impairment - Answers Questions (Communication) -- yes/no;severe impairment - Able to Follow Commands (Communication) -- 1-step;severe impairment - Narrative Discourse -- conversational level;severe impairment - Successful Auditory Strategies (Communication) -- visual cues - Expression Assessment/Intervention Expression Assessment/Intervention -- verbal expression - Verbal Expression Assessment/Intervention Verbal Expression -- severe impairment - Conversational Discourse/Fluency -- severe impairment;neologisms - Verbal Expression, Comment -- Presenting with nonsensical speech, word salad - Motor Speech Assessment/Intervention Motor Speech Function -- unable/difficult to assess - Cognitive Assessment Intervention- WELL DRILLER Cognitive Function (Cognition) -- unable/difficult to assess - WELL DRILLER Evaluation Clinical Impressions WELL DRILLER Diagnosis severe;aphasia - severe;aphasia - Rehab Potential/Prognosis fair -CH fair -[facility] Criteria for Skilled Therapy Interventions Met yes -CH yes -SM Functional Impact difficulty communicating wants, needs - difficulty communicating wants, needs - WELL DRILLER Treatment Clinical Impressions Treatment Assessment (WELL DRILLER) continued;communication disorder - -- Daily Summary of Progress (WELL DRILLER) progress toward functional goals as expected - -- Plan for Continued Treatment (WELL DRILLER) continue treatment per plan of care - -- Care Plan Review evaluation/treatment results reviewed;care plan/treatment goals reviewed;risks/benefits reviewed;current/potential barriers reviewed;patient/other agree to care plan - -- Care Plan Review, Other Participant(s) family - -- Recommendations Therapy Frequency ([facility]) 5 days per week - 5 days per week - Predicted Duration Therapy Intervention (Days) 2 weeks - 2 weeks - Anticipated Discharge Disposition ([facility]) inpatient rehabilitation facility - inpatient rehabilitation facility - Communication Strategy Suggestions avoid open-ended questions;avoid multi-step instructions - avoid open-ended questions;avoid multi-step instructions - User Christopher (r) = Recorded By, (t) = Taken By, (c) = Cosigned By Initials Name Effective Dates Dalia Bazan, MS [facility]WELL DRILLER 11/25/24 - Trupti Banks, MS CF-WELL DRILLER 04/10/25 - EDUCATION The patient has been educated in the following areas: Cognitive Impairment Communication Impairment. WELL DRILLER GOALS Row Name 08/06/25 0915 08/05/25 1545 (LTG) Patient will demonstrate functional swallow for Diet Texture (Demonstrate functional swallow) regular textures - -- Liquid viscosity (Demonstrate functional swallow) thin liquids - -- Summit (Demonstrate functional swallow) with 1:1 assist/ supervision - -- Time Frame (Demonstrate functional swallow) 2 weeks - -- (STG) Patient will tolerate trials of Consistencies Trialed (Tolerate trials) mechanical ground textures;thin liquids - -- Desired Outcome (Tolerate trials) without signs/symptoms of aspiration;with adequate oral prep/transit/clearance;with use of compensatory strategies (see comments) place in on the left, bites and sips - -- Summit (Tolerate trials) with minimal cues (75-90% accuracy) - -- Time Frame (Tolerate trials) 1 week - -- Patient will demonstrate functional language skills for return to discharge environment Summit with minimal cues - with minimal cues - Time frame 2 weeks -CH 2 weeks -SM Progress/Outcomes continuing progress toward goal - new goal -[facility] Diagnostic Treatment Patient will participate in further assessment in the following areas graphic expression;reading comprehension - graphic expression;reading comprehension - Time Frame (Diagnostic) 1 week -CH 1 week -SM Progress/Outcomes (Additional Goal 1, WELL DRILLER) goal ongoing - new goal - Words/Phrases/Sentences Goal 1 (WELL DRILLER) Improve Ability to Comprehend Words/Phrases/Sentences Through: Goal 1 (WELL DRILLER) identify objects, fieldof;80%;with minimal cues (75-90%);other (comment) - identify objects, field of;80%;with minimal cues (75-90%);other (comment) 3 -SM Time Frame (Identify Objects and Pictures Goal 1, WELL DRILLER) 1 week - 1 week -SM Progress (Ability to Contruct Words/Phrases/Sentences Goal 1, WELL DRILLER) 0%;with maximum cues (25-49%) - -- Progress/Outcomes (Identify Objects and Pictures Goal 1, WELL DRILLER) continuing progress toward goal - new goal - Comprehend Questions Goal 1 ([facility]) Improve Ability to Comprehend Questions Goal 1 ([facility]) simple yes/no questions;80%;with minimal cues (75-90%) - simple yes/no questions;80%;with minimal cues (75-90%) - Time Frame (Comprehend Questions Goal 1, WELL DRILLER) 1 week -CH 1 week -SM Progress (Ability to Comprehend Questions Goal 1, WELL DRILLER) 50%;with moderate cues (50-74%) - -- Progress/Outcomes (Comprehend Questions Goal 1, WELL DRILLER) continuing progress toward goal - new goal - Comment (Comprehend Questions Goal 1, WELL DRILLER) head nod, appears to have yes bias - -- Follow Directions Goal 2 ([facility]) Improve Ability to Follow Directions Goal 1 (WELL DRILLER) 1 step direction without objects;80%;with minimalcues (75-90%) - 1 step direction without objects;80%;with minimal cues (75-90%) -SM Time Frame (Follow Directions Goal 1, WELL DRILLER) 1 week -CH 1 week -SM Progress (Ability to Follow Directions Goal 1, WELL DRILLER) 50%;with moderate cues (50- 74%);other (comment)models required - -- Progress/Outcomes (Follow Directions Goal 1, WELL DRILLER) continuing progress toward goal -CH new goal -SM Word Retrieval Skills Goal 1 (WELL DRILLER) Improve Word Retrieval Skills By Goal 1 (WELL DRILLER) completing automatic speech task, counting;completingautomatic speech task, days of the week;completing automatic speech task, sing ???Happy Birthday?? ;80%;with minimal cues (75-90%) -CH completing automatic speech task, counting;completing automatic speech task, days of the week;completing automatic speech task, sing ???Happy Birthday?? ;80%;with minimal cues (75-90%) -SM Time Frame (Word Retrieval Goal 1, WELL DRILLER) 1 week -CH 1 week -SM Progress (Word Retrieval Skills Goal 1, WELL DRILLER) 70%;with moderate cues (50-74%) - -- Progress/Outcomes (Word Retrieval Goal 1, WELL DRILLER) continuing progress toward goal - new goal -SM Comment (Word Retrieval Goal 1, WELL DRILLER) counting, alphabet, response to greetings - -- User Christopher (r) = Recorded By, (t) = Taken By, (c) = Cosigned By Initials Name Provider Type Dalia Oliva MS CCC-WELL DRILLER Speech and Language Pathologist Trupti Albrecht MS CF-WELL DRILLER Speech and Language Pathologist Time Calculation: Time Calculation- WELL DRILLER Row Name 08/06/25 1649 Time Calculation- WELL DRILLER WELL DRILLER Start Time 0915 - WELL DRILLER Received On 08/06/25 -CH Untimed Charges WELL DRILLER Eval/Re-eval ST Eval Oral Pharyng Swallow - 58375 -CH 61449-NB Eval Oral Pharyng Swallow Minutes 53 -CH 68424-MG Treatment/ST Modification Prosth Aug Alter 45 -CH Total Minutes Untimed Charges Total Minutes 98 -CH Total Minutes 98 -CH User Christopher (r) = Recorded By, (t) = Taken By, (c) = Cosigned By Initials Name Provider Type Dalia Oliva MS [facility]WELL DRILLER Speech and Language Pathologist Therapy Charges for Today Code Description Service Date Service Provider Modifiers Qty [id number] HC ST EVAL ORAL PHARYNG SWALLOW 4 08/06/2025 Dalia Bazan, MS CCC-WELL DRILLER GN [id number] TREATMENT SPEECH 3 08/06/2025 Dalia Bazan MS CCC-WELL DRILLER GN 1 Dalia Bazan MS CCC-WELL DRILLER 08/06/2025 * Case Management/Social Work - Tasha Vizcarra RN - 08/06/2025 4:26 PM EDT Images from the original note were not included. Discharge Planning Assessment [place] Patient Name: Joie Flores Today's Date: 08/06/2025 Admit Date: 08/05/2025 Plan: IPR Discharge Needs Assessment Row Name 08/06/25 1607 Living Environment People in Home child(jenni), adult;grandchild(jenni) Name(s) of People in Home Davina Freeman- Daughter , Kervin GonzalezHolden avendano Current Living Arrangements home Potentially Unsafe Housing Conditions none In the past 12 months has the electric, gas, oil, or water [place] threatened to shut off services in your home? No Primary Care Provided by self Provides Primary Care For no one Family Caregiver if Needed child(jenni), adult Family Caregiver Names Davina meza Quality of Family Relationships helpful;involved;supportive Able to Return to Prior Arrangements other (see comments) TBD Transportation Needs In the past 12 months, has lack of transportation kept you from medical appointments or from getting medications? no In the past 12 months, has lack of transportation kept you from meetings, work, or from getting things needed for daily living? No Food Insecurity Within the past 12 months, you worried that your food would run out before you got the money to buymore. Pt Unable Within the past 12 months, the food you bought just didn't last and you didn't have money to get more. Pt Unable Transition Planning Patient/Family Anticipates Transition to inpatient rehabilitation facility Patient/Family Anticipated Services at Transition rehabilitation services Transportation Anticipated family or friend will provide Discharge Needs Assessment Readmission Within the Last 30 Days no previous admission in last 30 days Current Outpatient/Agency/Support Group homecare agency Equipment Currently Used at Home cane, quad tip;rollator;wheelchair Concerns to be Addressed discharge planning Do you want help finding or keeping work or a job? Patient unable to answer Do you want help with school or training? For example, starting or completing job training or getting a high school diploma, GED or equivalent Patient unable to answer Outpatient/Agency/Support Group Needs inpatient rehabilitation facility Discharge Facility/Level of Care Needs rehabilitation facility Current Discharge Risk chronically ill;physical impairment Discharge Plan Row Name 08/06/25 5886 Plan Plan IPR Patient/Family in Agreement with Plan yes Plan Comments Ms. Flores is withdrawn, tearful and nonverbal when I visited her bedside earlier today. I have spoken to her daughter, Davina by phone regarding the discharge plan. She states thather mother resides with her, her adult son and 11yo grandson in a rental home in [place]. Davina reports that her mother prior to this hospital admission was independent with activities of daily living and utilized a rollator, tri cane and wheelchair to assist with mobility. She is currently receiving PT home health services from [facility]. I have confirmed that her insurance is Medicare and [employer]. I have discussed with Davina PT/OT recommendations for inpatient rehab. She verbalizes understanding and requests a referral to [facility]. I have confirmed with Kecia CANALES that she will review for possible bed offer in the future. CM will cont to follow. Final Discharge Disposition Code 62 - inpatient rehab facility Continued Care and Services - Admitted Since 08/05/2025 Destination Service Provider Request Status Services Address Phone Fax Patient Preferred [facility] Pending - -- [phone] [facility] [phone] -- Demographic Summary Row Name 08/06/25 1600 General Information Admission Type inpatient Arrived From home Referral Source admission list Reason for Consult discharge planning Preferred Language Citizen Of [place] Contact Information Permission Granted to Share Info With case consultantdivision service manager Status Row Name 08/06/25 1603 Functional Status, IADL Medications independent Meal Preparation independent Housekeeping assistive person Laundry assistive person Shopping assistive person If for any reason you need help with day-to-day activities such as bathing, preparing meals, shopping, managing finances, etc., do you get the help you need? Patient unable to answer Mental Status Summary Recent Changes in Mental Status/Cognitive Functioning ability to speak clearly Employment/ Employment Status retired Tasha Vizcarra, RN * Therapy Evaluation - Ambar Velazquez, OT - 08/06/2025 8:30 AM EDT Images from the original note were not included. Patient Name: Joie Flores : 1945 Today's Date: 08/06/2025 Admit Date: 08/05/2025 Visit Dx: ICD-10-CM ICD-9-CM 1. Hemorrhagic stroke I61.9 431 2. Intraparenchymal hemorrhage of brain I61.9 431 3. Dysphagia, unspecified type R13.10 787.20 4. Communication deficit F80.9 307.9 Patient Active Problem List Diagnosis Acute pancreatitis Anemia Bacteremia Colitis Methicillin susceptible Staphylococcus aureus infection, unspecified site Other specified diseases of pancreas Urinary tract infectious disease Autonomic orthostatic hypotension Abnormal findings on diagnostic imaging of heart and coronary circulation Chest pain ICH (intracerebral hemorrhage) Paroxysmal SVT (supraventricular tachycardia) Coronary artery disease involving autologous vein coronary bypass graft without angina pectoris Hyperlipidemia LDL goal <100 Essential hypertension Hypothyroidism (acquired) Past Medical History: Diagnosis Date Chronic kidney disease Coronary artery disease Hypertension PVT (paroxysmal ventricular tachycardia) Past Surgical History: Procedure Laterality Date APPENDECTOMY CHOLECYSTECTOMY HYSTERECTOMY General Information Row Name 08/06/25 0915 OT Time and Intention Document Type evaluation -KF Mode of Treatment occupational therapy;co-treatment -KF Row Name 08/06/25 0915 General Information Patient Profile Reviewed yes -KF Prior Level of Function independent:;all household mobility;bed mobility;ADL's;using stairs;min assist:;bathing Estela with rollator for household distance, wheelchair for community distances. Pt is assisted in shower transfer, but pt able to bathe independently. x1 acute fall. No home O2. -KF Existing Precautions/Restrictions fall;oxygen therapy device and L/min;other (see comments) aphasia, R neglect -KF Barriers to Rehab medically complex;previous functional deficit;cognitive status;visual deficit -KF Row Name 08/06/25 0915 Living Environment Current Living Arrangements home -KF People in Home child(jenni), adult;other relative(s) - Row Name 08/06/25914 Home Main Entrance Number of Stairs, Main Entrance two -KF Stair Railings, Main Entrance none -KF Row Name 08/06/25914 Stairs Within Home, Primary Stairs, Within Home, Primary Patient's primary bed/bathroom are located downstairs. -KF Number of Stairs, Within Home, Primary twelve -KF Stair Railings, Within Home, Primary railing on left side (ascending) -KF Row Name 08/06/25914 Cognition Orientation Status (Cognition) oriented to;person;unable/difficult to assess;other (see comments) difficult to assess due to aphasia and inconsistent head shakes - Row Name 08/06/25914 Safety Issues/Impairments Affecting Functional Mobility Safety Issues Affecting Function (Mobility) ability to follow commands;awareness of need for assistance;insight into deficits/self-awareness;judgment;problem-solving;safety precaution awareness;safety precautions follow-through/compliance;sequencing abilities -KF Impairments Affecting Function (Mobility) balance;cognition;coordination;endurance/activity tolerance;postural/trunk control;shortness of breath;strength;visual/perceptual -KF Cognitive Impairments, Mobility Safety/Performance attention;awareness, need for assistance;insightinto deficits/self-awareness;judgment;problem-solving/reasoning;safety precaution awareness;safety precaution follow-through;sequencing abilities -KF Comment, Safety Issues/Impairments (Mobility) Pt following ~50% commands with increased time/repetition. - User Christopher (r) = Recorded By, (t) = Taken By, (c) = Cosigned By Initials Name Provider Type KF Ambar Velazquez OT Occupational Therapist Mobility/ADL's Row Name 08/06/25917 Bed Mobility Bed Mobility supine-sit -KF Supine-Sit Summit (Bed Mobility) maximum assist (25% patient effort);2 person assist;verbal cues;nonverbal cues (demo/gesture) -KF Assistive Device (Bed Mobility) bed rails;head of bed elevated;repositioning sheet -KF Comment, (Bed Mobility) Pt lethargic at the beginning of session, requiring increased assistance for bed mobility. Alertness and command following improved once sitting EOB. Pt able to maintain static sitting balance with close SBA/CGA. - Row Name 08/06/25917 Transfers Transfers bed-chair transfer;sit-stand transfer;stand-sit transfer - Row Name 08/06/25917 Bed-Chair Transfer Bed-Chair Summit (Transfers) moderate assist (50% patient effort);2 person assist;verbal cues-KF Assistive Device (Bed-Chair Transfers) other (see comments) BUE support -KF Comment, (Bed-Chair Transfer) Pt assisted in 3-4 shuffled steps toward the left from EOB to the chair, increased difficulty noted when pt lifting RLE. -KF Row Name 08/06/25917 Sit-Stand Transfer Sit-Stand Summit (Transfers) moderate assist (50% patient effort);2 person assist;verbal cues-KF Assistive Device (Sit-Stand Transfers) other (see comments) BUE support - Comment, (Sit-Stand Transfer) x1 from EOB - Row Name 08/06/25917 Stand-Sit Transfer Stand-Sit Summit (Transfers) moderate assist (50% patient effort);2 person assist;verbal cues-KF Assistive Device (Stand-Sit Transfers) other (see comments) BUE support - Row Name 08/06/25917 Activities of Daily Living BADL Assessment/Intervention lower body dressing;upper body dressing - Row Name 08/06/25917 Lower Body Dressing Assessment/Training Summit Level (Lower Body Dressing) don;socks;dependent (less than 25% patient effort) -KF Position (Lower Body Dressing) supine - Row Name 08/06/25917 Upper Body Dressing Assessment/Training [place] Level (Upper Body Dressing) don;doff;front opening garment;maximum assist (25% patienteffort) -KF Position (Upper Body Dressing) edge of bed sitting - User Christopher (r) = Recorded By, (t) = Taken By, (c) = Cosigned By Initials Name Provider Type KF Ambar Velazquez OT Occupational Therapist Obj/Interventions Row Name 08/06/25918 Sensory Assessment (Somatosensory) Sensory Assessment (Somatosensory) unable/difficult to assess - Sensory Assessment Pt with difficulty following commands and communicating with therapist during formal assessments. - Row Name 08/06/25918 Vision Assessment/Intervention Vision Assessment Comment R inattention/neglect - Row Name 08/06/25918 Range of Motion Comprehensive General Range of Motion bilateral upper extremity ROM WFL - Row Name 08/06/25918 Strength Comprehensive (MMT) General Manual Muscle Testing (MMT) Assessment upper extremity strength deficits identified -KF Comment, General Manual Muscle Testing (MMT) Assessment BUE at least 3+/5, difficult to formally assess due to command following -KF Row Name 08/06/25918 Motor Skills Motor Skills coordination -KF Coordination bilateral;upper extremity;fine motor deficit;minimal impairment -KF Row Name 08/06/25918 Balance Balance Assessment sitting static balance;sitting dynamic balance;sit to stand dynamic balance;standing static balance;standing dynamic balance -KF Static Sitting Balance standby assist;contact guard -KF Dynamic Sitting Balance minimal assist -KF Position, Sitting Balance unsupported;sitting edge of bed -KF Sit to Stand Dynamic Balance moderate assist;2-person assist -KF Static Standing Balance moderate assist;2-person assist -KF Dynamic Standing Balance moderate assist;2-person assist -KF Position/Device Used, Standing Balance supported -KF Balance Interventions sitting;standing;sit to stand;supported;static;dynamic;occupation based/functional task -KF User Christopher (r) = Recorded By, (t) = Taken By, (c) = Cosigned By Initials Name Provider Type KF Ambar Velazquez OT Occupational Therapist Goals/Plan Row Name 08/06/25921 Transfer Goal 1 (OT) Activity/Assistive Device (Transfer Goal 1, OT) [id number];commode -KF Summit Level/Cues Needed (Transfer Goal 1, OT) standby assist -KF Time Frame (Transfer Goal 1, OT) watcher automat long goods goal (LTG);10 days -KF Progress/Outcome (Transfer Goal 1, OT) new goal -KF Row Name 08/06/25921 Dressing Goal 1 (OT) Activity/Device (Dressing Goal 1, OT) upper body dressing;lower body dressing -KF Summit/Cues Needed (Dressing Goal 1, OT) minimum assist (75% or more patient effort) -KF Time Frame (Dressing Goal 1, OT) short term goal (STG);5 days -KF Strategies/Barriers (Dressing Goal 1, OT) ADL AE PRN -KF Progress/Outcome (Dressing Goal 1, OT) new goal -KF Row Name 08/06/25921 Grooming Goal 1 (OT) Activity/Device (Grooming Goal 1, OT) hair care;oral care;wash face, hands -KF Summit (Grooming Goal 1, OT) set-up required -KF Time Frame (Grooming Goal 1, OT) group home goal (LTG);10 days -KF Strategies/Barriers (Grooming Goal 1, OT) unsupported sitting -KF Progress/Outcome (Grooming Goal 1, OT) new goal -KF Row Name 08/06/25921 Therapy Assessment/Plan (OT) Planned Therapy Interventions (OT) activity tolerance training;adaptive equipment training;BADL retraining;functional balance retraining;occupation/activity based interventions;patient/caregiver educa tion/training;ROM/therapeutic exercise;strengthening exercise;transfer/mobility retraining -KF User Christopher (r) = Recorded By, (t) = Taken By, (c) = Cosigned By Initials Name Provider Type KF Ambar Velazquez, OT Occupational Therapist Clinical Impression Row Name 08/06/25920 Pain Assessment Additional Documentation Pain Scale: FACES Pre/Post-Treatment (Group) -KF Row Name 08/06/25920 Pain Scale: FACES Pre/Post-Treatment Pain: FACES Scale, Pretreatment 0-->no hurt -KF Posttreatment Pain Rating 0-->no hurt -KF Row Name 08/06/25920 Plan of Care Review Plan of Care Reviewed With patient;daughter -KF Outcome Evaluation OT evaluation completed. The pt presents below baseline with R sided inattention/neglect, generalized weakness, decreased activity tolerance, aphasia, and balance deficits warranting continued IP OT services. Pt following ~50% commands during session. Pt was assisted in taking 3-4 short, shuffled steps from EOB to the chair. Rec a d/c to IRF for best outcome, but will monitor pt progress closely. -KF Row Name 08/06/25920 Therapy Assessment/Plan (OT) Patient/Family Therapy Goal Statement (OT) Pt didn't state. -KF Rehab Potential (OT) good -KF Criteria for Skilled Therapeutic Interventions Met (OT) yes;skilled treatment is necessary -KF Therapy Frequency (OT) daily -KF Predicted Duration of Therapy Intervention (OT) 10 days -KF Row Name 08/06/25920 Therapy Plan Review/Discharge Plan (OT) Anticipated Discharge Disposition (OT) inpatient rehabilitation facility -KF Row Name 08/06/25920 Vital Signs Pre Systolic BP Rehab 130 -KF Pre Treatment Diastolic BP 70 -KF Post Systolic BP Rehab 126 -KF Post Treatment Diastolic BP 56 -KF Pretreatment Heart Rate (beats/min) 74 -KF Posttreatment Heart Rate (beats/min) 84 -KF Pre SpO2 (%) 97 2L -KF O2 Delivery Pre Treatment nasal cannula -KF O2 Delivery Intra Treatment nasal cannula -KF Post SpO2 (%) 97 -KF O2 Delivery Post Treatment nasal cannula -KF Pre Patient Position Supine -KF Intra Patient Position Standing -KF Post Patient Position Sitting -KF Row Name 08/06/2521 Positioning and Restraints Pre-Treatment Position in bed -KF Post Treatment Position chair -KF In Chair notified nsg;reclined;call light within reach;encouraged to call for assist;exit alarm on;with family/caregiver;waffle cushion;on mechanical lift sling;legs elevated -KF User Christopher (r) = Recorded By, (t) = Taken By, (c) = Cosigned By Initials Name Provider Type Ambar Nash OT Occupational Therapist Outcome Measures Row Name 08/06/25922 How much help from another is currently needed... Putting on and taking off regular lower body clothing? 1 -KF Bathing (including washing, rinsing, and drying) 2 -KF Toileting (which includes using toilet bed valentin or urinal) 1 -KF Putting on and taking off regular upper body clothing 2 -KF Taking care of personal grooming (such as brushing teeth) 2 -KF Eating meals 2 -KF AM-PAC 6 Clicks Score (OT) 10 -KF Row Name 08/06/25922 Modified [place] Scale Pre-Stroke Modified [place] Scale 6 - Unable to determine (UTD) from the medical record documentation -KF Modified [place] Scale 4 - Moderately severe disability. Unable to walk without assistance, and unable to attend to own bodily needs without assistance. -KF Row Name 08/06/25922 Functional Assessment Outcome Measure Options AM-PAC 6 Clicks Daily Activity (OT);Modified [place] -KF User Christopher (r) = Recorded By, (t) = Taken By, (c) = Cosigned By Initials Name Provider Type Ambar Nash OT Occupational Therapist Occupational Therapy Education Title: PT OT WELL DRILLER Therapies (In Progress) Topic: Occupational Therapy (In Progress) Point: ADL training (In Progress) Learning Progress Summary Patient Acceptance, E,TB, NR by NEHEMIAH at 08/06/2025829 Point: Precautions (In Progress) Learning Progress Summary Patient Acceptance, E,TB, NR by at 08/06/2025829 Point: Body mechanics (In Progress) Learning Progress Summary Patient Acceptance, E,TB, NR by at 08/06/2025829 User Christopher Initials Effective Dates Name Provider Type [facility] 06/14/23 - Ambar Velazquez OT Occupational Therapist OT OT Recommendation and Plan Recommended discharge disposition is based on the functional assessment performed by PT/OT/Speech therapy (as applicable) and may not reflect the medical necessity determined by your provider or services covered by an individual patient's insurance plan or patient resource. Planned Therapy Interventions (OT): activity tolerance training, adaptive equipment training, BADL retraining, functional balance retraining, occupation/activity based interventions, patient/caregiver education/training, ROM/therapeutic exercise, strengthening exercise, transfer/mobility retraining Therapy Frequency (OT): daily Plan of Care Review Plan of Care Reviewed With: patient, daughter Outcome Evaluation: OT evaluation completed. The pt presents below baseline with R sided inattention/neglect, generalized weakness, decreased activity tolerance, aphasia, and balance deficits warranting continued IP OT services. Pt following ~50% commands during session. Pt was assisted in taking 3-4 short, shuffled steps from EOB to the chair. Rec a d/c to IRF for best outcome, but will monitor pt progress closely. Time Calculation: Evaluation Complexity (OT) Review Occupational Profile/Medical/Therapy History Complexity: expanded/moderate complexity Assessment, Occupational Performance/Identification of Deficit Complexity: 3-5 performance deficits Clinical Decision Making Complexity (OT): detailed assessment/moderate complexity Overall Complexity of Evaluation (OT): moderate complexity Time Calculation- OT Row Name 08/06/2532 Time Calculation- OT OT Start Time 829 - OT Received On 08/06/25 - OT Goal Re-Cert Due Date 08/16/25 - Untimed Charges OT Eval/Re-eval Minutes 49 -KF Total Minutes Untimed Charges Total Minutes 49 -KF Total Minutes 49 -KF User Christopher (r) = Recorded By, (t) = Taken By, (c) = Cosigned By Initials Name Provider Type Ambar Velazquez OT Occupational Therapist Therapy Charges for Today Code Description Service Date Service Provider Modifiers Qty [id number] HC OT EVAL MOD COMPLEXITY 4 08/06/2025 Ambar Velazquez OT GO 1 Ambar Velazquez OT 08/06/2025 * Therapy Evaluation - Aleena Greenwood, PT - 08/06/2025 8:30 AM EDT Images from the original note were not included. Patient Name: Joie Flores : 1945 Today's Date: 08/06/2025 Admit Date: 08/05/2025 Visit Dx: ICD-10-CM ICD-9-CM 1. Hemorrhagic stroke I61.9 431 2. Intraparenchymal hemorrhage of brain I61.9 431 3. Dysphagia, unspecified type R13.10 787.20 4. Communication deficit F80.9 307.9 Patient Active Problem List Diagnosis Acute pancreatitis Anemia Bacteremia Colitis Methicillin susceptible Staphylococcus aureus infection, unspecified site Other specified diseases of pancreas Urinary tract infectious disease Autonomic orthostatic hypotension Abnormal findings on diagnostic imaging of heart and coronary circulation Chest pain ICH (intracerebral hemorrhage) Paroxysmal SVT (supraventricular tachycardia) Coronary artery disease involving autologous vein coronary bypass graft without angina pectoris Hyperlipidemia LDL goal <100 Essential hypertension Hypothyroidism (acquired) Past Medical History: Diagnosis Date Chronic kidney disease Coronary artery disease Hypertension PVT (paroxysmal ventricular tachycardia) Past Surgical History: Procedure Laterality Date APPENDECTOMY CHOLECYSTECTOMY HYSTERECTOMY General Information Row Name 08/06/25 1114 Physical Therapy Time and Intention Document Type evaluation -TT Mode of Treatment physical therapy;co-treatment -TT Row Name 08/06/25 1114 General Information Prior Level of Function independent:;all household mobility;community mobility;bed mobility;ADL's;using stairs;min assist:;bathing Estela with rollator for household distance, wheelchair for community distances. Pt is assisted in shower transfer, but pt able to bathe independently. x1 acute fall. No home O2. -TT Existing Precautions/Restrictions fall;oxygen therapy device and L/min;other (see comments) aphasia, R neglect -TT Barriers to Rehab medically complex;previous functional deficit;cognitive status;visual deficit -TT Row Name 08/06/25 1114 Living Environment Current Living Arrangements home -TT People in Home child(jenni), adult;other relative(s) -TT Row Name 08/06/25 1114 Home Main Entrance Number of Stairs, Main Entrance two -TT Stair Railings, Main Entrance none -TT Row Name 08/06/25 1114 Stairs Within Home, Primary Stairs, Within Home, Primary Patient's primary bed/bathroom are located downstairs. -TT Number of Stairs, Within Home, Primary twelve -TT Stair Railings, Within Home, Primary railing on left side (ascending) -TT Row Name 08/06/25 1114 Cognition Orientation Status (Cognition) oriented to;person;unable/difficult to assess;other (see comments) difficult to assess due to aphasia and inconsistent head shakes -TT Row Name 08/06/25 1114 Safety Issues/Impairments Affecting Functional Mobility Safety Issues Affecting Function (Mobility) ability to follow commands;awareness of need for assistance;insight into deficits/self- awareness;judgment;positioning of assistive device;safety precaution awareness;safety precautions follow-through/compliance;sequencing abilities -TT Impairments Affecting Function (Mobility) balance;cognition;coordination;endurance/activity tolerance;postural/trunk control;shortness of breath;strength;visual/perceptual -TT Cognitive Impairments, Mobility Safety/Performance attention;awareness, need for assistance;insightinto deficits/self-awareness;judgment;problem-solving/reasoning;safety precaution awareness;safety precaution follow-through;sequencing abilities -TT Comment, Safety Issues/Impairments (Mobility) Pt following ~50% commands with increased time/repetition. -TT User Christopher (r) = Recorded By, (t) = Taken By, (c) = Cosigned By Initials Name Provider Type TT Aleena Greenwood, PT Physical Therapist Mobility Row Name 08/06/25 1116 Bed Mobility Bed Mobility supine-sit -TT Supine-Sit Summit (Bed Mobility) maximum assist (25% patient effort);2 person assist;verbal cues;nonverbal cues (demo/gesture) -TT Assistive Device (Bed Mobility) bed rails;head of bed elevated;repositioning sheet -TT Comment, (Bed Mobility) Increased verbal/tactile cues to promote improved alertness in prep for functional mobility w/ limited change d/t lethargy. Additional cues for improved sequencing and initiation w/ transition to EOB requering MaxA X 2. Unable to report dizziness d/t inconsistent head shaking. Improved artness following positional change. -TT Row Name 08/06/25 1116 Transfers Comment, (Transfers) STS from EOB w/ BUE support; progressing to brief shuffled side-stepping activity from EOB to chair positioned on L side. -TT Row Name 08/06/25 1116 Bed-Chair Transfer Bed-Chair Summit (Transfers) moderate assist (50% patient effort);2 person assist;verbal cues-TT Assistive Device (Bed-Chair Transfers) other (see comments) -TT Comment, (Bed-Chair Transfer) 3-4 shuflled side-steps performed w/ cues for upright posture, improved UE support appropriate weight shift and andvancement of contralateral LE. Increased assistance required to advance RLE, no overt LOB or knee buckling observed. -TT Row Name 08/06/25 111 Sit-Stand Transfer Sit-Stand Summit (Transfers) moderate assist (50% patient effort);2 person assist;verbal cues-TT Assistive Device (Sit-Stand Transfers) other (see comments) -TT Comment, (Sit-Stand Transfer) Cues/assistance to position BLE under NEISHA, UE placement, increased anterior weight shift via rocking motion and increased b/l hip extension to promote upright. -TT Row Name 08/06/25 111 Gait/Stairs (Locomotion) Patient was able to Ambulate no, other medical factors prevent ambulation -TT Reason Patient was unable to Ambulate Excessive Weakness -TT Comment, (Gait/Stairs) Deferred further ambulation outside brief side-stepping activity d/t increased safety concerns -TT User Christopher (r) = Recorded By, (t) = Taken By, (c) = Cosigned By Initials Name Provider Type TT Aleena Greenwood PT Physical Therapist Obj/Interventions Row Name 08/06/25 1120 Range of Motion Comprehensive General Range of Motion bilateral lower extremity ROM WFL -TT Row Name 08/06/25 1120 Strength Comprehensive (MMT) General Manual Muscle Testing (MMT) Assessment lower extremity strength deficits identified -TT Comment, General Manual Muscle Testing (MMT) Assessment BLE at least 3+/5 observed in standing, however, deferred formal MMT d/t impaired command following -TT Row Name 08/06/25 1120 Motor Skills Motor Skills coordination -TT Coordination bilateral;lower extremity;gross motor deficit;minimal impairment (RLE > LLE) -TT Row Name 08/06/25 1120 Balance Balance Assessment sitting static balance;sitting dynamic balance;standing static balance;standing dynamic balance -TT Static Sitting Balance standby assist;contact guard;verbal cues -TT Dynamic Sitting Balance minimal assist;1-person assist -TT Position, Sitting Balance unsupported;sitting edge of bed -TT Static Standing Balance 2-person assist;moderate assist;verbal cues -TT Dynamic Standing Balance verbal cues;non-verbal cues (demo/gesture);moderate assist;2-person assist-TT Position/Device Used, Standing Balance supported;other (see comments) BUE support -TT Balance Interventions sitting;standing;sit to stand;supported;static;dynamic;occupation based/functional task;weight shifting activity -TT Comment, Balance no overt LOB -TT Row Name 08/06/25 112 Sensory Assessment (Somatosensory) Sensory Assessment (Somatosensory) unable/difficult to assess -TT User Christopher (r) = Recorded By, (t) = Taken By, (c) = Cosigned By Initials Name Provider Type TT Aleena Greenwood, PT Physical Therapist Goals/Plan Row Name 08/06/25 112 Bed Mobility Goal 1 (PT) Activity/Assistive Device (Bed Mobility Goal 1, PT) sit to supine/supine to sit -TT Summit Level/Cues Needed (Bed Mobility Goal 1, PT) contact guard required -TT Time Frame (Bed Mobility Goal 1, PT) short term goal (STG);4 days -TT Progress/Outcomes (Bed Mobility Goal 1, PT) new goal -TT Row Name 08/06/251125 Transfer Goal 1 (PT) Activity/Assistive Device (Transfer Goal 1, PT) igi-jq-fnypu/ewngs-iu-xno;xqr-qy-uybhy/gbemg-fr-gyo-TT Summit Level/Cues Needed (Transfer Goal 1, PT) standby assist -TT Time Frame (Transfer Goal 1, PT) group home goal (LTG);10 days -TT Progress/Outcome (Transfer Goal 1, PT) new goal -TT Row Name 08/06/251125 Gait Training Goal 1 (PT) Activity/Assistive Device (Gait Training Goal 1, PT) gait (walking locomotion);assistive device use;decrease fall risk;increase endurance/gait distance -TT Summit Level (Gait Training Goal 1, PT) contact guard required -TT Distance (Gait Training Goal 1, PT) 150ft -TT Time Frame (Gait Training Goal 1, PT) watcher automat long goods goal (LTG);10 days -TT Progress/Outcome (Gait Training Goal 1, PT) new goal -TT Row Name 08/06/25 1126 Stairs Goal 1 (PT) Activity/Assistive Device (Stairs Goal 1, PT) ascending stairs;descending stairs;decrease fall risk-TT Summit Level/Cues Needed (Stairs Goal 1, PT) contact guard required -TT Number of Stairs (Stairs Goal 1, PT) 12 -TT Progress/Outcome (Stairs Goal 1, PT) new goal -TT Row Name 08/06/25 1126 Therapy Assessment/Plan (PT) Planned Therapy Interventions (PT) balance training;bed mobility training;gait training;home exercise program;motor coordination training;patient/family education;postural re-education;ROM (range of motion);stair training;strengthening;transfer training -TT User Christopher (r) = Recorded By, (t) = Taken By, (c) = Cosigned By Initials Name Provider Type TT Aleena Greenwood, PT Physical Therapist Clinical Impression Row Name 08/06/25 1122 Pain Additional Documentation Pain Scale: FACES Pre/Post-Treatment (Group) -TT Row Name 08/06/25 1122 Pain Scale: FACES Pre/Post-Treatment Pain: FACES Scale, Pretreatment 0-->no hurt -TT Posttreatment Pain Rating 0-->no hurt -TT Row Name 08/06/25 112 Plan of Care Review Plan of Care Reviewed With patient;family -TT Progress no change -TT Outcome Evaluation PT initial evaluation completed. Pt presenting w/ R sided inattention/neglect, impaired command following, aphasia, balance deficits, generalized weakness, decreased activity tolerance and increased falls risk compared to reported baseline warranting continued skilled IPPT interventions. MaxA X 2 to EOB, primarily CGA-Dominik sitting balance following improved alertness, ModA X 2 to stand and side-step from EOB to chair positioned on L side. Further mobility deferred d/t fatigueand increased safety concerns. PT recommending IRF for best functional outcome upon d/c, will closely monitor pt's progress. -TT Row Name 08/06/25 112 Therapy Assessment/Plan (PT) Patient/Family Therapy Goals Statement (PT) Daughter stating goal to return to PLOF -TT Rehab Potential (PT) good -TT Criteria for Skilled Interventions Met (PT) yes;meets criteria;skilled treatment is necessary -TT Therapy Frequency (PT) daily -TT Predicted Duration of Therapy Intervention (PT) 10 days -TT Row Name 08/06/25 1122 Vital Signs Pre Systolic BP Rehab 130 -TT Pre Treatment Diastolic BP 70 -TT Post Systolic BP Rehab 126 -TT Post Treatment Diastolic BP 56 -TT Pretreatment Heart Rate (beats/min) 74 -TT Posttreatment Heart Rate (beats/min) 84 -TT Pre SpO2 (%) 97 2L -TT O2 Delivery Pre Treatment nasal cannula -TT O2 Delivery Intra Treatment nasal cannula -TT Post SpO2 (%) 97 -TT O2 Delivery Post Treatment nasal cannula -TT Pre Patient Position Supine -TT Intra Patient Position Standing -TT Post Patient Position Sitting -TT Row Name 08/06/25 1122 Positioning and Restraints Pre-Treatment Position in bed -TT Post Treatment Position chair -TT In Chair notified nsg;reclined;call light within reach;encouraged to call for assist;exit alarm on;waffle cushion;on mechanical lift sling;legs elevated;heels elevated -TT User Christopher (r) = Recorded By, (t) = Taken By, (c) = Cosigned By Initials Name Provider Type TT Aleena Greenwood, PT Physical Therapist Outcome Measures Row Name 08/06/25 1127 How much help from another person do you currently need... Turning from your back to your side while in flat bed without using bedrails? 2 -TT Moving from lying on back to sitting on the side of a flat bed without bedrails? 2 -TT Moving to and from a bed to a chair (including a wheelchair)? 2 -TT Standing up from a chair using your arms (e.g., wheelchair, bedside chair)? 2 -TT Climbing 3-5 steps with a railing? 1 -TT To walk in hospital room? 1 -TT AM-PAC 6 Clicks Score (PT) 10 -TT Highest Level of Mobility Goal Move to Chair/Commode-4 -TT Row Name 08/06/25 1127 08/06/25 0923 Modified Susan Scale Pre-Stroke Modified Susan Scale 6 - Unable to determine (UTD) from the medical record documentation -TT 6 - Unable to determine (UTD) from the medical record documentation -KF Modified [place] Scale 4 - Moderately severe disability. Unable to walk without assistance, and unable to attend to own bodily needs without assistance. -TT 4 - Moderately severe disability. Unable towalk without assistance, and unable to attend to own bodily needs without assistance. -KF Row Name 08/06/25 1127 08/06/25 0923 Functional Assessment Outcome Measure Options AM-PAC 6 Clicks Basic Mobility (PT);Modified [place] -TT AM-PAC 6 Clicks Daily Activity (OT);Modified Susan -KF User Christopher (r) = Recorded By, (t) = Taken By, (c) = Cosigned By Initials Name Provider Type KF Ambar Velazquez, OT Occupational Therapist TT Aleena Greenwood, FERNANDA Physical Therapist Physical Therapy Education Title: PT OT WELL DRILLER Therapies (In Progress) Topic: Physical Therapy (In Progress) Point: Mobility training (In Progress) Learning Progress Summary Patient Acceptance, E, NR by TT at 08/06/20251127 Family Acceptance, E, NR by TT at 08/06/20251127 Point: Home exercise program (Not Started) Learner Progress: Not documented in this visit. Point: Body mechanics (In Progress) Learning Progress Summary Patient Acceptance, E, NR by TT at 08/06/20258 Family Acceptance, E, NR by TT at 08/06/20251127 Point: Precautions (In Progress) Learning Progress Summary Patient Acceptance, E, NR by TT at 08/06/20251127 Family Acceptance, E, NR by TT at 08/06/20251127 User Christopher Initials Effective Dates Name Provider Type Discipline TT 04/04/25 - Aleena Greenwood, FERNANDA Physical Therapist PT PT Recommendation and Plan Recommended discharge disposition is based on the functional assessment performed by PT/OT/Speech therapy (as applicable) and may not reflect the medical necessity determined by your provider or services covered by an individual patient's insurance plan or patient resource. Planned Therapy Interventions (PT): balance training, bed mobility training, gait training, home exercise program, motor coordination training, patient/family education, postural re-education, ROM (range of motion), stair training, strengthening, transfer training Therapy Frequency (PT): daily Progress: no change Outcome Evaluation: PT initial evaluation completed. Pt presenting w/ R sided inattention/neglect, impaired command following, aphasia, balance deficits, generalized weakness, decreased activity tolerance and increased falls risk compared to reported baseline warranting continued skilled IPPT interventions. MaxA X 2 to EOB, primarily CGA-Dominik sitting balance following improved alertness, ModA X 2to stand and side-step from EOB to chair positioned on L side. Further mobility deferred d/t fatigue and increased safety concerns. PT recommending IRF for best functional outcome upon d/c, will closely monitor pt's progress. Time Calculation: PT Evaluation Complexity History, PT Evaluation Complexity: 1-2 personal factors and/or comorbidities Examination of Body Systems (PT Eval Complexity): total of 3 or more elements Clinical Presentation (PT Evaluation Complexity): evolving Clinical Decision Making (PT Evaluation Complexity): moderate complexity Overall Complexity (PT Evaluation Complexity): moderate complexity PT Charges Row Name 08/06/25 1128 Time Calculation Start Time 0830 -TT PT Received On 08/06/25 -TT PT Goal Re-Cert Due Date 08/16/25 -TT Untimed Charges PT Eval/Re-eval Minutes 50 -TT Total Minutes Untimed Charges Total Minutes 50 -TT Total Minutes 50 -TT User Christopher (r) = Recorded By, (t) = Taken By, (c) = Cosigned By Initials Name Provider Type TT Aleena Greenwood PT Physical Therapist Therapy Charges for Today Code Description Service Date Service Provider Modifiers Qty [id number] PT EVAL MOD COMPLEXITY 4 08/06/2025 Aleena Greenwood, PT GP 1 PT G-Codes Outcome Measure Options: AM-PAC 6 Clicks Basic Mobility (PT), Modified [place] AM-PAC 6 Clicks Score (PT): 10 AM-PAC 6 Clicks Score (OT): 10 Modified Susan Scale: 4 - Moderately severe disability. Unable to walk without assistance, and unable to attend to own bodily needs without assistance. PT Discharge Summary Anticipated Discharge Disposition (PT): inpatient rehabilitation facility Aleena Greenwood PT 08/06/2025 * Therapy Evaluation - Trupti Banks MS CF-WE[facility]RILLER - 08/05/2025 4:06 PM EDT Images from the original note were not included. Acute Care - Speech Language Pathology Swallow Initial Evaluation [facility] Clinical Swallow Evaluation Cognitive-Communication Evaluation Patient Name: Joie Flores : 1945 Today's Date: 08/05/2025 Admit Date: 08/05/2025 Visit Dx: ICD-10-CM ICD-9-CM 1. Hemorrhagic stroke I61.9 431 2. Intraparenchymal hemorrhage of brain I61.9 431 3. Dysphagia, unspecified type R13.10 787.20 4. Communication deficit F80.9 307.9 Patient Active Problem List Diagnosis Acute pancreatitis Anemia Bacteremia Colitis Methicillin susceptible Staphylococcus aureus infection, unspecified site Other specified diseases of pancreas Urinary tract infectious disease Autonomic orthostatic hypotension Subdural hematoma Abnormal findings on diagnostic imaging of heart and coronary circulation Chest pain ICH (intracerebral hemorrhage) Past Medical History: Diagnosis Date Chronic kidney disease Coronary artery disease Hypertension PVT (paroxysmal ventricular tachycardia) Past Surgical History: Procedure Laterality Date APPENDECTOMY CHOLECYSTECTOMY HYSTERECTOMY [facility]RILLER Recommendation and Plan Recommended discharge disposition is based on the functional assessment performed by PT/OT/Speech therapy (as applicable) and may not reflect the medical necessity determined by your provider or services covered by an individual patient's insurance plan or patient resource. WELL DRILLER Swallowing Diagnosis: R/O pharyngeal dysphagia (08/05/251539) WELL DRILLER Diet Recommendation: mechanical ground textures, no mixed consistencies, thin liquids () Recommended Precautions and Strategies: no straw, small bites of food and sips of liquid, general aspiration precautions, assist with feeding (08/05/251539) WELL DRILLER Rec. for Method of Medication Administration: with puree, as tolerated (08/05/251539) Monitor for Signs of Aspiration: yes, notify WELL DRILLER if any concerns (08/05/251539) Recommended Diagnostics: reassess via clinical swallow evaluation (08/05/251539) Swallow Criteria for Skilled Therapeutic Interventions Met: demonstrates skilled criteria () Anticipated Discharge Disposition (WELL DRILLER): inpatient rehabilitation facility (08/05/251544) Rehab Potential/Prognosis, Swallowing: good, to achieve stated therapy goals (08/05/251539) Predicted Duration Therapy Intervention (Days): 2 weeks (08/05/251544) Oral Care Recommendations: Oral Care BID/PRN, Toothbrush (08/05/251539) Communication Strategy Suggestions: avoid open-ended questions, avoid multi-step instructions (08/05/25 9146) SWALLOW EVALUATION (Last 72 Hours) WELL DRILLER Adult Swallow Evaluation Row Name 08/05/25 6642 Rehab Evaluation Document Type evaluation -SM Subjective Information no complaints -SM Patient Observations alert;cooperative -SM Patient/Family/Caregiver Comments/Observations Family present -SM Patient Effort good -SM Symptoms Noted During/After Treatment none -SM General Information Patient Profile Reviewed yes -SM Pertinent History Of Current Problem Presents for acute onset headache and aphasia. Imaging revealed acute large left temporal intraparenchymal hemorrhage -SM Current Method of Nutrition NPO -SM Precautions/Limitations, Vision difficult to assess -SM Precautions/Limitations, Hearing difficult to assess -SM Prior Level of Function-Communication WFL -SM Prior Level of Function-Swallowing no diet consistency restrictions;other (see comments) Softer foods 2' missing dentition -SM Plans/Goals Discussed with patient and family;agreed upon -SM Barriers to Rehab none identified -SM Patient's Goals for Discharge patient did not state -SM Family Goals for Discharge family did not state -SM Pain Additional Documentation Pain Scale: FACES Pre/Post-Treatment (Group) -SM Pain Scale: FACES Pre/Post-Treatment Pain: FACES Scale, Pretreatment 2-->hurts little bit -SM Posttreatment Pain Rating 2-->hurts little bit -SM Oral Motor Structure and Function Dentition Assessment missing teeth -SM Secretion Management WNL/WFL -SM Mucosal Quality moist, healthy -SM Volitional Swallow unable to elicit -SM Volitional Cough unable to elicit -SM Oral Musculature and Cranial Nerve Assessment Oral Motor General Assessment unable to assess -SM Oral Motor, Comment U/a to follow directions to assess -SM General Eating/Swallowing Observations Respiratory Support Currently in Use room air -SM Eating/Swallowing Skills self-fed;fed by WELL DRILLER -SM Positioning During Eating upright 90 degree;upright in bed -SM Utensils Used spoon;cup;straw -SM Consistencies Trialed ice chips;thin liquids;regular textures -SM Clinical Swallow Eval Oral Prep Phase WFL -SM Oral Transit WFL -SM Oral Residue WFL -SM Pharyngeal Phase suspected pharyngeal impairment -SM Esophageal Phase unremarkable -SM Pharyngeal Phase Concerns Pharyngeal Phase Concerns cough -SM Cough thin;other (see comments) Via large consecutive straw sips only -SM Pharyngeal Phase Concerns, Comment No s/sxs w/ thin via cup - WELL DRILLER Evaluation Clinical Impression WELL DRILLER Swallowing Diagnosis R/O pharyngeal dysphagia - Functional Impact risk of aspiration/pneumonia - Rehab Potential/Prognosis, Swallowing good, to achieve stated therapy goals - Swallow Criteria for Skilled Therapeutic Interventions Met demonstrates skilled criteria - Recommendations Predicted Duration Therapy Intervention (Days) 2 weeks - WELL DRILLER Diet Recommendation mechanical ground textures;no mixed consistencies;thin liquids - Recommended Diagnostics reassess via clinical swallow evaluation - Recommended Precautions and Strategies no straw;small bites of food and sips of liquid;general aspiration precautions;assist with feeding - Oral Care Recommendations Oral Care BID/PRN;Toothbrush - WELL DRILLER Rec. for Method of Medication Administration with puree;as tolerated - Monitor for Signs of Aspiration yes;notify WELL DRILLER if any concerns - Anticipated Discharge Disposition (WELL DRILLER) inpatient rehabilitation facility - User Christopher (r) = Recorded By, (t) = Taken By, (c) = Cosigned By Initials Name Effective Dates Trupti Banks MS CF-WE[facility] DRILLER 04/10/25 - EDUCATION The patient has been educated in the following areas: Dysphagia (Swallowing Impairment). WELL DRILLER GOALS Row Name 08/05/25 8293 Patient will demonstrate functional language skills for return to discharge environment [place] with minimal cues - Time frame 2 weeks - Progress/Outcomes new goal - WELL DRILLER Diagnostic Treatment Patient will participate in further assessment in the following areas graphic expression;reading comprehension - Time Frame (Diagnostic) 1 week -SM Progress/Outcomes (Additional Goal 1, WELL DRILLER) new goal -SM Words/Phrases/Sentences Goal 1 (WELL DRILLER) Improve Ability to Comprehend Words/Phrases/Sentences Through: Goal 1 (WELL DRILLER) identify objects, fieldof;80%;with minimal cues (75-90%);other (comment) 3 - Time Frame (Identify Objects and Pictures Goal 1, WELL DRILLER) 1 week -SM Progress/Outcomes (Identify Objects and Pictures Goal 1, WELL DRILLER) new goal -SM Comprehend Questions Goal 1 (WELL DRILLER) Improve Ability to Comprehend Questions Goal 1 (WELL DRILLER) simple yes/no questions;80%;with minimal cues (75-90%) - Time Frame (Comprehend Questions Goal 1, WELL DRILLER) 1 week -SM Progress/Outcomes (Comprehend Questions Goal 1, WELL DRILLER) new goal -SM Follow Directions Goal 2 (WELL DRILLER) Improve Ability to Follow Directions Goal 1 (WELL DRILLER) 1 step direction without objects;80%;with minimalcues (75-90%) -SM Time Frame (Follow Directions Goal 1, WELL DRILLER) 1 week -SM Progress/Outcomes (Follow Directions Goal 1, WELL DRILLER) new goal -SM Word Retrieval Skills Goal 1 (WELL DRILLER) Improve Word Retrieval Skills By Goal 1 (WELL DRILLER) completing automatic speech task, counting;completingautomatic speech task, days of the week;completing automatic speech task, sing ???Happy Birthday?? ;80%;with minimal cues (75-90%) -SM Time Frame (Word Retrieval Goal 1, WELL DRILLER) 1 week -SM Progress/Outcomes (Word Retrieval Goal 1, WELL DRILLER) new goal -SM User Christopher (r) = Recorded By, (t) = Taken By, (c) = Cosigned By Initials Name Provider Type Trupti Albrecht MS CF-[facility] Speech and Language Pathologist Time Calculation: Time Calculation- WELL DRILLER Row Name 08/05/25 1605 Time Calculation- WELL DRILLER WELL DRILLER Start Time 1540 -SM WELL DRILLER Received On 08/05/25 -SM Untimed Charges 77505-IY Eval Speech and Production w/ Language Minutes 25 -SM 09529-II Eval Oral Pharyng Swallow Minutes 25 -SM Total Minutes Untimed Charges Total Minutes 50 -SM Total Minutes 50 -SM User Christopher (r) = Recorded By, (t) = Taken By, (c) = Cosigned By Initials Name Provider Type Trupti Albrecht MS CF-[facility] Speech and Language Pathologist Therapy Charges for Today Code Description Service Date Service Provider Modifiers Qty [id number] HC ST EVAL SPEECH AND PROD W LANG 2 08/05/2025 Trupti Banks MS CF-WE[facility] DRILLER GN [id number] EVAL ORAL PHARYNG SWALLOW 2 08/05/2025 Trupti Banks MS CF-WELL DRILLER GN 1 Trupti Banks MS CF-WE[facility] DRILLER 08/05/2025 and Acute Care - Speech Language Pathology Initial Evaluation [facility] Patient Name: Joie Flores : 1945 Today's Date: 08/05/2025 Admit Date: 08/05/2025 Visit Dx: ICD-10-CM ICD-9-CM 1. Hemorrhagic stroke I61.9 431 2. Intraparenchymal hemorrhage of brain I61.9 431 3. Dysphagia, unspecified type R13.10 787.20 4. Communication deficit F80.9 307.9 Patient Active Problem List Diagnosis Acute pancreatitis Anemia Bacteremia Colitis Methicillin susceptible Staphylococcus aureus infection, unspecified site Other specified diseases of pancreas Urinary tract infectious disease Autonomic orthostatic hypotension Subdural hematoma Abnormal findings on diagnostic imaging of heart and coronary circulation Chest pain ICH (intracerebral hemorrhage) Past Medical History: Diagnosis Date Chronic kidney disease Coronary artery disease Hypertension PVT (paroxysmal ventricular tachycardia) Past Surgical History: Procedure Laterality Date APPENDECTOMY CHOLECYSTECTOMY HYSTERECTOMY WELL DRILLER Recommendation and Plan Recommended discharge disposition is based on the functional assessment performed by PT/OT/Speech therapy (as applicable) and may not reflect the medical necessity determined by your provider or services covered by an individual patient's insurance plan or patient resource. WELL DRILLER Diagnosis: severe, aphasia (08/05/251544) Monitor for Signs of Aspiration: yes, notify WELL DRILLER if any concerns (08/05/251539) Swallow Criteria for Skilled Therapeutic Interventions Met: demonstrates skilled criteria (540) SLC Criteria for Skilled Therapy Interventions Met: yes (08/05/251544) Anticipated Discharge Disposition (WELL DRILLER): inpatient rehabilitation facility (08/05/251544) Therapy Frequency (WELL DRILLER SLC): 5 days per week (08/05/251544) Predicted Duration Therapy Intervention (Days): 2 weeks (08/05/251544) Oral Care Recommendations: Oral Care BID/PRN, Toothbrush (08/05/251539) Communication Strategy Suggestions: avoid open-ended questions, avoid multi-step instructions (08/05/251544) WELL DRILLER EVALUATION (Last 72 Hours) WELL DRILLER SLC Evaluation Row Name 08/05/251544 Communication Assessment/Intervention Document Type evaluation -SM Subjective Information no complaints -SM Patient Observations alert;cooperative -SM Patient/Family/Caregiver Comments/Observations Family present -SM Patient Effort good -SM Symptoms Noted During/After Treatment none -SM General Information Patient Profile Reviewed yes -SM Precautions/Limitations, Vision difficult to assess -SM Precautions/Limitations, Hearing difficult to assess -SM Prior Level of Function-Communication WFL;other (see comments) Family reports pt lives with daughter and grandson. Manages her medication IND, but most other functional tasks completed by daughter. Communication and cognition WFL @ baseline per dtr - Plans/Goals Discussed with patient and family;agreed upon - Barriers to Rehab none identified - Patient's Goals for Discharge patient did not state - Family Goals for Discharge family did not state - Comprehension Assessment/Intervention Comprehension Assessment/Intervention Auditory Comprehension - Auditory Comprehension Assessment/Intervention Auditory Comprehension (Communication) severe impairment - Answers Questions (Communication) yes/no;severe impairment - Able to Follow Commands (Communication) 1-step;severe impairment - Narrative Discourse conversational level;severe impairment - Successful Auditory Strategies (Communication) visual cues - Expression Assessment/Intervention Expression Assessment/Intervention verbal expression - Verbal Expression Assessment/Intervention Verbal Expression severe impairment - Conversational Discourse/Fluency severe impairment;neologisms - Verbal Expression, Comment Presenting with nonsensical speech, word salad - Motor Speech Assessment/Intervention Motor Speech Function unable/difficult to assess - Cognitive Assessment Intervention- WELL DRILLER Cognitive Function (Cognition) unable/difficult to assess - WELL DRILLER Evaluation Clinical Impressions WELL DRILLER Diagnosis severe;aphasia - Rehab Potential/Prognosis fair - [facility] Criteria for Skilled Therapy Interventions Met yes - Functional Impact difficulty communicating wants, needs - Recommendations Therapy Frequency ([facility]) 5 days per week - Predicted Duration Therapy Intervention (Days) 2 weeks - Anticipated Discharge Disposition (WELL DRILLER) inpatient rehabilitation facility - Communication Strategy Suggestions avoid open-ended questions;avoid multi-step instructions - User Christopher (r) = Recorded By, (t) = Taken By, (c) = Cosigned By Initials Name Effective Dates Trupti Banks MS CF-WELL DRILLER 04/10/25 - EDUCATION The patient has been educated in the following areas: Cognitive Impairment Communication Impairment. WELL DRILLER GOALS Row Name 08/05/25 7749 Patient will demonstrate functional language skills for return to discharge environment [place] with minimal cues - Time frame 2 weeks - Progress/Outcomes new goal - WELL DRILLER Diagnostic Treatment Patient will participate in further assessment in the following areas graphic expression;reading comprehension - Time Frame (Diagnostic) 1 week - Progress/Outcomes (Additional Goal 1, WELL DRILLER) new goal - Words/Phrases/Sentences Goal 1 (WELL DRILLER) Improve Ability to Comprehend Words/Phrases/Sentences Through: Goal 1 (WELL DRILLER) identify objects, fieldof;80%;with minimal cues (75-90%);other (comment) 3 -SM Time Frame (Identify Objects and Pictures Goal 1, WELL DRILLER) 1 week -SM Progress/Outcomes (Identify Objects and Pictures Goal 1, WELL DRILLER) new goal -SM Comprehend Questions Goal 1 (WELL DRILLER) Improve Ability to Comprehend Questions Goal 1 (WELL DRILLER) simple yes/no questions;80%;with minimal cues (75-90%) -SM Time Frame (Comprehend Questions Goal 1, WELL DRILLER) 1 week -SM Progress/Outcomes (Comprehend Questions Goal 1, WELL DRILLER) new goal -SM Follow Directions Goal 2 (WELL DRILLER) Improve Ability to Follow Directions Goal 1 (WELL DRILLER) 1 step direction without objects;80%;with minimalcues (75-90%) -SM Time Frame (Follow Directions Goal 1, WELL DRILLER) 1 week -SM Progress/Outcomes (Follow Directions Goal 1, WELL DRILLER) new goal -SM Word Retrieval Skills Goal 1 (WELL DRILLER) Improve Word Retrieval Skills By Goal 1 (WELL DRILLER) completing automatic speech task, counting;completingautomatic speech task, days of the week;completing automatic speech task, sing ???Happy Birthday?? ;80%;with minimal cues (75-90%) -SM Time Frame (Word Retrieval Goal 1, WELL DRILLER) 1 week -SM Progress/Outcomes (Word Retrieval Goal 1, WELL DRILLER) new goal -SM User Christopher (r) = Recorded By, (t) = Taken By, (c) = Cosigned By Initials Name Provider Type Trupti Albrecht MS CF-WELL DRILLER Speech and Language Pathologist Time Calculation: Time Calculation- WELL DRILLER Row Name 08/05/25 1605 Time Calculation- WELL DRILLER WELL DRILLER Start Time 1540 -SM WELL DRILLER Received On 08/05/25 - Untimed Charges 10218-OL Eval Speech and Production w/ Language Minutes 25 -SM 25222-UH Eval Oral Pharyng Swallow Minutes 25 -SM Total Minutes Untimed Charges Total Minutes 50 -SM Total Minutes 50 -SM User Christopher (r) = Recorded By, (t) = Taken By, (c) = Cosigned By Initials Name Provider Type Trupti Albrecht MS CF-WELL DRILLER Speech and Language Pathologist Therapy Charges for Today Code Description Service Date Service Provider Modifiers Qty [id number] HC ST EVAL SPEECH AND PROD W LANG 2 08/05/2025 Trupti Banks MS CF-WELL DRILLER GN [id number] EVAL ORAL PHARYNG SWALLOW 2 08/05/2025 Jocelyn Trupti Michelle, CF-WELL DRILLER GN 1 Trupti Martinez Jocelyn, CF-WELL DRILLER 08/05/2025 documented in this encounter Plan of Treatment Upcoming Encounters Date Type Department Care Team (Late st Contact Info) Description 10/06/2025 9:30 AM EST Office Visit [facility] [address] [place] [address] Norma Cason APRN [address] [place] [address] 11/27/2025 9:00 AM EST Office Visit [facility] [address] [place] [address] [address] [place] [address] Ashley Kinsey, CLIENT RETENTION SPECIALIST [address] [facility] [address] [place], [place] [id number] Scheduled Referrals Name Type Priority Associated Diagnoses Order Schedule Ambulatory Referral to Neurology Outpatient Referral Routine Intraparenchymal hemorrhage of brain Ordered: 08/07/2025 documented as of this encounter Procedures Procedure Name Priority Date/Time Associated Diagnosis Comments WOUND OSTOMY EVAL AND TREAT Routine 08/08/2025 3:43 PM EDT WELL DRILLER FEES FIBEROPTIC ENDO EVAL SWALLOW Routine 08/08/2025 9:14 AM EDT CBC (NO DIFF) Routine 08/08/2025 4:47 AM EDT PHOSPHORUS Routine 08/08/2025 4:47 AM EDT MAGNESIUM Routine 08/08/2025 4:47 AM EDT BASIC METABOLIC PANEL Routine 08/08/2025 4:47 AM EDT SCANNED - TELEMETRY 08/07/2025 7 :57 PM EDT URINALYSIS, MICROSCOPIC ONLY Routine 08/07/2025 3:26 PM EDT URINALYSIS W/ CULTURE IF INDICATED Routine 08/07/2025 3:26 PM EDT URINE CULTURE Routine 08/07/2025 3:26 PM EDT MRI BRAIN WO CONTRAST Routine 08/07/2025 2:52 PM EDT POCT GLUCOSE FINGERSTICK Routine 08/07/2025 5:06 AM EDT POCT GLUCOSE FINGERSTICK Routine 08/06/2025 11:02 PM EDT POCT GLUCOSE FINGERSTICK Routine 08/06/2025 8:24 PM EDT POCT GLUCOSE FINGERSTICK Routine 08/06/2025 11:[address] HEAD WO CONTRAST STAT 08/06/2025 5 :44 AM EDT CBC WITH AUTO DIFFERENTIAL Routine 08/06/2025 5:09 AM EDT MAGNESIUM Routine 08/06/2025 5:09 AM EDT HEMOGLOBIN A1C Routine 08/06/2025 5:09 AM EDT LIPID PANEL Routine 08/06/2025 5:09 AM EDT COMPREHENSIVE METABOLIC PANEL Routine 08/06/2025 5:09 AM EDT POCT GLUCOSE FINGERSTICK Routine 08/06/2025 5:[address] HEAD WO CONTRAST STAT 08/05/2025 8 :13 PM EDT XR CHEST 1 VW STAT 08/05/2025 2:54 PM EDT MORA TOP STAT 08/05/2025 2:35 PM EDT GOLD TOP - SST STAT 08/05/2025 2:35 PM EDT DK GREEN TOP STAT 08/05/2025 2:35 PM EDT CBC WITH AUTO DIFFERENTIAL STAT 08/05/2025 2:35 PM EDT LAVENDER TOP STAT 08/05/2025 2:35 PM EDT LIGHT BLUE TOP STAT 08/05/2025 2:35 PM EDT RAINBOW DRAW STAT 08/05/2025 2:35 PM EDT APTT STAT 08/05/2025 2:35 PM EDT PROTIME-INR STAT 08/05/2025 2:35 PM EDT CBC AND DIFFERENTIAL STAT 08/05/2025 2:35 PM EDT ALT STAT 08/05/2025 2:35 PM EDT AST STAT 08/05/2025 2:35 PM EDT SCANNED - TELEMETRY 08/05/2025 2 :21 PM EDT ECG 12-LEAD STAT 08/05/2025 2:[address] ANGIOGRAM HEAD W AI ANALYSIS OF LVO STAT 08/05/2025 2:[address] ANGIOGRAM NECK STAT 08/05/2025 2:1 7 PM EDT IA CRITICAL CARE ILL/INJURED PATIENT INIT 30-74 MIN Routine 08/05/2025 2:08 PM EDT POCT [id number] CT STAT 08/05/2025 2:[address] HEAD WO CONTRAST STROKE PROTOCOL STAT 08/05/2025 1:55 PM EDT documented in this encounter Results * CT Head Without Contrast (09/04/2025 9:19 AM EDT) Anatomical Region Laterality Modality Head N/A Computed Tomogra phy 09/04/2025 10:0 2 AM EDT Impressions 09/04/2025 10:11 AM EDT Impression: 1.2.5 cm hematoma within left temporal lobe has significantly improved, with decreased size and density, and decreased surrounding mass effect and vasogenic edema. There is 2 mm left to right midline shift, previously 6 mm. 2.No new acute intracranial process identified. Electronically Signed: Gopi Ding MD 09/04/2025 10:11 AM EDT Workstation ID: [id number] Narrative 09/04/2025 10:[address] HEAD WO CONTRAST Date of Exam: 09/04/2025 9:11 AM EDT Indication: Reevaluation of ICH. Comparison: MRI brain from August 07, [address] head from August 06, 2025 Technique: Axial CT images were obtained of the head without contrast administration. Automated exposure control and iterative construction methods were used. Findings: A 2.5 x 1.4 cm hematoma within the left temporal lobe has significantly improved with decreased size and density, previously 5.9 x 4.3 cm. The amount of surrounding mass effect and vasogenic edema has also improved, with 2 mm left to right midline shift, previously 6 mm. The ventricles appear normal in caliber. The basal cisterns appear patent. The mora-white differentiation appears preserved. Degenerative changes appear stable. The calvarium appears intact. The paranasal sinuses and mastoid air cells are well aerated. Procedure Note Gopi Ding MD - 09/04/2025 CT HEAD WO CONTRAST Date of Exam: 09/04/2025 9:11 AM EDT Indication: Reevaluation of ICH. Comparison: MRI brain from August 07, [address] head from August Technique: Axial CT images were obtained of the head without contrastadministration. Automated exposure control and iterative constructionmethods were used. Findings: A 2.5 x 1.4 cm hematoma within the left temporal lobe has significantlyimproved with decreased size and density, previously 5.9 x 4.3 cm. Theamount of surrounding mass effect and vasogenic edema has also improved,with 2 mm left to right midline shift, previously 6 mm. The ventricles appear normal in caliber. The basalcisterns appear patent. The mora-white differentiation appears preserved.Degenerative changes appear stable. The calvarium appears intact. The paranasal sinuses and mastoid air cellsare well aerated. IMPRESSION: Impression: 1.2.5 cm hematoma within left temporal lobe has significantly improved,with decreased size and density, and decreased surrounding mass effect andvasogenic edema. There is 2 mm left to right midline shift, previously 6mm. 2.No new acute intracranial process identified. Electronically Signed: Gopi Ding MD 09/04/2025 10:11 AM EDT Workstation ID: [id number] Yogesh Rios PA-C IMG CT ORDERABLES Final Resu lt * WELL DRILLER FEES - Fiberoptic Endo Eval Swallow (08/08/2025 9:14 AM EDT) Narrative SYSTEMGENERATED, DOCUMENTATION - 08/08/2025 9:14 AM EDT This procedure was auto-finalized with no dictation required. Rishi Alexander DO WELL DRILLER ORDERABLES Fin al Result * Phosphorus (08/08/2025 4:47 AM EDT) Phosphorus 3.2 2.5 - 4.5 mg/dL 08/08/2025 5:28 AM EDT [facility] Blood Venipuncture / Unknown 08/08/2025 4:47 AM EDT 08/08/2025 5:06 AM EDT Aldo Gonzales MD LAB BLOOD ORDERABLES Final R esult [facility]
[address] [place] [address], * Magnesium (08/08/2025 4:47 AM EDT) [facility] Magnesium 2.0 1.6 - 2.4 mg/dL 08/08/2025 5:28 AM EDT [facility] Blood Venipuncture / Unknown 08/08/2025 4:47 AM EDT 08/08/2025 5:06 AM EDT Aldo Gonzales MD LAB BLOOD ORDERABLES Final R esult [facility]
[address] [place] [address], * (ABNORMAL) CBC (No Diff) (08/08/2025 4:47 AM EDT) [facility] WBC 5.48 3.40 - 10.80 10*3/mm3 08/08/2025 5:53 AM EDT [facility] RBC 3.03(L) 3.77 - 5.28 10*6/mm3 08/08/2025 5:53 AM EDT [facility] Hemoglobin 10.4(L) 12.0 - 15.9 g/dL 08/08/2025 5:53 AM EDT [facility] Hematocrit 29.6(L) 34.0 - 46.6 % 08/08/2025 5:53 AM EDT [facility] MCV 97.7(H) 79.0 - 97.0 fL 08/08/2025 5:53 AM EDT [facility] MCH 34.3(H) 26.6 - 33.0 pg 08/08/2025 5:53 AM EDT [facility] MCHC 35.1 31.5 - 35.7 g/dL 08/08/2025 5:53 AM EDT [facility] RDW 15.0 12.3 - 15.4 % 08/08/2025 5:53 AM EDT [facility] RDW-SD 53.0 37.0 - 54.0 fl 08/08/2025 5:53 AM EDT [facility] MPV 12.1(H) 6.0 - 12.0 fL 08/08/2025 5:53 AM EDT [facility] Platelets 78(L) 140 - 450 10*3/mm3 08/08/2025 5:53 AM EDT [facility] Blood Venipuncture / Unknown 08/08/2025 4:47 AM EDT 08/08/2025 5:06 AM EDT us Aldo Gonzales MD LAB BLOOD ORDERABLES Final R esult [facility]
[address] [place] [address], * (ABNORMAL) Basic Metabolic Panel (08/08/2025 4:47 AM EDT) Glucose 97 65 - 99 mg/dL 08/08/2025 5:28 AM EDT [facility] BUN 16.8 8.0 - 23.0 mg/dL 08/08/2025 5:28 AM EDT [facility] Creatinine 0.97 0.57 - 1.00 mg/dL 08/08/2025 5:28 AM EDT [facility] Sodium 135(L) 136 - 145 mmol/L 08/08/2025 5:28 AM EDT [facility] Potassium 4.0 3.5 - 5.2 mmol/L 08/08/2025 5:28 AM EDT [facility] Chloride 101 98 - 107 mmol/L 08/08/2025 5:28 AM EDT [facility] CO2 24.0 22.0 - 29.0 mmol/L 08/08/2025 5:28 AM EDT [facility] Calcium 8.6 8.6 - 10.5 mg/dL 08/08/2025 5:28 AM EDT [facility] BUN/Creatinine Ratio 17.3 7.0 - 25.0 08/08/2025 5:28 AM EDT [facility] Anion Gap 10.0 5.0 - 15.0 mmol/L 08/08/2025 5:28 AM EDT [facility] eGFR 59.2(L) >60.0 mL/min/1.7 3 08/08/2025 5:28 AM EDT [facility] Blood Venipuncture / Unknown 08/08/2025 4:47 AM EDT 08/08/2025 5:06 AM EDT Narrative [facility] - 08/08/2025 5:28 AM EDT GFR Categories in Chronic Kidney Disease (CKD) GFR Category GFR (mL/min/1.73) Interpretation G1 90 or greater Normal or high (1) G2 60-89 Mild decrease (1) G3a 45-59 Mild to moderate decrease G3b 30-44 Moderate to severe decrease G4 15-29 Severe decrease G5 14 or less Kidney failure (1)In the absence of evidence of kidney disease, neither GFR category G1 or G2 fulfill the criteria for CKD. eGFR calculation 2020 CKD-EPI creatinine equation, which does not include race as a factor Aldo Gonzales MD LAB BLOOD ORDERABLES Final R esult [facility]
[address] [place] [address], * Telemetry Scan (08/07/2025 7:57 PM EDT) [facility] ECG ORDERABLES Final Result * (ABNORMAL) Urine Culture - Urine, Straight Cath (08/07/2025 3:26 PM EDT) Urine Culture >100,000 CFU/mL Escherichia coli(A) MED 08/09/2025 10:10 AM EDT [facility] Urine (Straight Cath) Collection / Unknown 08/07/2025 3:26 PM EDT 08/07/2025 3:50 PM EDT Narrative [facility] - 08/09/2025 10:10 AM EDT Colonization of the urinary tract without infection is common. Treatment is discouraged unless the patient is symptomatic, , or undergoing an invasive urologic procedure. Organism Antibiotic Method Susceptibility Escherichia coli Amoxicillin + Clavulanate MED 4 ug/ml: Susceptible Escherichia coli Ampicillin MED >=32 ug/ml: Resistant Escherichia coli Ampicillin + Sulbactam MED >=32 ug/ml: Resistant Escherichia coli Cefazolin (Urine) MED <=1 ug/ml: Susceptible Escherichia coli Cefepime MED <=0.12 ug/ml: Susceptible Escherichia coli Ceftazidime MED <=0.5 ug/ml: Susceptible Escherichia coli Ceftriaxone MED <=0.25 ug/ml: Susceptible Escherichia coli Cefuroxime axetil MED 32 ug/ml: Resistant Escherichia coli Ciprofloxacin MED >=4 ug/ml: Resistant Escherichia coli Gentamicin MED <=1 ug/ml: Susceptible Escherichia coli Levofloxacin MED >=8 ug/ml: Resistant Escherichia coli Nitrofurantoin MED 128 ug/ml: Resistant Escherichia coli Piperacillin + Tazobactam MED <=4 ug/ml: Susceptible Escherichia coli Trimethoprim + Sulfamethoxazole MED <=20 ug/ml: Susceptible Aldo Gonzales MD MICROBIOLOGY - GENERAL ORDER OSMIN Final Result [facility]
[address] [place] [address], * (ABNORMAL) Urinalysis, Microscopic Only - Straight Cath (08/07/2025 3:26 PM EDT) RBC, UA 6-10(A) None Seen, 0-2 /HPF 08/07/2025 4:11 PM EDT [facility] WBC, UA Too Numerous to Count(A) None Seen, 0-2 /HPF 08/07/2025 4:11 PM EDT [facility] Bacteria, UA 4+(A) None Seen /HPF 08/07/2025 4:11 PM EDT [facility] Squamous Epithelial Cells, UA None Seen None Seen, 0-2 /HPF 08/07/2025 4:11 PM EDT [facility] Hyaline Casts, UA 0-2 None Seen /LPF 08/07/2025 4:11 PM EDT [facility] Methodology Automated Microscopy 08/07/2025 4:11 PM EDT [facility] Urine (Straight Cath) Collection / Unknown 08/07/2025 3:26 PM EDT 08/07/2025 3:50 PM EDT us Aldo Gonzales MD URINE ORDERABLES Final Resul t [facility]
[address] [place] [address], * (ABNORMAL) Urinalysis With Culture If Indicated - Straight Cath (08/07/2025 3:26 PM EDT) Color, UA Yellow Yellow, Straw 08/07/2025 4:11 PM EDT [facility] Appearance, UA Cloudy(A) Clear 08/07/2025 4:11 PM EDT [facility] pH, UA 6.0 5.0 - 8.0 08/07/2025 4:11 PM EDT [facility] Specific [place], UA 1.013 1.005 - 1.030 08/07/2025 4:11 PM EDT [facility] Glucose, UA Negative Negative 08/07/2025 4:11 PM EDT [facility] Ketones, UA 15 mg/dL (1+)(A) Negative 08/07/2025 4:11 PM EDT [facility] Bilirubin, UA Negative Negative 08/07/2025 4:11 PM EDT [facility] Blood, UA Moderate (2+)(A) Negative 08/07/2025 4:11 PM EDT [facility] Protein, UA Trace(A) Negative 08/07/2025 4:11 PM EDT [facility] Leuk Esterase, UA Large (3+)(A) Negative 08/07/2025 4:11 PM EDT [facility] Nitrite, UA Positive(A) Negative 08/07/2025 4:11 PM EDT [facility] Urobilinogen, UA 1.0 E.U./dL 0.2 - 1.0 E.U./dL 08/07/2025 4:11 PM EDT [facility] Urine (Straight Cath) Collection / Unknown 08/07/2025 3:26 PM EDT 08/07/2025 3:50 PM EDT Narrative [facility] - 08/07/2025 4:11 PM EDT In absence of clinical symptoms, the presence of pyuria, bacteria, and/or nitrites on the urinalysis result does not correlate with infection. us Aldo Gonzales MD URINE ORDERABLES Final Resul t [facility]
[address] [place] [address], * MRI Brain Without Contrast (08/07/2025 2:52 PM EDT) Anatomical Region Laterality Modality Head, Neck N/A Magnetic Resonan ce 08/07/2025 3:52 PM EDT Impressions 08/07/2025 3:58 PM EDT Impression: 1.Large left temporal lobe parenchymal hemorrhage similar to previous CT, with surrounding edema and mass effect resulting in effacement of the left lateral ventricle and 6 mm left to right midline shift. 2.Motion limited examination. There are a few punctate foci of susceptibility artifact suggesting minimal chronic microhemorrhages. 3.3. Mild age-related atrophy and moderate chronic microvascular ischemic changes. Electronically Signed: Teena Hou MD 08/07/2025 3:58 PM EDT Workstation ID: [id number] Narrative 08/07/2025 3:58 PM EDT MRI BRAIN WO CONTRAST Date of Exam: 08/07/2025 2:30 PM EDT Indication: ICH; eval for microhemorrhages. Comparison: CT head without contrast 08/06/2025 Technique: Routine multiplanar/multisequence sequence images of the brain were obtained without contrast administration. Findings: There is a 5.9 x 4.3 cm parenchymal hemorrhage in the left temporal lobe with surrounding edema and mass effect resulting in effacement of the left lateral ventricle and 6 mm left to right midline shift. Moderate chronic microvascular ischemic changes are present. There is mild age-related atrophy. Susceptibility weighted images are somewhat limited by motion artifact. There are 2 suspected punctate microhemorrhages, in the left occipital and parietal lobes. There may be an additional punctate remote microhemorrhage in the right parietal lobe. There is a partial empty sella configuration. Calvarial and superficial soft tissue signal is within normal limits. Orbits appear unremarkable. Trace mucosal thickening of the paranasal sinuses. Mastoid air cells are clear. Procedure Note Teena Hou MD - 08/07/2025 MRI BRAIN WO CONTRAST Date of Exam: 08/07/2025 2:30 PM EDT Indication: ICH; eval for microhemorrhages. Comparison: CT head without contrast 08/06/2025 Technique: Routine multiplanar/multisequence sequence images of the brainwere obtained without contrast administration. Findings: There is a 5.9 x 4.3 cm parenchymal hemorrhage in the left temporal lobewith surrounding edema and mass effect resulting in effacement of the leftlateral ventricle and 6 mm left to right midline shift. Moderate chronic microvascular ischemic changes are present. There is mildage- related atrophy. Susceptibility weighted images are somewhat limitedby motion artifact. There are 2 suspected punctate microhemorrhages, inthe left occipital and parietal lobes. There may be an additional punctate remote microhemorrhage in theright parietal lobe. There is a partial empty sella configuration. Calvarial and superficial soft tissue signal is within normal limits.Orbits appear unremarkable. Trace mucosal thickening of the paranasalsinuses. Mastoid air cells are clear. IMPRESSION: Impression: 1.Large left temporal lobe parenchymal hemorrhage similar to previous CT,with surrounding edema and mass effect resulting in effacement of the leftlateral ventricle and 6 mm left to right midline shift. 2.Motion limited examination. There are a few punctate foci ofsusceptibility artifact suggesting minimal chronic microhemorrhages. 3.3. Mild age-related atrophy and moderate chronic microvascular ischemicchanges. Electronically Signed: Teena Hou MD 08/07/2025 3:58 PM EDT Workstation ID: [id number] Paige Cary CLIENT RETENTION SPECIALIST IMG MRI ORDERABLES Final Result * POC Glucose Once (08/07/2025 5:06 AM EDT) Glucose 87 70 - 130 mg/dL 08/07/2025 5:08 AM EDT [facility] Comment:Serial Number: [id number]: [id number] Blood 08/07/2025 5:06 AM EDT 08/07/2025 5:08 AM EDT Rishi Pham [facility] DO POINT OF CARE TEST ORDERABLES Final Result Performing Organization Address City/[facility] Co de Phone Number [facility]
[address] [place] [address], * POC Glucose Once (08/06/2025 11:02 PM EDT) Glucose 109 70 - 130 mg/dL 08/06/2025 11:04 PM EDT [facility] Comment:Serial Number: [id number]: [id number] Blood 08/06/2025 11:0 2 PM EDT 08/06/2025 11:04 PM EDT [facility] DO POINT OF CARE TEST ORDERABLES Final Result Performing Organization Address City/[facility] Co de Phone Number [facility]
[address] [place] [address], * POC Glucose Once (08/06/2025 8:24 PM EDT) Glucose 107 70 - 130 mg/dL 08/06/2025 8:34 PM EDT [facility] Comment:Serial Number: [id number]: [id number] Blood 08/06/2025 8:24 PM EDT 08/06/2025 8:34 PM EDT Rishi Alexander DO POINT OF CARE TEST ORDERABLES Final Result Performing Organization Address City/[facility]/ZIP Co de Phone Number [facility]
[address] [place] [address], * POC Glucose Once (08/06/2025 11:44 AM EDT) Glucose 87 70 - 130 mg/dL 08/06/2025 11:47 AM EDT [facility] Comment:Serial Number: [id number]: [id number] Blood 08/06/2025 11:4 4 AM EDT 08/06/2025 11:47 AM EDT Rishi Alexander DO POINT OF CARE TEST ORDERABLES Final Result Performing Organization Address City/[facility] Co de Phone Number [facility]
[address] [place] [address], * CT Head Without Contrast (08/06/2025 5:44 AM EDT) Anatomical Region Laterality Modality Head N/A Computed Tomogra phy 08/06/2025 5:47 AM EDT Impressions 08/06/2025 5:51 AM EDT Impression: Redemonstration of an intraparenchymal hemorrhage seen within the left temporal lobe which appears slightly increased in size as compared to the previous study. A component of this may be related to slight difference in scanning angle and resultant measuring technique. Mass effect and left to right midline shift appears similar as compared to the previous study. Electronically Signed: Gaby Vega MD 08/06/2025 5:51 AM EDT Workstation ID: [id number] Narrative 08/06/2025 5:[address] HEAD WO CONTRAST Date of Exam: 08/06/2025 5:29 AM EDT Indication: Of ICH stability. Comparison: 08/05/2025. Technique: Axial CT images were obtained of the head without contrast administration. Automated exposure control and iterative construction methods were used. Findings: Redemonstration of an intraparenchymal hemorrhage seen within the left temporal lobe which appears appears to have increased in size as compared to the previous study measuring up to 5.3 x 3.8 cm, previously measuring up to 4.9 x 3.8 cm. A component of this may be related to slight difference in angle and technique. Mass effect is present which appears similar as compared to the previous study. There is left to right midline shift measuring approximately 4 mm which appears unchanged. Effacement of the frontal horn of the left lateral ventricle present which appears similar. There is no extracerebral collection. Ventricles are normal in size and configuration for patient's stated age. Posterior fossa is within normal limits. Calvarium and skull base appear intact. Visualized sinuses show no air fluid levels. Visualized orbits are unremarkable. Procedure Note Gaby Vega MD - 08/06/2025 CT HEAD WO CONTRAST Date of Exam: 08/06/2025 5:29 AM EDT Indication: Of ICH stability. Comparison: 08/05/2025. Technique: Axial CT images were obtained of the head without contrastadministration. Automated exposure control and iterative constructionmethods were used. Findings: Redemonstration of an intraparenchymal hemorrhage seen within the lefttemporal lobe which appears appears to have increased in size as comparedto the previous study measuring up to 5.3 x 3.8 cm, previously measuringup to 4.9 x 3.8 cm. A component of this may be related to slight difference in angle and technique. Masseffect is present which appears similar as compared to the previous study.There is left to right midline shift measuring approximately 4 mm whichappears unchanged. Effacement of the frontal horn of the left lateral ventricle present which appearssimilar. There is no extracerebral collection. Ventricles are normal in size and configuration for patient's stated age. Posterior fossa is within normal limits. Calvarium and skull base appear intact. Visualized sinuses show no airfluid levels. Visualized orbits are unremarkable. IMPRESSION: Impression: Redemonstration of an intraparenchymal hemorrhage seen within the lefttemporal lobe which appears slightly increased in size as compared to theprevious study. A component of this may be related to slight difference inscanning angle and resultant measuring technique. Mass effect and left to right midline shift appearssimilar as compared to the previous study. Electronically Signed: Gaby Vega MD 08/06/2025 5:51 AM EDT Workstation ID: [id number] Deep Maciel CLIENT RETENTION SPECIALIST IMG CT ORDERABLES Final Resul t * (ABNORMAL) Lipid Panel (08/06/2025 5:09 AM EDT) Total Cholesterol 99 0 - 200 mg/dL 08/06/2025 6:22 AM EDT [facility] Triglycerides 118 0 - 150 mg/dL 08/06/2025 6:22 AM EDT [facility] HDL Cholesterol 39(L) 40 - 60 mg/dL 08/06/2025 6:22 AM EDT [facility] LDL Cholesterol 39 0 - 100 mg/dL 08/06/2025 6:22 AM EDT [facility] VLDL Cholesterol 21 5 - 40 mg/dL 08/06/2025 6:22 AM EDT [facility] LDL/HDL Ratio 0.93 08/06/2025 6:22 AM EDT [facility] Blood Line / Unknown 08/06/2025 5: 09 AM EDT 08/06/2025 5:18 AM EDT [facility] - 08/06/2025 6:22 AM EDT Cholesterol Reference Ranges (U.S. Department of Health and Human Services ATP III Classifications) Desirable <200 mg/dL Borderline High 200-239 mg/dL High Risk >240 mg/dL Triglyceride Reference Ranges (U.S. Department of Health and Human Services ATP III Classifications) Normal <150 mg/dL Borderline High 150-199 mg/dL High 200-499 mg/dL Very High >500 mg/dL HDL Reference Ranges (U.S. Department of Health and Human Services ATP III Classifications) Low <40 mg/dl (major risk factor for CHD) High >60 mg/dl ('negative' risk factor for CHD) LDL Reference Ranges (U.S. Department of Health and Human Services ATP III Classifications) Optimal <100 mg/dL Near Optimal 100-129 mg/dL Borderline High 130-159 mg/dL High 160-189 mg/dL Very High >189 mg/dL LDL is calculated using the NIH LDL-C calculation. Jenifer Park CLIENT RETENTION SPECIALIST LAB BLOOD ORDERABLES Final R esult Performing Organization Address City/[facility] Co de Phone Number [facility]
[address] [place] [address], * Hemoglobin A1c (08/06/2025 5:09 AM EDT) Hemoglobin A1C 5.42 4.80 - 5.60 % 08/06/2025 5:49 AM EDT [facility] Blood Line / Unknown 08/06/2025 5: 09 AM EDT 08/06/2025 5:18 AM EDT Narrative [facility] - 08/06/2025 5:49 AM EDT Hemoglobin A1C Ranges: Increased Risk for Diabetes 5.7% to 6.4% Diabetes >= 6.5% Diabetic Goal < 7.0% Jenifer Park APRN LAB BLOOD ORDERABLES Final R esult Performing Organization Address City/[facility]/ZIP Co de Phone Number [facility]
[address] [place] [address], * Magnesium (08/06/2025 5:09 AM EDT) Magnesium 2.0 1.6 - 2.4 mg/dL 08/06/2025 6:22 AM EDT [facility] Blood Line / Unknown 08/06/2025 5: 09 AM EDT 08/06/2025 5:18 AM EDT Rishi Alexander DO LAB BLOOD ORDERABLE S Final Result [facility]
[address] [place] [address], * (ABNORMAL) Comprehensive Metabolic Panel (08/06/2025 5:09 AM EDT) [facility] Signature Glucose 95 65 - 99 mg/dL 08/06/2025 6:22 AM EDT [facility] BUN 13.9 8.0 - 23.0 mg/dL 08/06/2025 6:22 AM EDT [facility] Creatinine 1.07(H) 0.57 - 1.00 mg/dL 08/06/2025 6:22 AM EDT [facility] Sodium 141 136 - 145 mmol/L 08/06/2025 6:22 AM EDT [facility] Potassium 4.2 3.5 - 5.2 mmol/L 08/06/2025 6:22 AM EDT [facility] Chloride 105 98 - 107 mmol/L 08/06/2025 6:22 AM EDT [facility] CO2 26.6 22.0 - 29.0 mmol/L 08/06/2025 6:22 AM EDT [facility] Calcium 8.8 8.6 - 10.5 mg/dL 08/06/2025 6:22 AM EDT [facility] Total Protein 5.6(L) 6.0 - 8.5 g/dL 08/06/2025 6:22 AM EDT [facility] Albumin 3.7 3.5 - 5.2 g/dL 08/06/2025 6:22 AM EDT [facility] ALT (SGPT) 12 1 - 33 U/L 08/06/2025 6:22 AM EDT [facility] AST (SGOT) 19 1 - 32 U/L 08/06/2025 6:22 AM EDT [facility] Alkaline Phosphatase 62 39 - 117 U/L 08/06/2025 6:22 AM EDT [facility] Total Bilirubin 0.9 0.0 - 1.2 mg/dL 08/06/2025 6:22 AM EDT [facility] Globulin 1.9 gm/dL 08/06/2025 6:22 AM EDT [facility] Comment:Calculated Result A/G Ratio 1.9 g/dL 08/06/2025 6:22 AM EDT [facility] BUN/Creatinine Ratio 13.0 7.0 - 25.0 08/06/2025 6:22 AM EDT [facility] Anion Gap 9.4 5.0 - 15.0 mmol/L 08/06/2025 6:22 AM EDT [facility] eGFR 52.6(L) >60.0 mL/min/1.7 3 08/06/2025 6:22 AM EDT [facility] Blood Line / Unknown 08/06/2025 5: 09 AM EDT 08/06/2025 5:18 AM EDT [facility] - 08/06/2025 6:22 AM EDT GFR Categories in Chronic Kidney Disease (CKD) GFR Category GFR (mL/min/1.73) Interpretation G1 90 or greater Normal or high (1) G2 60-89 Mild decrease (1) G3a 45-59 Mild to moderate decrease G3b 30-44 Moderate to severe decrease G4 15-29 Severe decrease G5 14 or less Kidney failure (1)In the absence of evidence of kidney disease, neither GFR category G1 or G2 fulfill the criteria for CKD. eGFR calculation 2020 CKD-EPI creatinine equation, which does not include race as a factor us Rishi Alexander DO LAB BLOOD ORDERABLE S Final Result [facility]
[address] [place] [address], * (ABNORMAL) CBC Auto Differential (08/06/2025 5:09 AM EDT) WBC 4.07 3.40 - 10.80 10*3/mm3 08/06/2025 5:31 AM EDT [facility] RBC 3.11(L) 3.77 - 5.28 10*6/mm3 08/06/2025 5:31 AM EDT [facility] Hemoglobin 10.4(L) 12.0 - 15.9 g/dL 08/06/2025 5:31 AM EDT [facility] Hematocrit 31.4(L) 34.0 - 46.6 % 08/06/2025 5:31 AM EDT [facility] MCV 101.0(H) 79.0 - 97.0 fL 08/06/2025 5:31 AM EDT [facility] MCH 33.4(H) 26.6 - 33.0 pg 08/06/2025 5:31 AM [facility] MCHC 33.1 31.5 - 35.7 g/dL 08/06/2025 5:31 AM [facility] RDW 15.3 12.3 - 15.4 % 08/06/2025 5:31 AM [facility] RDW-SD 55.8(H) 37.0 - 54.0 fl 08/06/2025 5:31 AM [facility] MPV 12.0 6.0 - 12.0 fL 08/06/2025 5:31 AM [facility] Platelets 83(L) 140 - 450 10*3/mm3 08/06/2025 5:31 AM [facility] Neutrophil % 53.1 42.7 - 76.0 % 08/06/2025 5:31 AM [facility] Lymphocyte % 36.1 19.6 - 45.3 % 08/06/2025 5:31 AM EDT [facility] Monocyte % 7.4 5.0 - 12.0 % 08/06/2025 5:31 AM [facility] Eosinophil % 2.5 0.3 - 6.2 % 08/06/2025 5:31 AM EDT [facility] Basophil % 0.7 0.0 - 1.5 % 08/06/2025 5:31 AM EDT [facility] Immature Grans % 0.2 0.0 - 0.5 % 08/06/2025 5:31 AM EDT [facility] Neutrophils, Absolute 2.16 1.70 - 7.00 10*3/mm3 08/06/2025 5:31 AM EDT [facility] Lymphocytes, Absolute 1.47 0.70 - 3.10 10*3/mm3 08/06/2025 5:31 AM EDT [facility] Monocytes, Absolute 0.30 0.10 - 0.90 10*3/mm3 08/06/2025 5:31 AM EDT [facility] Eosinophils, Absolute 0.10 0.00 - 0.40 10*3/mm3 08/06/2025 5:31 AM EDT [facility] Basophils, Absolute 0.03 0.00 - 0.20 10*3/mm3 08/06/2025 5:31 AM EDT [facility] Immature Grans, Absolute 0.01 0.00 - 0.05 10*3/mm3 08/06/2025 5:31 AM EDT [facility] nRBC 0.0 0.0 - 0.2 /100 WBC 08/06/2025 5:31 AM EDT [facility] Blood Line / Unknown 08/06/2025 5: 09 AM EDT 08/06/2025 5:18 AM EDT Rishi Alexander DO LAB BLOOD ORDERABLE S Final Result [facility]
[address] [place] [address], * POC Glucose Once (08/06/2025 5:07 AM EDT) Glucose 85 70 - 130 mg/dL 08/06/2025 5:11 AM EDT [facility] Comment:Serial Number: [id number]: [id number] Blood 08/06/2025 5:07 AM EDT 08/06/2025 5:11 AM EDT Rishi Alexander DO POINT OF CARE TEST ORDERABLES Final Result [facility]
[address] [place] [address], * CT Head Without Contrast (08/05/2025 8:13 PM EDT) Anatomical Region Laterality Modality Head N/A Computed Tomogra phy 08/05/2025 8:16 PM EDT Impressions 08/05/2025 8:19 PM EDT Enlarging left temporal intraparenchymal hemorrhage with mildly worsened rightward midline shift. Electronically Signed: Mango Alvarado MD 08/05/2025 8:19 PM EDT Workstation ID: [id number] Narrative 08/05/2025 8:[address] HEAD WO CONTRAST Date of Exam: 08/05/2025 8:04 PM EDT Indication: Stroke, follow up Stability scan. Comparison: Noncontrast CT of the head performed on the same date. Technique: Axial CT images were obtained of the head without contrast administration. Automated exposure control and iterative construction methods were used. Findings: Left temporal intraparenchymal hemorrhage with surrounding mass effect and edema. This has enlarged compared with the prior study. This measures 4.9 cm x 4 cm compared with 4.8 cm x 2.9 cm previously. No intraventricular extension is appreciated. 0.7 cm rightward midline shift which is increased compared to 0.5 cm previously. Procedure Note Mango Alvarado MD - 08/05/2025 CT HEAD WO CONTRAST Date of Exam: 08/05/2025 8:04 PM EDT Indication: Stroke, follow up Stability scan. Comparison: Noncontrast CT of the head performed on the same date. Technique: Axial CT images were obtained of the head without contrastadministration. Automated exposure control and iterative constructionmethods were used. Findings: Left temporal intraparenchymal hemorrhage with surrounding masseffect and edema. This has enlarged compared with the prior study. Thismeasures 4.9 cm x 4 cm compared with 4.8 cm x 2.9 cm previously. Nointraventricular extension is appreciated. 0.7 cm rightward midline shift which is increased compared to0.5 cm previously. IMPRESSION: Enlarging left temporal intraparenchymal hemorrhage with mildly worsenedrightward midline shift. Electronically Signed: Mango Alvarado MD 08/05/2025 8:19 PM EDT Workstation ID: [id number] us Jenifer Park CLIENT RETENTION SPECIALIST IMG CT ORDERABLES Final Resu lt * XR Chest 1 View (08/05/2025 2:54 PM EDT) Anatomical Region Laterality Modality Body N/A Radiographic Guillermina ging 08/05/2025 3:11 PM EDT Impressions 08/05/2025 3:18 PM EDT Impression: No acute cardiopulmonary findings. Suspected hiatal hernia. Electronically Signed: Deep Lackey MD 08/05/2025 3:18 PM EDT Workstation ID: [id number] Narrative 08/05/2025 3:18 PM EDT XR CHEST 1 VW Date of Exam: 08/05/2025 2:25 PM EDT Indication: Acute Stroke Protocol (onset < 12 hrs). Comparison: None available. Findings: There is top normal size of the heart. There is an ill-defined retrocardiac lucency likely reflecting a sliding hiatal hernia. The lungs are grossly clear. No pleural effusion or pneumothorax. Procedure Note Deep Lackey MD - 08/05/2025 XR CHEST 1 VW Date of Exam: 08/05/2025 2:25 PM EDT Indication: Acute Stroke Protocol (onset < 12 hrs). Comparison: None available. Findings: There is top normal size of the heart. There is an ill-definedretrocardiac lucency likely reflecting a sliding hiatal hernia. The lungsare grossly clear. No pleural effusion or pneumothorax. IMPRESSION: Impression: No acute cardiopulmonary findings. Suspected hiatal hernia. Electronically Signed: Deep Lackey MD 08/05/2025 3:18 PM EDT Workstation ID: [id number] Yoana Kinney MD IM DIAGNOSTIC IMAGING ORDERABLE S Final Result * (ABNORMAL) CBC Auto Differential (08/05/2025 2:35 PM EDT) WBC 3.64 3.40 - 10.80 10*3/mm3 08/05/2025 2:46 PM EDT [facility] RBC 3.08(L) 3.77 - 5.28 10*6/mm3 08/05/2025 2:46 PM EDT [facility] Hemoglobin 10.3(L) 12.0 - 15.9 g/dL 08/05/2025 2:46 PM EDT [facility] Hematocrit 31.9(L) 34.0 - 46.6 % 08/05/2025 2:46 PM EDT [facility] MCV 103.6(H) 79.0 - 97.0 fL 08/05/2025 2:46 PM EDT [facility] MCH 33.4(H) 26.6 - 33.0 pg 08/05/2025 2:46 PM EDT [facility] MCHC 32.3 31.5 - 35.7 g/dL 08/05/2025 2:46 PM EDT [facility] RDW 15.5(H) 12.3 - 15.4 % 08/05/2025 2:46 PM EDT [facility] RDW-SD 58.1(H) 37.0 - 54.0 fl 08/05/2025 2:46 PM EDT [facility] MPV 12.2(H) 6.0 - 12.0 fL 08/05/2025 2:46 PM EDT [facility] Platelets 81(L) 140 - 450 10*3/mm3 08/05/2025 2:46 PM EDT [facility] Neutrophil % 55.5 42.7 - 76.0 % 08/05/2025 2:46 PM EDT [facility] Lymphocyte % 34.6 19.6 - 45.3 % 08/05/2025 2:46 PM EDT [facility] Monocyte % 6.6 5.0 - 12.0 % 08/05/2025 2:46 PM EDT [facility] Eosinophil % 2.2 0.3 - 6.2 % 08/05/2025 2:46 PM EDT [facility] Basophil % 0.8 0.0 - 1.5 % 08/05/2025 2:46 PM EDT [facility] Immature Grans % 0.3 0.0 - 0.5 % 08/05/2025 2:46 PM EDT [facility] Neutrophils, Absolute 2.02 1.70 - 7.00 10*3/mm3 08/05/2025 2:46 PM EDT [facility] Lymphocytes, Absolute 1.26 0.70 - 3.10 10*3/mm3 08/05/2025 2:46 PM EDT [facility] Monocytes, Absolute 0.24 0.10 - 0.90 10*3/mm3 08/05/2025 2:46 PM EDT [facility] Eosinophils, Absolute 0.08 0.00 - 0.40 10*3/mm3 08/05/2025 2:46 PM EDT [facility] Basophils, Absolute 0.03 0.00 - 0.20 10*3/mm3 08/05/2025 2:46 PM EDT [facility] Immature Grans, Absolute 0.01 0.00 - 0.05 10*3/mm3 08/05/2025 2:46 PM EDT [facility] nRBC 0.0 0.0 - 0.2 /100 WBC 08/05/2025 2:46 PM EDT [facility] Blood Venipuncture / Unknown 08/05/2025 2:35 PM EDT 08/05/2025 2:42 PM EDT us Yoana Kinney MD LAB BLOOD ORDERABLES Final Resul t [facility]
[address] [place] [address], * Light Blue Top (08/05/2025 2:35 PM EDT) Extra Tube Hold for add-ons. 08/05/2025 2:45 PM EDT [facility] Comment:Auto resulted Blood Venipuncture / Unknown 08/05/2025 2:35 PM EDT 08/05/2025 2:41 PM EDT us Yoana Kinney MD LAB BLOOD ORDER ONLY Final Resul t Performing Organization Address City/[facility] Co de Phone Number [facility]
[address] [place] [address], * Mora Top (08/05/2025 2:35 PM EDT) Extra Tube Hold for add-ons. 08/05/2025 2:45 PM EDT [facility] Comment:Auto resulted. Blood Venipuncture / Unknown 08/05/2025 2:35 PM EDT 08/05/2025 2:42 PM EDT us Yoana Kinney MD LAB BLOOD ORDER ONLY Final Resul t [facility]
[address] [place] [address], * Gold Top - SST (08/05/2025 2:35 PM EDT) Extra Tube Hold for add-ons. 08/05/2025 2:45 PM EDT [facility] Comment:Auto resulted. Blood Venipuncture / Unknown 08/05/2025 2:35 PM EDT 08/05/2025 2:42 PM EDT us Yoana Kinney MD LAB BLOOD ORDER ONLY Final Resul t Performing Organization Address [facility] Co de Phone Number [facility]
[address] [place] [address], * Lavender Top (08/05/2025 2:35 PM EDT) Extra Tube hold for add-on 08/05/2025 2:45 PM EDT [facility] Comment:Auto resulted Blood Venipuncture / Unknown 08/05/2025 2:35 PM EDT 08/05/2025 2:42 PM EDT Yoana Kinney MD LAB BLOOD ORDER ONLY Final Resul t Performing Organization Address [facility] de Phone Number [facility]
[address] [place] [address], * Green Top (Gel) (08/05/2025 2:35 PM EDT) Extra Tube Hold for add-ons. 08/05/2025 2:45 PM EDT [facility] Comment:Auto resulted. Blood Venipuncture / Unknown 08/05/2025 2:35 PM EDT 08/05/2025 2:42 PM EDT Yoana Kinney MD LAB BLOOD ORDER ONLY Final Resul t Performing Organization Address [facility] Co de Phone Number [facility]
[address] [place] [address], [place] [phone] * ALT (08/05/2025 2:35 PM EDT) ALT (SGPT) 10 1 - 33 U/L 08/05/2025 3:05 PM EDT [facility] Blood Venipuncture / Unknown 08/05/2025 2:35 PM EDT 08/05/2025 2:42 PM EDT us Yoana Kinney MD LAB BLOOD ORDERABLES Final Resul t Performing Organization Address [facility] de Phone Number [facility]
[address] [place] [address], * AST (08/05/2025 2:35 PM EDT) AST (SGOT) 19 1 - 32 U/L 08/05/2025 3:05 PM EDT [facility] Blood Venipuncture / Unknown 08/05/2025 2:35 PM EDT 08/05/2025 2:42 PM EDT us Yoana Kinney MD LAB BLOOD ORDERABLES Final Resul t Performing Organization Address [facility] Phone Number [facility]
[address] [place] [address], * aPTT (08/05/2025 2:35 PM EDT) PTT 26.5 22.0 - 39.0 seconds 08/05/2025 2:56 PM EDT [facility] Blood Venipuncture / Unknown 08/05/2025 2:35 PM EDT 08/05/2025 2:41 PM EDT Narrative [facility] - 08/05/2025 2:56 PM EDT PTT = The equivalent PTT values for the therapeutic range of heparin levels at 0.3 to 0.5 U/ml are 60 to 70 seconds. us Yoana Kinney MD LAB BLOOD ORDERABLES Final Resul t Performing Organization Address [facility] Co de Phone Number [facility]
[address] [place] [address], [place] [phone] * (ABNORMAL) Protime-INR (08/05/2025 2:35 PM EDT) Protime 15.5(H) 12.2 - 15.3 Seconds 08/05/2025 2:56 PM EDT [facility] INR 1.16(H) 0.89 - 1.12 08/05/2025 2:56 PM EDT [facility] Blood Venipuncture / Unknown 08/05/2025 2:35 PM EDT 08/05/2025 2:41 PM EDT Yoana Kinney MD LAB BLOOD ORDERABLES Final Resul t [facility]
[address] [place] [address], * Telemetry Scan (08/05/2025 2:21 PM EDT) [facility] ECG ORDERABLES Final Result * ECG 12 Lead ED Triage Standing Order; Acute Stroke (Onset <24 hrs) (08/05/2025 2:19 PM EDT) QT Interval 392 ms ECG QTC Interval 452 ms ECG 08/05/2025 2:19 PM EDT 08/09/2025 4:14 AM EDT Narrative ECG - 08/09/2025 4:14 AM EDT Test Reason : ED Triage Standing Order~ Blood Pressure : */* mmHG Vent. Rate : 80 BPM Atrial Rate : 80 BPM P-R Int : 156 ms QRS Dur : 110 ms QT Int : 392 ms P-R-T Axes : -5 -46 -1 degrees QTcB Int : 452 ms Normal sinus rhythm Left axis deviation Low voltage QRS Incomplete right bundle branch block Inferior infarct , age undetermined Abnormal ECG No previous ECGs available Confirmed by MD KINNEY KYLE ([id number]) on 08/09/2025 4:14:46 AM Referred By: EDMD Confirmed By: YOANA KINNEY MD Procedure Note Yoana Kinney MD - 08/09/2025 Test Reason : ED Triage Standing Order~ Blood Pressure : */* mmHG Vent. Rate : 80 BPM Atrial Rate : 80 BPM P-R Int : 156 ms QRS Dur : 110 ms QT Int : 392 ms P-R-T Axes : -5 -46 -1 degrees QTcB Int : 452 ms Normal sinus rhythm Left axis deviation Low voltage QRS Incomplete right bundle branch block Inferior infarct , age undetermined Abnormal ECG No previous ECGs available Confirmed by MD KINNEY KYLE ([id number]) on 08/09/2025 4:14:46 AM Referred By: EDMD Confirmed By: YOANA KINNEY MD us Yoana Kinney MD ECG ORDERABLES Final Result ECG * CT Angiogram Neck (08/05/2025 2:17 PM EDT) Anatomical Region Laterality Modality Neck, Vascular N/A Computed Tomogra phy 08/05/2025 2:45 PM EDT Impressions 08/05/2025 2:52 PM EDT Impression: No significant interval change in the left temporal parenchymal hemorrhage. No proximal large vessel occlusion or severe stenosis of the major arteries of the head and neck. Electronically Signed: Rodney Oliva MD 08/05/2025 2:52 PM EDT Workstation ID: [id number] Narrative 08/05/2025 2:[address] ANGIOGRAM HEAD W AI ANALYSIS OF LVO, CT ANGIOGRAM NECK Date of Exam: 08/05/2025 1:55 PM EDT Indication: Neuro Deficit, acute, Stroke suspected Neuro deficit, acute stroke suspected. Comparison: Head CT 08/05/2025 Technique: CTA of the head and neck was performed after the uneventful intravenous administration of iodinated contrast. Reconstructed coronal and sagittal images were also obtained. In addition, a 3-D volume rendered image was created for interpretation. Automated exposure control and iterative reconstruction methods were used. Findings: HEAD CTA: Anterior circulation: No proximal large vessel occlusion or major stenosis. Posterior circulation: No proximal large vessel occlusion or major stenosis. Major dural venous sinuses: No evidence of dural venous sinus thrombosis within the limitation of angiographic contrast imaging. Additional findings: No significant interval change in the left temporal parenchymal hemorrhage. No visible spot sign to suggest active arterial hemorrhage. No evidence of a high flow arteriovenous malformation or fistula. NECK CTA: Conventional, three-vessel, aortic arch. Normal contrast enhancement in the common carotid arteries from their origins to the bifurcation. Minimal atherosclerotic calcification at the carotid bulbs. No significant narrowing of the right ICA by NASCET criteria at its origin. No significant narrowing of the left ICA by NASCET criteria at its origin. Otherwise, normal contrast enhancement of the internal carotid arteries from their origins to the proximal intradural portions.Irregularity and atherosclerotic calcification of the petrous and cavernous carotid arteries. Normal enhancement in the vertebral arteries from their origins to their proximal intradural portions. The left vertebral artery is dominant. Patent subclavian arteries. Angiographic contrast timing precludes accurate assessement of jugular vein patency. SOFT TISSUE NECK: No exophytic lesion seen within the aerodigestive tract. No pathologic appearing lymph nodes by imaging criteria. The visualized glands appear unremarkable. No acute or aggressive appearing osseous or soft tissue process.Degenerative changes of the imaged spine. Atelectasis in the imaged lungs. Dilated main pulmonary artery measuring 42 mm which can be seen in pulmonary hypertension. Procedure Note Rodney Oliva MD - 08/05/2025 CT ANGIOGRAM HEAD W AI ANALYSIS OF LVO, CT ANGIOGRAM NECK Date of Exam: 08/05/2025 1:55 PM EDT Indication: Neuro Deficit, acute, Stroke suspected Neuro deficit, acute stroke suspected. Comparison: Head CT 08/05/2025 Technique: CTA of the head and neck was performed after the uneventfulintravenous administration of iodinated contrast. Reconstructed coronaland sagittal images were also obtained. In addition, a 3-D volume renderedimage was created for interpretation. Automated exposure control and iterative reconstructionmethods were used. Findings: HEAD CTA: Anterior circulation: No proximal large vessel occlusion or majorstenosis. Posterior circulation: No proximal large vessel occlusion or majorstenosis. Major dural venous sinuses: No evidence of dural venous sinus thrombosiswithin the limitation of angiographic contrast imaging. Additional findings: No significant interval change in the left temporalparenchymal hemorrhage. No visible spot sign to suggest active arterialhemorrhage. No evidence of a high flow arteriovenous malformation orfistula. NECK CTA: Conventional, three-vessel, aortic arch. Normal contrast enhancement in the common carotid arteries from theirorigins to the bifurcation. Minimal atherosclerotic calcification at the carotid bulbs. No significantnarrowing of the right ICA by NASCET criteria at its origin. Nosignificant narrowing of the left ICA by NASCET criteria at its origin. Otherwise, normal contrast enhancement of the internal carotid arteriesfrom their origins to the proximal intradural portions.Irregularity andatherosclerotic calcification of the petrous and cavernous carotidarteries. Normal enhancement in the vertebral arteries from their origins to theirproximal intradural portions. The left vertebral artery is dominant. Patent subclavian arteries. Angiographic contrast timing precludes accurate assessement of jugularvein patency. SOFT TISSUE NECK: No exophytic lesion seen within the aerodigestive tract. No pathologic appearing lymph nodes by imaging criteria. The visualized glands appear unremarkable. No acute or aggressive appearing osseous or soft tissueprocess.Degenerative changes of the imaged spine. Atelectasis in the imaged lungs. Dilated main pulmonary artery [id number] mm which can be seen in pulmonary hypertension. IMPRESSION: Impression: No significant interval change in the left temporal parenchymalhemorrhage. No proximal large vessel occlusion or severe stenosis of the majorarteries of the head and neck. Electronically Signed: Rodney Oliva MD 08/05/2025 2:52 PM EDT Workstation ID: [id number] Yoana Kinney MD IMG CT ORDERABLES Final Result * CT Angiogram Head w AI Analysis of LVO (08/05/2025 2:17 PM EDT) Anatomical Region Laterality Modality Head, Vascular N/A Computed Tomogra phy 08/05/2025 2:45 PM EDT Impressions 08/05/2025 2:52 PM EDT Impression: No significant interval change in the left temporal parenchymal hemorrhage. No proximal large vessel occlusion or severe stenosis of the major arteries of the head and neck. Electronically Signed: Rodney Oliva MD 08/05/2025 2:52 PM EDT Workstation ID: [id number] Narrative 08/05/2025 2:[address] ANGIOGRAM HEAD W AI ANALYSIS OF LVO, CT ANGIOGRAM NECK Date of Exam: 08/05/2025 1:55 PM EDT Indication: Neuro Deficit, acute, Stroke suspected Neuro deficit, acute stroke suspected. Comparison: Head CT 08/05/2025 Technique: CTA of the head and neck was performed after the uneventful intravenous administration of iodinated contrast. Reconstructed coronal and sagittal images were also obtained. In addition, a 3-D volume rendered image was created for interpretation. Automated exposure control and iterative reconstruction methods were used. Findings: HEAD CTA: Anterior circulation: No proximal large vessel occlusion or major stenosis. Posterior circulation: No proximal large vessel occlusion or major stenosis. Major dural venous sinuses: No evidence of dural venous sinus thrombosis within the limitation of angiographic contrast imaging. Additional findings: No significant interval change in the left temporal parenchymal hemorrhage. No visible spot sign to suggest active arterial hemorrhage. No evidence of a high flow arteriovenous malformation or fistula. NECK CTA: Conventional, three-vessel, aortic arch. Normal contrast enhancement in the common carotid arteries from their origins to the bifurcation. Minimal atherosclerotic calcification at the carotid bulbs. No significant narrowing of the right ICA by NASCET criteria at its origin. No significant narrowing of the left ICA by NASCET criteria at its origin. Otherwise, normal contrast enhancement of the internal carotid arteries from their origins to the proximal intradural portions.Irregularity and atherosclerotic calcification of the petrous and cavernous carotid arteries. Normal enhancement in the vertebral arteries from their origins to their proximal intradural portions. The left vertebral artery is dominant. Patent subclavian arteries. Angiographic contrast timing precludes accurate assessement of jugular vein patency. SOFT TISSUE NECK: No exophytic lesion seen within the aerodigestive tract. No pathologic appearing lymph nodes by imaging criteria. The visualized glands appear unremarkable. No acute or aggressive appearing osseous or soft tissue process.Degenerative changes of the imaged spine. Atelectasis in the imaged lungs. Dilated main pulmonary artery measuring 42 mm which can be seen in pulmonary hypertension. Procedure Note Rodney Oliva MD - 08/05/2025 CT ANGIOGRAM HEAD W AI ANALYSIS OF LVO, CT ANGIOGRAM NECK Date of Exam: 08/05/2025 1:55 PM EDT Indication: Neuro Deficit, acute, Stroke suspected Neuro deficit, acute stroke suspected. Comparison: Head CT 08/05/2025 Technique: CTA of the head and neck was performed after the uneventfulintravenous administration of iodinated contrast. Reconstructed coronaland sagittal images were also obtained. In addition, a 3-D volume renderedimage was created for interpretation. Automated exposure control and iterative reconstructionmethods were used. Findings: HEAD CTA: Anterior circulation: No proximal large vessel occlusion or majorstenosis. Posterior circulation: No proximal large vessel occlusion or majorstenosis. Major dural venous sinuses: No evidence of dural venous sinus thrombosiswithin the limitation of angiographic contrast imaging. Additional findings: No significant interval change in the left temporalparenchymal hemorrhage. No visible spot sign to suggest active arterialhemorrhage. No evidence of a high flow arteriovenous malformation orfistula. NECK CTA: Conventional, three-vessel, aortic arch. Normal contrast enhancement in the common carotid arteries from theirorigins to the bifurcation. Minimal atherosclerotic calcification at the carotid bulbs. No significantnarrowing of the right ICA by NASCET criteria at its origin. Nosignificant narrowing of the left ICA by NASCET criteria at its origin. Otherwise, normal contrast enhancement of the internal carotid arteriesfrom their origins to the proximal intradural portions.Irregularity andatherosclerotic calcification of the petrous and cavernous carotidarteries. Normal enhancement in the vertebral arteries from their origins to theirproximal intradural portions. The left vertebral artery is dominant. Patent subclavian arteries. Angiographic contrast timing precludes accurate assessement of jugularvein patency. SOFT TISSUE NECK: No exophytic lesion seen within the aerodigestive tract. No pathologic appearing lymph nodes by imaging criteria. The visualized glands appear unremarkable. No acute or aggressive appearing osseous or soft tissueprocess.Degenerative changes of the imaged spine. Atelectasis in the imaged lungs. Dilated main pulmonary artery [id number] mm which can be seen in pulmonary hypertension. IMPRESSION: Impression: No significant interval change in the left temporal parenchymalhemorrhage. No proximal large vessel occlusion or severe stenosis of the majorarteries of the head and neck. Electronically Signed: Rodney Oliva MD 08/05/2025 2:52 PM EDT Workstation ID: [id number] us Yoana Kinney MD IM CT ORDERABLES Final Result * IA CRITICAL CARE ILL/INJURED PATIENT INIT 30-74 MIN (08/05/2025 2:08 PM EDT) Narrative Yoana Kinney MD - 08/05/2025 2:08 PM EDT Yoana Kinney MD 08/05/2025 6:16 PM Critical Care Performed by: Yoana Kinney MD Authorized by: Yoana Kinney MD Critical care provider statement: Critical care time (minutes): 41 Critical care time was exclusive of: Separately billable procedures and treating other patients Critical care was necessary to treat or prevent imminent or life-threatening deterioration of the following conditions: 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 Critical care was time spent personally by me on the following activities: Development of treatment plan with patient or surrogate, discussions with consultants, evaluation of patient's response to treatment, examination of patient, obtaining history from patient or surrogate, ordering and performing treatments and interventions, ordering and review of laboratory studies, ordering and review of radiographic studies, pulse oximetry, re-evaluation of patient's condition and review of old charts I assumed direction of critical care for this patient from another provider in my specialty: no Care discussed with: admitting provider Yoana Kinney MD PROCEDURE/MINOR SURGICAL ORDERAB LES Final Result * (ABNORMAL) POC CHEM 8 (08/05/2025 2:05 PM EDT) Glucose 132(H) 70 - 130 mg/dL 08/05/2025 2:09 PM EDT [facility] BUN 22 8 - 26 mg/dL 08/05/2025 2:09 PM EDT [facility] Creatinine 1.40(H) 0.60 - 1.30 mg/dL 08/05/2025 2:09 PM EDT [facility] Sodium 138 138 - 146 mmol/L 08/05/2025 2:09 PM EDT [facility] POC Potassium 4.4 3.5 - 4.9 mmol/L 08/05/2025 2:09 PM EDT [facility] Chloride 103 98 - 109 mmol/L 08/05/2025 2:09 PM EDT [facility] Total CO2 23(L) 24 - 29 mmol/L 08/05/2025 2:09 PM EDT [facility] Hemoglobin 11.9(L) 12.0 - 17.0 g/dL 08/05/2025 2:09 PM EDT [facility] Comment:Serial Number: [id number] 7Operator: [id number] Hematocrit 35(L) 38 - 51 % 08/05/2025 2:09 PM EDT [facility] Ionized Calcium 1.08(L) 1.15 - 1.30 mmol/L 08/05/2025 2:09 PM EDT [facility] eGFR 38.1(L) >60.0 mL/min/1.7 3 08/05/2025 2:09 PM EDT [facility] Blood 08/05/2025 2:05 PM EDT 08/05/2025 2:09 PM EDT Yoana Kinney MD POINT OF CARE TEST ORDERABLES Fi nal Result [facility]
[address] [place] [address], * CT Head Without Contrast Stroke Protocol (08/05/2025 1:55 PM EDT) Anatomical Region Laterality Modality Head N/A Computed Tomogra phy 08/05/2025 1:58 PM EDT Impressions 08/05/2025 2:04 PM EDT Impression: Parenchymal hemorrhage within the left temporal lobe with surrounding vasogenic edema and approximately 5 mm of rightward midline shift. Electronically Signed: Jagjit Florez MD 08/05/2025 2:04 PM EDT Workstation ID: [id number] Narrative 08/05/2025 2:[address] HEAD WO CONTRAST STROKE PROTOCOL Date of Exam: 08/05/2025 1:51 PM EDT Indication: Neuro deficit, acute, stroke suspected Neuro Deficit, acute, Stroke suspected. Comparison: None available. Technique: Axial CT images were obtained of the head without contrast administration. Reconstructed coronal images were also obtained. Automated exposure control and iterative construction methods were used. Scan Time: 1:59 p.m. Results discussed with stroke team at 1:59 p.m. Findings: Parenchyma: Within the left temporal lobe there is a 4.5 x 3.6 x 3.0 cm parenchymal hemorrhage with surrounding vasogenic edema. No loss of mora-white differentiation to suggest large territory infarct. Mild parenchymal volume loss. Scattered periventricular and subcortical white matter hypodensities, nonspecific, but most often consistent with small vessel ischemic changes. There is approximately 5 mm of rightward midline shift. No evidence of downward herniation. Ventricles and extra axial spaces:Prominent ventricles and sulci secondary to volume loss. No extra axial fluid collection seen. Other:Orbits are grossly intact. Scattered paranasal sinus mucosal thickening. Mastoid air cells are clear. Calvarium is intact. Intracranial atherosclerotic calcification is present. Procedure Note Jagjit Florez MD - 08/05/2025 CT HEAD WO CONTRAST STROKE PROTOCOL Date of Exam: 08/05/2025 1:51 PM EDT Indication: Neuro deficit, acute, stroke suspected Neuro Deficit, acute, Stroke suspected. Comparison: None available. Technique: Axial CT images were obtained of the head without contrastadministration. Reconstructed coronal images were also obtained.Automated exposure control and iterative construction methods were used. Scan Time: 1:59 p.m. Results discussed with stroke team at 1:59 p.m. Findings: Parenchyma: Within the left temporal lobe there is a 4.5 x 3.6 x 3.0 cmparenchymal hemorrhage with surrounding vasogenic edema. No loss ofgray-white differentiation to suggest large territory infarct. Mildparenchymal volume loss. Scattered periventricular and subcortical white matter hypodensities, nonspecific,but most often consistent with small vessel ischemic changes. There isapproximately 5 mm of rightward midline shift. No evidence of downwardherniation. Ventricles and extra axial spaces:Prominent ventricles and sulci secondaryto volume loss. No extra axial fluid collection seen. Other:Orbits are grossly intact. Scattered paranasal sinus mucosalthickening. Mastoid air cells are clear. Calvarium is intact. Intracranialatherosclerotic calcification is present. IMPRESSION: Impression: Parenchymal hemorrhage within the left temporal lobe with surroundingvasogenic edema and approximately 5 mm of rightward midline shift. Electronically Signed: Jagjit Florez MD 08/05/2025 2:04 PM EDT Workstation ID: [id number] Yoana Kinney MD IMG CT ORDERABLES Final Result documented in this encounter Visit Diagnoses Diagnosis ICH (intracerebral hemorrhage)- Primary Intracerebral hemorrhage Hemorrhagic stroke Intracerebral hemorrhage Intraparenchymal hemorrhage of brain Oral phase dysphagia Dysphagia, oral phase Communication deficit Subdural hematoma Subdural hemorrhage Paroxysmal SVT (supraventricular tachycardia) Coronary artery disease involving autologous vein coronary bypass graft without angina pectoris Hyperlipidemia LDL goal <100 Other and unspecified hyperlipidemia Essential hypertension Unspecified essential hypertension Hypothyroidism (acquired) Unspecified hypothyroidism Hemorrhagic stroke Intracerebral hemorrhage documented in this encounter Admitting Diagnoses Diagnosis ICH (intracerebral hemorrhage) Intracerebral hemorrhage documented in this encounter Administered Medications Inactive Administered Medications - up to 3 most recent administrations Medication Order MAR Action Action Date Dose Rate Site acetaminophen (TYLENOL) suppository 650 mg 650 mg, Rectal, Every 6 Hours PRN, Fever, Headache, Mild Pain, Starting on Mon08/05/25 at 2019, If given for fever, use fever parameter: fever greater than 100.4 F Based on patient request - if ordered for moderate or severe pain, provider allows for administration of a medication prescribed for a lower pain scale. Do not exceed 4 grams of acetaminophen in a 24 hr period. Max dose of 2gm for AST/ALT greater than 120 units/L. If given for pain, use the following pain scale: Mild Pain = Pain Score of 1-3, CPOT 1-2 Moderate Pain = Pain Score of 4-6, CPOT 3-4 Severe Pain = Pain Score of 7-10, CPOT 5-8 Given 08/06/2025 4:48 AM EDT 650 mg Given 08/05/2025 9:07 PM EDT 650 mg acetaminophen (TYLENOL) suppository 650 mg 650 mg, Rectal, Every 6 Hours PRN, Fever, Headache, Mild Pain, Starting on Mon08/06/25 at 1824, If given for fever, use fever parameter: fever greater than 100.4 F Based on patient request - if ordered for moderate or severe pain, provider allows for administration of a medication prescribed for a lower pain scale. Do not exceed 4 grams of acetaminophen in a 24 hr period. Max dose of 2gm for AST/ALT greater than 120 units/L. If given for pain, use the following pain scale: Mild Pain = Pain Score of 1-3, CPOT 1-2 Moderate Pain = Pain Score of 4-6, CPOT 3-4 Severe Pain = Pain Score of 7-10, CPOT 5-8 acetaminophen (TYLENOL) tablet 650 mg 650 mg, Oral, Every 6 Hours PRN, Mild Pain, Fever, Headache, Starting on Mon08/06/25 at 1824, If given for fever, use fever parameter: fever greater than 100.4 F Based on patient request - if ordered for moderate or severe pain, provider allows for administration of a medication prescribed for a lower pain scale. Do not exceed 4 grams of acetaminophen in a 24 hr period. Max dose of 2gm for AST/ALT greater than 120 units/L. If given for pain, use the following pain scale: Mild Pain = Pain Score of 1-3, CPOT 1-2 Moderate Pain = Pain Score of 4-6, CPOT 3-4 Severe Pain = Pain Score of 7-10, CPOT 5-8 Given 08/09/2025 8:13 PM EDT 6 50 mg Given 08/06/2025 8:04 PM EDT 650 mg ALPRAZolam (XANAX) tablet 0.25 mg 0.25 mg, Oral, 3 Times Daily PRN, Anxiety, Starting on Mon08/08/25 at 1138, For 5 days, (TRISTAN) Caution: Look alike/sound alike drug alert. Avoid grapefruit juice Given 08/10/2025 5:12 AM EDT 0.25 mg Given 08/09/2025 2:08 PM EDT 0.25 mg Given 08/09/2025 5:37 AM EDT 0.25 mg atorvastatin (LIPITOR) tablet 20 mg 20 mg, Oral, Every Evening, First dose on Mon08/05/25 at 1715, Avoid grapefruit juice. Given 08/09/2025 8:13 PM EDT 20 mg Given 08/08/2025 4:46 PM EDT 20 mg Given 08/07/2025 5:18 PM EDT 20 mg bisacodyl (DULCOLAX) EC tablet 5 mg 5 mg, Oral, Daily PRN, Constipation, Use if polyethylene glycol is ineffective, Starting on Mon08/05/25 at 1420, Use if no bowel movement after 12 hours. Swallow whole. Do not crush, split, or chew tablet. Given 08/09/2025 8:36 AM EDT 5 mg bisacodyl (DULCOLAX) suppository 10 mg 10 mg, Rectal, Daily PRN, Constipation, Use if bisacodyl oral is ineffective, Starting on Mon08/05/25 at 1420, Use if no bowel movement after 12 hours. Hold for diarrhea Calcium Replacement - Follow Nurse / BPA Driven Protocol Open Order & Select [facility] Electrolyte Replacement Protocol Algorithm to View Details cefTRIAXone (ROCEPHIN) 1,000 mg in sodium chloride 0.9 % 100 mL MBP 1,000 mg, Intravenous, at 200 mL/hr, Administer over 30 Minutes, Every 24 Hours, First dose on Jessica 08/07/25 at 1745, For 5 days, LR should be paused and flushing of the line with NS is recommended prior to and after completion of ceftriaxone infusion due to incompatibility. Do not co-adminster with calcium-containing solutions. Caution: Look alike/sound alike drug alert, Indications: Uncomplicated CystitisIndications:Uncomplicated Cystitis New Bag 08/09/2025 4:52 PM EDT 1,000 mg 200 mL/hr New Bag 08/08/2025 4:46 PM EDT 1,000 mg 200 mL/hr New Bag 08/07/2025 5:18 PM EDT 1,000 mg 200 mL/hr cefTRIAXone (ROCEPHIN) 1,000 mg in sodium chloride 0.9 % 100 mL MBP 1,000 mg, Intravenous, at 200 mL/hr, Administer over 30 Minutes, Every 24 Hours, First dose (after last modification) on 08/10/25 at 1400, For 2 doses, LR should be paused and flushing of the line with NS is recommended prior to and after completion of ceftriaxone infusion due to incompatibility. Do not co-adminster with calcium-containing solutions. Caution: Look alike/sound alike drug alert, Indications: Uncomplicated CystitisIndications:Uncomplicated Cystitis New Bag 08/10/2025 1:09 PM EDT 1,000 mg 200 mL/hr citalopram (CeleXA) tablet 40 mg 40 mg, Oral, Daily, First dose on Mon08/05/25 at 1715, Caution: Look alike/sound alike drug alert. Given 08/05/2025 5:24 PM EDT 40 mg diphenoxylate-atropine (LOMOTIL) 2.5-0.025 MG per tablet 1 tablet 1 tablet, Oral, Daily PRN, Diarrhea, Starting on 08/09/25 at 1137, Maximum 8 tablets per 24 hours. (TRISTAN) Given 08/09/2025 11:53 AM EDT 1 tablet iopamidol (ISOVUE-370) 76 % injection 75 mL 75 mL, Intravenous, Once in Imaging, On Mon08/05/25 at 1418, For 1 dose Given 08/05/2025 2:18 PM EDT 75 mL levothyroxine (SYNTHROID, LEVOTHROID) tablet 50 mcg 50 mcg, Oral, Every Ship Liner, First dose on Mon08/05/25 at 1700, Take on empty stomach. Given 08/10/2025 5:12 AM EDT 50 mcg Given 08/09/2025 5:39 AM EDT 50 mcg Given 08/08/2025 5:41 AM EDT 50 mcg Magnesium Standard Dose Replacement - Follow Nurse / BPA Driven Protocol Open Order & Select [facility] Electrolyte Replacement Protocol Algorithm to View Details mupirocin (BACTROBAN) 2 % nasal ointment 1 Application 1 Application, Each Nare, 2 Times Daily, First dose on Mon08/05/25 at 2100, For 5 days, Begin on day 1 of ICU admission and continue for 5 days, even if patient transferred out of critical care. MUPIROCIN APPLICATION: 1. Place patient's bed at 30 degrees, if tolerated. 2. Wash your hands with warm soapy water or use hand alterations manager. 3. Open the tube of mupirocin 2%. 4. Squeeze about 0.5 g (blueberry-size) of mupirocin from the tube onto a sterile applicator or a cotton swab. 5. Apply the swab directly into nostril. Ensure coating of the sides of the nostril. 6. Repeat with second sterile applicator for other nostril. 7. Gently press the sides of the nostrils together and massage gently for 60 seconds. ([facility]) Given 08/10/2025 10:52 AM EDT 1 Application Given 08/09/2025 8:13 PM EDT 1 Application Given 08/09/2025 8:36 AM EDT 1 Application nitroglycerin (NITROSTAT) SL tablet 0.4 mg 0.4 mg, Sublingual, Every 5 Minutes PRN, Chest Pain, Starting on Mon08/05/25 at 1420, If Pain Unrelieved After 3 Doses Notify MD May administer up to 3 doses per episode. Hold if SBP less than 100. ondansetron (ZOFRAN) injection 4 mg 4 mg, Intravenous, Every 6 Hours PRN, Nausea, Vomiting, Starting on Mon08/06/25 at 0526, If multiple N/V medications ordered, use in the following order: Ondansetron, Prochlorperazine, Promethazine. Use PO unless patient refuses or patient unable to swallow. Given 08/09/2025 5:54 AM EDT 4 mg Given 08/06/2025 6:28 PM EDT 4 mg Given 08/06/2025 5:31 AM EDT 4 mg pantoprazole (PROTONIX) EC tablet 40 mg 40 mg, Oral, Every Morning Before Breakfast, First dose on Mon08/06/25 at 0900, Swallow whole; do not crush, split, or chew. Given 08/10/2025 9:34 AM EDT 40 mg Given 08/09/2025 8:36 AM EDT 40 mg Given 08/08/2025 8:12 AM EDT 40 mg Phosphorus Replacement - Follow Nurse / BPA Driven Protocol Open Order & Select [facility] Electrolyte Replacement Protocol Algorithm to View Details polyethylene glycol (MIRALAX) packet 17 g 17 g, Oral, Daily PRN, Constipation, Use if senna-docusate is ineffective, Starting on Mon08/05/25 at 1420, Use if no bowel movement after 12 hours. Mix in 6-8 ounces of water. Use 4-8 ounces of water, tea, or juice for each 17 gram dose. Potassium Replacement - Follow Nurse / BPA Driven Protocol Open Order & [facility] Electrolyte Replacement Protocol Algorithm to View Details sennosides-docusate (PERICOLACE) 8.6-50 MG per tablet 2 tablet 2 tablet, Oral, 2 Times Daily, First dose on Mon08/05/25 at 2100, HOLD MEDICATION IF PATIENT HAS HAD BOWEL MOVEMENT. Start bowel management regimen if patient has not had a bowel movement after 12 hours. Given 08/10/2025 9:34 AM EDT 2 tablets Given 08/09/2025 8:36 AM EDT 2 tablets Given 08/08/2025 8:11 AM EDT 2 tablets sodium chloride 0.9 % flush 10 mL 10 mL, Intravenous, Every 12 Hours Scheduled, First dose on Mon08/05/25 at 1441 Given 08/07/2025 8:16 AM EDT 10 mL Given 08/06/2025 8:06 PM EDT 10 mL Given 08/06/2025 8:12 AM EDT 10 mL sodium chloride 0.9 % flush 10 mL 10 mL, Intravenous, Every 12 Hours Scheduled, First dose on Mon08/05/25 at 2100 Given 08/10/2025 9:35 AM EDT 10 mL Given 08/09/2025 8:14 PM EDT 10 mL Given 08/08/2025 10:41 PM EDT 10 mL sodium chloride 0.9 % flush 10 mL 10 mL, Intravenous, As Needed, Line Care, Starting on Mon08/05/25 at 1616 sodium chloride 0.9 % infusion 40 mL 40 mL, Intravenous, at 100 mL/hr, As Needed, Line Care, Starting on Mon08/05/25 at 1616, Following administration of an IV intermittent medication, flush line with 40mL NS at 100mL/hr. venlafaxine XR (EFFEXOR-XR) 24 hr capsule 75 mg 75 mg, Oral, Nightly, First dose (after last modification) on Mon08/06/25 at 1500, Do not crush or chew the capsules or tablets. The drug may not work as designed if the capsule or tablet is crushed or chewed. Swallow whole. Given 08/09/2025 8: 13 PM EDT 75 mg Given 08/07/2025 8:37 PM EDT 75 mg Given 08/06/2025 3:12 PM EDT 75 mg documented in this encounter Active and Recently Administered Medications Times are shown in EDT. Scheduled Medication Order 08/08/2025 08/09/2025 08/10/2025 atorvastatin (LIPITOR) tablet 20 mg 20 mg, Oral, Every Evening, First dose on Mon08/05/25 at 1715, Avoid grapefruit juice. 1646 (Given - Provider: Jad Woodruff, DOMINGO) 2012 (Given - Provider: Cindy Macario RN) cefTRIAXone (ROCEPHIN) 1,000 mg in sodium chloride 0.9 % 100 mL MBP (CANCELED) 1,000 mg, Intravenous, at 200 mL/hr, Administer over 30 Minutes, Every 24 Hours, First dose on Jessica 08/07/25 at 1745, For 5 days, LR should be paused and flushing of the line with NS is recommended prior to and after completion of ceftriaxone infusion due to incompatibility. Do not co-adminster with calcium-containing solutions. Caution: Look alike/sound alike drug alert, Indications: Uncomplicated Cystitis 1646 (New Bag - Provider: Jad Woodruff, DOMINGO) 1652 (New Bag - Provider: Jamilah Flannery RN) cefTRIAXone (ROCEPHIN) 1,000 mg in sodium chloride 0.9 % 100 mL MBP 1,000 mg, Intravenous, at 200 mL/hr, Administer over 30 Minutes, Every 24 Hours, First dose (after last modification) on [place] 08/10/25 at 1400, For 2 doses, LR should be paused and flushing of the line with NS is recommended prior to and after completion of ceftriaxone infusion due to incompatibility. Do not co-adminster with calcium-containing solutions. Caution: Look alike/sound alike drug alert, Indications: Uncomplicated Cystitis 1309 (New Bag - Provider: Jad Woodruff RN) levothyroxine (SYNTHROID, LEVOTHROID) tablet 50 mcg 50 mcg, Oral, Every Ship Liner, First dose on Mon08/05/25 at 1700, Take on empty stomach. 0541 (Given - Provider: Moreno Cortez, DOMINGO) 0539 (Given - Provider: Jaimie Licona, [place]) 0512 (Given - Provider: Cindy Macario, [place]) mupirocin (BACTROBAN) 2 % nasal ointment 1 Application (COMPLETED) 1 Application, Each Nare, 2 Times Daily, First dose on Mon08/05/25 at 2100, For 5 days, Begin on day 1 of ICU admission and continue for 5 days, even if patient transferred out of critical care. MUPIROCIN APPLICATION: 1. Place patient's bed at 30 degrees, if tolerated. 2. Wash your hands with warm soapy water or use hand alterations manager. 3. Open the tube of mupirocin 2%. 4. Squeeze about 0.5 g (blueberry-size) of mupirocin from the tube onto a sterile applicator or a cotton swab. 5. Apply the swab directly into nostril. Ensure coating of the sides of the nostril. 6. Repeat with second sterile applicator for other nostril. 7. Gently press the sides of the nostrils together and massage gently for 60 seconds[address] ([facility]) 811 (Given - Provider: Tish Avila RN)2239 (Given - Provider: Jaimie Licona RN) 835 (Given - Provider: Jamilah Flannery, DOM[place])2012 (Given - Provider: Cindy Macario RN) 1051 (Given - Provider: Jad Woodruff RN) pantoprazole (PROTONIX) EC tablet 40 mg 40 mg, Oral, Every Morning Before Breakfast, First dose on Mon08/06/25 at 0900, Swallow whole; do not crush, split, or chew. 811 (Given - Provider: Tish Avila RN) 835 (Given - Provider: Jamilah Flannery RN) 0934 (Given - Provider: Jad Woodruff RN) sennosides-docusate (PERICOLACE) 8.6-50 MG per tablet 2 tablet(Linked Group 1) 2 tablet, Oral, 2 Times Daily, First dose on Mon08/05/25 at 2100, HOLD MEDICATION IF PATIENT HAS HAD BOWEL MOVEMENT. Start bowel management regimen if patient has not had a bowel movement after 12 hours. 810 (Given - Provider: iTsh Avila RN)2240 (Not Given - Provider: Jaimie Licona RN - Reason: Contraindicated) 835 (Given - Provider: Jamilah Flannery, DOM[place])2009 (Not Given - Provider: Cindy Macario RN - Reason: Order parameters not met) 34 (Given - Provider: Jad Woodruff RN) sodium chloride 0.9 % flush 10 mL 10 mL, Intravenous, Every 12 Hours Scheduled, First dose on Mon08/05/25 at 2100 08 (Given - Provider: Tish Avila RN)2240 (Given - Provider: Jaimie Licona RN) 899 (Canceled Entry - Provider: Jamilah Flannery, DOMINGO)2013 (Given - Provider: Cindy Macario, [place]) 934 (Given - Provider: Jad Woodruff RN) venlafaxine XR (EFFEXOR-XR) 24 hr capsule 75 mg 75 mg, Oral, Nightly, First dose (after last modification) on Mon08/06/25 at 1500, Do not crush or chew the capsules or tablets. The drug may not work as designed if the capsule or tablet is crushed or chewed. Swallow whole. 2240 (Not Given - Provider: Jaimie Licona RN - Reason: Contraindicated) 2012 (Given - Provider: Cindy Macario RN) PRN Medication Order 08/08/2025 08/09/2025 08/10/2025 acetaminophen (TYLENOL) suppository 650 mg(Linked Group 2) 650 mg, Rectal, Every 6 Hours PRN, Fever, Headache, Mild Pain, Starting on Mon08/06/25 at 1824, If given for fever, use fever parameter: fever greater than 100.4 F Based on patient request - if ordered for moderate or severe pain, provider allows for administration of a medication prescribed for a lower pain scale. Do not exceed 4 grams of acetaminophen in a 24 hr period. Max dose of 2gm for AST/ALT greater than 120 units/L. If given for pain, use the following pain scale: Mild Pain = Pain Score of 1-3, CPOT 1-2 Moderate Pain = Pain Score of 4-6, CPOT 3-4 Severe Pain = Pain Score of 7-10, CPOT 5-8 2012 (Not Given: See Alt - Provider: Cindy Macario RN) acetaminophen (TYLENOL) tablet 650 mg(Linked Group 2) 650 mg, Oral, Every 6 Hours PRN, Mild Pain, Fever, Headache, Starting on Mon08/06/25 at 1824, If given for fever, use fever parameter: fever greater than 100.4 F Based on patient request - if ordered for moderate or severe pain, provider allows for administration of a medication prescribed for a lower pain scale. Do not exceed 4 grams of acetaminophen in a 24 hr period. Max dose of 2gm for AST/ALT greater than 120 units/L. If given for pain, use the following pain scale: Mild Pain = Pain Score of 1-3, CPOT 1-2 Moderate Pain = Pain Score of 4-6, CPOT 3-4 Severe Pain = Pain Score of 7-10, CPOT 5-8 2012 (Given - Provider: Cindy Macario RN) ALPRAZolam (XANAX) tablet 0.25 mg 0.25 mg, Oral, 3 Times Daily PRN, Anxiety, Starting on Mon08/08/25 at 1138, For 5 days, (TRISTAN) Caution: Look alike/sound alike drug alert. Avoid grapefruit juice 1707 (Given - Provider: Jad Woodruff RN) 0537 (Given - Provider: Jaimie Licona, RN)1408 (Given - Provider: Jamilah Flannery, DOM[place]) 0512 (Given - Provider: Cindy Macario RN) bisacodyl (DULCOLAX) EC tablet 5 mg(Linked Group 1) 5 mg, Oral, Daily PRN, Constipation, Use if polyethylene glycol is ineffective, Starting on Mon08/05/25 at 1420, Use if no bowel movement after 12 hours. Swallow whole. Do not crush, split, or chew tablet. 0836 (Given - Provider: Jamilah Flannery, [place]) bisacodyl (DULCOLAX) suppository 10 mg(Linked Group 1) 10 mg, Rectal, Daily PRN, Constipation, Use if bisacodyl oral is ineffective, Starting on Mon08/05/25 at 1420, Use if no bowel movement after 12 hours. Hold for diarrhea Calcium Replacement - Follow Nurse / BPA Driven Protocol Open Order & [employer] [facility] Electrolyte Replacement Protocol Algorithm to View Details diphenoxylate-atropine (LOMOTIL) 2.5-0.025 MG per tablet 1 tablet 1 tablet, Oral, Daily PRN, Diarrhea, Starting on Mon08/09/25 at 1137, Maximum 8 tablets per 24 hours. ([facility]) 1153 (Given - Provider: Jamilah Flannery RN) Magnesium Standard Dose Replacement - Follow Nurse / BPA Driven Protocol Open Order & [employer] [facility] Electrolyte Replacement Protocol Algorithm to View Details nitroglycerin (NITROSTAT) SL tablet 0.4 mg 0.4 mg, Sublingual, Every 5 Minutes PRN, Chest Pain, Starting on Mon08/05/25 at 1420, If Pain Unrelieved After 3 Doses Notify MD May administer up to 3 doses per episode. Hold if SBP less than 100. ondansetron (ZOFRAN) injection 4 mg 4 mg, Intravenous, Every 6 Hours PRN, Nausea, Vomiting, Starting on Mon08/06/25 at 0526, If multiple N/V medications ordered, use in the following order: Ondansetron, Prochlorperazine, Promethazine. Use PO unless patient refuses or patient unable to swallow. 0554 (Given - Provider: Jaimie Licona RN) Phosphorus Replacement - Follow Nurse / BPA Driven Protocol Open Order & [employer] [facility] Electrolyte Replacement Protocol Algorithm to View Details polyethylene glycol (MIRALAX) packet 17 g(Linked Group 1) 17 g, Oral, Daily PRN, Constipation, Use if senna-docusate is ineffective, Starting on Mon08/05/25 at 1420, Use if no bowel movement after 12 hours. Mix in 6-8 ounces of water. Use 4-8 ounces of water, tea, or juice for each 17 gram dose. Potassium Replacement - Follow Nurse / BPA Driven Protocol Open Order & [employer] [facility] Electrolyte Replacement Protocol Algorithm to View Details sodium chloride 0.9 % flush 10 mL 10 mL, Intravenous, As Needed, Line Care, Starting on Mon08/05/25 at 1616 sodium chloride 0.9 % infusion 40 mL 40 mL, Intravenous, at 100 mL/hr, As Needed, Line Care, Starting on Mon08/05/25 at 1616, Following administration of an IV intermittent medication, flush line with 40mL NS at 100mL/hr. Linked Groups Order Group 1: sennosides-docusate (PERICOLACE) 8.6-50 MG per tablet 2 tabletJump to med 2 tablet, Oral, 2 Times Daily, First dose on Mon08/05/25 at 2100, HOLD MEDICATION IF PATIENT HAS HAD BOWEL MOVEMENT. Start bowel management regimen if patient has not had a bowel movement after 12 hours. And polyethylene glycol (MIRALAX) packet 17 gJump to med 17 g, Oral, Daily PRN, Constipation, Use if senna-docusate is ineffective, Starting on Mon08/05/25 at 1420, Use if no bowel movement after 12 hours. Mix in 6-8 ounces of water. Use 4-8 ounces of water, tea, or juice for each 17 gram dose. And bisacodyl (DULCOLAX) EC tablet 5 mgJump to med 5 mg, Oral, Daily PRN, Constipation, Use if polyethylene glycol is ineffective, Starting on Mon08/05/25 at 1420, Use if no bowel movement after 12 hours. Swallow whole. Do not crush, split, or chew tablet. And bisacodyl (DULCOLAX) suppository 10 mgJump to med 10 mg, Rectal, Daily PRN, Constipation, Use if bisacodyl oral is ineffective, Starting on Mon08/05/25 at 1420, Use if no bowel movement after 12 hours. Hold for diarrhea Group 2: acetaminophen (TYLENOL) suppository 650 mgJump to med 650 mg, Rectal, Every 6 Hours PRN, Fever, Headache, Mild Pain, Starting on Mon08/06/25 at 1824, If given for fever, use fever parameter: fever greater than 100.4 F Based on patient request - if ordered for moderate or severe pain, provider allows for administration of a medication prescribed for a lower pain scale. Do not exceed 4 grams of acetaminophen in a 24 hr period. Max dose of 2gm for AST/ALT greater than 120 units/L. If given for pain, use the following pain scale: Mild Pain = Pain Score of 1-3, CPOT 1-2 Moderate Pain = Pain Score of 4-6, CPOT 3-4 Severe Pain = Pain Score of 7-10, CPOT 5-8 Or acetaminophen (TYLENOL) tablet 650 mgJump to med 650 mg, Oral, Every 6 Hours PRN, Mild Pain, Fever, Headache, Starting on Mon08/06/25 at 1824, If given for fever, use fever parameter: fever greater than 100.4 F Based on patient request - if ordered for moderate or severe pain, provider allows for administration of a medication prescribed for a lower pain scale. Do not exceed 4 grams of acetaminophen in a 24 hr period. Max dose of 2gm for AST/ALT greater than 120 units/L. If given for pain, use the following pain scale: Mild Pain = Pain Score of 1-3, CPOT 1-2 Moderate Pain = Pain Score of 4-6, CPOT 3-4 Severe Pain = Pain Score of 7-10, CPOT 5-8 documented in this encounter Care Teams Sorting Grapple Operator Relationship Specialty Start Date End Date Araseli Khan DO [address] [place] [address] PCP - General Family Medicine 01/02/23 documented as of this encounter
--- OUTSIDE RECORDS SUMMARY | 2025-08-08 07:15 | XMS_ITS | Encounter Summary ---
Author Organization [facility] Address [address] [place] [address] Care Team Providers Care Shotblast Equipment Operator Name Role Phone Araseli Khan DO Primary Care Provider [phone] Reason for Visit * Auth/Cert Specialty Diagnoses / Procedures Referred By Contac t Referred To Contact Diagnoses ICH (intracerebral hemorrhage) Referral ID Status Reason Start Date Expiration Date Visits Re quested Visits Authorized [id number] 1 1 Encounter Details Date Type Department Care Team (Late st Contact Info) Description 08/08/2025 8:15 AM EDT Ancillary Procedure [facility] IP SPEECH PATH [facility] [place] [address] Social History Tobacco Use Types Packs/Day Years Used Date Smoking Tobacco: Never Passive Smoke Exposure: Never Smokeless Tobacco: Never Alcohol Use Standard Drinks/Week Comments Yes 0 (1 standard drink = 0.6 oz pur e alcohol) [facility] Utilities Answer Date Recorded In the past 12 months has [employer], gas, oil, or water [employer] threatened to shut off services in your [...] Patient unable to answer 08/06/2025 Preferred Language Indonesian 08/06/2025 Comments Unknown Sex and Gender Information Value Date Recorded Sex Assigned at Not on file Legal Sex Female 1:35 PM EDT Gender Identity Not on file Sexual Orientation Not on file documented as of this encounter Plan of Treatment Upcoming Encounters Date Type Department Care Team (Late st Contact Info) Description 10/06/2025 9:30 AM EST Office Visit [facility] [address] [phone] Norma Cason, INFORMATION SYSTEMS AUDIT MANAGER [address] [place] [address] 11/27/2025 9:00 AM EST Office Visit [facility] [address] [address] [place], [place] [id number] Ashley Kinsey, INFORMATION SYSTEMS AUDIT MANAGER [address] [facility] [address] [place], [place] [id number] documented as of this encounter Procedures Procedure Name Priority Date/Time Associated Diagnosis Comments COUNTER STITCHER FEES FIBEROPTIC ENDO EVAL SWALLOW Routine 08/08/2025 9:14 AM EDT documented in this encounter Results * COUNTER STITCHER FEES - Fiberoptic Endo Eval Swallow (08/08/2025 9:14 AM EDT) Narrative SYSTEMGENERATED, DOCUMENTATION - 08/08/2025 9:14 AM EDT This procedure was auto-finalized with no dictation required. us Adalberto Alexander DO COUNTER STITCHER ORDERABLES Fin al Result documented in this encounter Visit Diagnoses Not on filedocumented in this encounter Care Teams Shotblast Equipment Operator Relationship Specialty Start Date End Date Araseli Khan DO [address] [place] [address] PCP - General Family Medicine 01/02/23 documented as of this encounter
--- OUTSIDE RECORDS SUMMARY | 2025-09-04 08:10 | XMS_ITS | Encounter Summary ---
Author Organization [facility] Address [address] [place] [address] Care Team Providers Care Insulation Supervisor Name Role Phone Araseli Khan DO Primary Care Provider [phone] Reason for Referral * MRI/CAT/PET Scan (Routine) - Closed Specialty Diagnoses / Procedures Referred By Contac t Referred To Contact Radiology Diagnoses Hemorrhagic stroke Procedures CT Head Without Contrast Yogesh Rios PA-C [address] [place] [address] Phone: tel: fax: [address] [address] Phone: tel: Referral ID Status Reason Start Date Expiration Date Visits Re quested Visits Authorized [id number] Closed 08/08/2025 11/07/2026 1 1 Reason for Visit * MRI/CAT/PET Scan (Routine) - Closed Specialty Diagnoses / Procedures Referred By Contac t Referred To Contact Radiology Diagnoses Hemorrhagic stroke Procedures CT Head Without Contrast Yogesh Rios PA-C [address] [address] Phone: tel: fax: [facility] [address] [place] [phone] Phone: tel: Referral ID Status Reason Start Date Expiration Date Visits Re quested Visits Authorized [id number] Closed 08/08/2025 11/07/2026 1 1 Encounter Details Date Type Department Care Team (Late st Contact Info) Description 09/04/2025 9:10 AM EDT - 09/04/2025 11:59 PM EDT Hospital Encounter [facility] [place] [address] [place] [address] Yogesh Rios PA-C [address] [place] [address] Hemorrhagic stroke Discharge Disposition: Home or Self Care Social History Tobacco Use Types Packs/Day Years Used Date Smoking Tobacco: Never Passive Smoke Exposure: Never Smokeless Tobacco: Never Alcohol Use Standard Drinks/Week Comments Yes 0 (1 standard drink = 0.6 oz pur e alcohol) [facility] Utilities Answer Date Recorded In the past 12 months has [employer], gas, oil, or water [employer] threatened to shut off services in your [...] Patient unable to answer 08/06/2025 Preferred Language Khmer 08/06/2025 Comments Unknown Sex and Gender Information Value Date Recorded Sex Assigned at Not on file Legal Sex Female 1:35 PM EDT Gender Identity Not on file Sexual Orientation Not on file documented as of this encounter Medications at Time of Discharge ALPRAZolam (XANAX) 0.25 MG tablet TAKE 1/2 TO 1 TABLET BY MOUTH 1 TO 3 TIMES EVERY DAY NEEDED 03/01/2023 amitriptyline (ELAVIL) 10 MG tablet Take 1 tablet by mouth Every Evening. 08/28/2025 atorvastatin (LIPITOR) 20 MG tablet Take 1 tablet by mouth Every Evening. 03/29/2023 cetirizine (zyrTEC) 10 MG tablet Take 1 tablet by mouth Every Night. Cranberry 500 MG tablet Take 1,000 mg by mouth Every Night. diphenoxylate-atr opine (LOMOTIL) 2.5-0.025 MG per tablet 08/19/2023 esomeprazole (nexIUM) 40 MG capsule Take 1 capsule by mouth Every Morning Before Breakfast. levothyroxine (SYNTHROID, LEVOTHROID) 50 MCG tablet Take 1 tablet by mouth Daily. 04/27/2023 mirtazapine (REMERON) 15 MG tablet Take 1 tablet by mouth Every Evening. 08/28/2025 montelukast (SINGULAIR) 10 MG tablet Take 1 tablet by mouth Every Night. multivitamin with minerals tablet tablet Take 1 tablet by mouth Daily. ondansetron (ZOFRAN) 4 MG tablet Take 1 tablet by mouth Every 8 (Eight) Hours As Needed. for nausea 04/25/2023 pantoprazole (PROTONIX) 40 MG EC tablet 08/21/2025 venlafaxine XR (EFFEXOR-XR) 75 MG 24 hr capsule Take 1 capsule by mouth Every Night. documented as of this encounter Plan of Treatment Upcoming Encounters Date Type Department Care Team (Late st Contact Info) Description 10/06/2025 9:30 AM EST Office Visit [facility] [address] [place] [phone] Norma Cason, AIR TRAFFIC CONTROLLER [address] [place] [address] 11/27/2025 9:00 AM EST Office Visit [facility] NE[facility] [address] [place] [address] [place] [address] Ashley Kinsey, AIR TRAFFIC CONTROLLER [address] [facility] [address] [place] [address] documented as of this encounter Procedures Procedure Name Priority Date/Time Associated Diagnosis Comments CT HEAD WO CONTRAST Routine 09/04/2025 9 :19 AM EDT Hemorrhagic stroke documented in this encounter Results * CT [...] MD 09/04/2025 10:11 AM EDT Workstation ID: [id number] Narrative 09/04/2025 10:[address] HEAD [...] caliber. The basal cisterns appear patent. The ramachandran-white differentiation appears preserved. Degenerative changes appear stable. [...] in caliber. The basalcisterns appear patent. The ramachandran-white differentiation appears preserved.Degenerative changes appear stable. The [...] MD 09/04/2025 10:11 AM EDT Workstation ID: [id number] us Yogesh Rios PA-C IMG CT ORDERABLES Final Resu lt documented in this encounter Visit Diagnoses Diagnosis Hemorrhagic stroke Intracerebral hemorrhage documented in this encounter Care Teams Insulation Supervisor Relationship Specialty Start Date End Date Araseli Khan DO [address] [place] [address] PCP - General Family Medicine 01/02/23 documented as of this encounter
--- OUTSIDE RECORDS SUMMARY | 2025-09-12 10:00 | XMS_ITS | Encounter Summary ---
Author Organization [facility] Address [address] [place] [address] Care Team Providers Care Firearms Model Maker Name Role Phone Araseli Khan DO Primary Care Provider [phone] Reason for Referral * MRI/CAT/PET Scan (Routine) - Pending Review Specialty Diagnoses / Procedures Referred By Contac t Referred To Contact Radiology Diagnoses Nontraumatic hemorrhage of left cerebral hemisphere Procedures MRI Brain With & Without Contrast Ashley Kinsey APRN [address] [address] Phone: tel: fax: [facility] [address] [place] [address] Phone: tel: Referral ID Status Reason Start Date Expiration Date V isits Requested Visits Authorized [id number] Pending Review 09/12/2025 12/12/2026 1 1 Reason for Visit * Reason Comments Hospital Follow Up Visit 08/05-08/10 - ICH (intracerebral hemorrhage) Encounter Details Date Type Department Care Team (Late st Contact Info) Description 09/12/2025 10:00 AM EST Office Visit [facility] [address] [facility] [address] [place] [address] Ashley Kinsey APRN [address] [facility] [address] [place] [address] Nontraumatic hemorrhage of left cerebral hemisphere (Primary Dx); Essential hypertension; Hyperlipidemia LDL goal <100; Moderate recurrent major depression Social History Tobacco Use Types Packs/Day Years Used Date Smoking Tobacco: Never Passive Smoke Exposure: Never Smokeless Tobacco: Never Tobacco Cessation:Counseling Given: Not Answered Alcohol Use Standard Drinks/Week Comments Yes 0 (1 standard drink = 0.6 oz pur e alcohol) [facility] Utilities Answer Date Recorded In the past 12 months has th e [place], oil, or water [employer] threatened to shut off services in your [...] Patient unable to answer 08/06/2025 Preferred Language Uzbek 08/06/2025 Comments Unknown Sex and Gender Information Value Date Recorded Sex Assigned at Not on file Legal Sex Female 1:35 PM EDT Gender Identity Not on file Sexual Orientation Not on file documented as of this encounter Last Filed Vital Signs Vital Sign Reading Time Taken Comments Blood Pressure 120/84 09/12/2025 9:32 AM EST Pulse 109 09/12/2025 9:32 AM EST Temperature 37 C (98.6 F) 09/12/2025 9:32 AM EST Respiratory Rate 22 09/12/2025 9:32 AM EST Oxygen Saturation 97% 09/12/2025 9:32 AM EST Inhaled Oxygen Concentration - - Weight - - Height 170.2 cm (5' 7 ) 09/12/2025 9:32 AM EST Body Mass Index - - documented in this encounter Patient Instructions * Patient Instructions* Ashley Kinsey APRN - 09/12/2025 10:00 AM EST -Continue to hold all antiplatelet and anticoagulants at this time. Will consider restarting aspirin after MRI of the brain is completed at the end of October. Will call with results of scan. -Continue Lipitor 20 mg nightly -Target blood pressure goals of less than 130/80. Please check BP twice daily at home and keep a log for PCP. -Continue to work with PT/OT/BAD CLOTH CHECKER -Fall precautions -Follow up with PCP next week regarding med changes for depression and anxiety. If those changes are not successful I am happy to refer to Pyschiatry for specialty management of medications -911 for any new stroke like symptoms documented in this encounter Progress Notes * Ashley Kinsey APRN - 09/12/2025 10:00 AM EST New Patient Office Visit Encounter Date: 09/12/2025 Patient Name: Joie Kamara : 1945 PCP: Araseli Khan DO Referring Provider: No ref. provider found Chief Complaint: Chief Complaint Patient presents with Hospital Follow Up Visit BH 08/05-08/10 - ICH (intracerebral hemorrhage) History of Present Illness: Joie Kamara is a 80 y.o. 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 CT head revealed parenchymal hemorrhage withinthe left temporal lobe with surrounding vasogenic edema and approximately 5 mm of rightward midlineshift. CTA head/neck negative for any flow-limiting stenosis, [...] reviewed and does not recommend surgical intervention. Etiology of hemorrhage was not clearly known prior to discharge. All antiplatelets continued to be held. She was recommended to complete a [address] of the head to check for stability and consider resuming baby aspirin. There also was a plan for a 3-month MRI with and without contrast. The patient presents today accompanied by her daughter. She arrives in a wheelchair. She is very tearful today. She has significant mixed aphasia. Her assessment is difficult but she does seem to have a component of visual field cut. She is generally weak but does not have any unilateral deficits and does have antigravity strength in all 4 extremities. I reviewed the results of the patient's CT scan with her and her daughter and explained that there has been significant improvement in the appearance of her hemorrhage. However given that there is still some edema and midline shift and the hemorrhage itself is not completely resolved we made the decision through shared decision making to ho nieves to hold aspirin until completion of MRI at the end of October. The patient's daughter voices concern about resuming aspirin at this time which I feel is reasonable. The patient has not had any new strokelike symptoms or episodes. She has not had any significant falls. She does continue to workwith therapy. Stroke Risk Factors: hypertension Subjective Review of Systems: Review of Systems Unable to perform ROS: Other Past Medical History: Past Medical History: Diagnosis Date Chronic kidney disease Coronary artery disease Hypertension PVT (paroxysmal ventricular tachycardia) Past Surgical History: Past Surgical History: Procedure Laterality Date APPENDECTOMY CHOLECYSTECTOMY HYSTERECTOMY Family History: Family History Problem Relation Name Age of Onset Heart attack Father Breast cancer Sister Social History: Social History Socioeconomic History Marital status: Tobacco Use Smoking status: Never Passive exposure: Never Smokeless tobacco: Never Vaping Use Vaping status: Never Used Substance and Sexual Activity Alcohol use: Yes Comment: occ Drug use: Never Sexual activity: Defer Medications: Current Outpatient Medications: ALPRAZolam (XANAX) 0.25 MG tablet, TAKE 1/2 TO 1 TABLET BY MOUTH 1 TO 3 TIMES EVERY DAY NEEDED, Disp: , Rfl: amitriptyline (ELAVIL) 10 MG tablet, Take 1 tablet by mouth Every Evening., Disp: , Rfl: atorvastatin (LIPITOR) 20 MG tablet, Take 1 tablet by mouth Every Evening., Disp: , Rfl: cetirizine (zyrTEC) 10 MG tablet, Take 1 tablet by mouth Every Night., Disp: , Rfl: Cranberry 500 MG tablet, Take 1,000 mg by mouth Every Night., Disp: , Rfl: dicyclomine (BENTYL) 10 MG capsule, TAKE 1 CAPSULE BY MOUTH EVERY 6 HOURS, Disp: , Rfl: diphenoxylate-atropine (LOMOTIL) 2.5-0.025 MG per tablet, , Disp: , Rfl: esomeprazole (nexIUM) 40 MG capsule, Take 1 capsule by mouth Every Morning Before Breakfast., Disp:, Rfl: famotidine (PEPCID) 20 MG tablet, Take 1 tablet by mouth 2 (Two) Times a Day., Disp: , Rfl: levocetirizine (XYZAL) 5 MG tablet, 1 [tablet_in_the_evening] by oral route., Disp: , Rfl: levothyroxine (SYNTHROID, LEVOTHROID) 50 MCG tablet, Take 1 tablet by mouth Daily., Disp: , Rfl: loratadine (CLARITIN) 10 MG tablet, Take 1 tablet by mouth Daily., Disp: , Rfl: mirtazapine (REMERON) 15 MG tablet, Take 1 tablet by mouth Every Evening., Disp: , Rfl: montelukast (SINGULAIR) 10 MG tablet, Take 1 tablet by mouth Every Night., Disp: , Rfl: multivitamin with minerals tablet tablet, Take 1 tablet by mouth Daily., Disp: , Rfl: nitrofurantoin, macrocrystal-monohydrate, (MACROBID) 100 MG capsule, TAKE 1 CAPSULE BY MOUTH 2 TIMES DAILY, Disp: , Rfl: ondansetron (ZOFRAN) 4 MG tablet, Take 1 tablet by mouth Every 8 (Eight) Hours As Needed. for nausea, Disp: , Rfl: pantoprazole (PROTONIX) 40 MG EC tablet, , Disp: , Rfl: phenazopyridine (PYRIDIUM) 100 MG tablet, Take 1 tablet by mouth 3 (Three) Times a Day., Disp: , Rfl: Probiotic Product (FLORAJEN BIFIDOBLEND PO), Take by mouth., Disp: , Rfl: sertraline (ZOLOFT) 25 MG tablet, Take 1 tablet by mouth Daily., Disp: , Rfl: venlafaxine XR (EFFEXOR-XR) 75 MG 24 hr capsule, Take 1 capsule by mouth Every Night., Disp: , Rfl: gabapentin (NEURONTIN) 100 MG capsule, Take 1 capsule by mouth 3 (Three) Times a Day. (Patient not taking: Reported on 09/12/2025), Disp: , Rfl: Allergies: Allergies Allergen Reactions Midodrine Itching Hydralazine Unknown - Low Severity Lipitor [Atorvastatin] Unknown - Low Severity Morphine Rash Objective Physical Exam: Vital Signs: Vitals: 09/12/25 0932 BP: 120/84 Pulse: 109 Resp: 22 Temp: 98.6 ??F (37 ??C) TempSrc: Temporal SpO2: 97% Weight: Comment: wheelchair Height: 170.2 cm (67 ) Body mass index is 27.28 kg/m??. Physical Exam Vitals and nursing note reviewed. Constitutional: General: She is awake. She is not in acute distress. Appearance: Normal appearance. She is normal weight. She is not ill-appearing. HENT: Head: Normocephalic and atraumatic. Nose: Nose normal. Mouth/Throat: Mouth: Mucous membranes are moist. Eyes: General: Lids are normal. Extraocular Movements: Extraocular movements intact. Pupils: Pupils are equal, round, and reactive to light. Cardiovascular: Rate and Rhythm: Normal rate and regular rhythm. Pulses: Normal pulses. Pulmonary: Effort: Pulmonary effort is normal. No respiratory distress. Skin: General: Skin is warm and dry. Neurological: Mental Status: She is alert. Cranial Nerves: Cranial nerve deficit present. Sensory: No sensory deficit. Motor: Weakness present. Coordination: Coordination normal. Gait: Gait abnormal. Psychiatric: Speech: Speech normal. Comments: tearful Neurological Exam Mental Status Awake and alert. Oriented only to person. Speech is normal. Mixed aphasia present. Follows one-stepcommands. Fund of knowledge is abnormal. Cranial Nerves CN II: Right visual acuity: Finger movement. Left visual acuity: Finger movement. Right superior quadrantanopsia. CN III, IV, : Extraocular movements intact bilaterally. Normal lids and orbits bilaterally. Pupils equal round and reactive to light bilaterally. CN V: Facial sensation is normal. CN VII: Full and symmetric facial movement. CN VIII: Hearing is normal to speech . CN XI: Shoulder shrug strength is normal. CN XII: Tongue midline without atrophy or fasciculations. Motor Normal muscle bulk throughout. No fasciculations present. Normal muscle tone. Strength is 5/5 in all four extremities except as noted. Generalized weakness 4/5, no drift any extremity . Sensory Light touch is normal in upper and lower extremities. Coordination Right: Huokey-od-npch normal.Left: Hfxjkj-rs-oriq normal. No obvious dysmetria . Gait Abnormal gait. Seated in wheelchair. Modified Susan Score: 4 0 No Symptoms 1 No significant disability. Able to carry out all usual activities, despite some symptoms. 2 Slight disability. Able to look after own affairs without assistance, but unable to carry out allprevious activities. 3 Moderate disability. Requires some help, but able to walk unassisted. 4 Moderately severe disability. Unable to attend to own bodily needs without assistance, and unableto walk unassisted. 5 Severe disability. Requires constant nursing care and attention, bedridden, incontinent. 6 Imaging Reviewed: CT Head Without Contrast Result Date: 09/04/2025 Impression: 1.2.5 cm hematoma within left temporal lobe has significantly improved, with decreased size and density, and decreased surrounding mass effect and vasogenic edema. There is 2 mm left to right midline shift, previously 6 mm. 2.No new acute intracranial process identified. Electronically Signed: Gopi Ding MD 09/04/2025 10:11 AM EDT Workstation ID: [id number] MRI Brain Without Contrast Result Date: 08/07/2025 [...] MD 08/07/2025 3:58 PM EDT Workstation ID: [id number] CT Head Without Contrast Result Date: 08/06/2025 [...] MD 08/06/2025 5:51 AM EDT Workstation ID: [id number] CT Head Without Contrast Result Date: 08/05/2025 Enlarging left temporal intraparenchymal hemorrhage with mildly worsened rightward midline shift. Electronically Signed: Mango Alvarado MD 08/05/2025 8:19 PM EDT Workstation ID: [id number] XR Chest 1 View Result Date: 08/05/2025 Impression: No acute cardiopulmonary findings. Suspected hiatal hernia. Electronically Signed: MD Ajay 08/05/2025 3:18 PM EDT Workstation ID: [id number] CT Angiogram Head w AI Analysis of LVO Result Date: 08/05/2025 Impression: No significant interval change in the left temporal parenchymal hemorrhage. No proximallarge vessel occlusion or severe stenosis of the major arteries of the head and neck. Electronically Signed: Rodney Oliva MD 08/05/2025 2:52 PM EDT Workstation ID: [id number] CT Angiogram Neck Result Date: 08/05/2025 Impression: No significant interval change in the left temporal parenchymal hemorrhage. No proximallarge vessel occlusion or severe stenosis of the major arteries of the head and neck. Electronically Signed: Rodney Oliva MD 08/05/2025 2:52 PM EDT Workstation ID: [id number] CT Head Without Contrast Stroke Protocol Result Date: 08/05/2025 Impression: Parenchymal hemorrhage within the left temporal lobe with surrounding vasogenic edema and approximately 5 mm of rightward midline shift. Electronically Signed: Jagjit Florez MD 08/05/2025 2:04 PM EDT Workstation ID: [id number] Laboratory Results: Hemoglobin Date Value Ref Range Status 08/08/2025 10.4 (L) 12.0 - 15.9 g/dL Final Hematocrit Date Value Ref Range Status 08/08/2025 29.6 (L) 34.0 - 46.6 % Final Platelets Date Value Ref Range Status 08/08/2025 78 (L) 140 - 450 10*3/mm3 Final Hemoglobin A1C Date Value Ref Range Status 08/06/2025 5.42 4.80 - 5.60 % Final LDL Cholesterol Date Value Ref Range Status 08/06/2025 39 0 - 100 mg/dL Final AST (SGOT) Date Value Ref Range Status 08/06/2025 19 1 - 32 U/L Final ALT (SGPT) Date Value Ref Range Status 08/06/2025 12 1 - 33 U/L Final Assessment / Plan Assessment/Plan: #History of Left Temporal Intracranial Hemorrhage -Etiology of hemorrhagic stroke is unclear at this time -[facility] wo on 08/05/2025 showed an acute hemorrhagic stroke affecting the anterior left temporal lobe. -[facility] wo 09/04/2025 shows 2.5 cm hematoma within left temporal lobe has significantly improved, withdecreased size and density, and decreased surrounding mass effect and vasogenic edema. There is 2 mm left to right midline shift, previously 6 mm. No new acute changes. -MRI brain with few areas of chronic microhemorrhages noted on SWI -Repeat MRI brain with and without contrast 3 months from index event. Ordered for end of October. -Continue to hold all antiplatelet and anticoagulants at this time. Patient's daughter does not feel comfortable resuming antiplatelet and I feel that it is reasonable to wait for repeat MRI in October given the appearance of her current repeat imaging. -Target blood pressure goals of less than 130/80. -Activity as tolerated, fall risk precautions -PT/OT/BAD CLOTH CHECKER -Reviewed s/sxs of stroke and when to call 911 #Essential hypertension -BP goal <130/80 -Management per primary team #Hyperlipidemia -Continue Lipitor 20 mg nightly #Depression #Tearfulness -Patient is currently being prescribed Elavil, Remeron, Effexor and Zoloft by her primary care provider. I have asked her to reach out for a conversation regarding making modifications to her depression medication. If she is unhappy with these modifications I am happy to refer her to psychiatry for more specialty care Discussed the importance of medication compliance and lifestyle modifications (adequate blood pressure control, adequate control of hyperlipidemia, adequate glycemic control, increase physical activity, and healthy diet) to help reduce the risk of future cerebrovascular events. Also discussed the signs symptoms that would warrant the patient return back to the emergency department including unilateral weakness, unilateral numbness, visual disturbances, loss of balance, speech difficulties, and/or a sudden severe headache. Greater than 60 minutes was spent on the care of this patient. Follow Up: Return in about 2 months (around 11/12/2025). Patient or patient advertising representative verbalized consent for the use of Ambient Listening during the visit with Ashley Kinsey APRN for chart documentation. 09/12/2025 15:06 EST Ashley [address]sey [address] [facility] Neuro Stroke documented in this encounter Plan of Treatment Upcoming Encounters Date Type Department Care Team (Late st Contact Info) Description 10/06/2025 9:30 AM EST Office Visit [facility] [address] [place] [address] Norma Cason, CONCILIATOR [address] [place] [address] 11/27/2025 9:00 AM EST Office Visit [facility] [address] [facility] [address] [place], [place] [id number] Ashley Kinsey, CONCILIATOR [address] [facility] [address] [address] Scheduled Orders Name Type Priority Associated Diagnoses Orde r Schedule MRI Brain With & Without Contrast Imaging Routine Nontraumatic hemorrhage of left cerebral hemisphere Expected: 11/03/2025 (Approximate), Expires: 12/13/2026 documented as of this encounter Visit Diagnoses Diagnosis Nontraumatic hemorrhage of left cerebral hemisphere- Primary Essential hypertension Unspecified essential hypertension Hyperlipidemia LDL goal <100 Other and unspecified hyperlipidemia Moderate recurrent major depression Major depressive disorder, recurrent episode, moderate documented in this encounter Care Teams Firearms Model Maker Relationship Specialty Start Date End Date Araseli Khan DO [address] [place] [address] PCP - General Family Medicine 01/02/23 documented as of this encounter
--- OUTSIDE RECORDS SUMMARY | 2025-09-17 11:16 | XMS_ITS | Clinical Summary ---
Author Organization [facility] Address [address] [place] [address] Phone Care Team Providers Care Eeg Technologist Name Role Phone Jesus Mac MD [ ] Conditions or Problems Problem Name Problem Code Onset Date Status Entry Date Provider Comment Standard Description Annotate Gallstones Pancreas K86.8 (ICD-10-CM ) 01/27 Active 01/27 Trupti Edwards Other specified diseases of pancreas Anemia, unspecified 696786944 (SNOMED CT) 01/27 Active 01/27 Trupti Edwards Anemia Colitis 54172994 (SNOMED CT) 01/27 Active 01/27 Trupti Edwards Colitis Acute pancreatitis 658767806 (SNOMED CT) 01/27 Active 01/27 Trupti Edwards Acute pancreatitis Unspecified bacteremia R78.81 (ICD-10-CM ) 01/27 Active 01/27 Trupti Edwards Bacteremia MSSA A49.01 (ICD-10-CM ) 01/27 Active 01/27 Trupti Edwards Methicillin susceptible Staphylococcus aureus infection, unspecified site Medications Medication Instructions Start Date Stop Date Generic Name [facility] Provider IMODIUM A-D TABS 4 LOPERAMIDE HCL TABS 59255830518 Jony Ramirez TYLENOL 8 HOUR 650 MG CR-TABS 4 ACETAMINOPHEN [id number] Jony Ramirez VANCOMYCIN HCL 250 MG CAPS 4 VANCOMYCIN HCL [id number] Jony Ramierz SYNTHROID 50 MCG TABS 4 LEVOTHYROXINE SODIUM 68710578449 Jony Ramirez ZOLOFT 50 MG TABS 4 SERTRALINE HCL 21892091415 Jony Ramirez FAMOTIDINE 20 MG TABS 4 FAMOTIDINE 28714952041 Jony Ramirez BYSTOLIC 5 MG TABS 4 NEBIVOLOL HCL 61782270812 Jony Ramirez ASPIRIN 81 MG ORAL TABLET 4 ASPIRIN [id number] Jony Ramirez Medications Administered No information available. Allergies, Adverse Reactions, Alerts No information available. Results Date Name Value Unit Range Flag Description Clinical Lists Update: Prelo ad SMOK STATUS unknown if ever smoked Tobacco smoking status Plan of Care No information available. Procedures No information available. Vital Signs No information available. Immunizations No information available. Advance Directives No information available.
--- OUTSIDE RECORDS SUMMARY | 2025-09-17 11:16 | XMS_ITS | Clinical Summary ---
Author Organization [facility] Address [address] [place] [address] Care Team Providers Care Stenotype Machine Operator Name Role Phone Unavailable Primary Care Provider Unavailabl e Allergies Active Allergy Reactions Criticality Noted Date Comments Amoxicillin-Pot Clavulanate Diarrhea Low 08/19/20 24 Morphine Hives Medium 03/21/2024 Social History Tobacco Use Types Packs/Day Years Used Date Smoking Tobacco: Never Assessed Comments Unknown Sex and Gender Information Value Date Recorded Sex Assigned at Not on file Legal Sex Female 6:23 PM EDT Gender Identity Not on file Sexual Orientation Not on file Plan of Treatment Health Maintenance Due Date Last Done Comments [facility]-Bone Density Scan 1945 [facility]-Depression Screening 1945 [facility]-Infant/Child/Adol SDOH Screenings 1945 [facility]- SDOH Screenings 1963 [facility]-Adult SDOH Screenings 1963 [facility]-DTaP,Tdap,and Td Vaccines (1 - Tdap) 02/19/1964 [facility]-Pneumococcal Vaccine: 50+ Years (1 of 1 - PCV) 1995 [facility]-Zoster Vaccines (1 of 2) 1995 [facility]-RSV Vaccine: 60+ Years or (1 - 1-dose 75+ series) 02/19/2020 [id number] Vaccine ( - 2024- season) 2025 10/26/2021, 01/29/2021, 12/30/2020 [facility]-Influenza Vaccine (#1) 2025 HPV Vaccines Aged Out No longer eligi ble based on patient's age to complete this topic [facility]-HIB Vaccines Aged Out No longer e ligible based on patient's age to complete this topic [facility]-Hepatitis A Vaccines Aged Out No longer eligible based on patient's age to complete this topic [facility]-IPV Vaccines Aged Out No longer e ligible based on patient's age to complete this topic [facility]-Rotavirus Vaccines Aged Out No lo nger eligible based on patient's age to complete this topic Insurance MEDICARE [facility]
--- OUTSIDE RECORDS SUMMARY | 2025-09-17 11:17 | XMS_ITS | Encounter Summary ---
Author Organization [facility] Address [address] [place] [address] Care Team Providers Care Photo Tech Name Role Phone [place] Araselichanell Jacksongh Primary Care Provider [phone] Encounter Details Date Type Department Care Team (Latest Contact Info) Description 09/04/2025 Travel Social History Tobacco Use Types Packs/Day Years Used Date Smoking Tobacco: Never Passive Smoke Exposure: Never Smokeless Tobacco: Never Alcohol Use Standard Drinks/Week Comments Yes 0 (1 standard drink = 0.6 oz pur e alcohol) occ [facility] Utilities Answer Date Recorded In the past 12 months has th e electric, gas, oil, or water company [...] Patient unable to answer 08/06/2025 Preferred Language Malay 08/06/2025 Comments Unknown Sex and Gender Information Value Date Recorded Sex Assigned at Not on file Legal Sex Female 1:35 PM EDT Gender Identity Not on file Sexual Orientation Not on file documented as of this encounter Plan of Treatment Upcoming Encounters Date Type Department Care Team (Late st Contact Info) Description 10/06/2025 9:30 AM EST Office Visit [facility]IOLOG[facility] [address] [address] Norma Cason APRN [address] [place] [address] 11/27/2025 9:00 AM EST Office Visit [facility] NEUROLOGY [address] [place] [address] [address] [place] [address] Ashley Kinsey, MARINE DRAFTER [address] [address] documented as of this encounter Visit Diagnoses Not on filedocumented in this encounter Care Teams Photo Tech Relationship Specialty Start Date End Date Araseli Khan DO [address] [place] [address] PCP - General Family Medicine 01/02/23 documented as of this encounter
--- OUTSIDE RECORDS SUMMARY | 2025-09-17 11:17 | XMS_ITS | Encounter Summary ---
Author Organization [facility] Address [address] [place] [address] Care Team Providers Care Senior Group Manager Name Role Phone [place] Araselichanell Jacksongh Primary Care Provider [phone] Encounter Details Date Type Department Care Team (Latest Contact Info) Description 08/05/2025 Travel Social History Tobacco Use Types Packs/Day Years Used Date Smoking Tobacco: Never Passive Smoke Exposure: Never Smokeless Tobacco: Never Alcohol Use Standard Drinks/Week Comments Yes 0 (1 standard drink = 0.6 oz pur e alcohol) occ [facility] Utilities Answer Date Recorded In the past [...] Patient unable to answer 08/06/2025 Preferred Language French 08/06/2025 Comments Unknown Sex and Gender Information Value Date Recorded Sex Assigned at Not on file Legal Sex Female 1:35 PM EDT Gender Identity Not on file Sexual Orientation Not on file documented as of this encounter Functional Status * Calculated C-SSRS Risk Score (Lifetime/Recent) Answer Date of Assessment Author No Risk Indicated 08/05/2025 2:14 PM EDT Tripp De Los Santos RN * Spring Suicide Severity Rating Scale (Screener/Recent Self-Report) Question Answer Date of Assessment Author 1. Wish to be (Past 1 Month) No 025 2:14 PM EDT Cassidy De Los Santos RN 2. Non-Specific Active Suici nathaniel Thoughts (Past 1 Month) No 08/05/2025 2:14 PM EDT Lowe, Brittan i, RN 6. Suicidal Behavior (Lifetime) No 2:14 PM EDT Cassidy De Los Santos, DOMINGO documented as of this encounter Plan of Treatment Upcoming Encounters Date Type Department Care Team (Late st Contact Info) Description 10/06/2025 9:30 AM EST Office Visit [facility] [address] [place] [id number] Norma Cason, EDGE SANDER [address] [place] [address] 11/27/2025 9:00 AM EST Office Visit [facility] NEUROLOGY [address] [place] [address] [place] [address] [id number] Ashley Kinsey, EDGE SANDER [address] [facility] [address] [place], [place] [id number] documented as of this encounter Visit Diagnoses Not on filedocumented in this encounter Care Teams Senior Group Manager Relationship Specialty Start Date End Date Araseli Khan DO [address] [place] [address] PCP - General Family Medicine 01/02/23 documented as of this encounter
--- OUTSIDE RECORDS SUMMARY | 2025-09-17 11:17 | XMS_ITS | Encounter Summary ---
Author Organization [facility] Address [address] [place] [address] Care Team Providers Care Resin Coater Name Role Phone Rastab[place] Araselichanell Jacksongh Primary Care Provider [phone] Encounter Details Date Type Department Care Team (Latest Contact Info) Description 09/12/2025 Travel Social History Tobacco Use Types Packs/Day Years Used Date Smoking Tobacco: Never Passive Smoke Exposure: Never Smokeless Tobacco: Never Alcohol Use Standard Drinks/Week Comments Yes 0 (1 standard drink = 0.6 oz pur e alcohol) occ [facility] Utilities Answer Date Recorded In the past [...] Patient unable to answer 08/06/2025 Preferred Language Frisian 08/06/2025 Comments Unknown Sex and Gender Information Value Date Recorded Sex Assigned at Not on file Legal Sex Female 1:35 PM EDT Gender Identity Not on file Sexual Orientation Not on file documented as of this encounter Plan of Treatment Upcoming Encounters Date Type Department Care Team (Late st Contact Info) Description 10/06/2025 9:30 AM EST Office Visit [facility] [address] [place] [id number] Norma Cason APRN [address] [place] [address] 11/27/2025 9:00 AM EST Office Visit [facility] NEUROLOGY [address] [place] [address] [address] [place] [address] Ashley Kinsey, [employer] [address] [address] documented as of this encounter Visit Diagnoses Not on filedocumented in this encounter Care Teams Resin Coater Relationship Specialty Start Date End Date Araseli Khan DO [address] [place] [address] PCP - General Family Medicine 01/02/23 documented as of this encounter
--- OUTSIDE RECORDS SUMMARY | 2025-09-17 11:18 | XMS_ITS | Clinical Summary ---
Author Organization [facility] Address [address] [place] [address] Care Team Providers Care [id number] Application Developer Name Role Phone Araseli Khangh Primary Care Provider [phone] Allergies Active Allergy Reactions Criticality Noted Date Comments Hydralazine Unknown - Low Severity Low 05/01/2023 Atorvastatin Unknown - Low Severity Low 05/01/2023 Midodrine Itching 09/12/2025 Morphine Rash Low 05/01/2023 Medications ALPRAZolam (XANAX) 0.25 MG tablet TAKE 1/2 TO 1 TABLET BY MOUTH 1 TO 3 TIMES EVERY DAY NEEDED 03/01/2023 Active atorvastatin (LIPITOR) 20 MG tablet Take 1 tablet by mouth Every Evening. 03/29/2023 Active levothyroxine (SYNTHROID, LEVOTHROID) 50 MCG tablet Take 1 tablet by mouth Daily. 04/27/2023 Active ondansetron (ZOFRAN) 4 MG tablet Take 1 tablet by mouth Every 8 (Eight) Hours As Needed. for nausea 04/25/2023 Active multivitamin with minerals tablet tablet Take 1 tablet by mouth Daily. Active diphenoxylate-at ropine (LOMOTIL) 2.5-0.025 MG per tablet 08/19/2023 Active esomeprazole (nexIUM) 40 MG capsule Take 1 capsule by mouth Every Morning Before Breakfast. Active Cranberry 500 MG tablet Take 1,000 mg by mouth Every Night. Active montelukast (SINGULAIR) 10 MG tablet Take 1 tablet by mouth Every Night. Active cetirizine (zyrTEC) 10 MG tablet Take 1 tablet by mouth Every Night. Active venlafaxine XR (EFFEXOR-XR) 75 MG 24 hr capsule Take 1 capsule by mouth Every Night. Active amitriptyline (ELAVIL) 10 MG tablet Take 1 tablet by mouth Every Evening. 08/28/2025 Active nitrofurantoin, macrocrystal-mon ohydrate, (MACROBID) 100 MG capsule TAKE 1 CAPSULE BY MOUTH 2 TIMES DAILY Active loratadine (CLARITIN) 10 MG tablet Take 1 tablet by mouth Daily. Active levocetirizine (XYZAL) 5 MG tablet 1 [tablet_in_t he_evening] by oral route. Active famotidine (PEPCID) 20 MG tablet Take 1 tablet by mouth 2 (Two) Times a Day. Active dicyclomine (BENTYL) 10 MG capsule TAKE 1 CAPSULE BY MOUTH EVERY 6 HOURS Active gabapentin (NEURONTIN) 100 MG capsule Take 1 capsule by mouth 3 (Three) Times a Day. Active mirtazapine (REMERON) 15 MG tablet Take 1 tablet by mouth Every Evening. 08/28/2025 Active pantoprazole (PROTONIX) 40 MG EC tablet 08/21/2025 Active phenazopyridine (PYRIDIUM) 100 MG tablet Take 1 tablet by mouth 3 (Three) Times a Day. Active sertraline (ZOLOFT) 25 MG tablet Take 1 tablet by mouth Daily. Active Probiotic Product (FLORAJEN BIFIDOBLEND PO) Take by mouth. Active Active Problems Problem Noted Date Diagnosed Date ICH (intracerebral hemorrhage) 08/05/2025 Paroxysmal SVT (supraventricular tachycardia) Coronary artery disease invo lving autologous vein coronary bypass graft without angina pectoris 08/05/2025 Hyperlipidemia LDL goal <100 08/05/2025 Essential hypertension 08/05/2025 Hypothyroidism (acquired) 08/05/2025 Abnormal findings on diagnos tic imaging of heart and coronary circulation 03/06/2024 Assessment & Plan (03/06/2024 4:09 PM EDT): EKG revealed right BBB, left anterior fascicular block and possible anterior VT, probably old. Chest pain 03/06/2024 Assessment & Plan (03/06/2024 4:10 PM EDT): Worsening chest tightness and shortness of breath since last office visit. She was unable to tolerate nuclear stress test and is too weak and hypotensive to complete a treadmill stress test. - Coronary CTA for further evaluation Autonomic orthostatic hypotension 08/24/2023 Assessment & Plan (03/06/2024 4:11 PM EDT): Cause unclear, differential includes neurologic, cardiac, diarrhea from irritable bowel. Also could be upper cervical spine. Renin, cortisol, CMP, CBC, TSH ordered at last office visit and reviewed today. All unremarkable except for Cr 1.3 and GFR 42. Cardiac work-up ordered by Dr. Puri in April. Patient has not completed a nuclear stress test, she only had the initial portion completed.She completed a Holter monitor on 05/01/2023 that revealed a relatively benign study, multiple nonsustained SVT events noted. Carotid duplex from 06/02/2023 revealed <50% stenosis bilaterally. Echocardiogram from 06/02/2023 showed an EF of 61-65%. No significant valvular abnormalities. -Trial of midodrine 2.5 mg 3 times daily - Maintain adequate fluid status - Follow-up in 2 weeks to reassess Assessment & Plan (08/24/2023 11:42 AM EDT): Cause unclear, differential includes neurologic, cardiac, diarrhea from irritable bowel. Also could be upper cervical spine. Renin, cortisol, CMP, CBC, TSH ordered at last office visit and reviewed today. All unremarkable except for Cr 1.3 and GFR 42. Cardiac work-up ordered by Dr. Puri in April. Patient has not completed a nuclear stress test, she only had the initial portion completed.She completed a Holter monitor on 05/01/2023 that revealed a relatively benign study, multiple nonsustained SVT events noted. Carotid duplex from 06/02/2023 revealed <50% stenosis bilaterally. Echocardiogram from 06/02/2023 showed an EF of 61-65%. No significant valvular abnormalities. - We will reschedule nuclear stress test and follow-up in 1 month Urinary tract infectious disease 10/04/2018 Acute pancreatitis 01/27/2014 Anemia 01/27/2014 Bacteremia 01/27/2014 Colitis 01/27/2014 Methicillin susceptible Stap hylococcus aureus infection, unspecified site 01/27/2014 Other specified diseases of pancreas 01/27/2014 Resolved Problems Problem Noted Date Diagnosed Date Resolved Date Subdural hematoma 08/24/2023 08/05/2025 Assessment & Plan (08/24/2023 9:31 AM EDT): History of subdural hematoma due to a fall about 9 years ago. No follow-up since. MRI was ordered by Dr Puri but patient has cancelled multiple times. -Reschedule MRI Encounters Date Type Department Care Team Description 09/12/2025 10:00 AM EST Office Visit [facility] [address] [place] [address] Ashley Kinsey APRN Nontraumatic hemorrhage of left cerebral hemisphere (Primary Dx); Essential hypertension; Hyperlipidemia LDL goal <100; Moderate recurrent major depression 09/12/2025 Travel 09/04/2025 9:10 AM EDT - 09/04/2025 11:59 PM EDT Hospital Encounter [facility] [place] [facility] [address] [place] [address] Yogesh Rios PA-C Hemorrhagic stroke Discharge Disposition: Home or Self Care 09/04/2025 Travel 08/08/2025 8:15 AM EDT Ancillary Procedure [facility] IP SPEECH PATH [address] [place] [address] 08/05/2025 1:49 PM EDT - 08/10/2025 3:56 PM EDT Hospital Encounter [facility] [place] [address] [place] [address] Yoana Kinney MD Meenach, Adalberto Pham, Yuval Braden DO Hemorrhagic stroke (Primary Dx); Intraparenchymal hemorrhage of brain; Oral phase dysphagia; Communication deficit Discharge Disposition: Rehab Facility or Unit (DC - External) 08/05/2025 Travel from Last 3 Months Family History Medical History Relation Name Comments Heart attack Father Breast cancer Sister Relation Name Status Comments Father Sister Social History Tobacco Use Types Packs/Day Years Used Date Smoking Tobacco: Never Passive Smoke Exposure: Never Smokeless Tobacco: Never Tobacco Cessation:Counseling Given: Not Answered Alcohol Use Standard Drinks/Week Comments Yes 0 (1 standard drink = 0.6 oz pur e alcohol) [facility] Utilities Answer Date Recorded In the [...] Patient unable to answer 08/06/2025 Preferred Language Ugandan 08/06/2025 Comments Unknown Sex and Gender Information Value Date Recorded Sex Assigned at Not on file Legal Sex Female 1:35 PM EDT Gender Identity Not on file Sexual Orientation Not on file Last Filed Vital Signs Vital Sign Reading Time Taken Comments Blood Pressure 120/84 09/12/2025 9:32 AM EST Pulse 109 09/12/2025 9:32 AM EST Temperature 37 C (98.6 F) 09/12/2025 9:32 AM EST Respiratory Rate 22 09/12/2025 9:32 AM EST Oxygen Saturation 97% 09/12/2025 9:32 AM EST Inhaled Oxygen Concentration - - Weight 79 kg (174 lb 2.6 oz) 08/08/2025 6:00 AM EDT Height 170.2 cm (5' 7 ) 09/12/2025 9:32 AM EST Body Mass Index 27.28 08/05/2025 2:01 PM EDT Plan of Treatment Upcoming Encounters Date Type Department Care Team (Late st Contact Info) Description 10/06/2025 9:30 AM EST Office Visit [facility] [address] [place] [address] Norma Cason, BRAIDING MACHINE OPERATOR [address] [place] [address] 11/27/2025 9:00 AM EST Office Visit [facility] [address] [place] [address] [place] [address] Ashley Kinsey, BRAIDING MACHINE OPERATOR [address] [facility] [address] [place], [place] [id number] Health Maintenance Due Date Last Done Comments DXA SCAN 1945 TDAP/TD VACCINES (1 - Tdap) 02/19/1964 Pneumococcal Vaccine 50+ (1 of 1 - PCV) 1995 ZOSTER VACCINE (1 of 2) 1995 RSV Vaccine - Adults (1 - 1- dose 75+ series) 02/19/2020 COVID-19 Vaccine (3 - Modern a risk series) 11/23/2021 10/26/2021, 01/29/2021, 12/30/2020 ANNUAL WELLNESS VISIT 05/01/2023 INFLUENZA VACCINE 06/06/2025 LIPID PANEL 08/06/2026 08/06/2025 Procedures Procedure Name Priority Date/Time Associated Diagnosis Comments CT HEAD WO CONTRAST Routine 09/04/2025 9 :19 AM EDT Hemorrhagic stroke URINALYSIS AND MICROSCOPIC STAT 08/12/2025 4:29 PM EDT Routine general medical examination at a [facility] care facility URINALYSIS, MICROSCOPIC ONLY STAT 08/12/2025 4:29 PM EDT Routine general medical examination at a [facility] medical [facility] care facility URINALYSIS WITHOUT MICROSCOPIC (NO CULTURE) STAT 08/12/2025 4:29 PM EDT Routine general medical examination at a [facility] medical [facility] care facility WOUND OSTOMY EVAL AND TREAT Routine 08/08/2025 3:43 PM EDT FILLER SHREDDER HELPER FEES FIBEROPTIC ENDO EVAL SWALLOW Routine 08/08/2025 9:14 AM EDT PHOSPHORUS Routine 08/08/2025 4:47 AM EDT MAGNESIUM Routine 08/08/2025 4:47 AM EDT CBC (NO DIFF) Routine 08/08/2025 4:47 AM EDT BASIC METABOLIC [...] CONTRAST STAT 08/06/2025 5 :44 AM EDT LIPID PANEL Routine 08/06/2025 5:09 AM EDT HEMOGLOBIN A1C Routine 08/06/2025 5:09 AM EDT MAGNESIUM Routine 08/06/2025 5:09 AM EDT COMPREHENSIVE METABOLIC PANEL Routine 08/06/2025 5:09 AM EDT CBC WITH AUTO DIFFERENTIAL Routine 08/06/2025 5:09 AM EDT POCT GLUCOSE FINGERSTICK Routine 08/06/2025 5:[address] HEAD WO CONTRAST STAT 08/05/2025 8 :13 PM EDT XR CHEST 1 VW STAT 08/05/2025 2:54 PM EDT LIGHT BLUE TOP STAT 08/05/2025 2:35 PM EDT MORA TOP STAT 08/05/2025 2:35 PM EDT GOLD TOP - SST STAT 08/05/2025 2:35 PM EDT LAVENDER TOP STAT 08/05/2025 2:35 PM EDT DK GREEN TOP STAT 08/05/2025 2:35 PM EDT CBC AND DIFFERENTIAL STAT 08/05/2025 2:35 PM EDT CBC WITH AUTO DIFFERENTIAL STAT 08/05/2025 2:35 PM EDT ALT STAT 08/05/2025 2:35 PM EDT AST STAT 08/05/2025 2:35 PM EDT APTT STAT 08/05/2025 2:35 PM EDT PROTIME-INR STAT 08/05/2025 2:35 PM EDT RAINBOW DRAW STAT 08/05/2025 2:35 PM EDT SCANNED - TELEMETRY 08/05/2025 2 :21 PM EDT ECG 12-LEAD STAT 08/05/2025 2:[address] ANGIOGRAM NECK STAT 08/05/2025 2:[address] ANGIOGRAM HEAD W AI ANALYSIS OF LVO STAT 08/05/2025 2:17 PM EDT CO CRITICAL CARE ILL/INJURED PATIENT INIT 30-74 MIN Routine 08/05/2025 2:08 PM EDT POCT [id number] CT STAT 08/05/2025 2:[address] HEAD WO CONTRAST STROKE PROTOCOL STAT 08/05/2025 1:55 PM EDT SCANNED - LABS 06/19/2025 from Last 3 Months Results * CT Head Without Contrast (09/04/2025 9:19 AM EDT) Only the most recent of3 resultswithin the time period is included. Anatomical Region Laterality Modality Head N/A Computed [...] MD 09/04/2025 10:11 AM EDT Workstation ID: [id number] Narrative 09/04/2025 10:[address] HEAD [...] MD 09/04/2025 10:11 AM EDT Workstation ID: [id number] Yogesh Rios PA-C IMG CT ORDERABLES Final Resu lt * (ABNORMAL) Urinalysis, Microscopic Only - Urine, Clean Catch (08/12/2025 4:29 PM EDT) Only the most recent of2 resultswithin the time period is included. RBC, UA 0-2 None Seen, 0-2 /HPF 08/12/2025 7:52 PM EDT [facility] [place] [facility] WBC, UA 3-5(A) None Seen, 0-2 /HPF 08/12/2025 7:52 PM EDT [facility] [place] [facility] Bacteria, UA None Seen None Seen /HPF 08/12/2025 7:52 PM EDT [facility] [place] [facility] Squamous Epithelial Cells, UA 3-6(A) None Seen, 0-2 /HPF 08/12/2025 7:52 PM EDT [facility] [place] [facility] Hyaline Casts, UA None Seen None Seen /LPF 08/12/2025 7:52 PM EDT [facility] [place] [facility] Methodology Automated Microscopy 08/12/2025 7:52 PM EDT [facility] [place] [facility] Urine Urine specimen obtained by clean catch procedure / Unknown Collection / Unknown 08/12/2025 4:29 PM EDT 08/12/2025 7:11 PM EDT Vineet Gee URINE ORDERABLES Final Result [facility] [place] [facility]
[address] [place] [address], * (ABNORMAL) Urinalysis without microscopic (no culture) - Urine, Clean Catch (08/12/2025 4:29 PM EDT) Color, UA Yellow Yellow, Straw 08/12/2025 7:44 PM EDT [facility] [place] [facility] Appearance, UA Clear Clear 08/12/2025 7:44 PM EDT [facility] [place] [facility] pH, UA 5.5 5.0 - 8.0 08/12/2025 7:44 PM EDT [facility] [place] [facility] Specific [place], UA 1.019 1.005 - 1.030 08/12/2025 7:44 PM EDT [facility] [place] [facility] Glucose, UA Negative Negative 08/12/2025 7:44 PM EDT [facility] [place] [facility] Ketones, UA Negative Negative 08/12/2025 7:44 PM EDT [facility] [place] [facility] Bilirubin, UA Negative Negative 08/12/2025 7:44 PM EDT [facility] [place] [facility] Blood, UA Negative Negative 08/12/2025 7:44 PM EDT [facility] [place] [facility] Protein, UA Negative Negative 08/12/2025 7:44 PM EDT [facility] [place] [facility] Leuk Esterase, UA Moderate (2+)(A) Negative 08/12/2025 7:44 PM EDT [facility] [place] [facility] Nitrite, UA Negative Negative 08/12/2025 7:44 PM EDT [facility] [place] [facility] Urobilinogen, UA 0.2 E.U./dL 0.2 - 1.0 E.U./dL 08/12/2025 7:44 PM EDT [facility] [place] [facility] Urine Urine specimen obtained by clean catch procedure / Unknown Collection / Unknown 08/12/2025 4:29 PM EDT 08/12/2025 7:11 PM EDT Vineet Gee URINE ORDERABLES Final Result [facility] [place] [facility]
[address] [place] [address], * FILLER SHREDDER HELPER FEES - Fiberoptic Endo Eval Swallow (08/08/2025 9:14 AM EDT) Narrative SYSTEMGENERATED, DOCUMENTATION - 08/08/2025 9:14 AM EDT This procedure was auto-finalized with no dictation required. Adalberto Alexander DO FILLER SHREDDER HELPER ORDERABLES Fin al Result * (ABNORMAL) CBC (No Diff) (08/08/2025 4:47 AM EDT) WBC 5.48 3.40 - 10.80 10*3/mm3 08/08/2025 5:53 AM EDT [facility] [place] [facility] RBC 3.03(L) 3.77 - 5.28 10*6/mm3 08/08/2025 5:53 AM EDT [facility] [place] [facility] Hemoglobin 10.4(L) 12.0 - 15.9 g/dL 08/08/2025 5:53 AM EDT [facility] [place] [facility] Hematocrit 29.6(L) 34.0 - 46.6 % 08/08/2025 5:53 AM EDT [facility] [place] [facility] MCV 97.7(H) 79.0 - 97.0 fL 08/08/2025 5:53 AM EDT [facility] [place] [facility] MCH 34.3(H) 26.6 - 33.0 pg 08/08/2025 5:53 AM EDT [facility] [place] [facility] MCHC 35.1 31.5 - 35.7 g/dL 08/08/2025 5:53 AM EDT [facility] [place] [facility] RDW 15.0 12.3 - 15.4 % 08/08/2025 5:53 AM EDT [facility] [place] [facility] RDW-SD 53.0 37.0 - 54.0 fl 08/08/2025 5:53 AM EDT [facility] [place] [facility] MPV 12.1(H) 6.0 - 12.0 fL 08/08/2025 5:53 AM EDT [facility] [place] [facility] Platelets 78(L) 140 - 450 10*3/mm3 08/08/2025 5:53 AM EDT [facility] [place] [facility] Blood Venipuncture / Unknown 08/08/2025 4:47 AM EDT 08/08/2025 5:06 AM EDT us Aldo Gonzales MD LAB BLOOD ORDERABLES Final R esult Performing Organization Address City/[facility]/ZIP Co de Phone Number [facility] [place] [facility]
[address] [place] [address], * Phosphorus (08/08/2025 4:47 AM EDT) Phosphorus 3.2 2.5 - 4.5 mg/dL 08/08/2025 5:28 AM EDT [facility] [place] [facility] Blood Venipuncture / Unknown 08/08/2025 4:47 AM EDT 08/08/2025 5:06 AM EDT us Aldo Gonzales MD LAB BLOOD ORDERABLES Final R esult [facility] [place] [facility]
[address] [place] [address], * Magnesium (08/08/2025 4:47 AM EDT) Only the most recent of2 resultswithin the time period is included. Magnesium 2.0 1.6 - 2.4 mg/dL 08/08/2025 5:28 AM EDT [facility] [place] [facility] Blood Venipuncture / Unknown 08/08/2025 4:47 AM EDT 08/08/2025 5:06 AM EDT us Aldo Gonzales MD LAB BLOOD ORDERABLES Final R esult [facility] [place] [facility]
[address] [place] [address], * (ABNORMAL) Basic Metabolic Panel (08/08/2025 4:47 AM EDT) [facility] Glucose 97 65 - 99 mg/dL 08/08/2025 5:28 AM EDT [facility] [place] [facility] BUN 16.8 8.0 - 23.0 mg/dL 08/08/2025 5:28 AM EDT [facility] [place] [facility] Creatinine 0.97 0.57 - 1.00 mg/dL 08/08/2025 5:28 AM EDT [facility] [place] [facility] Sodium 135(L) 136 - 145 mmol/L 08/08/2025 5:28 AM EDT [facility] [place] [facility] Potassium 4.0 3.5 - 5.2 mmol/L 08/08/2025 5:28 AM EDT [facility] [place] [facility] Chloride 101 98 - 107 mmol/L 08/08/2025 5:28 AM EDT [facility] [place] [facility] CO2 24.0 22.0 - 29.0 mmol/L 08/08/2025 5:28 AM EDT [facility] [place] [facility] Calcium 8.6 8.6 - 10.5 mg/dL 08/08/2025 5:28 AM EDT [facility] [place] [facility] BUN/Creatinine Ratio 17.3 7.0 - 25.0 08/08/2025 5:28 AM EDT [facility] [place] [facility] Anion Gap 10.0 5.0 - 15.0 mmol/L 08/08/2025 5:28 AM EDT [facility] [place] [facility] eGFR 59.2(L) >60.0 mL/min/1.7 3 08/08/2025 5:28 AM EDT [facility] [place] [facility] Blood Venipuncture / Unknown 08/08/2025 4:47 AM EDT 08/08/2025 5:06 AM EDT Narrative [facility] [place] [facility] - 08/08/2025 5:28 AM EDT GFR [...] MD LAB BLOOD ORDERABLES Final R esult [facility] [place] [facility]
[address] [place] [address], * Telemetry Scan (08/07/2025 7:57 PM EDT) Only the most recent of2 resultswithin the time period is included. [facility] ECG ORDERABLES Final Result * (ABNORMAL) Urinalysis With Culture If Indicated - Straight Cath (08/07/2025 3:26 PM EDT) Color, UA Yellow Yellow, Straw 08/07/2025 4:11 PM EDT [facility] [place] [facility] Appearance, UA Cloudy(A) Clear 08/07/2025 4:11 PM EDT [facility] [place] [facility] pH, UA 6.0 5.0 - 8.0 08/07/2025 4:11 PM EDT [facility] [place] [facility] Specific [place], UA 1.013 1.005 - 1.030 08/07/2025 4:11 PM EDT [facility] [place] [facility] Glucose, UA Negative Negative 08/07/2025 4:11 PM EDT [facility] [place] [facility] Ketones, UA 15 mg/dL (1+)(A) Negative 08/07/2025 4:11 PM EDT [facility] [place] [facility] Bilirubin, UA Negative Negative 08/07/2025 4:11 PM EDT [facility] [place] [facility] Blood, UA Moderate (2+)(A) Negative 08/07/2025 4:11 PM EDT [facility] [place] [facility] Protein, UA Trace(A) Negative 08/07/2025 4:11 PM EDT [facility] [place] [facility] Leuk Esterase, UA Large (3+)(A) Negative 08/07/2025 4:11 PM EDT [facility] [place] [facility] Nitrite, UA Positive(A) Negative 08/07/2025 4:11 PM EDT [facility] [place] [facility] Urobilinogen, UA 1.0 E.U./dL 0.2 - 1.0 E.U./dL 08/07/2025 4:11 PM EDT [facility] [place] [facility] Urine (Straight Cath) Collection / Unknown 08/07/2025 3:26 PM EDT 08/07/2025 3:50 PM EDT [facility] - 08/07/2025 4:11 PM EDT In absence of clinical symptoms, the presence of pyuria, bacteria, and/or nitrites on the urinalysis result does not correlate with infection. us Aldo Gonzales MD URINE ORDERABLES Final Resul t [facility] [place] [facility]
[address] [place] [address], * (ABNORMAL) Urine Culture - Urine, Straight Cath (08/07/2025 3:26 PM EDT) Urine Culture >100,000 CFU/mL Escherichia coli(A) MED 08/09/2025 10:10 AM EDT [facility] Urine (Straight Cath) Collection / Unknown 08/07/2025 3:26 PM EDT 08/07/2025 3:50 PM EDT [facility] - 08/09/2025 10:10 AM EDT Colonization [...] Trimethoprim + Sulfamethoxazole MED <=20 ug/ml: Susceptible us Aldo Gonzales MD MICROBIOLOGY - GENERAL ORDER OSMIN Final Result [facility]
[address] [place] [address], * MRI Brain Without Contrast (08/07/2025 2:52 [...] MD 08/07/2025 3:58 PM EDT Workstation ID: [id number] Lester 08/07/2025 3:58 PM EDT MRI BRAIN WO [...] MD 08/07/2025 3:58 PM EDT Workstation ID: [id number] Paige Cary BRAIDING MACHINE OPERATOR IMG MRI ORDERABLES Final Result * POC Glucose Once (08/07/2025 5:06 AM EDT) Only the most recent of5 resultswithin the time period is included. [facility] Glucose 87 70 - 130 mg/dL 08/07/2025 5:08 AM EDT [facility] [place] [facility] Comment:Serial Number: [id number] Blood 08/07/2025 5:06 AM EDT 08/07/2025 5:08 AM EDT Adalberto Alexander DO POINT OF CARE TEST ORDERABLES Final Result [facility] [place] [facility]
[address] [place] [address], * (ABNORMAL) CBC Auto Differential (08/06/2025 5:09 AM EDT) Only the most recent of2 resultswithin the time period is included. Pathologist [facility] WBC 4.07 3.40 - 10.80 10*3/mm3 08/06/2025 5:31 AM EDT [facility] [place] [facility] RBC 3.11(L) 3.77 - 5.28 10*6/mm3 08/06/2025 5:31 AM EDT [facility] [place] [facility] Hemoglobin 10.4(L) 12.0 - 15.9 g/dL 08/06/2025 5:31 AM EDT [facility] [place] [facility] Hematocrit 31.4(L) 34.0 - 46.6 % 08/06/2025 5:31 AM EDT [facility] [place] [facility] MCV 101.0(H) 79.0 - 97.0 fL 08/06/2025 5:31 AM EDT [facility] [place] [facility] MCH 33.4(H) 26.6 - 33.0 pg 08/06[facility]2025 5:[facility] MCHC 33.1 31.5 - 35.7 g/dL 08/06/2025 5:31 AM EDT [facility] [place] RDW 15.3 12.3 - 15.4 % 08/06/2025 5:[facility] RDW-SD 55.8(H) 37.0 - 54.0 fl 08/06/2025 5:31 AM [facility] MPV 12.0 6.0 - 12.0 fL 08/06/2025 5:31 AM [facility] Platelets 83(L) 140 - 450 10*3/mm3 08/06/2025 5:31 AM EDT [facility] Neutrophil % 53.1 42.7 - 76.0 % 08/06/2025 5:31 AM [facility] Lymphocyte % 36.1 19.6 - 45.3 % 08[facility]06[facility]2025 5[facility] Monocyte % 7.4 5.0 - 12.0 % 08/06/2025 5[facility] Eosinophil % 2.5 0.3 - 6.2 % 08/06/2025 5:31 AM EDT [facility] Basophil % 0.7 0.0 - 1.5 % 08/06/2025 5[facility] Immature Grans % 0.2 0.0 - 0.5 % 08/06/2025 5:[facility] Neutrophils, Absolute 2.16 1.70 - 7.00 10*3/mm3 08/06/2025 5[facility] Lymphocytes, Absolute 1.47 0.70 - 3.10 10*3/mm3 08/06/2025 5:31 AM EDT [facility] Monocytes, Absolute 0.30 0.10 - 0.90 10*3/mm3 08/06/2025 5:31 AM EDT [facility] Eosinophils, Absolute 0.10 0.00 - 0.40 10*3/mm3 08/06/2025 5:31 AM EDT [facility] Basophils, Absolute 0.03 0.00 - 0.20 10*3/mm3 08/06/2025 5:31 AM EDT [facility] Immature Grans, Absolute 0.01 0.00 - 0.05 10*3/mm3 08/06/2025 5:31 AM EDT [facility] nRBC 0.0 0.0 - 0.2 /100 WBC 08/06/2025 5:31 AM EDT [facility] Blood Line / Unknown 08/06/2025 5: 09 AM EDT 08/06/2025 5:18 AM EDT Adalberto Alexander DO LAB BLOOD ORDERABLE S Final Result [facility]
[address] [place] [address], * Hemoglobin A1c (08/06/2025 5:09 AM EDT) Hemoglobin A1C 5.42 4.80 - 5.60 % 08/06/2025 5:49 AM EDT [facility] Blood Line / Unknown 08/06/2025 5: 09 AM EDT 08/06/2025 5:18 AM EDT Narrative [facility] - 08/06/2025 5:49 AM EDT Hemoglobin A1C Ranges: Increased Risk for Diabetes 5.7% to 6.4% Diabetes >= 6.5% Diabetic Goal < 7.0% Jenifer Park APRN LAB BLOOD ORDERABLES Final R esult [facility]
[address] [place] [address], * (ABNORMAL) Lipid Panel (08/06/2025 5:09 AM EDT) Total Cholesterol 99 0 - 200 mg/dL 08/06/2025 6:22 AM EDT [facility] Triglycerides 118 0 - 150 mg/dL 08/06/2025 6:22 AM EDT [facility] HDL Cholesterol 39(L) 40 - 60 mg/dL 08/06/2025 6:22 AM EDT [facility] LDL Cholesterol 39 0 - 100 mg/dL 08/06/2025 6:22 AM EDT [facility] VLDL Cholesterol 21 5 - 40 mg/dL 08/06/2025 6:22 AM EDT [facility] LDL/HDL Ratio 0.93 08/06/2025 6:22 AM EDT [facility] Blood Line / Unknown 08/06/2025 5: 09 AM EDT 08/06/2025 5:18 AM EDT Narrative [facility] - 08/06/2025 6:22 AM EDT Cholesterol [...] calculated using the NIH LDL-C calculation. Jenifer Roz ShuklaPark BRAIDING MACHINE OPERATOR LAB BLOOD ORDERABLES Final R esult [facility]
[address] [id number], * (ABNORMAL) Comprehensive Metabolic Panel (08/06/2025 5:09 AM EDT) [facility] Glucose 95 65 - 99 mg/dL 08/06/2025 6:22 AM EDT [facility] BUN 13.9 8.0 - 23.0 mg/dL 08/06/2025 6:22 AM EDT [facility] Creatinine 1.07(H) 0.57 - 1.00 mg/dL 08/06/2025 6:22 AM EDT [facility] Sodium 141 136 - 145 mmol/L 08/06/2025 6:22 AM EDT [facility] Potassium 4.2 3.5 - 5.2 mmol/L 08/06/2025 6:22 AM EDT [facility] Chloride 105 98 - 107 mmol/L 08/06/2025 6:22 AM EDT [facility] CO2 26.6 22.0 - 29.0 mmol/L 08/06/2025 6:22 AM EDT [facility] Calcium 8.8 8.6 - 10.5 mg/dL 08/06/2025 6:22 AM EDT [facility] Total Protein 5.6(L) 6.0 - 8.5 g/dL 08/06/2025 6:22 AM EDT [facility] Albumin 3.7 3.5 - 5.2 g/dL 08/06/2025 6:22 AM EDT [facility] ALT (SGPT) 12 1 - 33 U/L 08/06/2025 6:22 AM EDT [facility] AST (SGOT) 19 1 - 32 U/L 08/06/2025 6:22 AM EDT [facility] Alkaline Phosphatase 62 39 - 117 U/L 08/06/2025 6:22 AM EDT [facility] Total Bilirubin 0.9 0.0 - 1.2 mg/dL 08/06/2025 6:22 AM EDT [facility] Globulin 1.9 gm/dL 08/06/2025 6:22 AM EDT [facility] Comment:Calculated Result A/G Ratio 1.9 g/dL 08/06/2025 6:22 AM EDT [facility] BUN/Creatinine Ratio 13.0 7.0 - 25.0 08/06/2025 6:22 AM EDT [facility] Anion Gap 9.4 5.0 - 15.0 mmol/L 08/06/2025 6:22 AM EDT [facility] eGFR 52.6(L) >60.0 mL/min/1.7 3 08/06/2025 6:22 AM EDT [facility] Blood Line / Unknown 08/06/2025 5: 09 AM EDT 08/06/2025 5:18 AM EDT [facility] - 08/06/2025 6:22 AM EDT GFR [...] not include race as a factor us Adalberto Alexander DO LAB BLOOD ORDERABLE S Final Result [facility]
[address] [id number], * XR Chest 1 View (08/05/2025 2:54 PM EDT) Anatomical Region Laterality Modality Body N/A Radiographic Guillermina ging 08/05/2025 3:11 PM EDT Impressions 08/05/2025 3:18 PM EDT Impression: No acute cardiopulmonary findings. Suspected hiatal hernia. Electronically Signed: Deep Lackey MD 08/05/2025 3:18 PM EDT Workstation ID: [id number] Narrative 08/05/2025 3:18 PM EDT XR CHEST [...] MD 08/05/2025 3:18 PM EDT Workstation ID: [id number] Yoana Kinney MD IMG DIAGNOSTIC IMAGING ORDERABLE S Final Result * Mora Top (08/05/2025 2:35 PM EDT) Extra Tube Hold for add-ons. 08/05/2025 2:45 PM EDT [facility] Comment:Auto resulted. Blood Venipuncture / Unknown 08/05/2025 2:35 PM EDT 08/05/2025 2:42 PM EDT us Yoana Kinney MD LAB BLOOD ORDER ONLY Final Resul t [facility]
[address] [place] [address], * Gold Top - SST (08/05/2025 2:35 PM EDT) Extra Tube Hold for add-ons. 08/05/2025 2:45 PM EDT [facility] Comment:Auto resulted. Blood Venipuncture / Unknown 08/05/2025 2:35 PM EDT 08/05/2025 2:42 PM EDT us Yoana Kinney MD LAB BLOOD ORDER ONLY Final Resul t [facility]
[address] [place] [address], * Green Top (Gel) (08/05/2025 2:35 PM EDT) Extra Tube Hold for add-ons. 08/05/2025 2:45 PM EDT [facility] Comment:Auto resulted. Blood Venipuncture / Unknown 08/05/2025 2:35 PM EDT 08/05/2025 2:42 PM EDT us Yoana Kinney MD LAB BLOOD ORDER ONLY Final Resul t [facility]
[address] [place] [address], * Lavender Top (08/05/2025 2:35 PM EDT) Extra Tube hold for add-on 08/05/2025 2:45 PM EDT [facility] Comment:Auto resulted Blood Venipuncture / Unknown 08/05/2025 2:35 PM EDT 08/05/2025 2:42 PM EDT us Yoana Kinney MD LAB BLOOD ORDER ONLY Final Resul t Performing Organization Address [facility] Co de Phone Number [facility]
[address] [place] [address], * Light Blue Top (08/05/2025 2:35 PM EDT) Pathologist [facility] Extra Tube Hold for add-ons. 08/05/2025 2:45 PM EDT [facility] Comment:Auto resulted Blood Venipuncture / Unknown 08/05/2025 2:35 PM EDT 08/05/2025 2:41 PM EDT us Yoana Kinney MD LAB BLOOD ORDER ONLY Final Resul t Performing Organization Address [facility] de Phone Number [facility]
[address] [place] [address], * aPTT (08/05/2025 2:35 PM EDT) Pathologist [facility] PTT 26.5 22.0 - 39.0 seconds 08/05/2025 2:56 PM EDT [facility] Blood Venipuncture / Unknown 08/05/2025 2:35 PM EDT 08/05/2025 2:41 PM EDT Narrative [facility] - 08/05/2025 2:56 PM EDT PTT = The equivalent PTT values for the therapeutic range of heparin levels at 0.3 to 0.5 U/ml are 60 to 70 seconds. us Yoana Kinney MD LAB BLOOD ORDERABLES Final Resul t Performing Organization Address [facility] Co de Phone Number [facility]
[address] [place] [address], * (ABNORMAL) Protime-INR (08/05/2025 2:35 PM EDT) Protime 15.5(H) 12.2 - 15.3 Seconds 08/05/2025 2:56 PM EDT [facility] INR 1.16(H) 0.89 - 1.12 08/05/2025 2:56 PM EDT [facility] Blood Venipuncture / Unknown 08/05/2025 2:35 PM EDT 08/05/2025 2:41 PM EDT us Yoana Kinney MD LAB BLOOD ORDERABLES Final Resul t Performing Organization Address [facility] Co de Phone Number [facility]
[address] [place] [address], [place] [phone] * ALT (08/05/2025 2:35 PM EDT) ALT (SGPT) 10 1 - 33 U/L 08/05/2025 3:05 PM EDT [facility] Blood Venipuncture / Unknown 08/05/2025 2:35 PM EDT 08/05/2025 2:42 PM EDT us Yoana Kinney MD LAB BLOOD ORDERABLES Final Resul t Performing Organization Address [facility] de Phone Number [facility]
[address] [place] [address], [place] [phone] * AST (08/05/2025 2:35 PM EDT) AST (SGOT) 19 1 - 32 U/L 08/05/2025 3:05 PM EDT [facility] Blood Venipuncture / Unknown 08/05/2025 2:35 PM EDT 08/05/2025 2:42 PM EDT us Yoana Kinney MD LAB BLOOD ORDERABLES Final Resul t Performing Organization Address [facility] de Phone Number [facility]
[address] [place] [address], [place] [phone] * ECG 12 Lead ED Triage Standing [...] ORDERABLES Final Result ECG * CT Angiogram Head w AI Analysis [...] MD 08/05/2025 2:52 PM EDT Workstation ID: [id number] Narrative 08/05/2025 2:[address] ANGIOGRAM [...] the imaged lungs. Dilated main pulmonary artery [id number] mm which can be seen in pulmonary hypertension. IMPRESSION: Impression: No significant interval change in the left temporal parenchymalhemorrhage. No proximal large vessel occlusion or severe stenosis of the majorarteries of the head and neck. Electronically Signed: Rodney Oliva MD 08/05/2025 2:52 PM EDT Workstation ID: [id number] us Yoana Kinney MD IMG CT ORDERABLES Final Result * CT Angiogram Neck (08/05/2025 2:17 PM [...] MD 08/05/2025 2:52 PM EDT Workstation ID: [id number] Narrative 08/05/2025 2:[address] ANGIOGRAM [...] the imaged lungs. Dilated main pulmonary artery mm which can be seen in pulmonary hypertension. IMPRESSION: Impression: No significant interval change in the left temporal parenchymalhemorrhage. No proximal large vessel occlusion or severe stenosis of the majorarteries of the head and neck. 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 Critical care was time [...] specialty: no Care discussed with: admitting provider us Yoana Kinney MD PROCEDURE/MINOR SURGICAL ORDERAB LES Final Result * (ABNORMAL) POC CHEM 8 (08/05/2025 2:05 PM EDT) Glucose 132(H) 70 - 130 mg/dL 08/05/2025 2:09 PM EDT [facility] BUN 22 8 - 26 mg/dL 08/05/2025 2:09 PM EDT [facility] Creatinine 1.40(H) 0.60 - 1.30 mg/dL 08/05/2025 2:09 PM EDT [facility] Sodium 138 138 - 146 mmol/L 08/05/2025 2:09 PM EDT [facility] POC Potassium 4.4 3.5 - 4.9 mmol/L 08/05/2025 2:09 PM EDT [facility] Chloride 103 98 - 109 mmol/L 08/05/2025 2:09 PM EDT [facility] Total CO2 23(L) 24 - 29 mmol/L 08/05/2025 2:09 PM EDT [facility] Hemoglobin 11.9(L) 12.0 - 17.0 g/dL 08/05/2025 2:09 PM EDT [facility] Comment:Serial Number: [id number] 7Operator: [id number] Hematocrit 35(L) 38 - 51 % 08/05/2025 2:09 PM EDT [facility] Ionized Calcium 1.08(L) 1.15 - 1.30 mmol/L 08/05/2025 2:09 PM EDT [facility] eGFR 38.1(L) >60.0 mL/min/1.7 3 08/05/2025 2:09 PM EDT [facility] Blood 08/05/2025 2:05 PM EDT 08/05/2025 2:09 PM EDT Yoana Kinney MD POINT OF CARE TEST ORDERABLES Fi nal Result [facility]
[address] [place] [address], * CT Head Without Contrast Stroke Protocol (08/05/2025 1:55 PM EDT) Anatomical Region Laterality Modality Head N/A Computed Tomogra phy 08/05/2025 1:58 PM EDT Impressions 08/05/2025 2:04 PM EDT Impression: Parenchymal hemorrhage within the left temporal lobe with surrounding vasogenic edema and approximately 5 mm of rightward midline shift. Electronically Signed: Jagjit Florez MD 08/05/2025 2:04 PM EDT Workstation ID: [id number] Narrative 08/05/2025 2:[address] HEAD [...] MD 08/05/2025 2:04 PM EDT Workstation ID: [id number] Yoana Kinney MD IMG CT ORDERABLES Final Result * LABS SCANNED (06/19/2025) Aniya Lindsey APRN LAB BLOOD ORDERABLE S Final Result from Last 3 Months Insurance MEDICARE A & B Member Subscriber Plan / Payer (Ef fective 2010-Present) Name:Joie Kamara Member ID:[id number] Relation to Subscriber:Self Name:Joie Kamara Subscriber ID:[id number] Payer ID:[id number] Group ID:Not on file Type:Not on file Address: [facility] [address] [id number] [facility] Advance Directives * CPR (Attempt to Resuscitate) (Latest Code Status on File) Date Activated Date Inactivated Comments 08/09/2025 5:01 PM 08/10/2025 6:06 PM Question Answer Comments Code Status (Patient has no pulse and is not breathing): CPR (Attempt to Resuscitate) Medical Interventions (Patie nt has pulse or is breathing): Full Support Level Of Support Discussed With: Patient Care Teams [email or web address] Application Developer Relationship Specialty Start Date End Date Araseli Khan DO [address] [place] [id number] PCP - General Family Medicine 01/02/23
--- OUTSIDE RECORDS SUMMARY | 2025-09-17 11:18 | XMS_ITS | Encounter Summary ---
Author Organization [facility] Address [address] [place] [address] Care Team Providers Care Preforms Laminator Name Role Phone Araseli Khan Reyna Primary Care Provider [phone] Reason for Visit * Reason Comments Med Refill Encounter Details Date Type Department Care Team (Late st Contact Info) Description 03/06/2024 Refill [facility] [address] [phone] Samara Ortega, COMPANY TRUCK DRIVER [address] [facility] [address] [place] [address] Med Refill Social History Tobacco Use Types Packs/Day Years Used Date Smoking Tobacco: Never Passive Smoke Exposure: Never Smokeless Tobacco: Never Alcohol Use Standard Drinks/Week Comments Yes 0 (1 standard drink = 0.6 oz pur e alcohol) occ Abuse Screen Answer Date Recorded Unsafe at Home or Work/School Not on file Feels Threatened by Someone? Not on file 07/2023 Does Anyone Keep You from Co ntacting Others or Doint Things Outside the Home? Not on file 08/14/2023 Physical Sign of Abuse Present Not on file 1 Comments Unknown Sex and Gender Information Value Date Recorded Sex Assigned at Not on file Legal Sex Female 1:35 PM EDT Gender Identity Not on file Sexual Orientation Not on file documented as of this encounter Plan of Treatment Upcoming Encounters Date Type Department Care Team (Late st Contact Info) Description 10/06/2025 9:30 AM EST Office Visit [facility] [address] [place] [address] Norma Cason, COMPANY TRUCK DRIVER [address] [place] [address] 11/27/2025 9:00 AM EST Office Visit [facility] [address] [facility] [address] [place] [address] Ashley Kinsey, COMPANY TRUCK DRIVER [address] [facility] [address] [place], [place] [phone] documented as of this encounter Visit Diagnoses Diagnosis Autonomic orthostatic hypotension documented in this encounter Care Teams Preforms Laminator Relationship Specialty Start Date End Date Araseli Khan DO [address] [place] [address] PCP - General Family Medicine 01/02/23 documented as of this encounter
[2025-09-17 12:58] LABS: Hematocrit 37.5 % (37.0-47.0); Hemoglobin 12.2 g/dL (12.2-16.2); Immature Granulocytes % 0.6 %; Mean Corpuscular HGB Conc 32.5 g/dL (31.8-35.4); Mean Corpuscular Hemoglobin 33.6 pg (27.0-31.2); Mean Corpuscular Volume 103.3 fl (81-99); Nucleated Red Blood Cells % 0 %; Platelet Count 117 K/mm3 (142-424); Red Blood Count 3.63 M/mm3 (4.20-5.40); Red Cell Distribution Width-SD 59.1 fL; White Blood Count 5.4 K/mm3 (4.8-10.8)
[2025-09-18 11:12] LABS: Hepatitis C Antibody Non Reactive (Non Reactive)
== END 2025-09-17 23:59 | disposition home or self-care (01) ==
LOC: LAB 11:15
PROVIDERS: PCP Family Medicine; Visit Provider Internal Medicine Medical Oncology
DX: D69.6 Thrombocytopenia, unspecified (principal)
CPT/HCPCS: 36415; 85025; 86803; 87389